=== PATIENT | female | born 2000 | race Caucasian/White ===

== ENCOUNTER → 2024-07-05 | Outpatient (CLI) | payer SELFPAY ==
[2024-07-05 16:15] LABS: Absolute Lymphocyte Count 2.68 X10^3/uL (0.83-4.51); Absolute Neutrophil Count 10.9 X10^3/uL (2.0-7.7); Basophil# 0.04 X10^3/uL; Basophil% 0.3 % (0-1); Eosinophil# 0.27 X10^3/uL; Eosinophils% 1.8 % (0-5); Hematocrit 37.4 % (37-47); Hemoglobin 12.2 g/dL (12.0-15.0); Lymphocyte # 2.68 X10^3/ul (0.83-4.51); Lymphocyte % 17.9 % (19-41); Mean Corp Hgb Conc 32.6 g/dL (32-36); Mean Corpuscular Volume 82.7 fL (81-99); Mean Platelet Vol. 9.5 fl (6.2-12.0); Monocyte# 0.77 X10^3/uL; Monocyte% 5.1 % (0-10); NRBC Flagged by Analyzer 0 % (0-5); Neutrophil # 10.92 X10^3/uL (2.7-7.7); Neutrophil % 72.7 % (47-70); Platelet Count 337 K/mm3 (150-450); RBC Distribution Width CV 12.7 % (11.6-14.6); RBC Distribution Width SD 37.9 fl (35.1-43.9); Red Blood Count 4.52 M/mm3 (4.2-5.4)
[2024-07-05 16:29] LABS: Protein:Creat Ratio 81 mg/g CRE (0-200)
[2024-07-05 16:50] LABS: Hemoglobin A1c 6.2 % (<=5.6)
[2024-07-05 17:14] LABS: ALB/GLOB Ratio 1.3 RATIO (0.9-2.4); AST(SGOT) 15 U/L (<=31); Alanine Aminotransfer ALT/SGPT 11 U/L (<=34); Albumin, Serum 4.1 g/dL (3.5-5.0); Alkaline Phosphatase 73 U/L (35-104); Anion Gap 12 (5-15); BUN 11 mg/dL (4-19); Calcium,Total 9.3 mg/dL (7.6-11.0); Carbon Dioxide 21.4 mmol/L (21.0-32.0); Chloride 102 mmol/L (98-108); Creatinine, Serum 0.76 mg/dL (0.70-1.20); EST Glomerular Filtration Rate 113 (>60); Globulin 3.1 g/dL (2.2-4.2); Glucose 77 mg/dL (70-99); HIV Nonreactive (Nonreactive); Hepatitis B Surface Antigen Nonreactive (Nonreactive); Hepatitis C Antibody Nonreactive (Nonreactive); Potassium 3.7 mmol/L (3.3-5.1); Protein, Total 7.2 g/dL (5.9-8.4); Rubella IgG REAC (Nonreactive); Sodium Level 135 mmol/L (133-145); Syphilis Antibodies Nonreactive (Nonreactive); Thyroid Stim Hormone (TSH) 0.652 uIU/mL (0.300-4.200); Total Bilirubin 0.17 mg/dL (0.00-1.30)
[2024-07-08 06:08] LABS: Chlamydia By Nucleic Acid AMP Negative (Negative); Gonococcus By Nucleic Acid AMP Negative (Negative)
[2024-07-11 09:54] LABS: HPV Reflexed? NOT INDICATED
== END | disposition home or self-care (01) ==
PROVIDERS: PCP Physician Assistant; Referring Provider Obstetrics & Gynecology; Visit Provider Obstetrics & Gynecology
DX: O24.319 Unspecified pre-existing diabetes mellitus in pregnancy, unspecified trimester (principal); O09.90 Supervision of high risk pregnancy, unspecified, unspecified trimester; Z3A.00 Weeks of gestation of pregnancy not specified; Z12.4 Encounter for screening for malignant neoplasm of cervix
CPT/HCPCS: 36415; 80053; 82570; 83036; 84156; 84443; 85025; 86703; 86762; 86780; 86803; 86850; 86900; 86901; 87086; 87088; 87340; 87491; 87591; 88175; G0145

== ENCOUNTER → 2024-08-02 | Outpatient (CLI) | payer SELFPAY ==
--- NOTE | 2024-08-02 13:04 | EKG12_ITS ---
Test Reason : HIGH RISK PREG Blood Pressure : */* mmHG Vent. Rate : 72 BPM Atrial Rate : 72 BPM P-R Int : 126 ms QRS Dur : 72 ms QT Int : 376 ms P-R-T Axes : 67 93 47 degrees QTcB Int : 411 ms Normal sinus rhythm with sinus arrhythmia Rightward axis Borderline ECG Confirmed by JUANY ROOT, RAF ([id number]), publication editor VELVET GANDHI ([id number]) on 08/03/2024 11:01:50 AM Referred By: Anitra Anthony Confirmed By: [facility] HARRINGTON MD
== END | disposition home or self-care (01) ==
LOC: PSN 13:03
PROVIDERS: PCP Physician Assistant; Referring Provider Obstetrics & Gynecology; Visit Provider Obstetrics & Gynecology
DX: O24.319 Unspecified pre-existing diabetes mellitus in pregnancy, unspecified trimester (principal); Z3A.00 Weeks of gestation of pregnancy not specified
CPT/HCPCS: 93005

== ENCOUNTER → 2024-11-21 | Outpatient (CLI) | payer SELFPAY ==
[2024-11-21 12:24] LABS: Hematocrit 38.0 % (37-47); Hemoglobin 12.7 g/dL (12.0-15.0); Immature Granulocytes Count 0.100 X10^3/uL (0.0-0.0); Mean Corp Hgb Conc 33.4 g/dL (32-36); Mean Corpuscular Volume 83.5 fL (81-99); Mean Platelet Vol. 9.5 fl (6.2-12.0); NRBC Flagged by Analyzer 0 % (0-5); Platelet Count 220 K/mm3 (150-450); RBC Distribution Width CV 13.1 % (11.6-14.6); RBC Distribution Width SD 39.7 fl (35.1-43.9); Red Blood Count 4.55 M/mm3 (4.2-5.4); White Blood Count 11.9 K/mm3 (4.4-11.0)
[2024-11-21 13:16] LABS: HIV Nonreactive (Nonreactive); Syphilis Antibodies Nonreactive (Nonreactive)
== END | disposition home or self-care (01) ==
PROVIDERS: Obstetrics & Gynecology; PCP Physician Assistant; Visit Provider Advanced Practice Midwife
DX: O09.91 Supervision of high risk pregnancy, unspecified, first trimester (principal); Z3A.00 Weeks of gestation of pregnancy not specified
CPT/HCPCS: 36415; 85025; 86703; 86780

== ENCOUNTER → 2025-01-19 | Outpatient (CLI) | payer SELFPAY | END | disposition home or self-care (01) | LOC: LABSPEC 13:16 | PROVIDERS: PCP Physician Assistant; Referring Provider Nurse Practitioner Women's Health; Visit Provider Nurse Practitioner Women's Health | DX: O09.93 Supervision of high risk pregnancy, unspecified, third trimester (principal) | CPT/HCPCS: 87077; 87081; 87186 ==

== ENCOUNTER 2025-02-05 09:53 | Inpatient (IN) | payer SELFPAY ==
[2025-02-05] VITALS (88 sets, daily range): BP systolic 120–194; BP diastolic 61–101; PULSE 70–121; RESP 15–17; TEMP 36.1–37.1; O2SAT 84–100; BMI 30.1
--- OUTSIDE RECORDS SUMMARY | 2025-02-05 09:50 | XMS RPT_ITS | CCD ---
Author Organization [facility] Care Team Providers Care Mechanic Insulator Name Role Phone Wilbert Martinez Unavailable Kita Carter Admitting Unavailable Kita Carter Attending Unavailable Olivia Pruett Primary Care Provider 1( [phone] Olivia Pruett Primary Care Provider [phone] Olivia Pruett PA-C Primary Care Provid er Olivia Pruett PA-C Primary Care Provid er Olivia Pruett PA-C Primary Care Provid er Olivia Pruett PA-C Primary Care Provid er Miya MINA, Olivia White Primary Care Provid er MIKE ALLRED Attending Unavailable OLIVIA PRUETT Primary Care Unavaila ble ISABEL GARCIA Referring Unavailable IASBEL GARCIA Admitting Unavailable Dr. Olivia Pruett PA-C Primary Care Provider Dr. Olivia Pruett PA-C Referring Provider Dr. Jenny Guerrier DO Attending Provider Lizz ROOT, Dr. Ayoub Attending Provider Dr. Anitra Zamudio MD Referring Provider 1( [phone] Vernon HUNTER-Leigh Gonsales Attending Provider CHAPARRO, ODALIS Referring Unavailable CHAPARRO, ODALIS Attending Unavailable Radha Juarez CNM Attending Provider [phone] OLIVIA PRUETT Primary Care Unavaila ble DEMETRIUS RAMIREZ Attending Unavailab OLIVIA Alan ASHLI Primary Care Unavaila ble ISABEL GARCIA Attending Unavailable OSCAR OLIVARES Attending Unavailable OLIVIA PRUETT ASHLI Primary Care Unavaila ble OSCAR OLIVARES Attending Unavailable OLIVIA PRUETT ASHLI Primary Care Unavaila ble OLIVIA PRUETT ASHLI Primary Care Unavaila ble DEMETRIUS RAMIREZ Attending Unavailab OLIVIA Alan ASHLI Primary Care Unavaila ble ISABEL GARCIA Attending Unavailable OSCAR OLIVARES Attending Unavailable OLIVIA PRUETT Primary Care Unavaila mike Mcclain MD, [facility] Primary Care Provider Unavaildaniella Pruett PA-C, Dr. Samuels Primary Care Provider Miya MINA, Dr. Samuels Referring Provider Dr. Jenny Guerrier DO Attending Provider Miya MINA, Dr. Samuels Primary Care Physician Miya MINA, Dr. Samuels Referring Provider Radha Juarez CNM Attending Physician Dr. Jenny Guerrier DO Attending Physician Lizz ROOT, Dr. Ayoub Attending Physician Miya, Olivia Primary Care Unavailable Anitra Zamudio Attending Unavailable Anitra Zamudio Referring Unavailable Jenny Guerrier Admitting Unavailabl Jenny Shen Attending Unavailabl e Miya, Olivia Primary Care Unavailable Anitra Zamudio Attending Unavailable Pruett, Olivia Referring Unavailable Pruett, Olivia Primary Care Unavailable Radha Juarez Attending Unavailable Pruett, Olivia Referring Unavailable Pruett, Olivia Primary Care Unavailable Anitra Zamudio Referring Unavailable Pruett, Olivia Primary Care Unavailable Anitra Zamudio Attending Unavailable Pruett, Olivia Primary Care Unavailable Jenny Guerrier Attending Unavailabl e Pruett, Olivia Referring Unavailable Pruett, Olivia Primary Care Unavailable Anitra Zamudio Attending Unavailable Pruett, Olivia Referring Unavailable Radha Juarez Attending Unavailable Pruett, Olivia Referring Unavailable Pruett, Olivia Primary Care Unavailable Pruett, Olivia Primary Care Unavailable Leigh Junior NP Attending Unavailable Pruett, Olivia Referring Unavailable Pruett, Olivia Primary Care Unavailable Radha Juarez Attending Unavailable Pruett, Olivia Referring Unavailable Jenny Guerrier Attending Unavailabl e Pruett, Olivia Referring Unavailable Pruett, Olivia Primary Care Unavailable Radha Juarez Attending Unavailable Pruett, Olivia Primary Care Unavailable JENNY TATE Attending Unavailable ANITRA ZAMUDIO Referring Unavailabl e DOC, MISC Primary Care Unavailable CHANI MCKINNEY Attending Unavailable ABHISHEKANTHONYANITRA Referring Unavailabl e DOC, MISC Primary Care Unavailable MARCANITRA ISABEL E Referring Unavailabl e DOC, MISC Primary Care Unavailable LAITH WILHELM Attending Unavailable DOC, MISC Primary Care Unavailable JENNY TATE Attending Unavailable JENNY TATE Referring Unavailable CHANI MCKINNEY Attending Unavailable CHANI MCKINNEY Referring Unavailable DOC, MISC Primary Care Unavailable LIZZ ANITRA E Referring Unavailabl e ALDAIR HUTCHISON Attending Unavailable JENNY TATE Attending Unavailable LIZZ ANITRA E Referring Unavailabl e DOC, MISC Primary Care Unavailable CHANI MCKINNEY Attending Unavailable DOC, MISC Primary Care Unavailable MARCCHALO ANITRA E Referring Unavailabl e DOC, MISC Primary Care Unavailable ANITRA ZAMUDIO E Referring Unavailabl e MARIA E CHANG Attending Unavailable DOC, MISC Primary Care Unavailable ABHISHEKANTHONY ANITRA E Referring Unavailabl e JENNY TATE Attending Unavailable CHANI MCKINNEY Attending Unavailable DOC, MISC Primary Care Unavailable ANITRA ZAMUDIO E Referring Unavailabl e CHANI MCKINNEY Attending Unavailable DOC, MISC Primary Care Unavailable MARCANTHONY, ANITRA E Referring Unavailabl e DOC, MISC Primary Care Unavailable SAPNA ANN Attending Unavailable JENNY TATE Referring Unavailable MARCANTHONY, ANITRA E Referring Unavailabl e DOC, MISC Primary Care Unavailable LAITH WILHELM Attending Unavailable CHANI MCKINNEY Attending Unavailable DOC, MISC Primary Care Unavailable MARCANTHONY, ANITRA E Referring Unavailabl e DOC, [facility] Primary Care Unavailable ANITRA ZAMUDIO Referring Unavailabl e ELSINOAHAcostaJONATHAN Attending Unavailable JENNY TATE Attending Unavailable DOC, [facility] Primary Care Unavailable ANITRA ZAMUDIO Referring Unavailabl e DOC, [facility] Primary Care Unavailable JENNY TATE Attending Unavailable ANITRA ZAMUDIO Referring Unavailabl e DOC, [facility] Primary Care Unavailable JENNY TATE Attending Unavailable ANITRA ZAMUDIO Referring Unavailabl e Allergies Allergy Classification Reported Allergen(s) Allergy Type Date of Onset Reaction(s) Facility Acetaminophen (1 source) Acetaminophen Drug Allergy 12-11-2014 [facility] (20 sources) acetaminophen; Translations: [ACETAMINOPHEN] Drug Allergy 12-11-2014 [facility] (1 source) Acetaminophen Drug Allergy 12-08-2024 [facility] Repository Medications Current Medications Medication Drug Class(es) Dates Sig (Normalized) Sig (Original) blood-glucose meter kit (7 sources) Start: 01-28-2022 End: 01-27-2023 blood-glucose meter kit Use to check BG 8 x daily. DX code E10.9 . 1 kit 0 01/28/2022 01/27/2023 Active blood-glucose sensor (Dexcom G7 Sensor) Ashley (9 sources) Start: 03-10-2024 blood-glucose sensor (Dexcom G7 Sensor) Ashley 1 Device by Miscellaneous route every 10 (ten) days . 9 each 3 03/10/2024 Active Continuous Glucose Sensor (DEXCOM G7 SENSOR) MISC (2 sources) Start: 06-24-2024 Continuous Glucose Sensor (DEXCOM G7 SENSOR) MISC 06/24/2024 Active Contour Next One Meter Misc (12 sources) Start: 04-24-2023 Contour Next One Meter Misc by Miscellaneous route Monitor blood sugar up to 6 times daily. Connect to omnipod Dash insulin pump. E10.9. . 1 each 04/24/2023 Active Start: 04-24-2023 Contour Next O ne Meter Misc by Miscellaneous route Monitor blood sugar up to 6 times daily. Connect to omnipod Dash insulin pump. E10.9. . 1 each 0 04/24/2023 Active cranberry preparation 125 mg oral tablet (2 sources) Non-Standardized Food Allergenic Extract, Non-Standardized Plant Allergenic Extract Cranberry 125 MG TABS Take by mouth Active glucagon (rdna) 1 mg injection (20 sources) Start: inject 1 mL by subcutaneous injection once as needed glucagon 1 mg SolR injection Indications: Type 1 diabetes mellitus without complication (HCC) Inject 1 mL (1 mg total) under the skin once as needed . 1 each 3 03/01/2024 Active Start: 12-03-2022 glucagon (Baqs imi) 3 mg/actuation [place] Administer 1 (one) spray into one nostril as needed . 1 each 3 12/03/2022 Active End: 03-01-2024 glucagon 1 mg Kit Indication s: Type 1 diabetes mellitus without complication (HCC) 1 mg 03/01/2024 Discontinued (Reorder (Suppress CancelRx Message to Pharmacy)) Insulin Disposable Pump (OMNIPOD 5 [id number] PODS GEN 5) MISC (2 sources) Start: 06-15-2024 Insulin Dispos able Pump (OMNIPOD 5 [id number] PODS GEN 5) MISC INJECT 1 DEVICE UNDER THE SKIN EVERY 72 HOURS 06/15/2024 Active insulin lispro 100 unt/ml injectable solution (20 sources) Insulin Analogue Start: 11-01-2024 HumaLOG U-100 Insulin 100 unit/mL injection Indications: Type 1 diabetes mellitus during in first trimester Use with insulin pump, up to 130u per day . 40 mL 11 11/01/2024 Active Start: 06-15-2024 End: 11-01-2024 HumaLOG U-100 Insulin 100 un it/mL injection Indications: Type 1 diabetes mellitus during in first trimester Use with insulin pump, up to 100u per day . 30 mL 2 06/15/2024 11/01/2024 Discontinued (Reorder (Suppress CancelRx Message to Pharmacy)) Start: 06-14-2024 Start: 04-24-2023 End: 06-15-2024 inject 100 [IU] by subcutaneous injection once daily HumaLOG U-100 Insulin 100 unit/mL injection Inject 100 (one hundred) Units under the skin daily Via insulin pump. . 30 mL 11 04/24/2023 06/15/2024 Discontinued Start: 01-13-2023 End: 04-24-2023 insulin lispro (AdmeLOG,Yg LOG) 100 unit/mL injection Indications: Type 1 diabetes mellitus without complication (HCC) USE DIRECTED VIA INSULIN PUMP APPROX 100 UNITS PER DAY . 30 mL 12 03/13/2023 04/24/2023 Discontinued Start: 03-13-2022 End: 01-12-2023 insulin lispro (AdmeLOG,Yg LOG) 100 unit/mL injection USE DIRECTED VIA INSULIN PUMP APPROX 100 UNITS PER DAY . 30 mL 12 12/03/2022 01/12/2023 Discontinued (Reorder (Suppress CancelRx Message to Pharmacy)) Start: 07-03-2021 End: 03-13-2022 insulin lispro (AdmeLOG,Yg LOG) 100 unit/mL injection USE DIRECTED VIA INSULIN PUMP APPROX 100 UNITS PER DAY . 10 mL 12 07/03/2021 03/13/2022 Discontinued (Reorder (Suppress CancelRx Message to Pharmacy)) Start: 03-22-2019 End: 07-03-2021 insulin lispro (HumaLOG) 100 unit/mL injection Use as directed via insulin pump, approx 100 units per day. 30 mL 12 04/16/2020 07/03/2021 Discontinued (Reorder) Start: 04-18-2016 insulin lispro (HumaLOG KwikPen) 100 unit/mL InPn Use as directed approx 50 units/day. 10 pen 4 04/18/2016 Active insulin story teller cart,aut,G6/7,cn tr (Omnipod 5 G6-G7 Intro Kt,Gen5,) Crtg (9 sources) Start: 03-10-2024 insulin story teller ca rt,aut,G6/7,cntr (Omnipod 5 G6-G7 Intro Kt,Gen5,) Crtg Inject 1 Device under the skin daily . 1 each 03/10/2024 Active insulin pump cart,auto,BT,G6 /7 (Omnipod 5 G6-G7 Pods, Gen 5,) Crtg (10 sources) Start: 10-07-2024 insulin pump c art,auto,BT,G6/7 (Omnipod 5 G6-G7 Pods, Gen 5,) Crtg Inject 1 Device under the skin every other day . 45 each 3 10/07/2024 Active Start: 03-10-2024 End: 10-07-2024 insulin pump cart,auto,BT,G6 /7 (Omnipod 5 G6-G7 Pods, Gen 5,) Crtg Inject 1 Device under the skin every 72 hours . 30 each 3 03/10/2024 10/07/2024 Discontinued (Reorder (Suppress CancelRx Message to Pharmacy)) Start: 03-10-2024 insulin pump c art,auto,BT,G6/7 (Omnipod 5 G6-G7 Pods, Gen 5,) Crtg Inject 1 Device under the skin every 72 hours . 30 each 3 03/10/2024 Active Vit-Fe Fumarate-FA ( PO) (2 sources) Vit-Fe Fumarate-FA ( PO) Take by mouth Active Completed/Discontinued Medications Medication Drug Class(es) Dates Sig (Normalized) Sig (Original) BLOOD-GLUCOSE METER MISC (1 source) End: 01-27-2022 BLOOD-GLUCOSE METER MISC by Miscellaneous route Use to check BG 8 x daily. DX code E10.9 . 0 01/27/2022 Discontinued (Reorder (Suppress CancelRx Message to Pharmacy)) flash glucose scanning reader (FreeStyle Sharon 2 [place]) Misc (5 sources) Start: 03-06-2021 End: 07-16-2022 flash glucose scanning reader (FreeStyle Sharon 2 [place]) Misc Use as directed for glucose monitoring . 1 each 0 03/06/2021 07/16/2022 Discontinued Start: 03-06-2021 flash glucose scanning reader (FreeStyle Sharon 2 [place]) Misc Use as directed for glucose monitoring . 1 each 0 03/06/2021 Active flash glucose sensor (FREEST YLE SHARON 10 DAY SENSOR) Kit (8 sources) Start: 06-25-2018 End: 02-29-2020 flash glucose sensor (FREEST YLE SHARON 10 DAY SENSOR) Kit Use as directed, just needs sensor. . 3 kit 5 06/25/2018 02/29/2020 Discontinued Start: 06-25-2018 flash glucose sensor (FREESTYLE SHARON 10 DAY SENSOR) Kit Use as directed, just needs sensor. . 3 kit 5 06/25/2018 Active flash glucose sensor (FreeStyle Sharon 2 Sensor) Kit (7 sources) Start: 07-16-2022 End: 12-03-2022 flash glucose sensor (FreeSt yle Sharon 2 Sensor) Kit 1 kit by Miscellaneous route every 14 (fourteen) days Use as directed to apply new sensor . 2 kit 11 07/16/2022 12/03/2022 Discontinued Start: 07-16-2022 flash glucose sensor (FreeStyle Sharon 2 Sensor) Kit 1 kit by Miscellaneous route every 14 (fourteen) days Use as directed to apply new sensor . 2 kit 11 07/16/2022 Active Start: 03-06-2021 End: 07-16-2022 flash glucose sensor (FreeSt yle Sharon 2 Sensor) Kit 1 kit by Miscellaneous route every 14 (fourteen) days Use as directed to apply new sensor . 2 kit 11 03/06/2021 07/16/2022 Discontinued (Reorder (Suppress CancelRx Message to Pharmacy)) Start: 03-06-2021 flash glucose sensor (FreeStyle Sharon 2 Sensor) Kit 1 kit by Miscellaneous route every 14 (fourteen) days Use as directed to apply new sensor . 2 kit 11 03/06/2021 Active insulin aspart, human 100 unt/ml injectable solution (8 sources) Insulin Analog Start: 03-13-2022 End: 04-24-2023 inject 100 [IU] by subcutaneous injection once daily insulin aspart, niacinamide, (Fiasp U-100 Insulin) 100 unit/mL Soln Inject 100 (one hundred) Units under the skin daily . 30 mL 0 03/13/2022 04/24/2023 Discontinued 3 ml insulin glargine 100 unt/ml pen injector (16 sources) Insulin Analogue Start: 08-26-2016 End: 04-19-2019 inject 32 [IU] by subcutaneous injection once daily, then inject 100 [IU] by subcutaneous injection BASAGLAR KWIKPEN 100 unit/mL (3 mL) InPn Inject 32 (thirty two) Units under the skin nightly. 30 mL 08/26/2016 04/19/2019 Discontinued Start: 08-26-2016 BASAGLAR KWIKP EN 100 unit/mL (3 mL) InPn Inject 32 (thirty two) Units under the skin nightly. 30 mL 08/26/2016 Active Start: 04-18-2016 End: 04-19-2019 insulin glargine (LANTUS JOANN OSTAR) 100 unit/mL (3 mL) InPn Use as directed approx 34 units/day. 30 mL 4 04/18/2016 04/19/2019 Discontinued insulin pump cart,cont inf,B T (Omnipod Dash Pods, Gen 4,) Crtg (12 sources) Start: 03-01-2024 End: 08-30-2024 insulin pump cart,cont inf,B T (Omnipod Dash Pods, Gen 4,) Crtg Use as directed every 3 days . 30 each 03/01/2024 08/30/2024 Discontinued (Alternate therapy) Start: 03-01-2024 insulin pump c art,cont inf,BT (Omnipod Dash Pods, Gen 4,) Crtg Use as directed every 3 days . 30 each 3 03/01/2024 Active Start: 2023 End: 03-01-2024 insulin pump cart,cont inf,B T (Omnipod Dash Pods, Gen 4,) Crtg Use as directed every 3 days . 30 each 2023 03/01/2024 Discontinued (Reorder (Suppress CancelRx Message to Pharmacy)) Start: 2023 insulin pump c art,cont inf,BT (Omnipod Dash Pods, Gen 4,) Crtg Use as directed every 3 days . 30 each 2023 Active Start: 03-20-2023 End: 2023 insulin pump cart,cont inf,B T (Omnipod Dash Pods, Gen 4,) Crtg Use as directed every 3 days . 10 each 03/20/2023 2023 Discontinued (Reorder (Suppress CancelRx Message to Pharmacy)) Start: 03-20-2023 insulin pump c art,cont inf,BT (Omnipod Dash Pods, Gen 4,) Crtg Use as directed every 3 days . 10 each 03/20/2023 Active ondansetron 4 mg disintegrating oral tablet (17 sources) Serotonin-3 Receptor Antagonist Start: 06-17-2024 End: 08-29-2024 take 1 tablet by mouth every six hours as needed for nausea and vomiting Ondansetron 4 mg tablet,disintegrating Discontinued 4 mg PO EVERY 6 HOURS as needed for nausea and vomiting 20 0 June 17, 2024 12:00am August 29, 2024 1:15pm Start: 06-27-2020 End: 12-25-2022 take 1 tablet by mouth every eight hours as needed for nausea ondansetron (ZOFRAN-ODT) 4 MG disintegrating tablet Dissolve 1 (one) tablet (4 mg total) on top of tongue every 8 (eight) hours as needed for nausea . 20 tablet 0 06/27/2020 12/25/2022 Discontinued (Therapy completed) prochlorperazine 25 mg rectal suppository (8 sources) Phenothiazine Start: 06-18-2024 End: 08-29-2024 Prochlorperazine (Compazine) 25 mg suppository Discontinued 25 mg RC TWICE A DAY 12 June 18, 2024 12:00am August 29, 2024 1:15pm Problems Active Problems Problem Classification Problem Date Documented Da te Episodic/Chronic Cardiac dysrhythmias (3 sources) Tachycardia; Translations: [Tachycardia, unspecified] 12-03-2022 Episodic Diabetes mellitus without complication (20 sources) Type 1 diabetes mellitus without complication; Translations: [Type 1 diabetes mellitus without complications] Onset: 03-15-2015 03-15-2015 Chronic Comment on above: x12 years Diabetes mellitus without complication (2 sources) Insulin pump present; Translations: [Presence of insulin pump (external) (internal)] Onset: 08-17-2024 08-17-2024 Episodic Diabetes or abnormal glucose tolerance complicating ; childbirth; or the puerperium (20 sources) and type 1 diabetes mellitus; Translations: [Pre-existing type 1 diabetes mellitus, in , first trimester] Onset: 06-22-2024 06-13-2024 Chronic Comment on above: [id number]; on Humalog ; HgBA1C ordered w/NOB insulin pump on yg log, saw [facility], [facility] consult NILSON. baseline labs and ekg ordered. insulin pump on yg log, saw [facility] endocr[facility], m managing. baseline labs and ekg pending. Nl CMP. HgbA1c 6.1. insulin pump on yg log, saw [facility] end[facility], m managing. baseline labs and ekg pending. Nl CMP. HgbA1c 6.1. echo at 22-24wkMFM BPP wkly and BWC NST wkly start at 28 wkGrowth US Q4wk at 28 wkDel at 39 wk insulin pump on yg log, saw [facility] endocr[facility], [facility] managing. baseline labs and ekg pending. Nl CMP. HgbA1c 6.1. echo at 22-24wkMFM BPP wkly and BWC NST wkly start at 28 wkGrowth US Q4wk at 28 wkDel at 37-39 wk insulin pump on yg log, saw [facility] end[facility], [facility] managing. baseline labs and ekg pending. Nl CMP. HgbA1c 6.1. echo at 22-24wk- normal MFM BPP wkly and BWC NST wkly start at 28 wkGrowth US Q4wk at 28 wkDel at 37-39 wk Hemorrhage during ; abruptio placenta; placenta previa (10 sources) Placenta previa partialis; Translations: [Partial placenta previa NOS or without hemorrhage, unspecified trimester] Onset: 12-08-2024 09-14-2024 Episodic Comment on above: repeat US at 28 week s, pelvic rest resolved Menstrual disorders (1 source) Amenorrhea, unspecified; Translations: [Amenorrhea, unspecified] Onset: 06-14-2024 Chronic Nonspecific chest pain (1 source) Chest pain; Translations: [Chest pain, unspecified] 12-25-2022 Episodic Other complications of (20 sources) High risk ; Translations: [Supervision of high risk , unspecified, unspecified trimester] 07-05-2024 Episodic Comment on above: MCKENNA 02/13/25, H usband: Seven [id number] MCKENNA 02/13/25 , : Seven Other complications of (1 source) Supervision of high risk , unspecified, first trimester; Translations: [Supervision of high risk , unspecified, first trimester] Onset: 12-08-2024 Episodic Other and delivery including normal (20 sources) ; Translations: [Encounter for supervision of normal , unspecified, unspecified trimester] 07-05-2024 Episodic Comment on above: Discussed genetic/ca rrier testing - declined. Discussed genetic/ca rrier testing - declined., nl anatomy Residual codes; unclassified (1 source) 30 weeks gestation of ; Translations: [30 weeks gestation of ] Onset: 12-08-2024 Episodic Residual codes; unclassified (1 source) 28 weeks gestation of ; Translations: [28 weeks gestation of ] Onset: 11-21-2024 Episodic Residual codes; unclassified (1 source) 24 weeks gestation of ; Translations: [24 weeks gestation of ] Onset: 10-24-2024 Episodic Residual codes; unclassified (1 source) 20 weeks gestation of ; Translations: [20 weeks gestation of ] Onset: 09-30-2024 Episodic Unclassified (10 sources) Patient encounter status; Translations: [Insulin pump titration] Onset: 04-04-2019 04-04-2019 Past or Other Problems Problem Classification Problem Date Documented Da te Episodic/Chronic Genitourinary symptoms and ill-defined conditions (1 source) Frequency of micturition; Translations: [Frequency of micturition] Onset: 08-29-2024 Episodic Other complications of (1 source) Supervision of high risk , unspecified, unspecified trimester; Translations: [Supervision of high risk , unspecified, unspecified trimester] Onset: 07-05-2024 Episodic Results Test Name Value Interpretation Reference Range Facility Progress Noteon 12-19-2024 Casting Carrier Authentication Interface Message Text Comanage Pregestational T1 Diabetes Mellitus Allison Nguyen is seen at 32w0d for comanagement of Pregestational Diabetes Mellitus. She denies any complaints today. Her blood glucose record was reviewed, see below for further detail and current settings. No changes to settings today, instructed pt to enter accurate carb counts for best insulin coverage. History of Presenting Problem: She is unaccompanied. Allison denies any cramping, contractions, vaginal bleeding, unusual or increase in vaginal discharge, signs and symptoms of pre-eclampsia, or leaking of any fluid. Patient with positive movement. Past Medical History: Past Medical History: Diagnosis Date Diabetes mellitus type 1 diagnosed at age 12 y.o. History reviewed. No pertinent surgical history. Medications: Encounter Medications[1] Allergies: Allergies[2] Family Medical History: Family History Problem Relation Age of Onset Colon Cancer Mother Social History: Social History Socioeconomic History Marital status: Spouse name: None Number of children: None Years of education: None Highest education level: None Tobacco Use Smoking status: Never Smokeless tobacco: Never Substance and Sexual Activity Alcohol use: Not Currently Drug use: Never Physical Exam: Vitals Extended BP: 117/76 Weight - Scale: 74.1 kg (163 lb 6.4 oz) Heart Rate: Positive Number of Fetuses: 1 Heart Rate: 141 per US Movement: Present Vaginal Bleeding: Absent Cramps / Contractions: Absent Mucous Discharge: Absent Assessment/Plan: Allison Nguyen is a 24 y.o. at 32w0d with: Active Non-Hospital Problems Diagnosis Date Noted Type 1 diabetes mellitus 08/17/[address] 08/17/2024 Pre-existing type 1 diabetes mellitus, in , third trimester 08/04/2024 Patient does not utilize phone technology nor other computers. Difficulty obtaining data - data shared as of 08/17 (Omnipod/Dexcom) S/p MFM consult 07/20 Pregestational Diabetes - Maternal Evaluation 1st trimester 2nd trimester 3rd trimester HA1c 6.2 5.7 10/12 EKG Needs SR 11/09 Echo (age > 35, DM >10 yrs) UPC 0.08 TSH Needs 1.130 10/12 Free T4 Dental Exam Recommend Opthalmology Exam Recommend Nutrition 06/22 outside institution ASA start at 12 weeks Will start 162mg daily taking Anatomy US 18-20 weeks echo 22-24 weeks Growth Q4 weeks Twice weekly ANT starting at 32 weeks Delivery 37-39 weeks or sooner as indicated 12/19: Pump download reviewed 12/06 - 12/19. TIR 81% (70-180), average glucose 140. Hyperglycemia noted with morning meal on Thursday and Thursday- pt admits most likely ate more carbs then entered. Pt states afraid to enter more carbs than she is allowed. Discussed the importance of entering actual carbs for appropriate coverage. Pt verbalizes understanding. Pt to continue in auto mode. See settings below: OmniPod Sensitivity: 12 AM 24 4 AM 24 Target: 110 Basal: 0000 0.95 0500 1 1700 1 IC ratio: 12 AM 6 3 AM 8 6 AM 2.5 9 AM 6.5 11 AM 3 4 PM 3 7 PM 3.5 10 PM 6 Kick counts reviewed and encouraged Precautions reviewed Follow up Comanage visit weekly testing twice weekly at 32 weeks- Mon scheduled with MFM Growth scan every 4 weeks. The total time spent on patient care today 12/19/2024 was 30 minutes. -15 minutes direct patient care -15 minutes chart review and documentation [1] Outpatient Encounter Medications as of 12/19/2024 Medication Sig Dispense Refill Calcium Carbonate (CALCIUM 500 PO) Take by mouth Magnesium 250 MG CAPS Take by mouth Continuous Glucose Sensor (DEXCOM G7 SENSOR) MISC Glucagon, rDNA, (GLUCAGON EMERGENCY) 1 MG KIT Inject 1 mL (1 mg) into the skin once as needed Insulin Disposable Pump (OMNIPOD 5 [id number] PODS GEN 5) MISC INJECT 1 DEVICE UNDER THE SKIN EVERY 72 HOURS HUMALOG 100 UNIT/ML SOLN Use with insulin pump, up to 100u per day . Cranberry 125 MG TABS Take by mouth (Patient not taking: Reported on 11/23/2024) Vit-Fe Fumarate-FA ( PO) Take by mouth (Patient not taking: Reported on 12/19/2024) No facility-administer ed encounter medications on file as of 12/19/2024. [2] Allergies Allergen Reactions Acetaminophen Rash Normal [facility] Asphalt Smoother Office Visit Reporton 12-08-2024 Asphalt Smoother Office Visit Report [facility] [address], [address] [place] [address] OFFICE VISIT Date of Service: 12/08/24 MR#: [id number] Acct: [id number] Name: ALLISON NGUYEN Rep #: [id number] : 2000 Provider: ABHAY [place] ams Age/Sex: 24/F Location: [facility] [place] Status: Signed Intake Vital Signs 10/24/24 14:24 11/21/24 11:37 12/08/24 14:48 12/08/24 14:48 Height 5 ft 3 in 5 ft 3 in 5 ft 3 in 5 ft 3 in Weight: 152 lb 6 oz 159 lb 5 oz 162 lb 3 oz BMI 26.9 28.2 28.7 BP 97/64 116/73 109/73 Intake Visit Reasons: 30wk ob Warehouse Helper Required: No Is patient in pain?: No Allergies acetaminophen (From Tylenol) Allergy (Mild, Verified 12/08/24 14:48) Rash Medications ???Medication ???Instructions ???Recorded ???Confirmed ???Type insulin lispro 100 unit/mL 1 sliding scale dose subcut 12/08/24 History subcutaneous pen (Humalog KwikPen USEASDIRECTD (U-100) Insulin) Last Menstrual Period: 05/09/24 Zika: Zika virus screening: Negative : No PFSH PFSH Medical History Diabetes type 1 Family History Mother Colon cancer Grandfather Colon cancer Grandfather Prostate cancer Social History adopted: No household members: spouse housing: house 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 pets and animals: Yes pets and animals: farm animals history of recent travel: [place] ([place]) out of state: Yes out of country: No sexually active: Yes Smoking Status: Never smoker alcohol intake: never substance use type: does not use well-balanced diet: daily or most days caffeine: Yes Type: coffee eating out: rarely or never during the past year weight has: remained stable what type of physical activity do you participate in: walking frequency: 1-2 times per week duration: 15-30 minutes/day ness/yarsani: Mennonite seatbelt use: always do you feel safe at home: Yes additional social history: : Seven - Lau/Katie History 1 Elective abortions Hx Para 0 Spontaneous abortions 0 Hx # Term Pregnancies Ectopic pregnancies Hx # Pregnancies Multiple births # of living children HPI 30wk ob Details: ALLISON NGUYEN is a 24 year old who presents for routine OB visit. OB Visit MCKENNA Calculator Estimated Delivery Date Method Current WG Current Estimate 02/13/25 LMP (Certain) 30w 3d Other Estimates 02/17/25 Ultrasound #1 29w 6d Expected Delivery Route/Plan needs fu placental location US Labor Preferences- CB/BF classes: [] labor support person: [] labor intervention preferences: [] pain management options preferred: [] cut cord/dad catch: [] : [] PP control planned: [] discussed possible routes of delivery and associated risks: [] special requests: [] Specific Issue/Plans Covid status: [] Flu vaccine: [] Tdap vaccine: [] Rhogam: [] LARC form signed: [] Problem list reviewed and updated with the most current plan of care details and appropriate orders placed. Relevant counseling for the gestational age provided. Continue routine care and follow up unless otherwise noted in visit notes/problem list details Initial Weight: Not Recorded Date -???-???-???-???-?? ?-???-???-???-???-? ??-???-???- EGA Weight BP Urine Prot -???-???-???-???-?? ?-???-???-???-???-? ??-???-???- Glucose FHR FuHt Pres Dilation -???-???-???-???-?? ?-???-???-???-???-? ??-???-???- Effaced St Visit Note 07/05/24 -???-???-???-???-?? ?-???-???-???-???-? ??-???-???- 8w 1d 131 lb 4 oz 111/62 -???-???-???-???-?? ?-???-???-???-???-? ??-???-???- 140 -???-???-???-???-?? ?-???-???-???-???-? ??-???-???- SM- no vb cr amping co nausea nd constipation, labile blood sugars. 08/02/24 -???-???-???-???-?? ?-???-???-???-???-? ??-???-???- 12w 1d 134 lb 3 oz 105/68 Negative -???-???-???-???-?? ?-???-???-???-???-? ??-???-???- Negative 160 -???-???-???-???-?? ?-???-???-???-???-? ??-???-???- MH-no VB. Na usea improving. Saw MFM and managing glucose, improved. Br US confirm FHT 08/29/24 -???-???-???-???-?? ?-???-???-???-???-? ??-???-???- 16w 0d 140 lb 8 oz 108/71 Negative -???-???-???-???-?? ?-???-???-???-???-? ??-???-???- 250 g/dL 165 -???-???-???-???-?? ?-???-???-???-???-? ??-???-???- KW- no vb/cr amping. Appt with MFM on thurs for insulin adjustment. Blood sugars are up and down Has MFM US scheduled. 09/28/24 -???-???-???-???-?? ?-???-???-???-???-? ??-???-???- 20w 2d 147 lb 3 oz 109/70 Negative -???-???-???-???-?? ?-???-???-???-???-? ??-???-???- Negative 139 -???-???-???-???-?? ?-???-???-???-???-? ??-???-???- JV- pt has a previa of the tail end of the place (more content not included)... Normal [facility] Progress Noteon 12-06-2024 [employer] Authentication Interface Message Text Comanage Pregestational T1 Diabetes Mellitus Allison Nguyen is seen at 30w1d for comanagement of Pregestational Diabetes Mellitus. She denies any complaints today. Her blood glucose record was reviewed. Her insulin carb ratios changed due to morning/mid-day meal hyperglycemia, and ISF also changed with TTD close to 80u/day. See pump details/discussion below. History of Presenting Problem: She is accompanied by her significant other. Allison denies any cramping, contractions, vaginal bleeding, unusual or increase in vaginal discharge, signs and symptoms of pre-eclampsia, or leaking of any fluid. Patient with positive movement. Past Medical History: Past Medical History: Diagnosis Date Diabetes mellitus type 1 diagnosed at age 12 y.o. History reviewed. No pertinent surgical history. Medications: Encounter Medications[1] Allergies: Allergies[2] Family Medical History: Family History Problem Relation Age of Onset Colon Cancer Mother Social History: Social History Socioeconomic History Marital status: Spouse name: None Number of children: None Years of education: None Highest education level: None Tobacco Use Smoking status: Never Smokeless tobacco: Never Substance and Sexual Activity Alcohol use: Not Currently Drug use: Never Physical Exam: Vitals Extended BP: 110/62 Weight - Scale: 73 kg (160 lb 14.4 oz) Heart Rate: 140 via doppler See growth US from 11/21/24 Assessment/Plan: Allison Nguyen is a 24 y.o. at 30w1d with: Active Non-Hospital Problems Diagnosis Date Noted Type 1 diabetes mellitus 08/17/[address] 08/17/2024 Pre-existing type 1 diabetes mellitus, in , third trimester 08/04/2024 Patient does not utilize phone technology nor other computers. Difficulty obtaining data - data shared as of 08/17 (Omnipod/Dexcom) S/p MFM consult 07/20 Pregestational Diabetes - Maternal Evaluation 1st trimester 2nd trimester 3rd trimester HA1c 6.2 5.7 10/12 EKG Needs SR 11/09 Echo (age > 35, DM >10 yrs) UPC 0.08 TSH Needs 1.130 10/12 Free T4 Dental Exam Recommend Opthalmology Exam Recommend Nutrition 06/22 outside institution ASA start at 12 weeks Will start 162mg daily taking Anatomy US 18-20 weeks echo 22-24 weeks Growth Q4 weeks Twice weekly ANT starting at 32 weeks Delivery 37-39 weeks or sooner as indicated 12/06: Pump download reviewed 11/22 - 12/06. TIR 783% (70-180), average glucose 138. Hyperglycemia noted with morning and mid-day meals - ICR strengthened at those times. ISF decreased to 24. Otherwise, watch weekend carb counts, incorporate exercise/walking. Pt to continue in auto mode. See settings below: OmniPod Sensitivity: 12 AM 24 4 AM 24 Target: 110 Basal: 0000 0.95 0500 1 1700 1 IC ratio: 12 AM 6 3 AM 8 6 AM 2.5 9 AM 6.5 11 AM 3.0 4 PM 3 7 PM 3.5 10 PM 6 Follow up in two weeks to start weekly co-manage with ANT; second day of ANT with primary OB. Growth Q4 weeks with MFM. The total time spent on patient care today 12/06/2024 was 30 minutes. -15 minutes direct patient care -15 minutes chart review and documentation [1] Outpatient Encounter Medications as of 12/06/2024 Medication Sig Dispense Refill Calcium Carbonate (CALCIUM 500 PO) Take by mouth Magnesium 250 MG CAPS Take by mouth Continuous Glucose Sensor (DEXCOM G7 SENSOR) MISC Glucagon, rDNA, (GLUCAGON EMERGENCY) 1 MG KIT Inject 1 mL (1 mg) into the skin once as needed Insulin Disposable Pump (OMNIPOD 5 [id number] PODS GEN 5) MISC INJECT 1 DEVICE UNDER THE SKIN EVERY 72 HOURS HUMALOG 100 UNIT/ML SOLN Use with insulin pump, up to 100u per day . Vit-Fe Fumarate-FA ( PO) Take by mouth Cranberry 125 MG TABS Take by mouth (Patient not taking: Reported on 12/06/2024) No facility-administer ed encounter medications on file as of 12/06/2024. [2] Allergies Allergen Reactions Acetaminophen Rash Normal [facility] Progress Noteon 11-23-2024 [employer] Authentication Interface Message Text Comanage Pregestational T1 Diabetes Mellitus Allison Nguyen is seen at 28w2d for comanagement of Pregestational Diabetes Mellitus. She denies any complaints today. Her blood glucose record was reviewed, overall well controlled. Struggling on Thursday afternoons due to diet and decreased activity. Encouraged pt to watch CHO counts and try walking to help. Her insulin pump settings did not change today, pt to remain in automode. See below for further detail and current settings. History of Presenting Problem: She is accompanied by her . Allison denies any cramping, contractions, vaginal bleeding, unusual or increase in vaginal discharge, signs and symptoms of pre-eclampsia, or leaking of any fluid. Patient with positive movement. Past Medical History: Past Medical History: Diagnosis Date Diabetes mellitus type 1 diagnosed at age 12 y.o. History reviewed. No pertinent surgical history. Medications: Encounter Medications[1] Allergies: Allergies[2] Family Medical History: Family History Problem Relation Age of Onset Colon Cancer Mother Social History: Social History Socioeconomic History Marital status: Spouse name: None Number of children: None Years of education: None Highest education level: None Tobacco Use Smoking status: Never Smokeless tobacco: Never Substance and Sexual Activity Alcohol use: Not Currently Drug use: Never Physical Exam: Vitals Extended BP: 106/67 Weight - Scale: 71.7 kg (158 lb 1.6 oz) Heart Rate: Positive Number of Fetuses: 1 Heart Rate: 143 per doppler Movement: Present Vaginal Bleeding: Absent Cramps / Contractions: Absent Mucous Discharge: Absent Assessment/Plan: Allison Nguyen is a 24 y.o. at 28w2d with: Active Non-Hospital Problems Diagnosis Date Noted Type 1 diabetes mellitus 08/17/[address] 08/17/2024 Pre-existing type 1 diabetes mellitus, in , second trimester 08/04/2024 Patient does not utilize phone technology nor other computers. Difficulty obtaining data - data shared as of 08/17 (Omnipod/Dexcom) S/p MFM consult 07/20 Pregestational Diabetes - Maternal Evaluation 1st trimester 2nd trimester 3rd trimester HA1c 6.2 5.7 10/12 EKG Needs SR 11/09 Echo (age > 35, DM >10 yrs) UPC 0.08 TSH Needs 1.130 10/12 Free T4 Dental Exam Recommend Opthalmology Exam Recommend Nutrition 06/22 outside institution ASA start at 12 weeks Will start 162mg daily taking Anatomy US 18-20 weeks echo 22-24 weeks Growth Q4 weeks Twice weekly ANT starting at 32 weeks Delivery 37-39 weeks or sooner as indicated 11/23: Pump download reviewed 11/10 - 11/23. TIR 78% (70-180), average glucose 145. Overall well controlled. Pt is having all afternoon hyperglycemia on Sundays- meal after religious and notes decreased activity. Encouraged pt to go for walk on Thursday afternoons and focus on CHO counts. Otherwise not changes at this time. Pt to continue in auto mode. See settings below: OmniPod Sensitivity: 12 AM 30 4 AM 30 Target: 110 Basal: 0000 0.95 0500 1 1700 1 IC ratio: 12 AM 6 3 AM 8 6 AM 3.5 9 AM 6.5 11 AM 3.5 4 PM 3 7 PM 3.5 10 PM 6 Kick counts reviewed and encouraged Precautions reviewed Follow up Comanage visit 2 weeks testing twice weekly at 32 weeks- Mon scheduled with MFM, needs Thurs scheduled with OB Growth scan every 4 weeks The total time spent on patient care today 11/23/2024 was 30 minutes. -15 minutes direct patient care -15 minutes chart review and documentation [1] Outpatient Encounter Medications as of 11/23/2024 Medication Sig Dispense Refill Calcium Carbonate (CALCIUM 500 PO) Take by mouth Magnesium 250 MG CAPS Take by mouth HUMALOG 100 UNIT/ML SOLN Use with insulin pump, up to 100u per day . Cranberry 125 MG TABS Take by mouth (Patient not taking: Reported on 11/23/2024) Continuous Glucose Sensor (DEXCOM G7 SENSOR) MISC Glucagon, rDNA, (GLUCAGON EMERGENCY) 1 MG KIT Inject 1 mL (1 mg) into the skin once as needed (Patient not taking: Reported on 11/09/2024) Insulin Disposable Pump (OMNIPOD 5 [id number] PODS GEN 5) MISC INJECT 1 DEVICE UNDER THE SKIN EVERY 72 HOURS Vit-Fe Fumarate-FA ( PO) Take by mouth (Patient not taking: Reported on 11/23/2024) No facility-administer ed encounter medications on file as of 11/23/2024. [2] Allergies Allergen Reactions Acetaminophen Rash Normal [facility] Absolute lymphocyte countOrd ered By: Anitra Zamudio on 11-21-2024 Lymphocytes Auto (Unsp spec) [#/Vol] 2.10 10*3/uL 0.83-4.51 [facility] Absolute neutrophil countOrd ered By: Anitra Zamudio on 11-21-2024 Neutrophils (Bld) [#/Vol] 9.0 10*3/uL High 2.0-7.7 [facility] Automated lymphocyte count a s percentage of total leukocytesOrdered By: Anitra Zamudio on 11-21-2024 Lymphocytes/100 WBC Auto (Unsp spec) 17.6 % Low 19-41 [facility] Basophil percentageOrdered B y: Anitra Zamudio on 11-21-2024 Basophils/100 WBC (Bld) 0.3 % 0-1 [facility] CBC W/Diff, Automatedon 11-09-2024 Absolute Lymph 2.10 X10 3/uL Normal 0.83-4.51 [facility] Comment on above: Performed By: #### L 100.0100, L3890.6006, L509.8002 ####[facility] [address] [place], [address] Absolute Neut 9.0 X10 3/uL High 2.0-7.7 [facility] Comment on above: Performed By: #### L 100.0100, L3890.6006, L509.8002 ####[facility] [address] [place], [address] Basophils/100 WBC (Bld) 0.3 % Normal 0-1 [facility] Comment on above: Performed By: #### L 100.0100, L3890.6006, L509.8002 ####[facility] [address] [place], [address] Eosinophils/100 WBC (Bld) 1.5 % Normal 0-5 [facility] Comment on above: Performed By: #### L 100.0100, L3890.6006, L509.8002 ####[facility] [address] [place], [address] Erythrocyte distribution width (RBC) [Ratio] 13.1 % Normal 11.6-14.6 [facility] Comment on above: Performed By: #### L 100.0100, L3890.6006, L509.8002 ####[facility] [address] [place], [address] Hematocrit (Bld) [Volume fraction] 38.0 % Normal 37-47 [facility] Comment on above: Performed By: #### L 100.0100, L3890.6006, L509.8002 ####[facility] [address] [place], [address] Hemoglobin (Bld) [Mass/Vol] 12.7 g/dL Normal 12.0-15.0 [facility] Comment on above: Performed By: #### L 100.0100, L3890.6006, L509.8002 ####[facility] [address] [place], [address] IG% 0.800 Normal 0.0-0.9 [facility] Comment on above: Result Comment: IG% - Immature Granulocytes (promyelocytes, myelocytes and metamyelocytes) > 1% indicates that a LEFT SHIFT is Present. Performed By: #### L 100.0100, L3890.6006, L509.8002 ####[facility] [address] [place], [address] Lymphocytes/100 WBC (Bld) 17.6 % Low 19-41 [facility] Comment on above: Performed By: #### L 100.0100, L3890.6006, L509.8002 ####[facility] [address] [place], [address] MCH (RBC) [Entitic mass] 27.9 pg Normal 27.0-32.0 [facility] Comment on above: Performed By: #### L 100.0100, L3890.6006, L509.8002 ####[facility] [address] [place], [address] MCHC (RBC) [Mass/Vol] 33.4 g/dL Normal 32-36 [facility] Comment on above: Performed By: #### L 100.0100, L3890.6006, L509.8002 ####[facility] [address] [place], [address] MCV (RBC) [Entitic vol] 83.5 fL Normal 81-99 [facility] Comment on above: Performed By: #### L 100.0100, L3890.6006, L509.8002 ####[facility] [address] [place], [address] Monocytes/100 WBC (Bld) 4.4 % Normal 0-10 [facility] Comment on above: Performed By: #### L 100.0100, L3890.6006, L509.8002 ####[facility] [address] [place], [address] Neutrophils/100 WBC (Bld) 75.4 % High 47-70 [facility] Comment on above: Performed By: #### L 100.0100, L3890.6006, L509.8002 ####[facility] [address] [place], [address] Nucleated RBC (Bld) [#/Vol] 0 10*3/uL Normal 0-5 [facility] Comment on above: Performed By: #### L 100.0100, L3890.6006, L509.8002 ####[facility] [address] [place], [address] Platelet mean volume (Bld) [Entitic vol] 9.5 fL Normal 6.2-12.0 [facility] Comment on above: Performed By: #### L 100.0100, L3890.6006, L509.8002 ####[facility] [address] [place], [address] Platelets (Bld) [#/Vol] 220 10*3/uL Normal 150-450 [facility] Comment on above: Performed By: #### L 100.0100, L3890.6006, L509.8002 ####[facility] [address] [place], [address] RBC (Bld) [#/Vol] 4.55 10*6/uL Normal 4.2-5.4 [facility] Comment on above: Performed By: #### L 100.0100, L3890.6006, L509.8002 ####[facility] [address] [place], [address] RDW SD 39.7 fl Normal 35.1-43.9 [facility] Comment on above: Performed By: #### L 100.0100, L3890.6006, L509.8002 ####[facility] [address] [place], [address] WBC (Bld) [#/Vol] 11.9 10*3/uL High 4.4-11.0 [facility] Comment on above: Performed By: #### L 100.0100, L3890.6006, L509.8002 ####[facility] [address] [place], [address] Eosinophil percentageOrdered By: Anitra Zamudio on 11-21-2024 Eosinophils/100 WBC (Bld) 1.5 % 0-5 [facility] Erythrocyte distribution wid th ratioOrdered By: Anitra Zamudio on 11-21-2024 Erythrocyte distribution width (RBC) [Ratio] 13.1 % 11.6-14.6 [facility] Erythrocyte distribution wid th standard deviationOrdered By: Anitra Zamudio on 11-21-2024 Erythrocyte distribution width (RBC) [Ratio] 39.7 fl 35.1-43.9 [facility] HIVon 11-21-2024 HIV Non-Reactive Normal Nonreactive [facility] Comment on above: Result Comment: Non- Reactive Reactive Repeatedly reactive samples must be confirmed according to CDC recommended confirmatory algorithms. The subresults for either HIVAG or AHIV can be used as an aid in the selection of the confirmation algorithm for reactive samples. Send out specimens with Reactive results to [facility] for confirmation. Order the HIV antibody detection and differentiation: lc#[id number] Performed By: #### L 100.0100, L3890.6006, L509.8002 ####[facility] [address] [place], [address] Hematocrit Auto (Bld) [Volum e fraction]Ordered By: Anitra Zamudio on 11-21-2024 Hematocrit (Bld) [Volume fraction] 38.0 % 37-47 [facility] Hemoglobin measurementOrdere d By: Anitra Zamudio on 11-21-2024 Hemoglobin (Bld) [Mass/Vol] 12.7 g/dL 12.0-15.0 [facility] Immature granulocytes/100 WB C Auto (Bld)Ordered By: Anitra Zamudio on 11-21-2024 Immature granulocytes/100 WBC (Bld) 0.800 % 0.0-0.9 [facility] Comment on above: IG% - Immature Granu locytes (promyelocytes, myelocytes and metamyelocytes) > 1% indicates that a LEFT SHIFT is Present. Laboratory - Chemistry and C hemistry - challengeOrdered By: Radha Juarez on 11-21-2024 Glucose Ql (U) Negative [facility] Laboratory - UrinalysisOrder ed By: Radha Juarez on 11-21-2024 Protein Ql (U) Negative [facility] MCV (mean corpuscular volume ) determinationOrdered By: Anitra Zamudio on 11-21-2024 MCV (RBC) [Entitic vol] 83.5 fL 81-99 [facility] Mean corpuscular hemoglobin (MCH) determinationOrdered By: Anitra Zamudio on 11-21-2024 MCH (RBC) [Entitic mass] 27.9 pg 27.0-32.0 [facility] Mean corpuscular hemoglobin concentration (MCHC) determinationOrdered By: Anitra Zamudio on 11-21-2024 MCHC (RBC) [Mass/Vol] 33.4 g/dL 32-36 [facility] Mean platelet volume determi nationOrdered By: Anitra Zamudio on 11-21-2024 Platelet mean volume (Bld) [Entitic vol] 9.5 fL 6.2-12.0 [facility] Monocyte percentageOrdered B y: Anitra Zamudio on 11-21-2024 Monocytes/100 WBC (Bld) 4.4 % 0-10 [facility] Neutrophil percentageOrdered By: Anitra Zamudio on 11-21-2024 Neutrophils/100 WBC (Bld) 75.4 % High 47-70 [facility] No Panel InformationOrdered By: Anitra Zamudio on 11-21-2024 HIV (1&2) Antibody Non-Reactive Nonreactive [facility] Comment on above: Non-ReactiveReactive Repeatedly reactive samples must be confirmed according to CDC recommended confirmatory algorithms. The subresults for either HIVAG or AHIV can be used as an aid in the selection of the confirmation algorithm for reactive samples.Send out specimens with Reactive results to [facility] for confirmation.Order the HIV antibody detection and differentiation: #[id number] Nucleated red blood cell per centageOrdered By: Anitra Zamudio on 11-21-2024 Nucleated RBC/100 WBC (Bld) [Ratio] 0 % 0-5 [facility] Asphalt Smoother Office Visit Reporton 11-21-2024 Asphalt Smoother Office Visit Report [facility] [address], [address] [place] [address] OFFICE VISIT Date of Service: 11/21/24 MR#: [id number] Acct: [id number] Name: ALLISON NGUYEN Rep #: [id number] : 2000 Provider: ABHAY [place] ams Age/Sex: 24/F Location: 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 Is patient in pain?: No Allergies acetaminophen (From Tylenol) Allergy (Mild, Verified 11/21/24 11:37) Rash Medications ???Medication ???Instructions ???Recorded ???Confirmed ???Type insulin lispro 100 unit/mL 1 sliding scale dose subcut 05/06/ 25 10/13/25 History subcutaneous pen (Humalog KwikPen USEASDIRECTD (U-100) Insulin) Last Menstrual Period: 05/09/24 : No Have you fallen in the past year?: No PFSH PFSH Medical History Diabetes type 1 Family History Mother Colon cancer Grandfather Colon cancer Grandfather Prostate cancer Social History adopted: No household members: spouse housing: house 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 pets and animals: Yes pets and animals: farm animals history of recent travel: Yes ([place]) out of state: Yes out of country: No sexually active: Yes Smoking Status: Never smoker alcohol intake: never substance use type: does not use well-balanced diet: daily or most days caffeine: Yes Type: coffee eating out: rarely or never during the past year weight has: remained stable what type of physical activity do you participate in: walking frequency: 1-2 times per week duration: 15-30 minutes/day ness/yarsani: Mennonite seatbelt use: always do you feel safe at home: Yes additional social history: : Seven - Lau/Katie History 1 Elective abortions Hx Para 0 Spontaneous abortions 0 Hx # Term Pregnancies Ectopic pregnancies Hx # Pregnancies Multiple births # of living children HPI 28wk ob/glucose Details: ALLISON NGUYEN is a 24 year old who presents for routine OB visit. OB Visit MCKENNA Calculator Estimated Delivery Date Method Current WG Current Estimate 02/13/25 LMP (Certain) 28w 0d Other Estimates 02/17/25 Ultrasound #1 27w 3d Expected Delivery Route/Plan needs fu placental location US Labor Preferences- CB/BF classes: [] labor support person: [] labor intervention preferences: [] pain management options preferred: [] cut cord/dad catch: [] : [] PP control planned: [] discussed possible routes of delivery and associated risks: [] special requests: [] Specific Issue/Plans Covid status: [] Flu vaccine: [] Tdap vaccine: [] Rhogam: [] LARC form signed: [] Problem list reviewed and updated with the most current plan of care details and appropriate orders placed. Relevant counseling for the gestational age provided. Continue routine care and follow up unless otherwise noted in visit notes/problem list details Initial Weight: Not Recorded Date -???-???-???-???-?? ?-???-???-???-???-? ??-???-???- EGA Weight BP Urine Prot -???-???-???-???-?? ?-???-???-???-???-? ??-???-???- Glucose FHR FuHt Pres Dilation -???-???-???-???-?? ?-???-???-???-???-? ??-???-???- Effaced St Visit Note 07/05/24 -???-???-???-???-?? ?-???-???-???-???-? ??-???-???- 8w 1d 131 lb 4 oz 111/62 -???-???-???-???-?? ?-???-???-???-???-? ??-???-???- 140 -???-???-???-???-?? ?-???-???-???-???-? ??-???-???- SM- no vb cr amping co nausea nd constipation, labile blood sugars. 08/02/24 -???-???-???-???-?? ?-???-???-???-???-? ??-???-???- 12w 1d 134 lb 3 oz 105/68 Negative -???-???-???-???-?? ?-???-???-???-???-? ??-???-???- Negative 160 -???-???-???-???-?? ?-???-???-???-???-? ??-???-???- MH-no VB. Na usea improving. Saw MFM and managing glucose, improved. Br US confirm FHT 08/29/24 -???-???-???-???-?? ?-???-???-???-???-? ??-???-???- 16w 0d 140 lb 8 oz 108/71 Negative -???-???-???-???-?? ?-???-???-???-???-? ??-???-???- 250 g/dL 165 -???-???-???-???-?? ?-???-???-???-???-? ??-???-???- KW- no vb/cr amping[facility]. Blood sugars are up and down Has MFM US scheduled. 09/28/24 -???-???-???-???-?? ?-???-???-???-???-? ??-???-???- 20w 2d 147 lb 3 oz 109/70 Negative -???-???-???-???-?? ?-???-???-???-???-? ??-???-???- Negative 139 -???-???-???-???-?? ?-???-???-???-???-? ??-???-???- JV- pt has a previa of the tail end of the placenta over the cervix. w (more content not included)... Normal [facility] Platelet countOrdered By: Pollo Zamudio on 11-21-2024 Platelets (Bld) [#/Vol] 220 10*3/uL 150-450 [facility] RBC Auto (Bld) [#/Vol]Ordere d By: Anitra Martinezcallie on 11-21-2024 RBC (Bld) [#/Vol] 4.55 10*6/uL 4.2-5.4 [facility] Syphilis Antibodieson 2024 Syphilis Abs Non-Reactive Normal Nonreactive [facility] Comment on above: Performed By: #### L 100.0100, L3890.6006, L509.8002 ####[facility] [id number] [place], [place], [id number] White blood cell (WBC) count Ordered By: Anitra Zamudio on 11-21-2024 WBC (Bld) [#/Vol] 11.9 10*3/uL High 4.4-11.0 [facility] Progress Noteon 11-09-2024 [employer] Authentication Interface Message Text Comanage Pregestational T1 Diabetes Mellitus Allison Nguyen is seen at 26w2d for comanagement of Pregestational Diabetes Mellitus. She denies any complaints today. Her blood glucose record was reviewed, hyperglycemia with afternoon and evening meals. Her ICR is adjusted today, pt is to remain in automode. See below for further detail and current pump settings. History of Presenting Problem: She is accompanied by her . Allison denies any cramping, contractions, vaginal bleeding, unusual or increase in vaginal discharge, signs and symptoms of pre-eclampsia, or leaking of any fluid. Patient with positive movement. Past Medical History: Past Medical History: Diagnosis Date Diabetes mellitus type 1 diagnosed at age 12 y.o. History reviewed. No pertinent surgical history. Medications: Encounter Medications[1] Allergies: Allergies[2] Family Medical History: Family History Problem Relation Age of Onset Colon Cancer Mother Social History: Social History Socioeconomic History Marital status: Spouse name: None Number of children: None Years of education: None Highest education level: None Tobacco Use Smoking status: Never Smokeless tobacco: Never Substance and Sexual Activity Alcohol use: Not Currently Drug use: Never Physical Exam: Vitals Extended BP: 107/68 Weight - Scale: 70.3 kg (154 lb 14.4 oz) Heart Rate: Positive Number of Fetuses: 1 Heart Rate: 152 Movement: Present Vaginal Bleeding: Absent Cramps / Contractions: Absent Mucous Discharge: Absent Assessment/Plan: Allison Nguyen is a 24 y.o. at 26w2d with: Active Non-Hospital Problems Diagnosis Date Noted Type 1 diabetes mellitus 08/17/[address] 08/17/2024 Pre-existing type 1 diabetes mellitus, in , second trimester 08/04/2024 Patient does not utilize phone technology nor other computers. Difficulty obtaining data - data shared as of 08/17 (Omnipod/Dexcom) S/p MFM consult 07/20 Pregestational Diabetes - Maternal Evaluation 1st trimester 2nd trimester 3rd trimester HA1c 6.2 5.7 10/12 EKG Needs Scheduled 11/09 Echo (age > 35, DM >10 yrs) UPC 0.08 TSH Needs 1.130 10/12 Free T4 Dental Exam Recommend Opthalmology Exam Recommend Nutrition 06/22 outside institution ASA start at 12 weeks Will start 162mg daily taking Anatomy US 18-20 weeks echo 22-24 weeks Growth Q4 weeks Twice weekly ANT starting at 32 weeks Delivery 37-39 weeks or sooner as indicated 11/09: Pump download reviewed 10/27 - 11/09. TIR 75% (70-180), average glucose 129. Overall well controlled. Pt is having mid-day and evening hyperglycemia with meals, will adjust ICR in afternoon and evening. Pt to continue in auto mode. See settings below: OmniPod Sensitivity: 12 AM 30 4 AM 30 Target: 110 Basal: 0000 0.95 0500 1 1700 1 IC ratio: 12 AM 6 3 AM 8 6 AM 3.5 9 AM 6.5 11 AM 3.5 4 PM 3 7 PM 3.5 10 PM 6 Precautions reviewed Follow up Comanage visit 2 weeks testing twice weekly at 32 weeks- Mon scheduled with MFM Growth scan every 4 weeks at 28 weeks- scheduled 11/21 with MFM. The total time spent on patient care today 11/09/2024 was 30 minutes. -15 minutes direct patient care -15 minutes chart review and documentation [1] Outpatient Encounter Medications as of 11/09/2024 Medication Sig Dispense Refill Cranberry 125 MG TABS Take by mouth Continuous Glucose Sensor (DEXCOM G7 SENSOR) MISC Insulin Disposable Pump (OMNIPOD 5 [id number] PODS GEN 5) MISC INJECT 1 DEVICE UNDER THE SKIN EVERY 72 HOURS HUMALOG 100 UNIT/ML SOLN Use with insulin pump, up to 100u per day . Vit-Fe Fumarate-FA ( PO) Take by mouth Glucagon, rDNA, (GLUCAGON EMERGENCY) 1 MG KIT Inject 1 mL (1 mg) into the skin once as needed (Patient not taking: Reported on 11/09/2024) No facility-administer ed encounter medications on file as of 11/09/2024. [2] Allergies Allergen Reactions Acetaminophen Rash Normal [facility] Progress Noteon 10-26-2024 [employer] Authentication Interface Message Text Comanage Pregestational T1 Diabetes Mellitus Allison Nguyen is seen at 24w2d for comanagement of Pregestational Diabetes Mellitus. She denies any complaints today. Her blood glucose record was reviewed, overall well controlled. She is currently in automode on her insulin pump, no changes today. See below for detail and current pump settings. Reminded pt importance of prebolus and accurate carb counts today. History of Presenting Problem: She is accompanied by her . Allison denies any cramping, contractions, vaginal bleeding, unusual or increase in vaginal discharge, signs and symptoms of pre-eclampsia, or leaking of any fluid. Patient with positive movement. Past Medical History: Past Medical History: Diagnosis Date Diabetes mellitus type 1 diagnosed at age 12 y.o. History reviewed. No pertinent surgical history. Medications: Encounter Medications[1] Allergies: Allergies[2] Family Medical History: Family History Problem Relation Age of Onset Colon Cancer Mother Social History: Social History Socioeconomic History Marital status: Spouse name: None Number of children: None Years of education: None Highest education level: None Tobacco Use Smoking status: Never Smokeless tobacco: Never Substance and Sexual Activity Alcohol use: Not Currently Drug use: Never Physical Exam: Vitals Extended BP: 115/63 Weight - Scale: 69.1 kg (152 lb 4.8 oz) Heart Rate: Positive Number of Fetuses: 1 Movement: Present Vaginal Bleeding: Absent Cramps / Contractions: Absent Mucous Discharge: Absent Assessment/Plan: Allison Nguyen is a 24 y.o. at 24w2d with: Active Non-Hospital Problems Diagnosis Date Noted Type 1 diabetes mellitus 08/17/[address] 08/17/2024 Pre-existing type 1 diabetes mellitus, in , second trimester 08/04/2024 Patient does not utilize phone technology nor other computers. Difficulty obtaining data - data shared as of 08/17 (Omnipod/Dexcom) S/p MFM consult 07/20 Pregestational Diabetes - Maternal Evaluation 1st trimester 2nd trimester 3rd trimester HA1c 6.2 5.7 10/12 EKG Needs ordered Echo (age > 35, DM >10 yrs) UPC 0.08 TSH Needs 1.130 10/12 Free T4 Dental Exam Recommend Opthalmology Exam Recommend Nutrition 06/22 outside institution ASA start at 12 weeks Will start 162mg daily taking Anatomy US 18-20 weeks echo 22-24 weeks Growth Q4 weeks Twice weekly ANT starting at 32 weeks Delivery 37-39 weeks or sooner as indicated 10/26: Pump download reviewed 10/13 - 10/26. TIR 76% (70-180), average glucose 134. Overall well controlled. Pt is having mid-day and evening hyperglycemia with meals, appears to forget to pre-bolus, inaccurate carb counts. Reminded pt of importance of prebolus and carb counts. No changes today, pt to continue in auto mode. See settings below: OmniPod Sensitivity: 12 AM 30 4 AM 30 Target: 110 Basal: 0000 0.95 0500 1 1700 1 IC ratio: 12 AM 6 3 AM 8 6 AM 3.5 9 AM 6.5 11 AM 4 4 PM 3.5 7 PM 4 10 PM 6 Precautions reviewed Follow up comanage visit 2 weeks Growth scan at 28 weeks. The total time spent on patient care today 10/26/2024 was 30 minutes. -15 minutes direct patient care -15 minutes chart review and documentation [1] Outpatient Encounter Medications as of 10/26/2024 Medication Sig Dispense Refill Cranberry 125 MG TABS Take by mouth Continuous Glucose Sensor (DEXCOM G7 SENSOR) MISC Insulin Disposable Pump (OMNIPOD 5 [id number] PODS GEN 5) MISC INJECT 1 DEVICE UNDER THE SKIN EVERY 72 HOURS HUMALOG 100 UNIT/ML SOLN Use with insulin pump, up to 100u per day . Vit-Fe Fumarate-FA ( PO) Take by mouth Glucagon, rDNA, (GLUCAGON EMERGENCY) 1 MG KIT Inject 1 mL (1 mg) into the skin once as needed (Patient not taking: Reported on 10/26/2024) No facility-administer ed encounter medications on file as of 10/26/2024. [2] Allergies Allergen Reactions Acetaminophen Rash Normal [facility] Laboratory - Chemistry and C hemistry - challengeOrdered By: Anitra Zamudio on 10-24-2024 Glucose Ql (U) Negative [facility] Laboratory - UrinalysisOrder ed By: Anitra Zamudio on 10-24-2024 Protein Ql (U) Negative [facility] Asphalt Smoother Office Visit Reporton 10-24-2024 Asphalt Smoother Office Visit Report [facility]'s [address], [address] [place] [address] OFFICE VISIT Date of Service: 10/24/24 MR#: [id number] Acct: [id number] Name: ALLISON NGUYEN Rep #: [id number] 06 : 2000 Provider: Dr. Anitra monreal MD Age/Sex: 24/F Location: 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 [employer] Required: No Is patient in pain?: No Allergies acetaminophen (From Tylenol) Allergy (Mild, Verified 10/24/24 14:24) Rash Medications ???Medication ???Instructions ???Recorded ???Confirmed ???Type insulin lispro 100 unit/mL 1 sliding scale dose subcut 10/24/24 History subcutaneous pen (Humalog KwikPen USEASDIRECTD (U-100) Insulin) Last Menstrual Period: 05/09/24 Zika: Zika virus screening: Negative : No PFSH PFSH Medical History Diabetes type 1 Family History Mother Colon cancer Grandfather Colon cancer Grandfather Prostate cancer Social History adopted: No household members: spouse housing: house 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 pets and animals: Yes pets and animals: farm animals history of recent travel: Yes ([place]) out of state: Yes out of country: No sexually active: Yes Smoking Status: Never smoker alcohol intake: never substance use type: does not use well-balanced diet: daily or most days caffeine: Yes Type: coffee eating out: rarely or never during the past year weight has: remained stable what type of physical activity do you participate in: walking frequency: 1-2 times per week duration: 15-30 minutes/day ness/yarsani: [employer] seatbelt use: always do you feel safe at home: Yes additional social history: : Seven - Lau/Katie History 1 Elective abortions Hx Para 0 Spontaneous abortions 0 Hx # Term Pregnancies Ectopic pregnancies Hx # Pregnancies Multiple births # of living children HPI 24 WK OB Details: ALLISON NGUYEN is a 24 year old who presents for routine OB visit. OB Visit [facility]CKENNA Calculator Estimated Delivery Date Method Current WG Current Estimate 02/13/25 LMP (Certain) 24w 0d Other Estimates 02/17/25 Ultrasound #1 23w 3d Expected Delivery Route/Plan needs fu placental location US Labor Preferences- CB/BF classes: [] labor support person: [] labor intervention preferences: [] pain management options preferred: [] cut cord/dad catch: [] : [] PP control planned: [] discussed possible routes of delivery and associated risks: [] special requests: [] Specific Issue/Plans Covid status: [] Flu vaccine: [] Tdap vaccine: [] Rhogam: [] LARC form signed: [] Problem list reviewed and updated with the most current plan of care details and appropriate orders placed. Relevant counseling for the gestational age provided. Continue routine care and follow up unless otherwise noted in visit notes/problem list details Initial Weight: Not Recorded Date -???-???-???-???-?? ?-???-???-???-???-? ??-???-???- EGA Weight BP Urine Prot -???-???-???-???-?? ?-???-???-???-???-? ??-???-???- Glucose FHR FuHt Pres Dilation -???-???-???-???-?? ?-???-???-???-???-? ??-???-???- Effaced St Visit Note 07/05/24 -???-???-???-???-?? ?-???-???-???-???-? ??-???-???- 8w 1d 131 lb 4 oz 111/62 -???-???-???-???-?? ?-???-???-???-???-? ??-???-???- 140 -???-???-???-???-?? ?-???-???-???-???-? ??-???-???- SM- no vb cr amping co nausea nd constipation, labile blood sugars. 08/02/24 -???-???-???-???-?? ?-???-???-???-???-? ??-???-???- 12w 1d 134 lb 3 oz 105/68 Negative -???-???-???-???-?? ?-???-???-???-???-? ??-???-???- Negative 160 -???-???-???-???-?? ?-???-???-???-???-? ??-???-???- MH-no VB. Na usea improving. Saw MFM and managing glucose, improved. Br US confirm FHT 08/29/24 -???-???-???-???-?? ?-???-???-???-???-? ??-???-???- 16w 0d 140 lb 8 oz 108/71 Negative -???-???-???-???-?? ?-???-???-???-???-? ??-???-???- 250 g/dL 165 -???-???-???-???-?? ?-???-???-???-???-? ??-???-???- KW- no vb/cr amping. Appt with MFM on thurs for insulin adjustment. Blood sugars are up and down Has MFM US scheduled. 09/28/24 -???-???-???-???-?? ?-???-???-???-???-? ??-???-???- 20w 2d 147 lb 3 oz 109/70 Negative -???-???-???-???-?? ?-???-???-???-???-? ??-???-???- Negative 139 -???-???-???-???-?? ?-???-???-???-???-? ??-???-???- JV- pt has a previa of the tail end of the placenta over the cervix. we discussed pelvic rest. (more content not included)... Normal [facility] HEMOGLOBIN A1Con 10-12-2024 HbA1c (Bld) [Mass fraction] 5.7 % High <=5.6 [facility] Comment on above: Reference Interval: <5.7% 5.7-6.4% Prediabetes > or = 6.5% Diabetes Targets for diabetes management: Type I <7.5% Type II <7.0% Order Comment: Relea se to patient->Automatic Result Comment: Refe rence Interval: <5.7% 5.7-6.4% Prediabetes > or = 6.5% Diabetes Targets for diabetes management: Type I <7.5% Type II <7.0% No Panel Informationon 10-12 Interpretation and review of laboratory results Abnormal [facility] Progress Noteon 10-12-2024 [employer] Authentication Interface Message Text Comanage Pregestational T1 Diabetes Mellitus Allison Nguyen is seen at 22w2d for comanagement of Pregestational Diabetes Mellitus. She denies any complaints today. Her blood glucose record was reviewed, overall well controlled, see notes. Her insulin pump settings did not change today, pt remains in automode. History of Presenting Problem: She is accompanied by her . Allison denies any cramping, contractions, vaginal bleeding, unusual or increase in vaginal discharge, signs and symptoms of pre-eclampsia, or leaking of any fluid. Patient with positive movement. Past Medical History: Past Medical History: Diagnosis Date Diabetes mellitus type 1 diagnosed at age 12 y.o. History reviewed. No pertinent surgical history. Medications: Encounter Medications[1] Allergies: Allergies[2] Family Medical History: Family History Problem Relation Age of Onset Colon Cancer Mother Social History: Social History Socioeconomic History Marital status: Spouse name: None Number of children: None Years of education: None Highest education level: None Tobacco Use Smoking status: Never Smokeless tobacco: Never Substance and Sexual Activity Alcohol use: Not Currently Drug use: Never Physical Exam: Vitals Extended BP: 106/59 Weight - Scale: 68.7 kg (151 lb 6.4 oz) Heart Rate: Positive Number of Fetuses: 1 Movement: Present Vaginal Bleeding: Absent Cramps / Contractions: Absent Mucous Discharge: Absent Assessment/Plan: Allison Nguyen is a 24 y.o. at 22w2d with: Active Non-Hospital Problems Diagnosis Date Noted Type 1 diabetes mellitus 08/17/[address] 08/17/2024 Pre-existing type 1 diabetes mellitus, in , second trimester 08/04/2024 Patient does not utilize phone technology nor other computers. Difficulty obtaining data - data shared as of 08/17 (Omnipod/Dexcom) S/p MFM consult 07/20 Pregestational Diabetes - Maternal Evaluation 1st trimester 2nd trimester 3rd trimester HA1c 6.2 Ordered 09/14 EKG Needs Echo (age > 35, DM >10 yrs) UPC 0.08 TSH Needs Free T4 Dental Exam Recommend Opthalmology Exam Recommend Nutrition 06/22 outside institution ASA start at 12 weeks Will start 162mg daily Anatomy US 18-20 weeks echo 22-24 weeks Growth Q4 weeks Twice weekly ANT starting at 32 weeks Delivery 37-39 weeks or sooner as indicated 10/12: Pump download reviewed 10/06 - 10/12. TIR 84% (70-180), average glucose 122. Overall well controlled. Pt is having mid-day hyperglycemia. Discussed in more detail, pt is having hypoglycemia at am snack time and seems to be over-treating which spills into lunch as well. Discussed making sure to eat am snack and proper treatment of hypoglycemia if needed. Pt verbalizes understanding. No changes today, pt to continue in auto mode. See settings below: OmniPod Sensitivity: 12 AM 30 4 AM 30 Target: 110 Basal: 0000 0.95 0500 1 1700 1 IC ratio: 12 AM 6 3 AM 8 6 AM 3.5 9 AM 6.5 11 AM 4 4 PM 3.5 7 PM 4 10 PM 6 Precautions reviewed Follow up comanage visit in 2 weeks Growth scan at 28 weeks. The total time spent on patient care today 10/12/2024 was 30 minutes. -15 minutes direct patient care -15 minutes chart review and documentation [1] Outpatient Encounter Medications as of 10/12/2024 Medication Sig Dispense Refill Cranberry 125 MG TABS Take by mouth [DISCONTINUED] pyridoxine (B-6) 25 MG tablet Take by mouth daily Continuous Glucose Sensor (DEXCOM G7 SENSOR) MISC Glucagon, rDNA, (GLUCAGON EMERGENCY) 1 MG KIT Inject 1 mL (1 mg) into the skin once as needed Insulin Disposable Pump (OMNIPOD 5 [id number] PODS GEN 5) MISC INJECT 1 DEVICE UNDER THE SKIN EVERY 72 HOURS HUMALOG 100 UNIT/ML SOLN Use with insulin pump, up to 100u per day . Vit-Fe Fumarate-FA ( PO) Take by mouth No facility-administer ed encounter medications on file as of 10/12/2024. [2] Allergies Allergen Reactions Acetaminophen Rash Normal [facility] TSH WITH REFLEX TO T4Luanne 10-12-2024 TSH 1.130 ???IU/mL Normal 0.300-4.200 [facility] Comment on above: Order Comment: Relea se to patient->Automatic TSH with Reflex to T4Luanne 10-12-2024 Interpretation and review of laboratory results Normal [facility] TSH Qn 1.130 m[IU]/L [facility] Progress Noteon 09-29-2024 [employer] Authentication Interface Message Text Comanage Pregestational T1 Diabetes Mellitus Allison Nguyen is seen at 20w3d for comanagement of Pregestational Diabetes Mellitus. She denies any complaints today. Her blood glucose record was reviewed. Her insulin changed due to elevations with breakfast and dinner. See pump details/discussion below. History of Presenting Problem: She is accompanied by her significant other. Denies cramping/contractio ns, denies VB/LOF. Not yet appreciating FM. Past Medical History: Past Medical History: Diagnosis Date Diabetes mellitus type 1 diagnosed at age 12 y.o. History reviewed. No pertinent surgical history. Medications: Encounter Medications[1] Allergies: Allergies[2] Family Medical History: Family History Problem Relation Age of Onset Colon Cancer Mother Social History: Social History Socioeconomic History Marital status: Spouse name: None Number of children: None Years of education: None Highest education level: None Tobacco Use Smoking status: Never Smokeless tobacco: Never Substance and Sexual Activity Alcohol use: Not Currently Drug use: Never Physical Exam: Vitals Extended BP: 103/67 Weight - Scale: 66.2 kg (145 lb 14.4 oz) Heart Rate: 155 (per doppler) See anatomy US from 09/14 - placenta previa vs low lying placenta, re-evaluate at 28 weeks echo scheduled 10/12 Assessment/Plan: Allison Ngyuen is a 24 y.o. at 20w3d with: Active Non-Hospital Problems Diagnosis Date Noted Type 1 diabetes mellitus 08/17/[address] 08/17/2024 Pre-existing type 1 diabetes mellitus, in , second trimester 08/04/2024 Patient does not utilize phone technology nor other computers. Difficulty obtaining data - data shared as of 08/17 (Omnipod/Dexcom) S/p MFM consult 07/20 Pregestational Diabetes - Maternal Evaluation 1st trimester 2nd trimester 3rd trimester HA1c 6.2 Ordered 09/14 EKG Needs Echo (age > 35, DM >10 yrs) UPC 0.08 TSH Needs Free T4 Dental Exam Recommend Opthalmology Exam Recommend Nutrition 06/22 outside institution ASA start at 12 weeks Will start 162mg daily Anatomy US 18-20 weeks echo 22-24 weeks Growth Q4 weeks Twice weekly ANT starting at 32 weeks Delivery 37-39 weeks or sooner as indicated 09/29: Pump download reviewed 09/22 - 09/29. TIR 79% (70-180), average glucose 135. Patient with hyperglycemic episodes mostly with breakfast and dinner. Working on correct carb count and prebolus, as well as bolusing full amount. Encouraged prebolus 10-15 mins prior to meal, give full bolus as suggested by pump, and try to carb count as best as possible with guide. Changes today made to ICR and active insulin time (changed to 2.5). See settings below: OmniPod Sensitivity: 12 AM 30 4 AM 30 Target: 110 Basal: 0000 0.95 0500 1 1700 1 IC ratio: 12 AM 6 3 AM 8 6 AM 3.5 9 AM 6.5 11 AM 4 4 PM 3.5 7 PM 4 10 PM 6 Follow up 2 weeks for co-manage and echo as scheduled. The total time spent on patient care today 09/29/2024 was 30 minutes. -15 minutes direct patient care -15 minutes chart review and documentation [1] Outpatient Encounter Medications as of 09/29/2024 Medication Sig Dispense Refill HUMALOG 100 UNIT/ML SOLN Use with insulin pump, up to 100u per day . Vit-Fe Fumarate-FA ( PO) Take by mouth Cranberry 125 MG TABS Take by mouth pyridoxine (B-6) 25 MG tablet Take by mouth daily (Patient not taking: Reported on 09/29/2024) Continuous Glucose Sensor (DEXCOM G7 SENSOR) MISC Glucagon, rDNA, (GLUCAGON EMERGENCY) 1 MG KIT Inject 1 mL (1 mg) into the skin once as needed Insulin Disposable Pump (OMNIPOD 5 [id number] PODS GEN 5) MISC INJECT 1 DEVICE UNDER THE SKIN EVERY 72 HOURS No facility-administer ed encounter medications on file as of 09/29/2024. [2] Allergies Allergen Reactions Acetaminophen Rash Normal [facility] - Chemistry and C hemistry - challengeOrdered By: Jenny Ervin on 09-28-2024 Glucose Ql (U) Negative [facility] - UrinalysisOrder ed By: Jenny Ervin on 09-28-2024 Protein Ql (U) Negative [facility] Asphalt Smoother Office Visit Reporton 09-28-2024 Asphalt Smoother Office Visit Report [facility] [address], [address] [place] [address] OFFICE VISIT Date of Service: 09/28/24 MR#: [id number] Acct: [id number] Name: ALLISON NGUYEN Rep #: [id number] 71 : 2000 Provider: Dr. Jenny Ayers DO Age/Sex: 24/F Location: 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 Is patient in pain?: No Allergies acetaminophen (From Tylenol) Allergy (Mild, Verified 09/28/24 13:42) Rash Medications ???Medication ???Instructions ???Recorded ???Confirmed ???Type insulin lispro 100 unit/mL 1 sliding scale dose subcut 09/28/24 History subcutaneous pen (Humalog KwikPen USEASDIRECTD (U-100) Insulin) Last Menstrual Period: 05/09/24 Zika: Zika virus screening: Negative : No PFSH PFSH Medical History Diabetes type 1 Family History Mother Colon cancer Grandfather Colon cancer Grandfather Prostate cancer Social History adopted: No household members: spouse housing: house 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 pets and animals: Yes pets and animals: farm animals history of recent travel: Yes ([place]) out of state: Yes out of country: No sexually active: Yes Smoking Status: Never smoker alcohol intake: never substance use type: does not use well-balanced diet: daily or most days caffeine: Yes Type: coffee eating out: rarely or never during the past year weight has: remained stable what type of physical activity do you participate in: walking frequency: 1-2 times per week duration: 15-30 minutes/day ness/yarsani: Mennonite seatbelt use: always do you feel safe at home: Yes additional social history: : Seven - Lau/Katie History 1 Elective abortions Hx Para 0 Spontaneous abortions 0 Hx # Term Pregnancies Ectopic pregnancies Hx # Pregnancies Multiple births # of living children HPI 20 wk ob Details: ALLISON NGUYEN is a 24 year old who presents for routine OB visit. OB Visit MCKENNA Calculator Estimated Delivery Date Method Current WG Current Estimate 02/13/25 LMP (Certain) 20w 2d Other Estimates 02/17/25 Ultrasound #1 19w 5d Initial Weight: Not Recorded Date -???-???-???-???-?? ?-???-???-???-???-? ??-???-???- EGA Weight BP Urine Prot -???-???-???-???-?? ?-???-???-???-???-? ??-???-???- Glucose FHR FuHt Pres Dilation -???-???-???-???-?? ?-???-???-???-???-? ??-???-???- Effaced St Visit Note 07/05/24 -???-???-???-???-?? ?-???-???-???-???-? ??-???-???- 8w 1d 131 lb 4 oz 111/62 -???-???-???-???-?? ?-???-???-???-???-? ??-???-???- 140 -???-???-???-???-?? ?-???-???-???-???-? ??-???-???- SM- no vb cr amping co nausea nd constipation, labile blood sugars. 08/02/24 -???-???-???-???-?? ?-???-???-???-???-? ??-???-???- 12w 1d 134 lb 3 oz 105/68 Negative -???-???-???-???-?? ?-???-???-???-???-? ??-???-???- Negative 160 -???-???-???-???-?? ?-???-???-???-???-? ??-???-???- MH-no VB. Na usea improving. Saw MFM and managing glucose, improved. Br US confirm FHT 08/29/24 -???-???-???-???-?? ?-???-???-???-???-? ??-???-???- 16w 0d 140 lb 8 oz 108/71 Negative -???-???-???-???-?? ?-???-???-???-???-? ??-???-???- 250 g/dL 165 -???-???-???-???-?? ?-???-???-???-???-? ??-???-???- KW- no vb/cr amping. Appt with MFM on thurs for insulin adjustment. Blood sugars are up and down Has MFM US scheduled. 09/28/24 -???-???-???-???-?? ?-???-???-???-???-? ??-???-???- 20w 2d 147 lb 3 oz 109/70 Negative -???-???-???-???-?? ?-???-???-???-???-? ??-???-???- Negative 139 -???-???-???-???-?? ?-???-???-???-???-? ??-???-???- JV- pt has a previa of the tail end of the placenta over the cervix. we discussed pelvic rest. Patient was running every day and mowing the lawn, etc. We discussed that we can not do these things. Fasting glucose levels are 90's-110 and she states that her 2 hr pp are not what she wants them to be. SHe has [facility] appt tomorrow to discuss insulin pump. Continue monthly growth scans. will eventually need twice weekly testing starting 28 weeks. ACOG First Trimester First Trimester: Desire for , Alcohol, Tobacco Cessation, Illicit/Recreationa l Drug/Substance Use, Intimate Partner Violence, Barriers to care, Unstable Housing, Communication Barriers, Environmental/Work Hazards, Anticipated Course of Care, Toxoplasmosis Precations, Use of Any medications, Sexual activity, Exercise, Dental Care, Sauna/Hot tub use, Sea (more content not included)... Normal [facility] Progress Noteon 09-14-2024 Casting [employer]rier Authentication Interface Message Text Comanage Pregestational T1 Diabetes Mellitus Allison Nguyen is seen at 18w2d for comanagement of Pregestational Diabetes Mellitus. She denies any complaints today. Her blood glucose record was reviewed. Her insulin changed due to meal time hyperglycemia. See pump setting and recommendation below. History of Presenting Problem: She is accompanied by her significant other. Denies regular cramping or bettina, denies LOF/VB. FM n/a. Past Medical History: Past Medical History: Diagnosis Date Diabetes mellitus type 1 diagnosed at age 12 y.o. History reviewed. No pertinent surgical history. Medications: Encounter Medications[1] Allergies: Allergies[2] Family Medical History: Family History Problem Relation Age of Onset Colon Cancer Mother Social History: Social History Socioeconomic History Marital status: Spouse name: None Number of children: None Years of education: None Highest education level: None Tobacco Use Smoking status: Never Smokeless tobacco: Never Substance and Sexual Activity Alcohol use: Not Currently Drug use: Never Physical Exam: Vitals Extended BP: 107/58 Weight - Scale: 64.5 kg (142 lb 3.2 oz) Heart Rate: Positive Heart Rate: via us See anatomy US from today Assessment/Plan: Allison Nguyen is a 24 y.o. at 18w2d with: Active Non-Hospital Problems Diagnosis Date Noted Type 1 diabetes mellitus 08/17/[address] 08/17/2024 Pre-existing type 1 diabetes mellitus, in , second trimester 08/04/2024 Patient does not utilize phone technology nor other computers. Difficulty obtaining data - data shared as of 08/17 (Omnipod/Dexcom) S/p MFM consult 07/20 Pregestational Diabetes - Maternal Evaluation 1st trimester 2nd trimester 3rd trimester HA1c 6.2 Ordered 09/14 EKG Needs Echo (age > 35, DM >10 yrs) UPC 0.08 TSH Needs Free T4 Dental Exam Recommend Opthalmology Exam Recommend Nutrition 06/22 outside institution ASA start at 12 weeks Will start 162mg daily Anatomy US 18-20 weeks echo 22-24 weeks Growth Q4 weeks Twice weekly ANT starting at 32 weeks Delivery 37-39 weeks or sooner as indicated 09/14: Pump download reviewed 09/01 - 09/14. TIR 72% (70-180), average glucose 140. Patient with hyperglycemic episodes throughout the day, with meals. Still working on prebolus - about 5 minutes prior to meal. Asked pt about correct carb counting - admits is trying but eats a lot of fresh food and homemade food for which she guesses grams of carbs. Provided with nutrition pamphlet reviewing carbs for common fresh foods. Also admits is not bolusing entire amount if pump suggest an amount over 10 units as this makes her nervous. Going hypoglycemic when misses a snack or doesn't prebolus appropriately. Encouraged prebolus 10-15 mins prior to meal, give full bolus as suggested by pump, and try to carb count as best as possible with guide. Changes today made to ICR. See settings below: OmniPod Sensitivity: 12 AM 30 4 AM 30 Target: 110 Basal: 0000 0.95 0500 1 1700 1 IC ratio: 12 AM 6 3 AM 8 6 AM 4 9 AM 6.5 11 AM 4 4 PM 4 7 PM 4 10 PM 6 Follow up one week for co-manage. A1C ordered for upcoming appt. The total time spent on patient care today 09/14/2024 was 30 minutes. -15 minutes direct patient care -15 minutes chart review and documentation [1] Outpatient Encounter Medications as of 09/14/2024 Medication Sig Dispense Refill Cranberry 125 MG TABS Take by mouth pyridoxine (B-6) 25 MG tablet Take by mouth daily Continuous Glucose Sensor (DEXCOM G7 SENSOR) MISC Glucagon, rDNA, (GLUCAGON EMERGENCY) 1 MG KIT Inject 1 mL (1 mg) into the skin once as needed Insulin Disposable Pump (OMNIPOD 5 [id number] PODS GEN 5) MISC INJECT 1 DEVICE UNDER THE SKIN EVERY 72 HOURS HUMALOG 100 UNIT/ML SOLN Use with insulin pump, up to 100u per day . Vit-Fe Fumarate-FA ( PO) Take by mouth No facility-administer ed encounter medications on file as of 09/14/2024. [2] Allergies Allergen Reactions Acetaminophen Rash Normal [facility] Progress Noteon 09-01-2024 Casting Carrier Authentication Interface Message Text Comanage Pregestational T1 Diabetes Mellitus Allison Nguyen is seen at 16w3d for comanagement of Pregestational Diabetes Mellitus. She denies any complaints today. Her blood glucose record was reviewed. Her insulin changed due to hyperglycemic excursions with meals. See insulin pump details/adjustments below. History of Presenting Problem: She is accompanied by her significant other. Denies cramping/VB. FM n/a. Past Medical History: Past Medical History: Diagnosis Date Diabetes mellitus type 1 diagnosed at age 12 y.o. History reviewed. No pertinent surgical history. Medications: Encounter Medications[1] Allergies: Allergies[2] Family Medical History: Family History Problem Relation Age of Onset Colon Cancer Mother Social History: Social History Socioeconomic History Marital status: Spouse name: None Number of children: None Years of education: None Highest education level: None Tobacco Use Smoking status: Never Smokeless tobacco: Never Substance and Sexual Activity Alcohol use: Not Currently Drug use: Never Physical Exam: Vitals Extended BP: 106/59 Weight - Scale: 64.1 kg (141 lb 6.4 oz) Heart Rate: 145 by doppler Assessment/Plan: Allison Nguyen is a 24 y.o. at 16w3d with: Active Non-Hospital Problems Diagnosis Date Noted Type 1 diabetes mellitus 08/17/[address] 08/17/2024 Pre-existing type 1 diabetes mellitus in in first trimester 08/04/2024 Patient does not utilize phone technology nor other computers. Difficulty obtaining data - data shared as of 08/17 (Omnipod/Dexcom) S/p MFM consult 07/20 Pregestational Diabetes - Maternal Evaluation 1st trimester 2nd trimester 3rd trimester HA1c 6.2 EKG Needs Echo (age > 35, DM >10 yrs) UPC 0.08 TSH Needs Free T4 Dental Exam Recommend Opthalmology Exam Recommend Nutrition 06/22 outside institution ASA start at 12 weeks Will start 162mg daily Anatomy US 18-20 weeks echo 22-24 weeks Growth Q4 weeks Twice weekly ANT starting at 32 weeks Delivery 37-39 weeks or sooner as indicated 09/01: Pump download reviewed 08/19 - 09/01. TIR 78% (70-180), average glucose 142. Patient with hyperglycemic episodes throughout the day, less hypoglycemia now that she is prebolusing. Changes today made to ICR and ISF. See settings below: OmniPod Sensitivity: 12 AM 30 4 AM 30 Target: 110 Basal: 0000 0.95 0500 1 1700 1 IC ratio: 12 AM 6 3 AM 8 6 AM 5 9 AM 6.5 11 AM 5 4 PM 5 7 PM 5 10 PM 6 Follow up two weeks for co-manage and anatomy US. The total time spent on patient care today 09/01/2024 was 30 minutes. -15 minutes direct patient care -15 minutes chart review and documentation [1] Outpatient Encounter Medications as of 09/01/2024 Medication Sig Dispense Refill Cranberry 125 MG TABS Take by mouth pyridoxine (B-6) 25 MG tablet Take by mouth daily Insulin Disposable Pump (OMNIPOD 5 [id number] PODS GEN 5) MISC INJECT 1 DEVICE UNDER THE SKIN EVERY 72 HOURS HUMALOG 100 UNIT/ML SOLN Use with insulin pump, up to 100u per day . Vit-Fe Fumarate-FA ( PO) Take by mouth Continuous Glucose Sensor (DEXCOM G7 SENSOR) MISC USE 1 DEVICE EVERY 10 DAYS (Patient not taking: Reported on 09/01/2024) Glucagon, rDNA, (GLUCAGON EMERGENCY) 1 MG KIT Inject 1 mL (1 mg) into the skin once as needed (Patient not taking: Reported on 09/01/2024) No facility-administer ed encounter medications on file as of 09/01/2024. [2] Allergies Allergen Reactions Acetaminophen Rash Normal [facility] HbA1c (Bld) [Mass fraction]O rdered By: Blake Rai on 08-30-2024 Interpretation and review of laboratory results Normal [facility] POC Hemoglobin [id number] By : Blake Rai on 08-30-2024 HbA1c (Bld) [Mass fraction] 5.5 % - 5.6 % [facility] - Chemistry and C hemistry - challengeOrdered By: Radha Juarez on 08-29-2024 Bilirubin Ql (U) Negative [facility] Glucose Ql (U) 250 g/dL [facility] Ketones Ql (U) Negative [facility] pH (U) 6 [pH] [facility] Urobilinogen (U) [Mass/Vol] Negative [facility] - Hematology and Cell countsOrdered By: Radha Juarez on 08-29-2024 Hemoglobin Ql (U) Negative [facility] - Specimen inform ationOrdered By: Radha Juarez on 08-29-2024 Clarity (U) Clear [facility] Color (U) YELLOW [facility] - UrinalysisOrder ed By: Radha Juarez on 08-29-2024 Nitrite Ql (U) Negative [facility] Protein Ql (U) Negative [facility] No Panel InformationOrdered By: Radha Juarez on 08-29-2024 Urine Leukocytes Negatve [facility] Urine Non-Hemolyzed Blood [facility] Asphalt Smoother Office Visit Reporton 08-29-2024 Asphalt Smoother Office Visit Report [facility] [address], [address] [place] [address] OFFICE VISIT Date of Service: 08/29/24 MR#: [id number] Acct: [id number] Name: ALLISON NGUYEN Rep #: [id number] : 2000 Provider: ABHAY [place] ams Age/Sex: 23/F Location: 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 baseline labs and ekg pending. Nl CMP. HgbA1c 6.1. echo at 22-24wk MFM BPP wkly and BWC NST wkly start at 28 wk Growth US Q4wk at 28 wk Del at 39 wk (2) Supervision of high-risk : Status: Acute Qualifiers: Trimester: first trimester Qualified Code(s): O09.91 - Supervision of high risk , unspecified, first trimester Comment: [id number] MCKENNA 02/13/25, : Seven (3) : Status: Acute Qualifiers: Weeks of gestation: 16 weeks Qualified Code(s): Z3A.16 - 16 weeks gestation of Comment: Discussed genetic/carrier testing - declined. (4) Diabetes in : Status: Acute Qualifiers: Diabetes in type: pre-existing, type 1 Trimester: second trimester Qualified Code(s): O24.012 - Pre-existing type 1 diabetes mellitus, in , second trimester Comment: [id number]; on Humalog; HgBA1C ordered w/NOB Orders: Orders POC Urinalysis 2 Dip (Clinic) Today POC Urinalysis Dip (Clinic) Today R35.0 - Frequency of micturition 08/29/24 1402 Date Radha Juarez CNM cc: * Signed Intake Vital Signs 07/05/24 13:07 08/02/24 13:27 08/29/24 13:12 Height 5 ft 3 in 5 ft 3 in 5 ft 3 in Weight: 134 lb 3 oz 140 lb 8 oz BMI 23.8 24.8 BP 105/68 108/71 Intake Visit Reasons: 16 wk ob Chief Complaint: 16wk OB Warehouse Helper Required: No Is patient in pain?: No Allergies acetaminophen (From Tylenol) Allergy (Mild, Verified 08/29/24 13:10) Rash Medications ???Medication ???Instructions ???Recorded ???Confirmed ???Type insulin lispro 100 unit/mL 1 sliding scale dose subcut 08/02/24 History subcutaneous pen (Humalog KwikPen USEASDIRECTD (U-100) Insulin) Last Menstrual Period: 05/09/24 : No PFSH PFSH Medical History Diabetes type 1 Family History Mother Colon cancer Grandfather Colon cancer Grandfather Prostate cancer Social History adopted: No household members: spouse housing: house 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 pets and animals: Yes pets and animals: farm animals history of recent travel: Yes ([place]) out of state: Yes out of country: No sexually active: Yes Smoking Status: Never smoker alcohol intake: never substance use type: does not use well-balanced diet: daily or most days caffeine: Yes Type: coffee eating out: rarely or never during the past year weight has: remained stable what type of physical activity do you participate in: walking frequency: 1-2 times per week duration: 15-30 minutes/day ness/yarsani: Mennonite seatbelt use: always do you feel safe at home: Yes additional social history: : Seven - Lau/Katie History 1 Elective abortions Hx Para 0 Spontaneous abortions 0 Hx # Term Pregnancies Ectopic pregnancies Hx # Pregnancies Multiple births # of living children HPI 16 wk ob Details: ALLISON NGUYEN is a 23 year old who presents for routine OB visit. OB Visit MCKENNA Calculator Estimated Delivery Date Method Current WG Current Estimate 02/13/25 LMP (Certain) 16w 0d Other Estimates 02/17/25 Ultrasound #1 15w 3d Initial Weight: Not Recorded Date -???-???-???-???-?? ?-???-???-???-???-? ??-???-???- EGA Weight BP Urine Prot -???-???-???-???-?? ?-???-???-???-???-? ??-???-???- Glucose FHR FuHt Pres Dilation -???-???-???-???-?? ?-???-???-???-???-? ??-???-???- Effaced St Visit Note 07/05/24 -???-???-???-???-?? ?-???-???-???-???-? ??-???-???- 8w 1d 131 lb 4 oz 111/62 -???-???-???-???-?? ?-???-???-???-???-? ??-???-???- 140 -???-???-???-???-?? ?-???-???-???-???-? ??-???-???- SM- no vb cr amping co nausea nd constipation, labile blood sugars. 08/02/24 -???-???-???-???-?? ?-???-???-???-???-? ??-???-???- 12w 1d 134 lb 3 oz 105/68 Negative -???-???-???-???-?? ?-???-???-???-???-? ??-???-???- Negative 160 -???-???-???-???-?? ?-???-???-???-???-? ??-???-???- MH-no VB. Na usea improving. Saw MFM and managing glucose, improved. Br US confirm FHT 08/29/24 -???-???-???-???-?? ?-???-???-?? (more content not included)... Normal [facility] ABO/RH(D)on 08-24-2024 ABO/RH(D) ABO/RH(D) O POSITIVE Testing performed at [facility], [place], [place] [address] Normal [facility] Comment on above: Performed By: #### A BRH #### [place] [address] ANTIBODY SCREENon 08-24-2024 Antibody screen ANTIBODY SCREEN NEGATIVE WORKUP EXPIRES 08/26/2024,2359 Testing performed at [address] Comment on above: Performed By: #### R ESCRN #### [place] [address] FAX REQUESTon 08-23-2024 FAX TO [facility] Comment on above: Result Comment: Test ing performed at [place] [address] Performed By: #### F X #### [place] [address] Progress Noteon 08-17-2024 Casting [employer] Authentication Interface Message Text Comanage Pregestational T1 Diabetes Mellitus Allison Nguyen is seen at 14w2d for comanagement of Pregestational Diabetes Mellitus. She denies any complaints today. Her blood glucose record was reviewed. Her insulin did not change. See pump settings and DM details below. Patient will change her practice to prebolusing, instead of bolusing after her meals. History of Presenting Problem: She is accompanied by her significant other. Denies cramping/VB. FM n/a. Past Medical History: Past Medical History: Diagnosis Date Diabetes mellitus type 1 diagnosed at age 12 y.o. History reviewed. No pertinent surgical history. Medications: Encounter Medications[1] Allergies: Allergies[2] Family Medical History: Family History Problem Relation Age of Onset Colon Cancer Mother Social History: Social History Socioeconomic History Marital status: Spouse name: None Number of children: None Years of education: None Highest education level: None Tobacco Use Smoking status: Never Smokeless tobacco: Never Substance and Sexual Activity Alcohol use: Not Currently Drug use: Never Physical Exam: Vitals Extended BP: 114/62 Weight - Scale: 62.5 kg (137 lb 12.8 oz) Heart Rate: 152 by doppler Assessment/Plan: Allison Nguyen is a 23 y.o. at 14w2d with: Active Non-Hospital Problems Diagnosis Date Noted Type 1 diabetes mellitus 08/17/[address] 08/17/2024 Pre-existing type 1 diabetes mellitus in in first trimester 08/04/2024 Patient does not utilize phone technology nor other computers. Difficulty obtaining data - data shared as of 08/17 (Omnipod/Dexcom) S/p MFM consult 07/20 Pregestational Diabetes - Maternal Evaluation 1st trimester 2nd trimester 3rd trimester HA1c 6.2 EKG Needs Echo (age > 35, DM >10 yrs) UPC 0.08 TSH Needs Free T4 Dental Exam Recommend Opthalmology Exam Recommend Nutrition 06/22 outside institution ASA start at 12 weeks Will start 162mg daily Anatomy US 18-20 weeks echo 22-24 weeks Growth Q4 weeks Twice weekly ANT starting at 32 weeks Delivery 37-39 weeks or sooner as indicated 08/17: Pump download reviewed 08/04 - 08/17. TIR 78% (70-180), average glucose 134. Patient with hyper/hypoglycemic episodes throughout the day. Enquired about prebolus. Patient states that she boluses for food after her meal. Discussed and explained importance of prebolusing. Patient will start this practice. No change today otherwise. See settings below: OmniPod Sensitivity: 12 AM 40 4 AM 35 Target: 110 Basal: 0000 0.95 0500 1 1700 1 IC ratio: 12 AM 6 3 AM 8 6 AM 6 9 AM 6.5 11 AM 6 4 PM 5.5 7 PM 5 10 PM 6 Follow up one week for co-manage. The total time spent on patient care today 08/17/2024 was 30 minutes. -15 minutes direct patient care -15 minutes chart review and documentation [1] Outpatient Encounter Medications as of 08/17/2024 Medication Sig Dispense Refill pyridoxine (B-6) 25 MG tablet Take by mouth daily Continuous Glucose Sensor (DEXCOM G7 SENSOR) MISC USE 1 DEVICE EVERY 10 DAYS Glucagon, rDNA, (GLUCAGON EMERGENCY) 1 MG KIT Inject 1 mL (1 mg) into the skin once as needed Insulin Disposable Pump (OMNIPOD 5 [id number] PODS GEN 5) MISC INJECT 1 DEVICE UNDER THE SKIN EVERY 72 HOURS HUMALOG 100 UNIT/ML SOLN Use with insulin pump, up to 100u per day . Vit-Fe Fumarate-FA ( PO) Take by mouth No facility-administer ed encounter medications on file as of 08/17/2024. [2] Allergies Allergen Reactions Acetaminophen Rash Normal [facility] Progress Noteon 08-04-2024 Casting Carrier Authentication Interface Message Text [facility] DM Co-Management Visit Allison Nguyen is being seen today for an obstetrical visit. She is at 12w3d gestation. Her obstetrical history is significant for Type 1 diabetes. HPI Patient doing well today. Review of systems: negative besides above BP 108/60 Pulse 78 Resp 18 Wt 61.1 kg (134 lb 11.2 oz) LMP 05/09/2024 SpO2 100% BMI 23.86 kg/m Exam: Deferred Ultrasound today: 1. Chaidez intrauterine with cardiac activity present at 12w 3d with an MCKENNA of 02/13/2025. 2. [place] rump length measurement is consistent with established gestational age. 3. First trimester nuchal translucency appeared normal for this gestational age, 1.13 mm. Assessment/Plan: Allison Nguyen is a 23 y.o. at 12w3d with: 1. Pre-existing type 1 diabetes mellitus in in first trimester (Primary) Overview: Patient does not utilize phone technology nor other computers. Difficulty obtaining Dexcom was not able to get CGM data. However review of sensor data from her pump. This was obtained through her glycerin supervisor for the past 14 days July 22 through the . Value ranges Target range is 70-1 80 due to not being able to change this with current settings. 78% target range, 14% high, 3% very high, 4% low, 1% very low. Average 135. OmniPod Sensitivity: 12 AM 40, 4 AM 40-changed to 35. Target 110 IC ratio 12 AM 6 3 AM 8 6 AM 7 > 6 9 AM 7 > 6.5 11 AM 7 > 6 4 PM 5 >5.5 7 PM 5 10 PM 6 Aldair Hutchison MD Normal [facility] Electrocardiogram reportOrde red By: Ajit Tompkins on 08-03-2024 EKG study [facility] [address] [place] [address] 12 Lead EKG 08/02/24 1309 MR#: [id number] Acct: [id number] Name: ALLISON NGUYEN Rep #:[id number] : 2000 23 From: Ajit Tompkins MD Attending Dr: Dr. Anitra Zamudio MD Status: REG CLI Ordering Dr: Anitra Zamudio MD Luis Antonio e: 08/02/24 Location: PSN Sex: F C Admitted: Test Reason : HIGH RISK PREG Blood Pressure : */* mmHG Vent. Rate : 72 BPM Atrial Rate : 72 BPM P-R Int : 126 ms QRS Dur : 72 ms QT Int : 376 ms P-R-T Axes : 67 93 47 degrees QTcB Int : 411 ms Normal sinus rhythm with sinus arrhythmia Rightward axis Borderline ECG Confirmed by AJIT TOMPKINS MD ([id number]), commissioning editor VELVET GANDHI ([id number]) on 511:01:50 AM Referred By: Anitra Zamudio Confirmed By: AJIT TOMPKINS MD 08/03/24 1101 Date _ Ajit Tompkins MD CC: LEOPOLDO Pruett; Dr. Anitra Zamudio MD ~ Signed [facility] Other 12 Lead EKGon 08-02-2024 12 Lead EKG [facility] [address] [place] [place] [id number] 12 Lead EKG 08/02/24 1309 MR#: [id number] Acct: [id number] Name: ALLISON NGUYEN Rep #: [id number] : 2000 23 From: Ajit Tompkins MD Attending Dr: Dr. Anitra Zamudio MD Status: REG CLI Ordering Dr: Anitra Zamudio MD Date: 08/02/24 Location: PSN Sex: F C Admitted: Test Reason : HIGH RISK PREG Blood Pressure : */* mmHG Vent. Rate : 72 BPM Atrial Rate : 72 BPM P-R Int : 126 ms QRS Dur : 72 ms QT Int : 376 ms P-R-T Axes : 67 93 47 degrees QTcB Int : 411 ms Normal sinus rhythm with sinus arrhythmia Rightward axis Borderline ECG Confirmed by AJIT TOMPKINS MD ([id number]), commissioning editor VELVET GANDHI ([id number]) on 08/03/2024 11:01:50 AM Referred By: Anitra Zamudio Confirmed By: AJIT TOMPKINS MD 08/03/24 1101 Date Ajit Tompkins MD CC: LEOPOLDO Pruett; Dr. Anitra Zamudio MD Signed Normal [facility] - Chemistry and C hemistry - challengeOrdered By: Leigh Junior on 08-02-2024 Glucose Ql (U) Negative [facility] - UrinalysisOrder ed By: Leigh Junior on 08-02-2024 Protein Ql (U) Negative [facility] Asphalt Smoother Office Visit Reporton 08-02-2024 Asphalt Smoother Office Visit Report [facility] [address], [address] [place] [address] OFFICE VISIT Date of Service: 08/02/24 MR#: [id number] Acct: [id number] Name: ALLISON NGUYEN Rep #: [id number] : 2000 Provider: MAMI gould Age/Sex: 23/F Location: [facility] Status: Signed Intake Vital Signs 07/05/24 13:07 08/02/24 13:27 Height 5 ft 3 in 5 ft 3 in Weight: 134 lb 3 oz BMI 23.8 BP 105/68 Intake Visit Reasons: 12wk OB Chief Complaint: 12 Week OB Warehouse Helper Required: No Is patient in pain?: No Allergies acetaminophen (From Tylenol) Allergy (Mild, Verified 08/02/24 13:29) Rash Medications ???Medication ???Instructions ???Recorded ???Confirmed ???Type insulin lispro 100 unit/mL 1 sliding scale dose subcut 08/02/24 History subcutaneous pen (Humalog KwikPen USEASDIRECTD (U-100) Insulin) ondansetron 4 mg disintegrating 4 mg PO Q6H PRN nausea and 5 08/02/24 Rx tablet vomiting #20 tabs prochlorperazine 25 mg rectal 25 mg NM BID #12 ea 06/18/2408/02 Rx suppository (Compazine) Last Menstrual Period: 05/09/24 Zika: Zika virus screening: Negative : No PFSH PFSH Medical History Diabetes type 1 Family History Mother Colon cancer Grandfather Colon cancer Grandfather Prostate cancer Social History adopted: No household members: spouse housing: house 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 pets and animals: Yes pets and animals: farm animals history of recent travel: Yes ([place]) out of state: Yes out of country: No sexually active: Yes Smoking Status: Never smoker alcohol intake: never substance use type: does not use well-balanced diet: daily or most days caffeine: Yes Type: coffee eating out: rarely or never during the past year weight has: remained stable what type of physical activity do you participate in: walking frequency: 1-2 times per week duration: 15-30 minutes/day ness/yarsani: Mennonite seatbelt use: always do you feel safe at home: Yes additional social history: : Seven - Lau/Katie History 1 Elective abortions Hx Para 0 Spontaneous abortions 0 Hx # Term Pregnancies Ectopic pregnancies Hx # Pregnancies Multiple births # of living children HPI 12wk OB Details: ALLISON NGUYEN is a 23 year old who presents for routine OB visit. OB Visit MCKENNA Calculator Estimated Delivery Date Method Current WG Current Estimate 02/13/25 LMP (Certain) 12w 1d Other Estimates 02/17/25 Ultrasound #1 11w 4d Initial Weight: Not Recorded Date -???-???-???-???-?? ?-???-???-???-???-? ??-???-???- EGA Weight BP Urine Prot -???-???-???-???-?? ?-???-???-???-???-? ??-???-???- Glucose FHR FuHt Pres Dilation -???-???-???-???-?? ?-???-???-???-???-? ??-???-???- Effaced St Visit Note 07/05/24 -???-???-???-???-?? ?-???-???-???-???-? ??-???-???- 8w 1d 131 lb 4 oz 111/62 -???-???-???-???-?? ?-???-???-???-???-? ??-???-???- 140 -???-???-???-???-?? ?-???-???-???-???-? ??-???-???- SM- no vb cr amping co nausea nd constipation, labile blood sugars. 08/02/24 -???-???-???-???-?? ?-???-???-???-???-? ??-???-???- 12w 1d 134 lb 3 oz 105/68 Negative -???-???-???-???-?? ?-???-???-???-???-? ??-???-???- Negative 160 -???-???-???-???-?? ?-???-???-???-???-? ??-???-???- MH-no VB. Na usea improving. Saw MFM and managing glucose, improved. Br US confirm FHT ACOG First Trimester First Trimester: Desire for , Alcohol, Tobacco Cessation, Illicit/Recreationa l Drug/Substance Use, Intimate Partner Violence, Barriers to care, Unstable Housing, Communication Barriers, Environmental/Work Hazards, Anticipated Course of Care, Toxoplasmosis Precations, Use of Any medications, Sexual activity, Exercise, Dental Care, Sauna/Hot tub use, Seat Belt use, Childbirth classes/Hospital facilities, Travel, Indications for Ultrasound and Screening for Aneuploidy; Discussed ROS Const Reports system reviewed and no additional complaints, except as documented GI Denies abdominal pain, Denies nausea and Denies vomiting Exam Const General: cooperative Nutritional Appearance: well nourished GI Palpation: soft, nontender and other (gravid) Results POC Urinalysis 2 Dip (Clinic) Office Urine Glucose Negative Last Edit by Anali Rosa on 08/02/24 13:35 Office Urine Protein Negative Last Edit by Anali Rosa on 08/02/24 13:35 Coding Level of Care Code OB Routine Diagnoses 12 weeks gestation of Z3A.12 Weeks of gestation: 12 weeks Supervision of high risk in first trimester (more content not included)... Normal [facility] PAP I-G w/rfx hrHPV-Aptimaon 07-11-2024 ADEQ Comment Normal . [facility] Comment on above: Order Comment: Dalton cool Comment: [id number] Comment: No. of containers..01 ThinPrep Vial Result Comment: Sati sfactory for evaluation. Endocervical and/or squamous metaplastic cells (endocervical component) are present. Performed By: #### L 501.0900, M100.2200, L7000.1800, L7400.0353 ####[facility] [address] [place], [address] COMM . Normal . [facility] Comment on above: Order Comment: Dalton cool Comment: [id number] Comment: No. of containers..01 ThinPrep Vial Performed By: #### L 501.0900, M100.2200, L7000.1800, L7400.0353 ####[facility] [address] [place], [place], [id number] COMMENT Comment Normal . [facility] Comment on above: Order Comment: Dalton cool Comment: [id number] Comment: No. of containers..01 ThinPrep Vial Result Comment: This liquid based ThinPrep(R) pap test was screened with the use of an image guided system. Performed By: #### L 501.0900, M100.2200, L7000.1800, L7400.0353 ####[facility] [address] [place], [place], [id number] DIAG Comment Normal . [facility] Comment on above: Order Comment: Speci men Comment: [id number] Comment: No. of containers..01 ThinPrep Vial Result Comment: NEGA TIVE FOR INTRAEPITHELIAL LESION OR MALIGNANCY. THIS SPECIMEN WAS RESCREENED PART OF OUR SPLITTER HAND PROGRAM. Performed By: #### L 501.0900, M100.2200, L7000.1800, L7400.0353 ####[facility] [address] [place], [address] HPV RFLX Comment Normal . [facility] Comment on above: Order Comment: Speci men Comment: [id number] Comment: No. of containers..01 ThinPrep Vial Result Comment: The HPV DNA reflex criteria were not met with this specimen result therefore, no HPV testing was performed. Performed at: [address] [id number] Cod Clerk: Indiana Magaña MD, Phone: [phone] Performed By: #### L 501.0900, M100.2200, L7000.1800, L7400.0353 ####[facility] [address] [place], [place], [id number] PAPSMR Comment Normal . [facility] Comment on above: Order Comment: Speci men Comment: [id number] Comment: No. of containers..01 ThinPrep Vial Result Comment: The Pap smear is a screening test designed to aid in the detection of premalignant and malignant conditions of the uterine cervix. It is not a diagnostic procedure and should not be used as the sole means of detecting cervical cancer. Both false-positive and false-negative reports do occur. Performed By: #### L 501.0900, M100.2200, L7000.1800, L7400.0353 ####[facility] [address] [place], [address] PERFORM Comment Normal . [facility] Comment on above: Order Comment: Speci men Comment: [id number] Comment: No. of containers..01 ThinPrep Vial Result Comment: Caitie Swenson, Machine Operator Packaging (ASCP) Performed By: #### L 501.0900, M100.2200, L7000.1800, L7400.0353 ####[facility] [address] [place], [address] QC REV Comment Normal . [facility] Comment on above: Order Comment: Specshandra cool Comment: [id number] Comment: No. of containers..01 ThinPrep Vial Result Comment: Muna Rowe, Machine Operator Packaging (ASCP) Performed By: #### L 501.0900, M100.2200, L7000.1800, L7400.0353 ####[facility] [address] [place], [address] Chlamydia/GC KATE aptimaon CHLAMY,NUC ACID Negative Normal Negative [facility] Comment on above: Performed By: #### L 501.0900, M100.2200, L7000.1800, L7400.0353 ####[facility] [address] [place], [address] GC BY NUC ACID Negative Normal Negative [facility] Comment on above: Result Comment: Perf ormed at: =G - [facility] [address] [place] [id number] Cod Clerk: Indiana Magaña MD, Phone: [phone] Performed By: #### L 501.0900, M100.2200, L7000.1800, L7400.0353 ####[facility] [address] [place], [place], [id number] Urine Cultureon 07-08-2024 URC Below infection level. Mixed Gram Positive Organisms Gunter Count 1000-10,000 MIXC Mixed contaminants. Submit a new specimen if indicated. Normal [facility] Comment on above: Performed By: #### L 501.0900, M100.2200, L7000.1800, L7400.0353 ####[facility] [address] [place], [address] Absolute lymphocyte countOrd ered By: Anitra Zamudio on 07-05-2024 Lymphocytes Auto (Unsp spec) [#/Vol] 2.68 10*3/uL 0.83-4.51 [facility] Absolute neutrophil countOrd ered By: Anitra Zamudio on 07-05-2024 Neutrophils (Bld) [#/Vol] 10.9 10*3/uL High 2.0-7.7 [facility] Anion gap in Serum or Plasma Ordered By: Anitra Zamudio on 07-05-2024 Anion gap [Moles/Vol] 12 mmol/L 5-15 [facility] Automated lymphocyte count a s percentage of total leukocytesOrdered By: Anitra Zamudio on 07-05-2024 Lymphocytes/100 WBC Auto (Unsp spec) 17.9 % Low 19-41 [facility] BUN/creatinine ratioOrdered By: Anitra Zamudio on 07-05-2024 Urea nitrogen/Creatinine [Mass ratio] 15.0 mg/mg 10-20 [facility] Basophil percentageOrdered B y: Anitra Zamudio on 07-05-2024 Basophils/100 WBC (Bld) 0.3 % 0-1 [facility] Bilirubin, totalOrdered By: Anitra Zamudio on 07-05-2024 Bilirubin [Mass/Vol] 0.17 mg/dL 0.00-1.30 [facility] CBC W/Diff, Automatedon 06-10 Absolute Lymph 2.68 X10 3/uL Normal 0.83-4.51 [facility] Comment on above: Performed By: #### B TS, L3890.6301, L501.9985, L100.0100, L500.4050, L3890.6006, L509.8002, L509.4006, L501.9520, L3890.6102 #### [facility] [address] [place], [address] Absolute Neut 10.9 X10 3/uL High 2.0-7.7 [facility] Comment on above: Performed By: #### B TS, L3890.6301, L501.9985, L100.0100, L500.4050, L3890.6006, L509.8002, L509.4006, L501.9520, L3890.6102 #### [facility] [address] [facility] [place], [address] Basophils/100 WBC (Bld) 0.3 % Normal 0-1 [facility] Comment on above: Performed By: #### B TS, L3890.6301, L501.9985, L100.0100, L500.4050, L3890.6006, L509.8002, L509.4006, L501.9520, L3890.6102 #### [facility] [address] [facility] [place], [address] Eosinophils/100 WBC (Bld) 1.8 % Normal 0-5 [facility] Comment on above: Performed By: #### B TS, L3890.6301, L501.9985, L100.0100, L500.4050, L3890.6006, L509.8002, L509.4006, L501.9520, L3890.6102 #### [facility] [address] [facility] [address] [address] [place], [address] Erythrocyte distribution width (RBC) [Ratio] 12.7 % Normal 11.6-14.6 [facility] Comment on above: Performed By: #### B TS, L3890.6301, L501.9985, L100.0100, L500.4050, L3890.6006, L509.8002, L509.4006, L501.9520, L3890.6102 #### [facility] [address] [place], [address] Hematocrit (Bld) [Volume fraction] 37.4 % Normal 37-47 [facility] Comment on above: Performed By: #### B TS, L3890.6301, L501.9985, L100.0100, L500.4050, L3890.6006, L509.8002, L509.4006, L501.9520, L3890.6102 #### [facility] [address] [facility] [place], [address] Hemoglobin (Bld) [Mass/Vol] 12.2 g/dL Normal 12.0-15.0 [facility] Comment on above: Performed By: #### B TS, L3890.6301, L501.9985, L100.0100, L500.4050, L3890.6006, L509.8002, L509.4006, L501.9520, L3890.6102 #### [facility] [address] [facility] [place], [address] IG% 2.200 High 0.0-0.9 [facility] Comment on above: Result Comment: IG% - Immature Granulocytes (promyelocytes, myelocytes and metamyelocytes) > 1% indicates that a LEFT SHIFT is Present. Performed By: #### B TS, L3890.6301, L501.9985, L100.0100, L500.4050, L3890.6006, L509.8002, L509.4006, L501.9520, L3890.6102 #### [facility] [address] [place], [address] Lymphocytes/100 WBC (Bld) 17.9 % Low 19-41 [facility] Comment on above: Performed By: #### B TS, L3890.6301, L501.9985, L100.0100, L500.4050, L3890.6006, L509.8002, L509.4006, L501.9520, L3890.6102 #### [facility] [address] [place], [address] MCH (RBC) [Entitic mass] 27.0 pg Normal 27.0-32.0 [facility] Comment on above: Performed By: #### B TS, L3890.6301, L501.9985, L100.0100, L500.4050, L3890.6006, L509.8002, L509.4006, L501.9520, L3890.6102 #### [facility] [address] [facility] [place], [address] MCHC (RBC) [Mass/Vol] 32.6 g/dL Normal 32-36 [facility] Comment on above: Performed By: #### B TS, L3890.6301, L501.9985, L100.0100, L500.4050, L3890.6006, L509.8002, L509.4006, L501.9520, L3890.6102 #### [facility] [address] [facility] [place], [address] MCV (RBC) [Entitic vol] 82.7 fL Normal 81-99 [facility] Comment on above: Performed By: #### B TS, L3890.6301, L501.9985, L100.0100, L500.4050, L3890.6006, L509.8002, L509.4006, L501.9520, L3890.6102 #### [facility] [address] [facility] [place], [address] Monocytes/100 WBC (Bld) 5.1 % Normal 0-10 [facility] Comment on above: Performed By: #### B TS, L3890.6301, L501.9985, L100.0100, L500.4050, L3890.6006, L509.8002, L509.4006, L501.9520, L3890.6102 #### [facility] [address] [place], [address] Neutrophils/100 WBC (Bld) 72.7 % High 47-70 [facility] Comment on above: Performed By: #### B TS, L3890.6301, L501.9985, L100.0100, L500.4050, L3890.6006, L509.8002, L509.4006, L501.9520, L3890.6102 #### [facility] [address] [place], [address] Nucleated RBC (Bld) [#/Vol] 0 10*3/uL Normal 0-5 [facility] Comment on above: Performed By: #### B TS, L3890.6301, L501.9985, L100.0100, L500.4050, L3890.6006, L509.8002, L509.4006, L501.9520, L3890.6102 #### [facility] [address] [facility] [place], [address] Platelet mean volume (Bld) [Entitic vol] 9.5 fL Normal 6.2-12.0 [facility] Comment on above: Performed By: #### B TS, L3890.6301, L501.9985, L100.0100, L500.4050, L3890.6006, L509.8002, L509.4006, L501.9520, L3890.6102 #### [facility] [address] [place], [address] Platelets (Bld) [#/Vol] 337 10*3/uL Normal 150-450 [facility] Comment on above: Performed By: #### B TS, L3890.6301, L501.9985, L100.0100, L500.4050, L3890.6006, L509.8002, L509.4006, L501.9520, L3890.6102 #### [facility] [address] [place], [address] RBC (Bld) [#/Vol] 4.52 10*6/uL Normal 4.2-5.4 [facility] Comment on above: Performed By: #### B TS, L3890.6301, L501.9985, L100.0100, L500.4050, L3890.6006, L509.8002, L509.4006, L501.9520, L3890.6102 #### [facility] [address] [place], [place], [id number] (962) RDW SD 37.9 fl Normal 35.1-43.9 [facility] Comment on above: Performed By: #### B TS, L3890.6301, L501.9985, L100.0100, L500.4050, L3890.6006, L509.8002, L509.4006, L501.9520, L3890.6102 #### [facility] [address] [place], [address] WBC (Bld) [#/Vol] 15.0 10*3/uL High 4.4-11.0 [facility] Comment on above: Performed By: #### B TS, L3890.6301, L501.9985, L100.0100, L500.4050, L3890.6006, L509.8002, L509.4006, L501.9520, L3890.6102 #### [facility] [address] [place], [address] Carbon dioxide, total [Moles /volume] in Central venous bloodOrdered By: Anitra Zamudio on 07-05-2024 CO2 [Moles/Vol] 21.4 mmol/L 21.0-32.0 [facility] Cervical or vagninal specime n microscopic examination by cytology stain (reported asOrdered By: Anitra Zamudio on 07-05-2024 Cytology report Cyto stain Doc (Cvx/Vag) Comment . [facility] Comment on above: The Pap smear is a s creening test designed to aid in thedetection of premalignant and malignant conditions of theuterine cervix. It is not a diagnostic procedure andshould not be used as the sole means of detecting cervicalcancer. Both false-positive and false-negative reports dooccur. Chlamydia trachomatis rRNA d etection by probe and target amplification methodOrdered By: Anitra Zamudio on 07-05-2024 C. trachomatis rRNA KATE+probe Ql (Unsp spec) Negative Negative [facility] Chloride assayOrdered By: Pollo Zamudio on 07-05-2024 Chloride [Moles/Vol] 102 mmol/L 98-108 [facility] Comprehensive Metabolic Prof ilon 07-05-2024 Albumin [Mass/Vol] 4.1 g/dL Normal 3.5-5.0 [facility] Comment on above: Performed By: #### B TS, L3890.6301, L501.9985, L100.0100, L500.4050, L3890.6006, L509.8002, L509.4006, L501.9520, L3890.6102 #### [facility] [address] [place], [place], [address] Albumin/Globulin [Mass ratio] 1.3 {ratio} Normal 0.9-2.4 [facility] Comment on above: Performed By: #### B TS, L3890.6301, L501.9985, L100.0100, L500.4050, L3890.6006, L509.8002, L509.4006, L501.9520, L3890.6102 #### [facility] [address] [place], [address] ALK PHOS 73 U/L Normal 35-104 [facility] Comment on above: Performed By: #### B TS, L3890.6301, L501.9985, L100.0100, L500.4050, L3890.6006, L509.8002, L509.4006, L501.9520, L3890.6102 #### [facility] [address] [place], [place], [id number] ALT [Catalytic activity/Vol] 11 U/L Normal <=34 [facility] Comment on above: Performed By: #### B TS, L3890.6301, L501.9985, L100.0100, L500.4050, L3890.6006, L509.8002, L509.4006, L501.9520, L3890.6102 #### [facility] [address] [place], [address] AST [Catalytic activity/Vol] 15 U/L Normal <=31 [facility] Comment on above: Performed By: #### B TS, L3890.6301, L501.9985, L100.0100, L500.4050, L3890.6006, L509.8002, L509.4006, L501.9520, L3890.6102 #### [facility] [address] [place], [place], [id number] Bilirubin [Mass/Vol] 0.17 mg/dL Normal 0.00-1.30 [facility] Comment on above: Performed By: #### B TS, L3890.6301, L501.9985, L100.0100, L500.4050, L3890.6006, L509.8002, L509.4006, L501.9520, L3890.6102 #### [facility] [address] [place], [place], [id number] BUN/CRE 15.0 RATIO Normal 10-20 [facility] Comment on above: Performed By: #### B TS, L3890.6301, L501.9985, L100.0100, L500.4050, L3890.6006, L509.8002, L509.4006, L501.9520, L3890.6102 #### [facility] [address] [place], [address] Calcium [Mass/Vol] 9.3 mg/dL Normal 7.6-11.0 [facility] Comment on above: Performed By: #### B TS, L3890.6301, L501.9985, L100.0100, L500.4050, L3890.6006, L509.8002, L509.4006, L501.9520, L3890.6102 #### [facility] [address] [place], [address] Chloride [Moles/Vol] 102 mmol/L Normal 98-108 [facility] Comment on above: Performed By: #### B TS, L3890.6301, L501.9985, L100.0100, L500.4050, L3890.6006, L509.8002, L509.4006, L501.9520, L3890.6102 #### [facility] [address] [place], [address] CO2 [Moles/Vol] 21.4 mmol/L Normal 21.0-32.0 [facility] Comment on above: Performed By: #### B TS, L3890.6301, L501.9985, L100.0100, L500.4050, L3890.6006, L509.8002, L509.4006, L501.9520, L3890.6102 #### [facility] [address] [place], [address] Creatinine [Mass/Vol] 0.76 mg/dL Normal 0.70-1.20 [facility] Comment on above: Performed By: #### B TS, L3890.6301, L501.9985, L100.0100, L500.4050, L3890.6006, L509.8002, L509.4006, L501.9520, L3890.6102 #### [facility] [address] [place], [address] GAP 12 Normal 5-15 [facility] Comment on above: Performed By: #### B TS, L3890.6301, L501.9985, L100.0100, L500.4050, L3890.6006, L509.8002, L509.4006, L501.9520, L3890.6102 #### [facility] [address] [place], [address] GFR/1.73 sq M.predicted among non-blacks MDRD (S/P/Bld) [Vol rate/Area] 113 mL/min/{1.73_m2} Normal >60 [facility] Comment on above: Result Comment: mL/m in/1.73m2 CKD-EPI Creatinine Equation (2020) Performed By: #### B TS, L3890.6301, L501.9985, L100.0100, L500.4050, L3890.6006, L509.8002, L509.4006, L501.9520, L3890.6102 #### [facility] [address] [place], [address] Globulin (S) [Mass/Vol] 3.1 g/dL Normal 2.2-4.2 [facility] Comment on above: Performed By: #### B TS, L3890.6301, L501.9985, L100.0100, L500.4050, L3890.6006, L509.8002, L509.4006, L501.9520, L3890.6102 #### [facility] [address] [place], [address] Glucose [Mass/Vol] 77 mg/dL Normal 70-99 [facility] Comment on above: Performed By: #### B TS, L3890.6301, L501.9985, L100.0100, L500.4050, L3890.6006, L509.8002, L509.4006, L501.9520, L3890.6102 #### [facility] [address] [place], [address] Potassium [Moles/Vol] 3.7 mmol/L Normal 3.3-5.1 [facility] Comment on above: Performed By: #### B TS, L3890.6301, L501.9985, L100.0100, L500.4050, L3890.6006, L509.8002, L509.4006, L501.9520, L3890.6102 #### [facility] [address] [place], [address] Sodium [Moles/Vol] 135 mmol/L Normal 133-145 [facility] Comment on above: Performed By: #### B TS, L3890.6301, L501.9985, L100.0100, L500.4050, L3890.6006, L509.8002, L509.4006, L501.9520, L3890.6102 #### [facility] [address] [place], [address] T PROT 7.2 g/dL Normal 5.9-8.4 [facility] Comment on above: Performed By: #### B TS, L3890.6301, L501.9985, L100.0100, L500.4050, L3890.6006, L509.8002, L509.4006, L501.9520, L3890.6102 #### [facility] [address] [place], [address] Urea nitrogen [Mass/Vol] 11 mg/dL Normal 4-19 [facility] Comment on above: Performed By: #### B TS, L3890.6301, L501.9985, L100.0100, L500.4050, L3890.6006, L509.8002, L509.4006, L501.9520, L3890.6102 #### [facility] [place], [address] Eosinophil percentageOrdered By: Anitra Zamudio on 07-05-2024 Eosinophils/100 WBC (Bld) 1.8 % 0-5 [facility] Erythrocyte distribution wid th ratioOrdered By: Anitra Zamudio on 07-05-2024 Erythrocyte distribution width (RBC) [Ratio] 12.7 % 11.6-14.6 [facility] Erythrocyte distribution wid th standard deviationOrdered By: Anitra Zamudio on 07-05-2024 Erythrocyte distribution width (RBC) [Ratio] 37.9 fl 35.1-43.9 [facility] Glomerular filtration rate ( GFR) estimation/1.73 sq m using serum, plasma, or whole bOrdered By: Anitra Zamudio on 07-05-2024 GFR/1.73 sq M.predicted among non-blacks MDRD (S/P/Bld) [Vol rate/Area] 113 mL/min/{1.73_m2} >60 [facility] Comment on above: mL/min/1.73m2 CKD-EP I Creatinine Equation (2020) HIVon 07-05-2024 HIV Non-Reactive Normal Nonreactive [facility] Comment on above: Result Comment: Non- Reactive Reactive Repeatedly reactive samples must be confirmed according to CDC recommended confirmatory algorithms. The subresults for either HIVAG or AHIV can be used as an aid in the selection of the confirmation algorithm for reactive samples. Send out specimens with Reactive results to [facility] for confirmation. Order the HIV antibody detection and differentiation: lc#[id number] Performed By: #### B TS, L3890.6301, L501.9985, L100.0100, L500.4050, L3890.6006, L509.8002, L509.4006, L501.9520, L3890.6102 #### [facility] [address] [place], [address] Hematocrit Auto (Bld) [Volum e fraction]Ordered By: Anitra Lizz on 07-05-2024 Hematocrit (Bld) [Volume fraction] 37.4 % 37-47 [facility] Hemoglobin A1con 07-05-2024 HbA1c (Bld) [Mass fraction] 6.2 % High <=5.6 [facility] Comment on above: Result Comment: Norm al < 5.7 % Prediabetic 5.7 - 6.4 % Diabetic >or= 6.5 % Please note range changes. Performed By: #### B TS, L3890.6301, L501.9985, L100.0100, L500.4050, L3890.6006, L509.8002, L509.4006, L501.9520, L3890.6102 #### [facility] [address] [place], [place], [id number] Hemoglobin A1c percentageOrd ered By: Anitra Zamudio on 07-05-2024 HbA1c (Bld) [Mass fraction] 6.2 % High <5.7 [facility] Comment on above: Normal < 5.7 % Predi abetic 5.7 - 6.4 % Diabetic >or= 6.5 % Please note range changes. Hemoglobin measurementOrdere d By: Anitra Zamudio on 07-05-2024 Hemoglobin (Bld) [Mass/Vol] 12.2 g/dL 12.0-15.0 [facility] Hepatitis C Antibodyon 07-05 Hepatitis C Ab Non-Reactive Normal Nonreactive [facility] Comment on above: Result Comment: Reac tive: Presumptive evidence of antibodies to HCV. Follow CDC recommendations for supplemental testing. Non-Reactive: Antibodies to HCV were not detected; does not exclude the possibility of exposure to HCV Reactive Results are presumptive evidence of antibodies to HCV. Follow CDC recommendations for supplemental testing. Order confirmation testing: HCV Quant by PCR testing - HCVPCR #[id number] Non Reactive: < 0.8 Equivocal: >/= 0.8 to < 1.0 Reactive: >/= 1.0 The CDC requires that a reactive/equivocal HCV antibody result be sent out for confirmation. HCV Quant by PCR testing. Performed By: #### B TS, L3890.6301, L501.9985, L100.0100, L500.4050, L3890.6006, L509.8002, L509.4006, L501.9520, L3890.6102 ####[facility] [address] [facility]. [place], [place], [id number] Immature granulocytes/100 WB C Auto (Bld)Ordered By: Anitra Zamudio on 07-05-2024 Immature granulocytes/100 WBC (Bld) 2.200 % High 0.0-0.9 [facility] Comment on above: IG% - Immature Granu locytes (promyelocytes, myelocytes and metamyelocytes) > 1% indicates that a LEFT SHIFT is Present. L3890.6102on 07-05-2024 HEP B Surf Ag Non-Reactive Normal Nonreactive [facility] Comment on above: Result Comment: Reac tive: Presumptive evidence of HBV. Repeatedly reactive samples must be confirmed using a neutralization test ([employer] HBsAg Confirmatory Test) Non-Reactive: HBsAg not detected; does not exclude the possibility of exposure to HBV Performed By: #### B TS, L3890.6301, L501.9985, L100.0100, L500.4050, L3890.6006, L509.8002, L509.4006, L501.9520, L3890.6102 ####[facility] [address] [facility]. [place], [place], [id number] L509.4006on 07-05-2024 Rubella IgG REAC Normal Nonreactive [facility] Comment on above: Result Comment: Anti body Result: Interpretation Non-Reactive: Non-Immune Reactive: Immune The following results were obtained with the [employer] Rubella IgG assay. Results from assays of other manufacturers cannot be used interchangeably. Performed By: #### B TS, L3890.6301, L501.9985, L100.0100, L500.4050, L3890.6006, L509.8002, L509.4006, L501.9520, L3890.6102 #### [facility] [place], [address] Laboratory - Chemistry and C hemistry - challengeOrdered By: Anitra Zamudio on 07-05-2024 AST [Catalytic activity/Vol] 15 U/L <32 [facility] - CytologyOrdered By: Anitra Zamudio on 07-05-2024 [employer] Cyto stain Nom (Cvx/Vag) [ID] Comment . [facility] Comment on above: Ruthie Swenson, [employer] (ASC) Laboratory - Microbiology an d Antimicrobial susceptibilityOrdered By: Anitra Zamudio on 07-05-2024 HBV surface Ag Ql (S) Non-Reactive Nonreactive [facility] Comment on above: Reactive: Presumptiv e evidence of HBV. Repeatedly reactive samples must be confirmed using a neutralization test ([employer] HBsAg Confirmatory Test)Non-Reactive: HBsAg not detected; does not exclude the possibility of exposure to HBV Laboratory - Miscellaneous t estsOrdered By: Anitra Zamudio on 07-05-2024 Service comment (Unsp spec) [Interp] . . [facility] MCV (mean corpuscular volume ) determinationOrdered By: Anitra Zamudio on 07-05-2024 MCV (RBC) [Entitic vol] 82.7 fL 81-99 [facility] Mean corpuscular hemoglobin (MCH) determinationOrdered By: Anitra Zamudio on 07-05-2024 MCH (RBC) [Entitic mass] 27.0 pg 27.0-32.0 [facility] Mean corpuscular hemoglobin concentration (MCHC) determinationOrdered By: Anitra Zamudio on 07-05-2024 MCHC (RBC) [Mass/Vol] 32.6 g/dL 32-36 [facility] Mean platelet volume determi nationOrdered By: Anitra Zamudio on 07-05-2024 Platelet mean volume (Bld) [Entitic vol] 9.5 fL 6.2-12.0 [facility] Monocyte percentageOrdered B y: Anitra Zamudio on 07-05-2024 Monocytes/100 WBC (Bld) 5.1 % 0-10 [facility] Neisseria gonorrhoeae nuclei c acid detection by amplified probe techniqueOrdered By: Anitra Zamudio on 07-05-2024 N. gonorrhoeae DNA KATE+probe Ql (Unsp spec) Negative Negative [facility] Comment on above: Performed at: =[address] [id number] Director: Indiana Magaña MD, Phone: [phone] Neutrophil percentageOrdered By: Anitra Zamudio on 07-05-2024 Neutrophils/100 WBC (Bld) 72.7 % High 47-70 [facility] No Panel InformationOrdered By: Anitra Zamudio on 07-05-2024 Pap Smear QC Review Comment . [facility] Comment on above: Mariel Valera (ASCP) Pap Smear Specimen Adequacy Comment . [facility] Comment on above: Satisfactory for zaina luation. Endocervical and/or squamous metaplasticcells (endocervical component) are present. HIV (1&2) Antibody Non-Reactive Nonreactive [facility] Comment on above: Non-ReactiveReactive Repeatedly reactive samples must be confirmed according to CDC recommended confirmatory algorithms. The subresults for either HIVAG or AHIV can be used as an aid in the selection of the confirmation algorithm for reactive samples.Send out specimens with Reactive results to [facility] for confirmation.Order the HIV antibody detection and differentiation: #[id number] Nucleated red blood cell per centageOrdered By: Anitra Zamudio on 07-05-2024 Nucleated RBC/100 WBC (Bld) [Ratio] 0 % 0-5 [facility] Asphalt Smoother Office Visit Reporton 07-05-2024 Asphalt Smoother Office Visit Report [facility] [address], [address] [place] [address] OFFICE VISIT Date of Service: 07/05/24 MR#: [id number] Acct: [id number] Name: ALLISON NGUYEN Rep #: [id number] : 2000 Provider: Dr. Anitra monreal MD Age/Sex: 23/F Location: 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 Is patient in pain?: No Feel stressed/tense/nerv ous/anxious/difficu lty sleeping: not at all Allergies acetaminophen (From Tylenol) Allergy (Mild, Verified 07/05/24 13:08) Rash Medications ???Medication ???Instructions ???Recorded ???Confirmed ???Type insulin lispro 100 unit/mL 1 sliding scale dose subcut 07/05/24 History subcutaneous pen (Humalog KwikPen USEASDIRECTD (U-100) Insulin) ondansetron 4 mg disintegrating 4 mg PO Q6H PRN nausea and 5 07/05/24 Rx tablet vomiting #20 tabs prochlorperazine 25 mg rectal 25 mg NM BID #12 ea 06/18/2407/05 Rx suppository (Compazine) Last Menstrual Period: 05/09/24 Zika: Zika virus screening: Negative : No PFSH PFSH Medical History Diabetes type 1 Family History Mother Colon cancer Grandfather Colon cancer Grandfather Prostate cancer Social History adopted: No household members: spouse housing: house 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 pets and animals: Yes pets and animals: farm animals history of recent travel: Yes ([place]) out of state: Yes out of country: No sexually active: Yes Smoking Status: Never smoker alcohol intake: never substance use type: does not use well-balanced diet: daily or most days caffeine: Yes Type: coffee eating out: rarely or never during the past year weight has: remained stable what type of physical activity do you participate in: walking frequency: 1-2 times per week duration: 15-30 minutes/day ness/yarsani: Mennonite seatbelt use: always do you feel safe at home: Yes additional social history: : Seven - Lau/Katie History 1 Elective abortions Hx Para 0 Spontaneous abortions 0 Hx # Term Pregnancies Ectopic pregnancies Hx # Pregnancies Multiple births # of living children HPI New OB, LMP 05/09, Type 1 DM, first baby Details: ALLISON NGUYEN is a 23 year old who presents for New OB visit. OB Visit [facility] Calculator Estimated Delivery Date Method Current WG Current Estimate 02/13/25 LMP (Certain) 8w 5d Other Estimates 02/17/25 Ultrasound #1 8w 1d Estimated Due Date: 02/13/25 Initial Weight: Not Recorded Date -???-???-???-???-?? ?-???-???-???-???-? ??-???-???- EGA Weight BP Urine Prot -???-???-???-???-?? ?-???-???-???-???-? ??-???-???- Glucose FHR FuHt Pres Dilation -???-???-???-???-?? ?-???-???-???-???-? ??-???-???- Effaced St Visit Note 07/05/24 -???-???-???-???-?? ?-???-???-???-???-? ??-???-???- 8w 1d 131 lb 4 oz 111/62 -???-???-???-???-?? ?-???-???-???-???-? ??-???-???- 140 -???-???-???-???-?? ?-???-???-???-???-? ??-???-???- SM- no vb cr amping co nausea nd constipation, labile blood sugars. Menstrual History Last Menstrual Period: 05/09/24 Reported LMP: definite Normal amount/duration: Yes Frequency in days: 28 On hormonal BC at conception: No hCG+: 06/07/24 Antepartum Record Genetic Screening: Congenital Heart Defect: Other, Neural Tube Defect: Other, Hemoglobinopathy Or Carrier: Other, Cystic Fibrosis: Other, Chromosome Abnormality: Other, Darwin-Sachs: Other, Hemophilia: Other, Intellectual Disability/Autism: Other, Recurrent Loss/Stillbirth: Other, Other Structural Defect: Other, Other Genetic Disease: Other and Maternal Metabolic Disorder: Other Infection History: Live with someone with TB or Exposed to TB: No, Patient or Partner has history of Genital Herpes: No, Rash or Viral illness since last mentrual period: No, Prior GBS-Infected child: No, History of STD: No, HIV Infection: No, History of Hepatitis: No, Recent travel outside of [place]: No, Concern for hepatitis exposure: No, Varicella immune: Yes (Unsure - thinks had vaccine) and Covid Vaccinated: No Medical History Medical History: Positive: Diabetes (Type 1 - Humalog, dx x 12years) and Drug/latex allergies/reactions (Tylenol - willing to try as it has been 12 years) and Negative: Hypertension, Heart disease, Auto-immune disorder, Kidney disease/UTI, Neurologic/epilepsy , Psychiatric, Depression/postpart um depression, Hepatitis/liver disease, Varicosities/phlebi tis, Thyroid dysfu (more content not included)... Normal [facility] Platelet countOrdered By: Pollo Zamudio on 07-05-2024 Platelets (Bld) [#/Vol] 337 10*3/uL 150-450 [facility] Potassium measurement (mass/ volume)Ordered By: Anitra Zamudio on 07-05-2024 Potassium (Unsp spec) [Mass/Vol] 3.7 mmol/L 3.3-5.1 [facility] Protein+Creatinine Ratio,Uri neon 07-05-2024 PROT:CRE RATIO 81 mg/g CRE Normal 0-200 [facility] Comment on above: Performed By: #### L 501.0900, M100.2200, L7000.1800, L7400.0353 ####[facility] [address] [place], [address] Protein (U) [Mass/Vol] 7.0 mg/dL Normal 0.0-12.0 [facility] Comment on above: Performed By: #### L 501.0900, M100.2200, L7000.1800, L7400.0353 ####[facility] [address] [place], [address] UR CREAT 86.50 mg/dL Normal 28.00-217.00 [facility] Comment on above: Performed By: #### L 501.0900, M100.2200, L7000.1800, L7400.0353 ####[facility] [address] [place], [address] RBC Auto (Bld) [#/Vol]Ordere d By: Anitra Zamudio on 07-05-2024 RBC (Bld) [#/Vol] 4.52 10*6/uL 4.2-5.4 [facility] Random urine creatinine junior urement (mass/volume)Ordered By: Anitra Zamudio on 07-05-2024 Creatinine Unsp time (U) [Mass/Vol] 86.50 mg/dL 28.00-217.00 [facility] Serum creatinine measurement (mass/volume)Ordered By: Anitra Zamudio on 07-05-2024 Creatinine [Mass/Vol] 0.76 mg/dL 0.70-1.20 [facility] Serum globulin measurementOr dered By: Anitra Zamudio on 07-05-2024 Globulin (S) [Mass/Vol] 3.1 g/dL 2.2-4.2 [facility] Serum glucose measurement (m ass/volume)Ordered By: Anitra Zamudio on 07-05-2024 Glucose [Mass/Vol] 77 mg/dL 70-99 [facility] Serum or plasma alanine kern otransferase (ALT) measurementOrdered By: Anitra Zamudio on 07-05-2024 ALT [Catalytic activity/Vol] 11 U/L <35 [facility] Serum or plasma albumin junior urement (mass/volume)Ordered By: Anitra Zamudio on 07-05-2024 Albumin [Mass/Vol] 4.1 g/dL 3.5-5.0 [facility] Serum or plasma albumin/glob ulin mass ratioOrdered By: Anitra Zamudio on 07-05-2024 Albumin/Globulin [Mass ratio] 1.3 {ratio} 0.9-2.4 [facility] Serum or plasma alkaline hansa sphatase measurementOrdered By: Anitra Zamudio on 07-05-2024 ALP [Catalytic activity/Vol] 73 U/L 35-104 [facility] Serum or plasma calcium junior urement (mass/volume)Ordered By: Anitra Zamudio on 07-05-2024 Calcium [Mass/Vol] 9.3 mg/dL 7.6-11.0 [facility] Serum or plasma urea nitroge n measurement (mass/volume)Ordered By: Anitra Zamudio on 07-05-2024 Urea nitrogen [Mass/Vol] 11 mg/dL 4-19 [facility] Sodium levelOrdered By: Antwon Zamudio on 07-05-2024 Sodium [Moles/Vol] 135 mmol/L 133-145 [facility] Syphilis Antibodieson 2024 Syphilis Abs Non-Reactive Normal Nonreactive [facility] Comment on above: Performed By: #### B TS, L3890.6301, L501.9985, L100.0100, L500.4050, L3890.6006, L509.8002, L509.4006, L501.9520, L3890.6102 #### [facility] [address] [place] [address], [id number] TSH DL <= 0.005 mIU/L QnOrde red By: Anitra Zamudio on 07-05-2024 TSH Qn 0.652 uIU/mL 0.300-4.200 [facility] Thyroid Stim Hormone (TSH)on 07-05-2024 TSH 0.652 uIU/mL Normal 0.300-4.200 [facility] Comment on above: Performed By: #### B TS, L3890.6301, L501.9985, L100.0100, L500.4050, L3890.6006, L509.8002, L509.4006, L501.9520, L3890.6102 #### [facility] [address] [place], [address] Total proteinOrdered By: Eagle Zamudio on 07-05-2024 Protein [Mass/Vol] 7.2 g/dL 5.9-8.4 [facility] Type AND Screenon 07-05-2024 Ab SCREEN GEL Negative Normal [facility] Comment on above: Order Comment: PN Performed By: #### B TS, L3890.6301, L501.9985, L100.0100, L500.4050, L3890.6006, L509.8002, L509.4006, L501.9520, L3890.6102 #### [facility] [address] [place], [address] Urine cultureOrdered By: Eagle Zamudio on 07-05-2024 Bacteria identified Cx Nom (U) Positive Abnormal [facility] Urine protein measurement (m ass/volume)Ordered By: Anitra Zamudio on 07-05-2024 Protein (U) [Mass/Vol] 7.0 mg/dL 0.0-12.0 [facility] Urine protein/creatinine mas s ratioOrdered By: Anitra Zamudio on 07-05-2024 Protein/Creatinine (U) [Mass ratio] 81 mg/g CRE 0-200 [facility] White blood cell (WBC) count Ordered By: Anitra Zamudio on 07-05-2024 WBC (Bld) [#/Vol] 15.0 10*3/uL High 4.4-11.0 [facility] - Chemistry and C hemistry - challengeOrdered By: Anitra Zamudio on 06-14-2024 HCG ( test) Ql (U) Positive [facility] Office Visit Reporton 2024 Office Visit Report [facility] [address] [place] [address] OFFICE VISIT Date of Service: 06/14/24 MR#: [id number] Acct: [id number] Patient: ALLISON NGUYEN Rep #: [id number] : 2000 Provider: Dr. Jenny Ayers DO Age/Sex: 23/F Location: [facility] Status: Signed Intake Vital Signs 06/14/24 11:50 Height 5 ft 3 in Weight: 133 lb BMI 23.6 BP 112/68 Intake Visit Reasons: Pre new ob, est/ vitals Chief Complaint: In person PNOB Accompanied by: Allergies acetaminophen (From Tylenol) Allergy (Mild, Verified 06/14/24 11:13) Rash Medications ???Medication ???Instructions ???Recorded ???Confirmed ???Type insulin lispro 100 unit/mL 1 sliding scale dose subcut 06/14/24 History subcutaneous pen (Humalog KwikPen USEASDIRECTD (U-100) Insulin) Is last menstrual period known: Yes Post menopausal: No Patient : Yes Have you fallen in the past year?: No Nurse's Note: Pt here for PNOB. Office UPT: positive. Vitals WNL. PNOB questions completed. Problem list, allergies, and medications updated. Results POC Urine Office , Urine Positive Last Edit by Katy Dillon RN on 06/14/24 11:51 Assessment and Plan Assessment and Plan (1) Supervision of high-risk : Status: Acute Comment: G1, [facility] 02/13/25, : Seven (2) : Status: Acute Comment: Discussed genetic/carrier testing - undecided (3) Diabetes in : Status: Acute Comment: [id number]; on Humalog; HgBA1C ordered w/NOB Orders: Orders POC Urine 06/14/24 N91.2 - Amenorrhea, unspecified CBC W/Diff, Automated 06/14/24 O09.90 - Supervision of high risk , unspecified, unspecified trimester Type Screen 06/14/24 O09.90 - Supervision of high risk , unspecified, unspecified trimester Rubella IgG 06/14/24 O09.90 - Supervision of high risk , unspecified, unspecified trimester Hepatitis C Antibody 06/14/24 O09.90 - Supervision of high risk , unspecified, unspecified trimester Hepatitis B Surface Antigen 06/14/24 O09.90 - Supervision of high risk , unspecified, unspecified trimester Culture, Urine 06/14/24 O09.90 - Supervision of high risk , unspecified, unspecified trimester Syphilis Antibodies 06/14/24 O09.90 - Supervision of high risk , unspecified, unspecified trimester Chlamydia/GC KATE aptima 06/14/24 O09.90 - Supervision of high risk , unspecified, unspecified trimester HIV 06/14/24 O09.90 - Supervision of high risk , unspecified, unspecified trimester Hemoglobin A1c 06/14/24 O09.90 - Supervision of high risk , unspecified, unspecified trimester, O24.919 - Unspecified diabetes mellitus in , unspecified trimester PAP I-G w/rfx hrHPV-Aptima 06/14/24 Z12.4 - Encounter for screening for malignant neoplasm of cervix Plan here for nurse visit only. rto for new ob exam Clinical Quality Measures Falls Risk Screening/Assistive Devices Have you fallen in the past year?: No 06/16/24 1417 Date Jenny Mendez Signature: Date (if applicable) CC: Normal [facility] HbA1c (Bld) [Mass fraction]O rdered By: Helena Henley on 06-13-2024 Interpretation and review of laboratory results Normal [facility] POC Hemoglobin [id number] By : Helena Henley on 06-13-2024 HbA1c (Bld) [Mass fraction] 5.8 % 4.0 - 6.0 % [facility] HbA1c (Bld) [Mass fraction]o n 04-24-2023 Interpretation and review of laboratory results Abnormal [facility] POC Hemoglobin A1Con 024 HbA1c (Bld) [Mass fraction] 6.1 % Abnormal 4.0 - 6.0 % [facility] ECG 12 Leadon 12-25-2022 Atrial Rate [facility] P [place] [facility] P-R Interval [facility] Q-T Interval [facility] Q-T Interval (corrected) [facility] QRS Duration [facility] QTC Calculation (Bezet) [facility] R [place] [facility] T [place] [facility] Ventricular Rate [facility] HbA1c (Bld) [Mass fraction]O rdered By: Inez Salas on 07-16-2022 Interpretation and review of laboratory results Abnormal [facility] POC Hemoglobin [id number] By : Inez Salas on 07-16-2022 HbA1c (Bld) [Mass fraction] 6.3 % Abnormal 4.0 - 6.0 % [facility] HbA1c (Bld) [Mass fraction]O rdered By: Camilla Lee on 03-13-2022 Interpretation and review of laboratory results Abnormal [facility] POC Hemoglobin [id number] By : Camilla Lee on 03-13-2022 HbA1c (Bld) [Mass fraction] 6.5 % Abnormal 4.0 - 6.0 % [facility] POC Hemoglobin A1Con HbA1c (Bld) [Mass fraction] 7.1 % Abnormal 4.0 - 6.0 % [facility] Interpretation and review of laboratory results Abnormal [facility] Vital Signs Date Time Vital Sign Value Performing Clinician Juan kothari 11-21-2024 11:37-0400 Body height 160.[address] Olivia Pruett PA-C Work Phone: [facility] 11-21-2024 11:37-0400 Body mass index (BMI) [Ratio] 28.2 kg/m2 Dr. Olivia Pruett PA-C Work Phone: [facility] 11-21-2024 11:37-0400 Body weight 72.[address] Olivia Pruett PA-C Work Phone: [facility] 11-21-2024 11:37-0400 Diastolic blood pressure 73 mm[Hg] Dr. Olivia Pruett PA-C Work Phone: [facility] 11-21-2024 11:37-0400 Systolic blood pressure 116 mm[Hg] Dr. Olivia Pruett PA-C Work Phone: [facility] 10-24-2024 14:24-0400 Body height 160.[address] Olivia Pruett PA-C Work Phone: [facility] 10-24-2024 14:24-0400 Body mass index (BMI) [Ratio] 26.9 kg/m2 Dr. Olivia Pruett PA-C Work Phone: [facility] 10-24-2024 14:24-0400 Body weight 69.[address] Olivia Pruett PA-C Work Phone: [facility] 10-24-2024 14:24-0400 Diastolic blood pressure 64 mm[Hg] Dr. Olivia Pruett PA-C Work Phone: [facility] 10-24-2024 14:24-0400 Systolic blood pressure 97 mm[Hg] Dr. Olivia Pruett PA-C Work Phone: [facility] 09-28-2024 13:43-0400 Body height 160.[address] Olivia Pruett PA-C Work Phone: [facility] 09-28-2024 13:42-0400 Body mass index (BMI) [Ratio] 26 kg/m2 Dr. Olivia Pruett PA-C Work Phone: [facility] 09-28-2024 13:42-0400 Body weight 66.[address] Olivia Pruett PA-C Work Phone: [facility] 09-28-2024 13:42-0400 Diastolic blood pressure 70 mm[Hg] Dr. Olivia Pruett PA-C Work Phone: [facility] 09-28-2024 13:42-0400 Systolic blood pressure 109 mm[Hg] Dr. Olivia Pruett PA-C Work Phone: [facility] 08-30-2024 09:36-0400 Body mass index (BMI) [Ratio] 24.8 kg/m2 Oscar Lowe [employer] Work Phone: [facility] 08-30-2024 09:36-0400 Body weight 63.5 kg Oscar Olivares [employer] Work Phone: [facility] 08-30-2024 09:36-0400 Diastolic blood pressure 63 mm[Hg] Oscar Olivares [employer] Work Phone: [facility] 08-30-2024 09:36-0400 Heart rate 73 /min Oscar Olivares [employer] Work Phone: [facility] 08-30-2024 09:36-0400 Systolic blood pressure 98 mm[Hg] Oscar Olivares [employer] Work Phone: [facility] 08-29-2024 13:12-0400 Body height 160.[address] Olivia Pruett PA-C Work Phone: [facility] 08-29-2024 13:12-0400 Body mass index (BMI) [Ratio] 24.8 kg/m2 Dr. Olivia Pruett PA-C Work Phone: [facility] 08-29-2024 13:12-0400 Body weight 63.[address] Olivia Pruett PA-C Work Phone: [facility] 08-29-2024 13:12-0400 Diastolic blood pressure 71 mm[Hg] Dr. Olivia Pruett PA-C Work Phone: [facility] 08-29-2024 13:12-0400 Systolic blood pressure 108 mm[Hg] Dr. Olivia Pruett PA-C Work Phone: [facility] 08-02-2024 13:27-0400 Body height 160.[address] Olivia Pruett PA-C Work Phone: [facility] 08-02-2024 13:27-0400 Body mass index (BMI) [Ratio] 23.8 kg/m2 Dr. Olivia Pruett PA-C Work Phone: [facility] 08-02-2024 13:27-0400 Body weight 60.[address] Olivia Pruett PA-C Work Phone: [facility] 08-02-2024 13:27-0400 Diastolic blood pressure 68 mm[Hg] Dr. Olivia Pruett PA-C Work Phone: [facility] 08-02-2024 13:27-0400 Systolic blood pressure 105 mm[Hg] Dr. Olivia Pruett PA-C Work Phone: [facility] 07-05-2024 13:07-0400 Body height 160.[address] Olivia Pruett PA-C Work Phone: [facility] 07-05-2024 13:07-0400 Body mass index (BMI) [Ratio] 23.2 kg/m2 Dr. Olivia Pruett PA-C Work Phone: [facility] 07-05-2024 13:07-0400 Body weight 59.[address] Olivia Pruett PA-C Work Phone: [facility] 07-05-2024 13:07-0400 Diastolic blood pressure 62 mm[Hg] Dr. Olivia Pruett PA-C Work Phone: [facility] 07-05-2024 13:07-0400 Systolic blood pressure 111 mm[Hg] Dr. Olivia Pruett PA-C Work Phone: [facility] 06-22-2024 13:41-0400 Body height [address] [facility] 06-22-2024 13:41-0400 Body mass index (BMI) [Ratio] 23.56 kg/m2 Mike Allred RD [facility] 06-22-2024 13:41-0400 Body weight 60.[address] [facility] 06-14-2024 11:50-0400 Body mass index (BMI) [Ratio] 23.6 kg/m2 Dr. Olivia Pruett PA-C Work Phone: [facility] 06-14-2024 11:50-0400 Body weight 60.[address] Olivia Pruett PA-C Work Phone: [facility] 06-14-2024 11:50-0400 Diastolic blood pressure 68 mm[Hg] Dr. Olivia Pruett PA-C Work Phone: [facility] 06-14-2024 11:50-0400 Systolic blood pressure 112 mm[Hg] Dr. Olivia Pruett PA-C Work Phone: [facility] 06-13-2024 10:09-0400 Body mass index (BMI) [Ratio] 24.14 kg/m2 Isabel Garcia CNP Work Phone: [facility] 06-13-2024 10:09-0400 Body weight 59.88 kg Isabel GarciaUriel MORGAN Work Phone: [facility] 06-13-2024 10:09-0400 Diastolic blood pressure 73 mm[Hg] Isabel KirbyKee [facility] Work Phone: [facility] 06-13-2024 10:09-0400 Heart rate 92 /min Isabel Garcia [facility] [facility] Work Phone: [facility] 06-13-2024 10:09-0400 Systolic blood pressure 111 mm[Hg] Isabel Garcia [facility] [facility] Work Phone: [facility] 03-01-2024 09:06-0500 Body mass index (BMI) [Ratio] 25.15 kg/m2 Demetrius Ramirez [facility] [facility] Work Phone: [facility] 03-01-2024 09:06-0500 Body weight 62.37 kg Demetrius Ramirez [facility] [facility] Work Phone: [facility] 03-01-2024 09:06-0500 Diastolic blood pressure 68 mm[Hg] Demetrius Ramirez [facility] Work Phone: [facility] 03-01-2024 09:06-0500 Heart rate 87 /min Demetrius Ramirez [facility] Work Phone: [facility] 03-01-2024 09:06-0500 Systolic blood pressure 106 mm[Hg] Demetrius Ramirez [facility] [facility] Work Phone: [facility] 2023 11:07-0400 Body mass index (BMI) [Ratio] 25.46 kg/m2 Demetrius Ramirez [facility] Work Phone: [facility] 2023 11:07-0400 Body weight 63.14 kg Demetrius Ramirez [facility] [facility] Work Phone: [facility] 04-24-2023 14:11-0400 Body mass index (BMI) [Ratio] 26.16 kg/m2 Demetrius Ramirez [facility] [facility] Work Phone: [facility] 04-24-2023 14:11-0400 Body weight 64.86 kg Demetrius Ramirez [facility] [facility] Work Phone: [facility] 04-24-2023 14:11-0400 Diastolic blood pressure 81 mm[Hg] Demetrius Ramirez [facility] [facility] Work Phone: [facility] 04-24-2023 14:11-0400 Heart rate 87 /min Demetrius Ramirez [facility] [facility] Work Phone: [facility] 04-24-2023 14:11-0400 Systolic blood pressure 130 mm[Hg] Demetrius Ramirez [facility] Work Phone: [facility] 12-25-2022 10:36-0500 Body height 157.5 cm Rico Steel MD Work Phone: [facility] 12-25-2022 10:36-0500 Body mass index (BMI) [Ratio] 25.06 kg/m2 Rico Steel MD Work Phone: [facility] 12-25-2022 10:36-0500 Body weight 62.14 kg Rico Steel MD Work Phone: [facility] 12-25-2022 10:36-0500 Diastolic blood pressure 84 mm[Hg] Rico Steel MD Work Phone: [facility] 12-25-2022 10:36-0500 Heart rate 88 /min Rico Steel MD Work Phone: [facility] 12-25-2022 10:36-0500 SaO2% (BldA) [Mass fraction] 99 % Rico Steel MD Work Phone: [facility] 12-25-2022 10:36-0500 Systolic blood pressure 127 mm[Hg] Rico Steel MD Work Phone: [facility] 12-03-2022 10:57-0400 Body mass index (BMI) [Ratio] 24.6 kg/m2 Isabel Garcia CNP Work Phone: [facility] 12-03-2022 10:57-0400 Body weight 61 kg Isabel Garcia CNP Work Phone: [facility] 12-03-2022 10:57-0400 Diastolic blood pressure 71 mm[Hg] Isabel Garcia CNP Work Phone: [facility] 12-03-2022 10:57-0400 Heart rate 81 /min Isabel Garcia CNP Work Phone: [facility] 12-03-2022 10:57-0400 Systolic blood pressure 111 mm[Hg] Isabel Garcia CNP Work Phone: [facility] 07-16-2022 10:03-0400 Body height 157.5 cm Isabel Garcia CNP Work Phone: [facility] 07-16-2022 10:03-0400 Body mass index (BMI) [Ratio] 25.04 kg/m2 Isabel Garcia CNP Work Phone: [facility] 07-16-2022 10:03-0400 Body weight 62.1 kg Isabel Garcia CNP Work Phone: [facility] 07-16-2022 10:03-0400 Diastolic blood pressure 73 mm[Hg] Isabel Garcia [facility] [facility] Work Phone: [facility] 07-16-2022 10:03-0400 Heart rate 71 /min Isabel Garcia CNP Work Phone: [facility] 07-16-2022 10:03-0400 Systolic blood pressure 112 mm[Hg] Isabel Garcia [facility] Work Phone: [facility] 03-13-2022 13:15-0500 Body height 157.5 cm Demetrius Ramirez [employer] Work Phone: [facility] 03-13-2022 13:15-0500 Body mass index (BMI) [Ratio] 25.97 kg/m2 Demetrius Ramirez [employer] Work Phone: [facility] 03-13-2022 13:15-0500 Body weight 64.41 kg Demetrius Ramirez [employer] Work Phone: [facility] 03-13-2022 13:15-0500 Diastolic blood pressure 72 mm[Hg] Demetrius Ramirez [employer] Work Phone: [facility] 03-13-2022 13:15-0500 Heart rate 80 /min Demetrius Ramirez [facility] Work Phone: [facility] 03-13-2022 13:15-0500 Systolic blood pressure 114 mm[Hg] Demetrius Ramirez [facility] [facility] Work Phone: [facility] 11-15-2021 11:06-0400 Body height 157.5 cm Triston Paynemann PA-C Work Phone: [facility] 11-15-2021 11:06-0400 Body mass index (BMI) [Ratio] 25.42 kg/m2 Triston Kleinmann PA-C Work Phone: [facility] 11-15-2021 11:06-0400 Body weight 63.05 kg Triston Kerrymann PA-C Work Phone: [facility] 11-15-2021 11:06-0400 Diastolic blood pressure 73 mm[Hg] Triston Kleinmann PA-C Work Phone: [facility] 11-15-2021 11:06-0400 Heart rate 86 /min Triston Kleinmann PA-C Work Phone: [facility] 11-15-2021 11:06-0400 Systolic blood pressure 102 mm[Hg] Triston Kleinmann PA-C Work Phone: [facility] 07-03-2021 09:52-0400 Body height 157.5 cm Triston Kleinmann PA-C Work Phone: [facility] 07-03-2021 09:52-0400 Body mass index (BMI) [Ratio] 25.28 kg/m2 Triston Kleinmann PA-C Work Phone: [facility] 07-03-2021 09:52-0400 Body weight 62.69 kg Triston Kleinmann PA-C Work Phone: [facility] 07-03-2021 09:52-0400 Diastolic blood pressure 71 mm[Hg] Triston Kleinmann PA-C Work Phone: [facility] 07-03-2021 09:52-0400 Heart rate 76 /min Triston Kleinmann PA-C Work Phone: [facility] 07-03-2021 09:52-0400 Systolic blood pressure 104 mm[Hg] Triston Kleinmann PA-C Work Phone: [facility] 10-31-2020 09:55-0400 Body height 157.5 cm Triston Kleinmann PA-C Work Phone: [facility] 10-31-2020 09:55-0400 Body mass index (BMI) [Percentile] Per age and sex 81.9 % Triston Kleinmann PA-C Work Phone: [facility] 10-31-2020 09:55-0400 Body mass index (BMI) [Ratio] 25.42 kg/m2 Triston Kleinmann PA-C Work Phone: [facility] 10-31-2020 09:55-0400 Body weight 63.05 kg Triston Kleinmann PA-C Work Phone: [facility] 10-31-2020 09:55-0400 Diastolic blood pressure 69 mm[Hg] Triston Kleinmann PA-C Work Phone: [facility] 10-31-2020 09:55-0400 Heart rate 68 /min Triston Kleinmann PA-C Work Phone: [facility] 10-31-2020 09:55-0400 Systolic blood pressure 107 mm[Hg] Triston Kleinmann PA-C Work Phone: [facility] 06-27-2020 10:12-0400 Body height 157.5 cm Isabel Garcia CNP Work Phone: [facility] 06-27-2020 10:12-0400 Body mass index (BMI) [Ratio] 25.42 kg/m2 Isabel Garcia CNP Work Phone: [facility] 06-27-2020 10:12-0400 Body weight 63.05 kg Isabel Garcia CNP Work Phone: [facility] 06-27-2020 10:12-0400 Diastolic blood pressure 71 mm[Hg] Isabel Garcia CNP Work Phone: [facility] 06-27-2020 10:12-0400 Heart rate 72 /min Isabel Garcia CNP Work Phone: [facility] 06-27-2020 10:12-0400 Systolic blood pressure 115 mm[Hg] Isabel Garcia CNP Work Phone: [facility] 02-29-2020 10:18-0500 BMI (Body Mass Index) 25.97 kg/m2 Isabel Garcia [facility] 02-29-2020 10:18-0500 Body weight 64.41 kg Isabel Garcia [facility] 02-29-2020 10:18-0500 BP Diastolic 76 mm[Hg] Isabel Garcia [facility] 02-29-2020 10:18-0500 BP Systolic 120 mm[Hg] Isabel Garcia [facility] 02-29-2020 10:18-0500 Height 157.5 cm Isabel Garcia [facility] 02-29-2020 10:18-0500 Pulse (Heart Rate) 73 /min Isabel Garcia [facility] 10-27-2019 10:07-0400 BMI (Body Mass Index) 25.66 kg/m2 Jasmin Henriquez [facility] 10-27-2019 10:07-0400 Body weight 63.64 kg Jasmin Henriquez [facility] 10-27-2019 10:07-0400 BP Diastolic 73 mm[Hg] Jasmin Henriquez [facility] 10-27-2019 10:07-0400 BP Systolic 112 mm[Hg] Jasmin Henriquez [facility] 10-27-2019 10:07-0400 Height 157.5 cm Jasmin Henriquez [facility] 10-27-2019 10:07-0400 Pulse (Heart Rate) 72 /min Jasmin Henriquez [facility] 06-23-2019 10:14-0400 BMI (Body Mass Index) 25.79 kg/m2 Jasmin Henriquez [facility] 06-23-2019 10:14-0400 Body weight 63.96 kg Jasmin Henriquez [facility] 06-23-2019 10:14-0400 BP Diastolic 75 mm[Hg] Jasmin Henriquez [facility] 06-23-2019 10:14-0400 BP Systolic 120 mm[Hg] Jasmin Henriquez [facility] 06-23-2019 10:14-0400 Height 157.5 cm Jasmin Henriquez [facility] 06-23-2019 10:14-0400 Pulse (Heart Rate) 81 /min Jasmin Henriquez [facility] 04-19-2019 11:06-0400 BMI (Body Mass Index) 25.61 kg/m2 Demetrius Ramirez [facility] 04-19-2019 11:06-0400 Body weight 63.5 kg Demetrius Ramirez [facility] 04-19-2019 11:06-0400 BP Diastolic 72 mm[Hg] Demetrius Ramirez [facility] 04-19-2019 11:06-0400 BP Systolic 113 mm[Hg] Demetrius Rmairez [facility] 04-19-2019 11:06-0400 Height 157.5 cm Demetrius Ramirez [facility] 04-19-2019 11:06-0400 Pulse (Heart Rate) 80 /min Demetrius Ramirez [facility] 04-04-2019 13:55-0500 BMI (Body Mass Index) 25.42 kg/m2 Kita Carter [facility] 04-04-2019 13:55-0500 Body weight 63.05 kg Kita Carter [facility] 04-04-2019 13:55-0500 BP Diastolic 71 mm[Hg] Kita Carter [facility] 04-04-2019 13:55-0500 BP Systolic 118 mm[Hg] Kita Carter [facility] 04-04-2019 13:55-0500 Height 157.5 cm Kita Carter [facility] 04-04-2019 13:55-0500 Pulse (Heart Rate) 81 /min Kita Carter [facility] 02-15-2019 09:43-0500 BMI (Body Mass Index) 25.06 kg/m2 Demetrius Ramirez [facility] 02-15-2019 09:43-0500 Body weight 62.14 kg Demetrius Ramirez [facility] 02-15-2019 09:43-0500 BP Diastolic 70 mm[Hg] Demetrius [facility] 02-15-2019 09:43-0500 BP Systolic 116 mm[Hg] Demetrius [facility] 02-15-2019 09:43-0500 Height 157.5 cm Demetrius [facility] 02-15-2019 09:43-0500 Pulse (Heart Rate) 73 /min Demetrius [facility] 11-03-2018 14:40-0400 BMI (Body Mass Index) 24.69 kg/m2 [facility] 11-03-2018 14:40-0400 Body weight 61.24 kg [facility] 11-03-2018 14:40-0400 BP Diastolic 74 mm[Hg] [facility] 11-03-2018 14:40-0400 BP Systolic 117 mm[Hg] [facility] 11-03-2018 14:40-0400 Height 157.5 cm [facility] 11-03-2018 14:40-0400 Pulse (Heart Rate) 64 /min [facility] 06-25-2018 10:10-0400 BMI (Body Mass Index) 24.87 kg/m2 Isabel Garcia [facility] 06-25-2018 10:10-0400 BP Diastolic 71 mm[Hg] Isabelwanda Garcia [facility] 06-25-2018 10:10-0400 BP Systolic 112 mm[Hg] Isabel Garcia [facility] 06-25-2018 10:10-0400 Height 157.5 cm Isabel Radha [facility] 06-25-2018 10:10-0400 Pulse (Heart Rate) 75 /min Isabel Garcia [facility] 06-25-2018 10:10-0400 Weight 61.69 kg Isabelwanda Garcia [facility] 02-18-2018 14:55-0500 BMI (Body Mass Index) 25.02 kg/m2 Ruthie Abad [facility] 02-18-2018 14:55-0500 BP Diastolic 71 mm[Hg] Ruthie Abad [facility] 02-18-2018 14:55-0500 BP Systolic 110 mm[Hg] Ruthie Abad [facility] 02-18-2018 14:55-0500 Height 157.5 cm Ruthie Abad [facility] 02-18-2018 14:55-0500 Pulse (Heart Rate) 73 /min Ruthie Abad [facility] 02-18-2018 14:55-0500 Weight 62.05 kg Ruthie Abad [facility] 09-09-2017 09:58-0400 BMI (Body Mass Index) 23.41 kg/m2 Kita Carter [facility] 09-09-2017 09:58-0400 BP Diastolic 78 mm[Hg] Kita Carter [facility] 09-09-2017 09:58-0400 BP Systolic 120 mm[Hg] Kita Carter [facility] 09-09-2017 09:58-0400 Height 157.5 cm Kita Carter [facility] 09-09-2017 09:58-0400 Pulse (Heart Rate) 76 /min Kita Carter [facility] 09-09-2017 09:58-0400 Weight 58.06 kg Kita Carter [facility] Encounters Encounter Date Encounter Type Care Provider Facility Start: 12-19-2024 End: 12-19-2024 ambulatory [facility] Start: 12-08-2024 End: 12-08-2024 ambulatory Radha Juarez Facility:[facility] Start: 12-06-2024 End: 12-06-2024 ambulatory [facility] Start: 11-23-2024 End: 11-23-2024 ambulatory [facility] Start: 11-21-2024 End: 11-21-2024 Patient encounter procedure Radha Juarez [facility] Work Phone: Start: 11-21-2024 End: 11-21-[address] Olivia DUARTEC Work Phone: -[facility] Start: 11-21-2024 End: 11-21-2024 ambulatory [facility] Start: 11-21-2024 End: 11-21-2024 ambulatory Radha Juarez Facility:[facility] Start: 11-09-2024 End: 11-09-2024 ambulatory [facility] Start: 11-01-2024 End: 11-01-2024 Refill Oscar Olivares [facility] Work Phone: [facility] Comment on above: Type 1 diabetes rosa itus during in first trimester Start: 10-26-2024 End: 10-26-2024 ambulatory [facility] Start: 10-24-2024 End: 10-24-[address] Anitra Zamudio MD -[facility] Work Phone: Start: 10-24-2024 End: 10-24-[address] Olivia Pruett PA-C Work Phone: -[facility] Start: 10-12-2024 End: 10-12-2024 Subsequent hospital visit by physician Jenny MANLEY[facility] Work Phone: [facility] Comment on above: Pre-existing type 1 diabetes mellitus, in , second trimester Arrived Start: 10-12-2024 End: 10-12-2024 ambulatory [facility] Start: 10-12-2024 End: 10-12-2024 [facility] Start: 10-07-2024 End: 10-07-2024 Refill Demetrius Ramirez [facility] Work Phone: [facility] Start: 09-29-2024 End: 09-29-2024 ambulatory CHANI Moreno [facility] Start: 09-28-2024 End: 09-28-[address] Jenny Guerrier DO -[facility] Work Phone: Start: 09-28-2024 End: 09-28-[address] Olivia Pruett PA-C Work Phone: -[facility] Start: 09-14-2024 End: 09-14-2024 ambulatory [facility] Start: 09-01-2024 End: 09-01-2024 ambulatory [facility] Start: 08-30-2024 End: 08-30-2024 ambulatory OSCAR OLIVARES [facility] Start: 08-30-2024 End: 08-30-2024 Office outpatient visit 25 minutes Oscar Olivares [employer] [facility] Work Phone: [facility] Comment on above: Type 1 diabetes rosa itus during in second trimester (Primary Dx); Type 1 diabetes mellitus without complication (HCC); Insulin pump titration Start: 08-29-2024 End: 08-29-2024 Patient encounter procedure Radha Juarez CNM -[facility] Work Phone: Start: 08-29-2024 End: 08-29-[address] Olivia Pruett PA-C Work Phone: -[facility] Start: 08-23-2024 ambulatory [facility] Start: 08-17-2024 End: 08-17-2024 ambulatory [facility] Start: 08-05-2024 End: 08-05-2024 Documentation procedure Oscar Olivares [employer] [facility] Work Phone: [facility] Start: 08-04-2024 End: 08-04-2024 ambulatory OSCAR OLIVARES [facility] Start: 08-04-2024 ambulatory OSCAR OLIVARES [facility] Start: 08-02-2024 End: 08-02-[address] Olivia Pruett PA-C Work Phone: [facility] Work Phone: Start: 08-02-2024 End: 08-02-2024 Patient encounter procedure Leigh BOLAÑOS -[facility] Work Phone: Start: 08-02-2024 End: 08-02-2024 ambulatory Olivia Pruett Facility:[facility] Start: 07-20-2024 End: 08-05-2024 Documentation procedure Isabel Garcia CNP Work Phone: [facility] Start: 07-20-2024 End: 07-20-2024 ambulatory ANITRA ZAMUDIO [facility] Start: 07-05-2024 End: 07-05-[address] Olivia Pruett PA-C Work Phone: [facility] Work Phone: Start: 07-05-2024 End: 07-05-[address] Anitra Zamudio MD -[facility] Start: 07-05-2024 End: 07-05-[address] Anitra Zamudio MD -[facility] Work Phone: Start: 07-05-2024 End: 07-05-[address] Olivia Pruett PA-C Work Phone: [facility] Work Phone: Start: 07-05-2024 End: 07-05-2024 ambulatory Anitra Zamudio Facility:[facility] Start: 06-22-2024 End: 06-22-2024 Nutrition therapy Isabel Gwendolyn Garcia [employer] Work Phone: [facility] Comment on above: Type 1 diabetes rosa itus during in first trimester Start: 06-22-2024 End: 06-26-2024 ambulatory [facility] Start: 06-15-2024 End: 06-15-2024 Refill Demetrius Ramirez [employer] Work Phone: [facility] [place] Comment on above: Type 1 diabetes rosa itus during in first trimester (Primary Dx) Start: 06-14-2024 End: 06-14-[address] Jenny Guerrier DO -[facility] Work Phone: Start: 06-14-2024 End: 06-14-2024 ambulatory Olivia Purett Facility:[facility] Start: 06-13-2024 End: 08-13-2024 Follow-up encounter Isabel Garcia CNP Work Phone: [facility] Comment on above: [place] SENIOR JAVA DEVELOPER (MONITOR ); EXTERNAL, FOR USE WITH NONDURABLE MEDICAL EQUIPMENT INTERSTITIAL CONTINUOUS GLUCOSE MONITORING SYSTEM (CGM) Start: 06-13-2024 End: 06-13-2024 Office outpatient visit 25 minutes Isabel Garcia CNP Work Phone: [facility] Comment on above: Type 1 diabetes rosa itus during in first trimester (Primary Dx); Type 1 diabetes mellitus without complication (HCC) Start: 06-13-2024 End: 06-13-2024 ambulatory [facility] Start: 04-07-2024 ambulatory [facility] Start: 03-01-2024 End: 03-01-2024 Office outpatient visit 25 minutes Demetrius Ramirez CNP Work Phone: [facility] Comment on above: Type 1 diabetes rosa itus without complication (HCC) Start: 03-01-2024 End: 03-01-2024 ambulatory [facility] Start: 01-27-2024 ambulatory [facility] Start: 2023 End: 2023 Office outpatient visit 15 minutes Demetrius Ramirez CNP Work Phone: [facility] [place] Comment on above: Type 1 diabetes rosa itus without complication (HCC) (Primary Dx); Insulin pump titration Start: 04-24-2023 End: 04-24-2023 Office outpatient visit 25 minutes Demetrius Ramirez CNP Work Phone: [facility] [place] Comment on above: Type 1 diabetes rosa itus without complication (HCC) (Primary Dx); Insulin pump titration Start: 03-12-2023 Refill Isabel toribio [facility] Work Phone: [facility] Comment on above: Type 1 diabetes rosa itus without complication (HCC) Start: 01-20-2023 Refill Isabel toribio [facility] [facility] Work Phone: [facility] Comment on above: Type 1 diabetes rosa itus without complication (HCC) Start: 01-12-2023 Refill Isabel toribio [employer] [facility] Work Phone: [facility] Comment on above: Type 1 diabetes rosa itus without complication (HCC) (Primary Dx) Start: 12-25-2022 End: 12-25-2022 Office outpatient new 30 minutes Isabel Garcia CNP Work Phone: [facility] Comment on above: Palpitations (Primar y Dx); Type 1 diabetes mellitus without complication (HCC); Racing heart beat; Chest pain, unspecified type Start: 12-03-2022 End: 12-03-2022 Office outpatient visit 25 minutes Isabel Garcia CNP Work Phone: [facility] Comment on above: Type 1 diabetes rosa itus without complication (HCC) (Primary Dx); Insulin pump titration; Racing heart beat Start: 07-16-2022 End: 07-16-2022 Office outpatient visit 25 minutes Isabel Garcia CNP Work Phone: [facility] Comment on above: Type 1 diabetes rosa itus without complication (HCC) (Primary Dx); Insulin pump titration Start: 03-13-2022 End: 03-13-2022 Office outpatient visit 15 minutes Demetrius Ramirez [employer] Work Phone: [facility] Comment on above: Type 1 diabetes rosa itus without complication (HCC) (Primary Dx) Start: 01-27-2022 Refill Isabel toribio [employer] Work Phone: [facility] Start: 11-15-2021 End: 11-15-2021 Office outpatient visit 25 minutes Triston Chacon PA-C Work Phone: [facility] Comment on above: Type 1 diabetes rosa itus without complication (HCC) (Primary Dx) Start: 07-03-2021 End: 07-03-2021 Office outpatient visit 25 minutes Triston Chacon PA-C Work Phone: [facility] Comment on above: Type 1 diabetes rosa itus without complication (HCC) (Primary Dx) Start: 10-31-2020 End: 10-31-2020 Office outpatient visit 25 minutes Triston Chacon PA-C Work Phone: [facility] Comment on above: Type 1 diabetes rosa itus without complication (HCC) (Primary Dx) Start: 06-27-2020 End: 06-27-2020 Office outpatient visit 25 minutes Isabel Garcia CNP Work Phone: [facility] Comment on above: Type 1 diabetes rosa itus without complication (HCC) (Primary Dx); Insulin pump titration Start: 04-16-2020 End: 04-16-2020 Refill Kita Carter Work Phone: [facility] Start: 04-13-2020 End: 04-13-2020 Orders Only Aziza Tobias Work Phone: [facility] Start: 03-29-2020 End: 03-29-2020 Refill Kita Carter Work Phone: [facility] Start: 02-29-2020 End: 02-29-2020 Office outpatient visit 25 minutes Isabel Garcia Work Phone: [facility] Comment on above: Type 1 diabetes rosa itus without complication (HCC) (Primary Dx); Insulin pump titration Start: 10-27-2019 End: 10-27-2019 Office outpatient visit 25 minutes Jasmin Henriquez Work Phone: [facility] Comment on above: Type 1 diabetes rosa itus without complication (HCC) (Primary Dx) Start: 06-23-2019 End: 06-23-2019 Office outpatient visit 15 minutes Jasmin Henriquez Work Phone: [facility] [facility] Comment on above: Type 1 diabetes rosa itus without complication (HCC) (Primary Dx) Start: 04-19-2019 End: 04-19-2019 Office outpatient visit 15 minutes Demetrius Ramirez Work Phone: [facility] Comment on above: Type 1 diabetes rosa itus without complication (HCC) (Primary Dx) Start: 04-04-2019 End: 04-04-2019 Office outpatient visit 15 minutes Kita Carter Work Phone: [facility] Comment on above: Type 1 diabetes rosa itus without complication (HCC) (Primary Dx); Insulin pump titration Start: 02-15-2019 End: 02-15-2019 Office outpatient visit 15 minutes Demetrius Ramirez Work Phone: [facility] Comment on above: Type 1 diabetes rosa itus without complication (HCC) (Primary Dx) Start: 11-03-2018 End: 11-03-2018 Office outpatient visit 25 minutes Triston Chacon Work Phone: [facility] Comment on above: Type 1 diabetes rosa itus without complication (HCC) (Primary Dx) Start: 06-25-2018 End: 06-25-2018 Office outpatient visit 15 minutes Isabel Garcia Work Phone: [facility] Comment on above: Type 1 diabetes rosa itus without complication (HCC) (Primary Dx) Start: 03-08-2018 Patient encounter procedure Kita Carter Facility:[facility] [facility] Start: 03-08-2018 End: 03-08-2018 Patient encounter procedure Kita Carter Work Phone: [facility] Start: 02-18-2018 End: 02-18-2018 Office outpatient visit 15 minutes Ruthie Abad Work Phone: [facility] Comment on above: Type 1 diabetes rosa itus without complication (HCC) (Primary Dx) Start: 09-09-2017 End: 09-09-2017 Office outpatient visit 15 minutes Kita Carter Work Phone: [facility] Procedures Date Procedure Procedure Detail Performing Clinician Start: 11-21-2024 Serologic test for syphilis Dr. Olivia Pruett PA-C Work Phone: Start: 10-12-2024 Hemoglobin glycosylated a1c Chani Mckinney PA-C Work Phone: Start: 08-30-2024 Hemoglobin glycosylated a1c Oscar Olivares [facility] Work Phone: Start: 08-30-2024 External gin inspector, CGM sys Oscar Olivares [facility] Work Phone: Start: 07-20-2024 External gin inspector, CG sys Demetrius Wilfredtom Ramirez [facility] Work Phone: Start: 07-05-2024 Liquid based cervica l cytology screening Dr. Olivia Pruett PA-C Work Phone: Comment on above: NEGATIVE FOR INTRAEP ITHELIAL LESION OR MALIGNANCY.THIS SPECIMEN WAS RESCREENED PART OF OUR SPLITTER HAND PROGRAM. This liquid based Th inPrep(R) pap test was screened withthe use of an image guided system. The HPV DNA reflex c riteria were not met with this specimenresult therefore, no HPV testing was performed.Performed at: [address] [id number] Director: Indiana Magaña MD, Phone: [phone] Start: 07-05-2024 Hepatitis C antibody measurement Dr. Olivia Pruett PA-C Work Phone: Comment on above: Reactive: Presumptiv e evidence of antibodies to HCV. Follow CDC recommendations for supplemental testing.Non-Reactive: Antibodies to HCV were not detected; does not exclude the possibility of exposure to HCVReactive Results are presumptive evidence of antibodies to HCV. Follow CDC recommendations for supplemental testing.Order confirmation testing: HCV Quant by PCR testing - HCVPCR #[id number] Non Reactive: < 0.8 Equivocal: >/= 0.8 to < 1.0 Reactive: >/= 1.0The CDC requires that a reactive/equivocal HCV antibody result be sent out for confirmation. HCV Quant by PCR testing. Start: 07-05-[address] Olivia Pruett PA-C Work Phone: Comment on above: Antibody Result: Int erpretationNon-Reactive: Non- ImmuneReactive: ImmuneThe following results were obtained with the [employer] Rubella IgG assay. Results from assays of other manufacturers cannot be used interchangeably. Start: 07-05-2024 Serologic test for syphilis Dr. Olivia Pruett PA-C Work Phone: Start: 07-05-[address] Olivia Pruett PA-C Work Phone: Start: 06-13-2024 External gin inspector, CGM sys Isabel Snow Radha MORGAN Work Phone: Start: 06-13-2024 Hemoglobin glycosylated a1c Isabel Snow McUriel MORGAN Work Phone: Start: 04-24-2023 Hemoglobin glycosylated a1c Demetrius Ramirez [facility] Work Phone: Start: 12-25-2022 Ecg routine ecg w/le ast 12 lds w/i&r Rico Steel MD Work Phone: Start: 12-03-2022 3 comp foot exam completed Isabel KirbyUriel MORGAN Work Phone: Start: 10-20-2022 Microalbumin [Mass/v olume] in Urine by Test strip Isabel KirbyUriel MORGAN Work Phone: Start: 07-16-2022 Hemoglobin glycosylated a1c Isabel Garcia [facility] Work Phone: Start: 07-16-2022 3 comp foot exam completed Isabel GarciaUriel MORGAN Work Phone: Start: 03-13-2022 Hemoglobin glycosylated a1c Demetrius Ramirez [facility] Work Phone: Start: 03-13-2022 3 comp foot exam completed Demetrius Ramirez CNP Work Phone: Start: 11-15-2021 3 comp foot exam completed Triston Chacon PA-C Work Phone: Start: 07-03-2021 3 comp foot exam completed Triston Chacon PA-C Work Phone: Start: 06-14-2021 Microalbumin [Mass/v olume] in Urine by Test strip Triston Chacon PA-C Work Phone: Start: 10-31-2020 3 comp foot exam completed Triston Chacon PA-C Work Phone: Start: 06-27-2020 3 comp foot exam completed Isabel Radha MORGAN Work Phone: Start: 05-30-2020 Microalbumin [Mass/v olume] in Urine by Test strip Isabel KirbyUriel MORGAN Work Phone: Start: 02-29-2020 Hemoglobin A1c/Hemoglobin.total in Blood Isabel Gwendolyn Garcia Work Phone: Start: 02-29-2020 3 comp foot exam completed Isabel Garcia Start: 06-23-2019 3 comp foot exam completed Jasmin eHnriquez Start: 04-19-2019 3 comp foot exam completed Jasmin Florence Start: 02-15-2019 3 comp foot exam completed Kita Carter Start: 11-03-2018 3 comp foot exam completed Triston Chacon Start: 09-09-2017 3 comp foot exam completed Ruthie Pollo Start: 10-28-2012 Microalbumin [Mass/v olume] in Urine by Test strip Demetrius Ramirez Plan of Treatment Date Care Activity Detail Author Start: 2076 Respiratory Syncytial Virus Immunization: Risk, 60-74 Risk, or 75+ (1 - 1-dose 75+ series) Respiratory Syncytial Virus Immunization: Risk, 60-74 Risk, or 75+ (1 - 1-dose 75+ series) [facility] Start: 03-08-2025 End: 08-30-2025 Comprehensive metabolic 2000 panel - Serum or Plasma Comprehensive Metabolic Panel Lab Routine Type 1 diabetes mellitus during in second trimester Expected: 03/08/2025 (Approximate), Expires: 08/30/2025 [facility] Comment on above: Expected: 03/08/2025 (Approximate), Expi res: 08/30/2025 Start: 03-08-2025 End: 08-30-2025 Hemoglobin A1c/Hemoglobin.total in Blood Hemoglobin A1c Lab Routine Type 1 diabetes mellitus during in second trimester Expected: 03/08/2025 (Approximate), Expires: 08/30/2025 [facility] Work Phone: Comment on above: Expected: 03/08/2025 (Approximate), Expi res: 08/30/2025 Start: 03-08-2025 End: 08-30-2025 Lipid 1996 panel - Serum or Plasma Lipid Panel Lab Routine Type 1 diabetes mellitus during in second trimester Expected: 03/08/2025 (Approximate), Expires: 08/30/2025 [facility] Comment on above: Expected: 03/08/2025 (Approximate), Expi res: 08/30/2025 Start: 03-08-2025 End: 08-30-2025 Microalbumin measurement, urine, quantitative Microalbumin/Creatini ne Ratio, UR Random Lab Routine Type 1 diabetes mellitus during in second trimester Expected: 03/08/2025 (Approximate), Expires: 08/30/2025 [facility] Comment on above: Expected: 03/08/2025 (Approximate), Expi res: 08/30/2025 Start: 03-08-2025 End: 08-30-2025 Thyrotropin [Units/volume] in Serum or Plasma TSH Lab Routine Type 1 diabetes mellitus during in second trimester Expected: 03/08/2025 (Approximate), Expires: 08/30/2025 [facility] Comment on above: Expected: 03/08/2025 (Approximate), Expi res: 08/30/2025 Start: 03-08-2025 End: 08-30-2025 Thyroxine (T4) free [Mass/volume] in Serum or Plasma T4, Free Lab Routine Type 1 diabetes mellitus during in second trimester Expected: 03/08/2025 (Approximate), Expires: 08/30/2025 [facility] Comment on above: Expected: 03/08/2025 (Approximate), Expi res: 08/30/2025 Start: 03-02-2025 Hemoglobin A1c measurement A1C [facility] Start: 03-01-2025 Diabetic foot examination Diabetic Foot Exam [facility] Start: 03-01-2025 End: 03-01-2025 Patient encounter procedure 03/01/2025 9:00 AM EST Office Visit [facility] [address] [place] [address] Oscar Olivares, [facility] [address] [place] [address] [facility] Start: 02-13-2025 ambulatory Ambulatory Facility:[facility] Start: 01-31-2025 End: 01-31-2025 Patient encounter procedure 01/31/2025 2:00 PM EST Office Visit Maternal Medicine [address] [place] [address] Jenny Tate CHEMISTRY PROFESSOR[place] [address] Return in about 2 weeks (around 08/18/2024) for Comanage every 2 weeks, Comanage can see BRETT.- Per patient preference for dates/times [facility] Comment on above: Return in about 2 weeks (around ) for Comanage every 2 weeks, Comanage can see BRETT.- Per patient preference for dates/times Start: 01-25-2025 eGFR Diabetes eGFR Diabetes [facility] Start: 01-25-2025 Urine screening for protein eGFR Diabetes [facility] Start: 01-18-2025 End: 01-18-2025 Patient encounter procedure 01/18/2025 1:30 PM EST Office Visit Maternal Medicine [address] [place] [address] Jenny Tate CHEMISTRY PROFESSOR-[employer] [place], [place] [id number] Return in about 2 weeks (around 08/18/2024) for Comanage every 2 weeks, Comanage can see BRETT.- Per patient preference for dates/times [facility] Comment on above: Return in about 2 weeks (around ) for Comanage every 2 weeks, Comanage can see BRETT.- Per patient preference for dates/times Start: 01-11-2025 Hemoglobin A1c/Hemoglobin.total in Blood HbA1c [facility] Start: 01-04-2025 End: 01-04-2025 Patient encounter procedure 01/04/2025 1:30 PM EST Office Visit [facility]aternal Medicine [address], [place] [id number] Jenny Tate, CHEMISTRY PROFESS[place] [address] Return in about 2 weeks (around 08/18/2024) for Comanage every 2 weeks, Comanage can see BRETT.- Per patient preference for dates/times [facility] Comment on above: Return in about 2 weeks (around ) for Comanage every 2 weeks, Comanage can see BRETT.- Per patient preference for dates/times Start: 12-21-2024 End: 12-21-2024 Patient encounter procedure 12/21/2024 1:00 PM EST Office Visit Maternal Medicine [address] [place], [place] [phone] Jenny Tate APRN-CNP [place], [place] [phone] Return in about 2 weeks (around 08/18/2024) for Comanage every 2 weeks, Comanage can see BRETT.- Per patient preference for dates/times [facility] Comment on above: Return in about 2 weeks (around ) for Comanage every 2 weeks, Comanage can see BRETT.- Per patient preference for dates/times Start: 12-19-2024 Respiratory Syncytial Virus Immunization: Risk, 60-74 Risk, or 75+ (1 - Risk 1-dose series) Respiratory Syncytial Virus Immunization: Risk, 60-74 Risk, or 75+ (1 - Risk 1-dose series) [facility] Start: 12-14-2024 Hemoglobin A1c measurement A1C [facility] Start: 11-23-2024 End: 11-23-2024 Patient encounter procedure 11/23/2024 1:00 PM EDT Office Visit Maternal Medicine [address] [place], [place] [phone] Jenny Tate APRN-CNP [place], [place] [id number] Return in about 2 weeks (around 08/18/2024) for Comanage every 2 weeks, Comanage can see BRETT.- Per patient preference for dates/times [facility] Comment on above: Return in about 2 weeks (around ) for Comanage every 2 weeks, Comanage can see BRETT.- Per patient preference for dates/times Start: 11-21-2024 End: 11-21-2024 Professional / ancillary services management 11/21/2024 10:00 AM EDT Ancillary Procedure Visit Maternal Medicine [place] [address] [place] [address] Return for EDC 02/13/2025 US60 at 28 weeks. [facility] [place] Comment on above: Return for EDC 02/13/2025 US60 at 28 weeks . Start: 11-09-2024 End: 11-09-2024 Patient encounter procedure 11/09/2024 1:00 PM EDT Office Visit [facility]aternal Medicine [address] [id number] Jenny Taet, CHEMISTRY PROFESSOR[employer] [place], [place] [phone] Return in about 2 weeks (around 08/18/2024) for Comanage every 2 weeks, Comanage can see BRETT.- Per patient preference for dates/times [facility] Comment on above: Return in about 2 weeks (around ) for Comanage every 2 weeks, Comanage can see BRETT.- Per patient preference for dates/times Start: 10-26-2024 End: 10-26-2024 Patient encounter procedure 10/26/2024 1:30 PM EDT Office Visit Maternal Medicine [address] [place] [address] Jenny Tate, CHEMISTRY PROF[place] [address] Return in about 2 weeks (around 08/18/2024) for Comanage every 2 weeks, Comanage can see BRETT.- Per patient preference for dates/times [facility] Comment on above: Return in about 2 weeks (around ) for Comanage every 2 weeks, Comanage can see BRETT.- Per patient preference for dates/times Start: 10-10-2024 COVID-19 ( season) COVID-19 ( season) [facility] Start: 10-10-2024 COVID-19 Vaccine ( season) COVID-19 Vaccine ( season) [facility] Start: 10-10-2024 FLU (#1) FLU (#1) [facility] Start: 10-10-2024 Influenza vaccination [facility] Start: 08-30-2024 Diabetic foot examination Diabetic Foot Exam [facility] Start: 08-30-2024 End: 08-30-2024 Patient encounter procedure 08/30/2024 9:30 AM EDT Office Visit [facility] [address] [place] [address] Oscar Olivares CNP [address] [place] [address] [facility] Start: 07-26-2024 Hemoglobin A1c measurement A1C [facility] Start: 07-05-2024 CBC W Auto Differential panel - Blood [facility] Start: 07-05-2024 Comprehensive metabolic 2000 panel - Serum or Plasma [facility] Start: 07-05-2024 Hemoglobin A1c/Hemoglobin.total in Blood [facility] Start: 07-05-2024 Hepatitis C antibody measurement [facility] Start: 07-05-2024 Rubella IgG measurement [facility] Start: 07-05-2024 Serologic test for syphilis [facility] Start: 07-05-2024 Thyroid stimulating hormone measurement [facility] Start: 07-05-2024 [facility] Start: 04-23-2024 Diabetic foot examination Diabetic Foot Exam [facility] Start: 03-01-2024 End: 03-01-2024 Patient encounter procedure 03/01/2024 9:15 AM EST Office Visit [facility] [address] [place] [address] Demetrius Ramirez, [employer] [address] [place] [address] [facility] Start: 12-04-2023 Diabetic foot examination [facility] Start: 10-25-2023 Hemoglobin A1c measurement A1C [facility] Start: 10-21-2023 Urine screening for protein [facility] Start: 10-11-2023 COVID-19 Vaccine ( season) COVID-19 Vaccine ( season) [facility] Start: 10-11-2023 Influenza vaccination Influenza Vaccine (#1) [facility] Start: 2023 End: 2023 Patient encounter procedure 2023 11:15 AM EDT Office Visit [facility] [place] [address] [place] [address] Demetrius Ramirez CNP [address] [place] [address] [facility] [place] Start: 07-17-2023 Diabetic foot examination Foot Exam [facility] Start: 04-20-2023 Hemoglobin A1c measurement A1C [facility] Start: 04-16-2023 End: 04-16-2023 Patient encounter procedure 04/16/2023 11:00 AM EST Office Visit [facility] [address] [place] [address] Demetrius Ramirez CNP [address] [place] [address] [facility] Start: 03-13-2023 Diabetic foot examination Foot Exam [facility] Start: 01-15-2023 Hemoglobin A1c measurement A1C [facility] Start: 12-25-2022 End: 02-25-2024 Extended Holter Monitor (3-7 days) Extended Holter Monitor (3-7 days) Cardiac Services Routine Palpitations Chest pain, unspecified type Expected: 12/25/2022, Expires: 02/25/2024 [facility] Comment on above: Expected: 12/25/2022, Expires: Start: 12-18-2022 End: 12-18-2022 Patient encounter procedure 12/18/2022 11:00 AM EST Office Visit [facility] [address] [place] [phone] Isabel Garcia CNP [address] [place] [address] Rico Steel MD [address] [place] [address] [facility] Start: 12-03-2022 End: 12-03-2022 Patient encounter procedure 12/03/2022 9:45 AM EDT Office Visit [facility] [address] [place] [phone] Triston Chacon PA-C [address] [place] [phone] [facility] Start: 11-15-2022 End: 07-17-2023 Comprehensive metabolic 2000 panel - Serum or Plasma Comprehensive Metabolic Panel Lab Routine Type 1 diabetes mellitus without complication (HCC) Expected: 11/15/2022, Expires: 07/17/2023 [facility] Work Phone: Comment on above: Expected: 11/15/2022, Expires: 4 Start: 11-15-2022 Diabetic foot examination Foot Exam [facility] Start: 11-15-2022 End: 07-17-2023 Hemoglobin A1c/Hemoglobin.total in Blood Hemoglobin A1c Lab Routine Type 1 diabetes mellitus without complication (HCC) Expected: 11/15/2022, Expires: 07/17/2023 [facility] Comment on above: Expected: 11/15/2022, Expires: 4 Start: 11-15-2022 End: 07-17-2023 Microalbumin measurement, urine, quantitative Microalbumin/Creatini ne Ratio, UR Random Lab Routine Type 1 diabetes mellitus without complication (HCC) Expected: 11/15/2022, Expires: 07/17/2023 [facility] Comment on above: Expected: 11/15/2022, Expires: 4 Start: 11-15-2022 End: 07-17-2023 Thyrotropin [Units/volume] in Serum or Plasma TSH Lab Routine Type 1 diabetes mellitus without complication (HCC) Expected: 11/15/2022, Expires: 07/17/2023 [facility] Comment on above: Expected: 11/15/2022, Expires: Start: 11-15-2022 End: 07-17-2023 Thyroxine (T4) free [Mass/volume] in Serum or Plasma T4, Free Lab Routine Type 1 diabetes mellitus without complication (HCC) Expected: 11/15/2022, Expires: 07/17/2023 [facility] Comment on above: Expected: 11/15/2022, Expires: Start: 10-10-2022 COVID-19 Vaccine () COVID-19 Vaccine () [facility] Start: 10-10-2022 Influenza vaccination [facility] Start: 09-10-2022 Hemoglobin A1c measurement A1C [facility] Start: 2022 Microscopic observation [Identifier] in Cervix by Cyto stain Pap Smear [facility] Start: 2022 Screening for malignant neoplasm of cervix Pap Smear [facility] Start: 07-16-2022 End: 07-16-2022 Patient encounter procedure 07/16/2022 Office Visit Endocrinology Isabel Garcia, [employer] [address] [place] [address] [facility] Start: 07-03-2022 Diabetic foot examination Foot Exam [facility] Start: 06-14-2022 Microalbumin measurement, urine, quantitative Urine Microalbumin [facility] Start: 06-14-2022 Urine screening for protein Urine Microalbumin [facility] Start: 04-22-2022 Hemoglobin A1c measurement A1C [facility] Start: 03-19-2022 End: 03-19-2022 Patient encounter procedure 03/19/2022 Office Visit Endocrinology Isabel Garcia, [employer] [address] [place] [address] [facility] Start: 12-15-2021 Hemoglobin A1c measurement A1C [facility] Start: 11-08-2021 End: 11-08-2021 Patient encounter procedure 11/08/2021 Office Visit Endocrinology Triston Chacon PA-C [address] [place] [address] [facility] Start: 10-10-2021 Influenza vaccination [facility] Start: 06-27-2021 Diabetic foot examination Foot Exam [facility] Start: 05-30-2021 Microalbumin measurement, urine, quantitative Urine Microalbumin [facility] Start: 03-06-2021 End: 03-06-2021 Patient encounter procedure 03/06/2021 Office Visit Endocrinology Isabel Garcia, [employer] [address] [place] [address] [facility] Start: 02-28-2021 Diabetic foot examination Foot Exam [facility] Start: 11-29-2020 Hemoglobin A1c measurement A1C [facility] Start: 10-31-2020 End: 10-31-2020 Patient encounter procedure 10/31/2020 Office Visit Endocrinology Triston Chacon PA-C [address] [place] [address] [phone] [facility] Start: 10-10-2020 Influenza vaccination [facility] Start: 2020 Hepatitis A (1 of 2 - Risk 2-dose series) Hepatitis A (1 of 2 - Risk 2-dose series) [facility] Start: 2020 Hepatitis B (1 of 3 - 19+ 3-dose series) Hepatitis B (1 of 3 - 19+ 3-dose series) [facility] Start: 2020 Pneumococcal Vaccine: Ped or At-Risk (1 of 2 - PCV) Pneumococcal Vaccine: Ped or At-Risk (1 of 2 - PCV) [facility] Start: 08-28-2020 HbA1c (Bld) [Mass fraction] A1C [facility] Start: 06-27-2020 End: 06-27-2020 Office Visit 06/27/2020 Office Visit Endocrinology Isabel Garcia, [employer] [address] [place] [address] [phone] [facility] Start: 06-22-2020 Diabetic foot examination Foot Exam [facility] Start: 04-18-2020 Diabetic foot examination Foot Exam [facility] Start: 02-29-2020 End: 02-29-2020 Office Visit 02/29/2020 Office Visit Endocrinology Isabel Garcia, [employer] [address] [place] [address] [phone] [facility] Start: 02-16-2020 Diabetic foot examination Foot Exam [facility] Start: 11-04-2019 Diabetic foot examination FOOT EXAM [facility] Start: 10-27-2019 End: 10-27-2019 Office Visit 10/27/2019 Office Visit Endocrinology Jasmin Henriquez PA-C [address] [place] [address] [phone] [facility] Start: 10-24-2019 End: 06-22-2020 Free T4 [Mass/Vol] T4, Free Lab Routine Type 1 diabetes mellitus without complication (HCC) Expected: 10/24/2019 (Approximate), Expires: 06/22/2020 [facility] Comment on above: Expected: 10/24/2019 (Approximate), Expi res: 06/22/2020 Start: 10-24-2019 End: 06-22-2020 Lipid 1996 panel Lipid Panel Lab Routine Type 1 diabetes mellitus without complication (HCC) Expected: 10/24/2019 (Approximate), Expires: 06/22/2020 [facility] Comment on above: Expected: 10/24/2019 (Approximate), Expi res: 06/22/2020 Start: 10-24-2019 End: 06-22-2020 TSH Qn TSH Lab Routine Type 1 diabetes mellitus without complication (HCC) Expected: 10/24/2019 (Approximate), Expires: 06/22/2020 [facility] Comment on above: Expected: 10/24/2019 (Approximate), Expi res: 06/22/2020 Start: 10-11-2019 Influenza vaccination given [facility] Start: 09-01-2019 Hepatitis C antibody, confirmatory test Hepatitis C Screening [facility] Start: 09-01-2019 Hepatitis C screening Hepatitis C Screening [facility] Start: 08-11-2019 HbA1c (Bld) [Mass fraction] A1C [facility] Start: 06-23-2019 End: 06-23-2019 Office Visit 06/23/2019 Office Visit Endocrinology Jasmin Henriquez PA-C [address] [place] [address] [phone] [facility] Start: 05-17-2019 End: 05-17-2019 Office Visit 05/17/2019 Office Visit Endocrinology Jasmin Henriquez PA-C [address] [place] [address] [phone] [facility] Start: 04-19-2019 End: 04-19-2019 Office Visit 04/19/2019 Office Visit Endocrinology Demetrius Ramirez CNP [address] [place] [address] [phone] [facility] Start: 02-15-2019 End: 02-15-2019 Office Visit 02/15/2019 Office Visit Endocrinology Demetrius Ramirez CNP [address] [place] [address] [phone] [facility] Start: 10-29-2018 End: 10-29-2018 Office Visit 10/29/2018 Office Visit Endocrinology Kita Carter MD [address] [place] [address] [phone] [facility] Start: 10-10-2018 Influenza vaccination given [facility] Start: 09-09-2018 Diabetic foot examination FOOT EXAM [facility] Start: 06-25-2018 End: 06-25-2018 Office Visit 06/25/2018 Office Visit Endocrinology Isabel Garcia CNP [address] [place] [address] [phone] [facility] Start: 05-06-2018 Diabetic foot examination (regime/therapy) FOOT EXAM [facility] Start: 02-05-2018 End: 02-05-2018 Ambulatory 02/05/2018 Office Visit Endocrinology [place], Shalini Cross, [facility] [address] [place] [id number] [phone] [facility] Start: 11-06-2017 Hemoglobin A1c/Hemoglobin.total mass fraction (Bld) [facility] Start: 10-10-2017 Influenza vaccination SEQUENTIAL INFLUENZA VACCINE (#1) [facility] Start: 10-10-2017 Influenza vaccination given SEQUENTIAL INFLUENZA VACCINE (#1) [facility] Start: 2017 COVID-19 Vaccine (1 of 2) COVID-19 Vaccine (1 of 2) [facility] Start: 2017 MenB (1 of 2 - MenB 2-Dose Series Bexsero) MenB (1 of 2 - MenB 2-Dose Series Bexsero) [facility] Start: 2017 Meningococcal conjugate vaccination [facility] Start: 2017 Meningococcus vaccination MENINGOCOCCAL VACCINE (1 of 1) [facility] Start: 2016 HIV screening HIV Screening [facility] Start: 2016 HPV (1 - 3-dose series) HPV (1 - 3-dose series) [facility] Start: 2016 Vaccination for human papillomavirus [facility] Start: 2014 Varicella (1 of 2 - 13+ 2-dose series) Varicella (1 of 2 - 13+ 2-dose series) [facility] Start: 2014 Varicella vaccination [facility] Start: 10-28-2013 Albumin DL <= 20 mg/L (U) [Mass/Vol] Urine Microalbumin [facility] Start: 2013 Adolescent depression screening assessment Depression Screening (PHQ9) [facility] Start: 2013 COVID-19 Vaccine (1) COVID-19 Vaccine (1) [facility] Start: 2013 Depression screening using PHQ-9 (Patient Health Questionnaire 9) score [facility] Start: 2012 Vaccination for human papillomavirus [facility] Start: 09-01-2011 Albumin DL <= 20 mg/L mass conc (U) URINE MICROALBUMIN [facility] Start: 09-01-2011 Glaucoma screening [facility] Start: 09-01-2011 Ophthalmic examination and evaluation OPHTHALMOLOGY EXAM [facility] Start: 2008 Tetanus Diphtheria and Pertussis Vaccines (4 - Tdap) Tetanus Diphtheria and Pertussis Vaccines (4 - Tdap) [facility] Start: 2008 Tetanus, diphtheria and acellular pertussis vaccination [facility] Start: 2008 Vaccination for diphtheria, pertussis, and tetanus DTAP VACCINES (1 - Tdap) [facility] Start: 09-01-2007 Pneumococcal Vaccine: Ped or At-Risk (1 - PCV) Pneumococcal Vaccine: Ped or At-Risk (1 - PCV) [facility] Start: 09-01-2007 Pneumococcal Vaccine: Ped or At-Risk (1 of 2 - PCV) Pneumococcal Vaccine: Ped or At-Risk (1 of 2 - PCV) [facility] Start: 09-01-2007 Pneumococcal Vaccine: Ped or At-Risk (1 of 2 - PPSV23) Pneumococcal Vaccine: Ped or At-Risk (1 of 2 - PPSV23) [facility] Start: 2006 COVID-19 Vaccine (#1) COVID-19 Vaccine (#1) [facility] Start: 2005 Inactivated poliovirus vaccine (product) IPV VACCINES (4 of 4 - 4-dose series) [facility] Start: 2005 Polio (4 of 4 - 4-dose series) Polio (4 of 4 - 4-dose series) [facility] Start: 2004 History and physical examination, annual for health maintenance Wellness Visit [facility] Start: 2002 Hepatitis A immunization [facility] Start: 2002 Znfljvr-[id number] vaccination [facility] Start: 2002 MMR (1 of 1 - Standard series) MMR (1 of 1 - Standard series) [facility] Start: 2002 Varicella vaccination VARICELLA VACCINES (1 of 2 - 2-dose childhood series) [facility] Start: 03-03-2002 COVID-19 Vaccine (#1) COVID-19 Vaccine (#1) [facility] Start: 2001 Inactivated poliovirus vaccine (product) [facility] Start: 2001 Hepatitis B vaccination [facility] Start: 2001 Screening for Chlamydia trachomatis Chlamydia Screening [facility] Start: 2001 Tetanus vaccination [facility] Alanine aminotransfe rase [Enzymatic activity/volume] in Serum or Plasma [facility] Albumin [Mass/volume ] in Serum or Plasma [facility] Alkaline phosphatase [Enzymatic activity/volume] in Serum or Plasma [facility] Anion gap in Serum or Plasma [facility] Bilirubin, total measurement [facility] BUN/Creatinine ratio [facility] Calcium [Mass/volume ] in Serum or Plasma [facility] Carbon dioxide, tota l [Moles/volume] in Central venous blood [facility] CBC W Auto Different ial panel - Blood [facility] Chlamydia deoxyribon ucleic acid detection [facility] End: 2024 Complete blood count with white cell differential, manual CBC and Differential Lab Routine Type 1 diabetes mellitus without complication (HCC) 1 Occurrences starting 2023 until 2024 [facility] Comment on above: 1 Occurrences starting 2023 until 2024 End: 02-28-2021 Comprehensive metabolic 2000 panel Comprehensive Metabolic Panel Lab Routine Type 1 diabetes mellitus without complication (HCC) 1 Occurrences starting 02/29/2020 until 02/28/2021 [facility] Comment on above: 1 Occurrences starting 02/29/2020 until 02/28/2021 End: 11-04-2019 Comprehensive metabolic 2000 panel Comprehensive Metabolic Panel Lab Routine Type 1 diabetes mellitus without complication (HCC) 1 Occurrences starting 11/03/2018 until 11/04/2019 [facility] Comment on above: 1 Occurrences starting 11/03/2018 until 11/04/2019 End: 07-03-2022 Comprehensive metabolic 2000 panel - Serum or Plasma Comprehensive Metabolic Panel Lab Routine Type 1 diabetes mellitus without complication (HCC) 1 Occurrences starting 07/03/2021 until 07/03/2022 [facility] Work Phone: Comment on above: 1 Occurrences starting 07/03/2021 until 07/03/2022 End: 2024 Comprehensive metabolic 2000 panel - Serum or Plasma Comprehensive Metabolic Panel Lab Routine Type 1 diabetes mellitus without complication (HCC) 1 Occurrences starting 2023 until 2024 [facility] Work Phone: Comment on above: 1 Occurrences starting 2023 until 2024 Creatinine [Mass/vol ume] in Serum or Plasma [facility] Electrocardiographic procedure [facility] Erythrocyte mean cor puscular volume determination [facility] End: 02-28-2021 Free T4 [Mass/Vol] T4, Free Lab Routine Type 1 diabetes mellitus without complication (HCC) 1 Occurrences starting 02/29/2020 until 02/28/2021 [facility] Comment on above: 1 Occurrences starting 02/29/2020 until 02/28/2021 Glucose [Mass/volume ] in Serum or Plasma [facility] End: 02-28-2021 HbA1c (Bld) [Mass fraction] Hemoglobin A1c Lab Routine Type 1 diabetes mellitus without complication (HCC) 1 Occurrences starting 02/29/2020 until 02/28/2021 [facility] Comment on above: 1 Occurrences starting 02/29/2020 until 02/28/2021 End: 11-04-2019 HbA1c (Bld) [Mass fraction] Hemoglobin A1c Lab Routine Type 1 diabetes mellitus without complication (HCC) 1 Occurrences starting 11/03/2018 until 11/04/2019 [facility] Comment on above: 1 Occurrences starting 11/03/2018 until 11/04/2019 Hematocrit [Volume F raction] of Blood [facility] Hemoglobin [Mass/vol ume] in Blood [facility] End: 07-03-2022 Hemoglobin A1c/Hemoglobin.total in Blood Hemoglobin A1c Lab Routine Type 1 diabetes mellitus without complication (HCC) 1 Occurrences starting 07/03/2021 until 07/03/2022 [facility] Comment on above: 1 Occurrences starting 07/03/2021 until 07/03/2022 End: 2024 Hemoglobin A1c/Hemoglobin.total in Blood Hemoglobin A1c Lab Routine Type 1 diabetes mellitus without complication (HCC) 1 Occurrences starting 2023 until 2024 [facility] Comment on above: 1 Occurrences starting 2023 until 2024 Hepatitis B virus velasco rface Ag [Presence] in Serum [facility] Leukocytes [#/volume ] in Blood [facility] End: 2024 Lipid 1996 panel - Serum or Plasma Lipid Panel Lab Routine Type 1 diabetes mellitus without complication (HCC) 1 Occurrences starting 2023 until 2024 [facility] Comment on above: 1 Occurrences starting 2023 until 2024 Liquid based cervica l cytology screening [facility] Mean corpuscular hem oglobin concentration determination [facility] Mean corpuscular hem oglobin determination [facility] Measurement of renal function [facility] Microalbumin measure ment, urine, quantitative Microalbumin/Creatini ne Ratio, UR Random Lab Routine Type 1 diabetes mellitus without complication (HCC) Ordered: 02/29/2020 [facility] Comment on above: Ordered: 02/29/2020 Microalbumin measure ment, urine, quantitative Microalbumin/Creatini ne Ratio, UR Random Lab Routine Type 1 diabetes mellitus without complication (HCC) Ordered: 2023 [facility] Comment on above: Ordered: 2023 Neutrophil count [facility] Neutrophil percent differential count [facility] Platelets [#/volume] in Blood [facility] Potassium measurement [facility] Protein/Creatinine [ Ratio] in Urine [facility] Red blood cell count [facility] Red cell distributio n width determination [facility] Serologic test for syphilis [facility] Serum chloride measurement [facility] Sodium measurement [facility] End: 02-25-2024 Stress test only, exercise Stress test only, exercise [facility] Routine Palpitations Chest pain, unspecified type 1 Occurrences starting 12/25/2022 until 02/25/2024 [facility] Work Phone: Comment on above: 1 Occurrences starting 12/25/2022 until 02/25/2024 End: 2024 Thyrotropin [Units/volume] in Serum or Plasma TSH Lab Routine Type 1 diabetes mellitus without complication (HCC) 1 Occurrences starting 2023 until 2024 [facility] Comment on above: 1 Occurrences starting 2023 until 2024 End: 2024 Thyroxine (T4) free [Mass/volume] in Serum or Plasma T4, Free Lab Routine Type 1 diabetes mellitus without complication (HCC) 1 Occurrences starting 2023 until 2024 [facility] Comment on above: 1 Occurrences starting 2023 until 2024 Total protein measurement [facility] End: 02-28-2021 TSH Qn TSH Lab Routine Type 1 diabetes mellitus without complication (HCC) 1 Occurrences starting 02/29/2020 until 02/28/2021 [facility] Comment on above: 1 Occurrences starting 02/29/2020 until 02/28/2021 Urea nitrogen [Mass/ volume] in Serum or Plasma [facility] Immunizations Immunization Date Immunization Notes Care Provider Toyin perea 05-06-2017 HEMOGLOBIN A1C Ruthie Abad [facility] 04-27-2002 poliovirus vaccine, unspecified formulation Triston Chacon [facility] Payers Date Payer Category Payer Self-pay [id number] 2024 Self-pay 2024 Unknown [id number] Unknown [id number] 2.16.8 [id number] Unknown [id number] 2.16.8 [id number] Unknown [id number] 2.16.8 [id number] Unknown [id number] 2.16.8 [id number] Unknown [id number] 2.16.8 [id number] Unknown [id number] 2.16.8 [id number] Unknown [id number] 2.16.8 [id number] Unknown [id number] 2.16.8 [id number] Unknown [id number] 2.16.8 [id number] Unknown [id number] 2.16.8 [id number] Unknown [id number] 2.16.8 [id number] Unknown [id number] 2.16.8 [id number] Social History Date Type Detail Facility Start: 09-09-2017 End: 06-14-2024 Tobacco smoking status PRIS Never smoker [facility] Start: 2000 Sex Assigned At Not on file [facility] Start: 02-15-2019 End: 08-30-2024 Alcohol intake Current non-drinker of alcohol (finding) [facility] Start: 06-23-2021 End: 03-13-2022 Exposure to SARS-CoV-2 (event) Not sure [facility] Start: 10-27-2019 End: 12-03-2022 Tobacco use and exposure Never used [facility] Start: 06-27-2020 End: 08-30-2024 Alcohol intake [facility] Start: 07-16-2022 End: 08-30-2024 Tobacco use panel [facility] Start: 10-31-2020 Gender identity Identifies as female gender (finding) [facility] Start: 10-31-2020 Sexual orientation Heterosexual (finding) [facility] Start: 05-23-2024 [facility] Start: 2000 Sex Assigned At Female [facility] Start: 10-12-2024 Alcoholic beverage intake Ex-drinker (finding) [facility] Start: 07-07-2024 Sex Female (finding) [facility] Medical Equipment Procedure Code Equipment Code Equipment Origin al Text Equipment Identifier Dates Use as directed 8 times per day . [id number] Start: 03-22-2019 End: 01-27-2022 Use as directed 8 times per day . [id number] Start: 03-28-2019 End: 03-29-2020 Use as directed 8 times per day. . [id number] Start: 03-30-2020 test up to EIGHT times DAILY DIRECTED . [id number] Start: 04-09-2021 End: 01-27-2022 Use to check BG 8 x daily. DX code E10.9 . [id number] Start: 01-28-2022 End: 12-03-2022 by Miscellaneous route Use to check BG 8 x daily. DX code E10.9 . [id number] End: 01-27-2022 Use to check BG 8 x daily. DX code E10.9 . [id number] Start: 12-03-2022 by Miscellaneous route 4 (four) times a day . [id number] Start: 04-24-2023 Clinical Notes 06-27-2020 to 11-21-2024 Note Date & Type Note Facility 11-21-2024 Progress note [facility] 10-24-2024 Progress note [facility] 10-24-2024 Progress note Note Date/Time October 24, 2024 3:00pm [facility] [address], [address] [place] [address] OFFICE VISIT Date of Service: 10/24/24 MR#: [id number] Acct: [id number] Name: ALLISON NGUYEN Rep #: [id number] : 2000 Provider: Dr. Antwon Zamudio MD Age/Sex: 24/F Location: 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 Helper Required: No Is patient in pain?: No Allergies acetaminophen (From Tylenol) Allergy (Mild, Verified 10/24/24 14:24) Rash Medications ?Medication ?Instructions ?Recorded ?Confirmed ?Type insulin lispro 100 unit/mL 1 sliding scale dose subcut 06/14/24 10/24/24 History subcutaneous pen (Humalog KwikPen USEASDIRECTD (U-100) Insulin) Last Menstrual Period: 05/09/24 Zika: Zika virus screening: Negative : No PFSH PFSH Medical History Diabetes type 1 Family History Mother Colon cancer Grandfather Colon cancer Grandfather Prostate cancer Social History adopted: No household members: spouse housing: house 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 pets and animals: Yes pets and animals: farm animals history of recent travel: Yes ([place]) out of state: Yes out of country: No sexually active: Yes Smoking Status: Never smoker alcohol intake: never substance use type: does not use well-balanced diet: daily or most days caffeine: Yes Type: coffee eating out: rarely or never during the past year weight has: remained stable what type of physical activity do you participate in: walking frequency: 1-2 times per week duration: 15-30 minutes/day ness/yarsani: Mennonite seatbelt use: always do you feel safe at home: Yes additional social history: : Seven - Lau/Katie History 1 Elective abortions Hx Para 0 Spontaneous abortions 0 Hx # Term Pregnancies Ectopic pregnancies Hx # Pregnancies Multiple births # of living children HPI 24 WK OB Details: ALLISON NGUYEN is a 24 year old who presents for routine OB visit. OB Visit [facility] Calculator Estimated Delivery Date Method Current WG Current Estimate 02/13/25 LMP (Certain) 24w 0d Other Estimates 02/17/25 Ultrasound #1 23w 3d Expected Delivery Route/Plan needs fu placental location US Labor Preferences- CB/BF classes: [] labor support person: [] labor intervention preferences: [] pain management options preferred: [] cut cord/dad catch: [] : [] PP control planned: [] discussed possible routes of delivery and associated risks: [] special requests: [] Specific Issue/Plans Covid status: [] Flu vaccine: [] Tdap vaccine: [] Rhogam: [] LARC form signed: [] Problem list reviewed and updated with the most current plan of care details and appropriate orders placed. Relevant counseling for the gestational age provided. Continue routine care and follow up unless otherwise noted in visit notes/problem list details Initial Weight: Not Recorded Date -?-?-?-?-?-?-?-?-?-?-?-?- EGA Weight BP Urine Prot -?-?-?-?-?-?-?-?-?-?-?-?- Glucose FHR FuHt Pres Dilation -?-?-?-?-?-?-?-?-?-?-?-?- Effaced St Visit Note 07/05/24 -?-?-?-?-?-?-?-?-?-?-?-?- 8w 1d 131 lb 4 oz 111/62 -?-?-?-?-?-?-?-?-?-?-?-?- 140 -?-?-?-?-?-?-?-?-?-?-?-?- SM- no vb crampi ng co nausea nd constipation, labile blood sugars. 08/02/24 -?-?-?-?-?-?-?-?-?-?-?-?- 12w 1d 134 lb 3 oz 105/68 Nega tive -?-?-?-?-?-?-?-?-?-?-?-?- Negative 160 -?-?-?-?-?-?-?-?-?-?-?-?- MH-no VB. Nausea improving. Saw MFM and managing glucose, improved. Br US confirm FHT 08/29/24 -?-?-?--?-?-?-?-?-?-?-?-?- 16w 0d 140 lb 8 oz 108/71 Nega tive -?-?-?-?-?-?-?-?-?-?-?-?- 250 g/dL 165 -?-?-?-?-?-?-?-?-?-?-?-?- KW- no vb/crampi ng. Appt with MFM on for insulin adjustment. Blood sugars are up and down Has MFM US scheduled. 09/28/24 -?-?-?-?-?-?-?-?-?-?-?-?- 20w 2d 147 lb 3 oz 109/70 Nega tive -?-?-?-?-?-?-?-?-?-?-?-?- Negative 139 -?-?-?-?-?-?-?-?-?-?-?-?- JV- pt has a pre via of the tail end of the placenta over the cervix. we discussed pelvic rest. Patient was running every day and mowing the lawn, etc. We discussed that we can not do these things. Fasting glucose levels are 90's-110 and she states that her 2 hr pp are not what she wants them to be. SHe has mfm appt tomorrow to discuss insulin pump. Continue monthly growth scans. will eventually need twice weekly testing starting 28 weeks. 10/24/24 -?-?-?-?-?-?-?-?-?-?-?-?- 24w 0d 152 lb 6 oz 97/64 Nega tive -?-?-?-?-?-?-?-?-?-?-?-?- Negative 140 24 -?-?-?-?-?-?-?-?-?-?-?-?- SM- following wi th mfm for bs control, us follow up. no vb cramping ACOG First Trimester First Trimester: Desire for , Alcohol, Tobacco Cessation, Illicit/Recreational Drug/Substance Use, Intimate Partner Violence, Barriers to care, Unstable Housing, Communication Barriers, Environmental/Work Hazards, Anticipated Course of Care, Toxoplasmosis Precations, Use of Any medications, Sexual activity, Exercise, Dental Care, Sauna/Hot tub use, Seat Belt use, Childbirth classes/Hospital facilities, Travel, Indications for Ultrasound and Screening for Aneuploidy; Discussed Second Trimester Second Trimester: Signs and Symptoms of Labor, Selecting a care provider, Reproductive Life Planning & Contreception, Care Planning, Depression/Anxiety and Intimate Partner Violence; Discussed Tobacco Cessation Third Trimester Third Trimester: Pain Management Plans, Labor support person(s), Immediate Larc, Movement Monitoring, Signs and Symptoms of Preeclampsia and [place] Education ROS Const Denies fever(s) GI Reports as per HPI and Denies abdominal pain Reports as per HPI, Denies abnormal vaginal bleeding, Denies dysuria and Denies vaginal discharge Exam Const General: healthy appearing, comfortable and no acute distress GI Inspection: normal to inspection Palpation: soft and nontender Results POC Urinalysis 2 Dip (Clinic) Office Urine Glucose Negative Last Edit by Leigh Brush on 10/24/24 14:31 Office Urine Protein Negative Last Edit by Leigh Brush on 10/24/24 14:31 Coding Level of Care Code OB Routine Diagnoses Partial previa O44.20 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 baseline labs and ekg pending. Nl CMP. HgbA1c 6.1. echo at 22-24wk MFM BPP wkly and BWC NST wkly start at 28 wk Growth US Q4wk at 28 wk Del at 37-39 wk (3) Supervision of high-risk : Status: Acute Qualifiers: Trimester: first trimester Qualified Code(s): O09.91 - Supervision of high risk , unspecified, first trimester Comment: [id number] [facility] 02/13/25, : Seven (4) : Status: Acute Qualifiers: Weeks of gestation: 24 weeks Qualified Code(s): Z3A.24 - 24 weeks gestation of Comment: Discussed genetic/carrier testing - declined., nl anatomy (5) Diabetes in : Status: Acute Qualifiers: Diabetes in type: pre-existing, type 1 Trimester: second trimester Qualified Code(s): O24.012 - Pre-existing type 1 diabetes mellitus, in , second trimester Comment: [id number]; on Humalog; HgBA1C ordered w/NOB Orders: Orders CBC W/Diff, Automated Today O09.91 - Supervision of high risk , unspecified, first trimester HIV Today O09.91 - Supervision of high risk , unspecified, first trimester Syphilis Antibodies Today O09.91 - Supervision of high risk , unspecified, first trimester POC Urinalysis 2 Dip (Clinic) Today 10/24/24 1500 <Electronically signed by Anitra mix MD> Date _ Anitra Zamudio MD Cosigner Signature: Date (if applicable) CC: ~ [facility] [employer] Work Phone: 1(667) 549-803108-20-2025 Progress [facility] [address] [place] [address] [address] [place] [id number] OFFICE VISIT Date of Service: 09/28/24 MR#: [id number] Acct: [id number] Name: ALLISON NGUYEN Rep #: [id number] : 2000 Provider: Dr. Natalie Guerrier DO Age/Sex: 24/F Location: 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 Is patient in pain?: No Allergies acetaminophen (From Tylenol) Allergy (Mild, Verified 09/28/24 13:42) Rash Medications ?Medication ?Instructions ?Recorded ?Confirmed ?Type insulin lispro 100 unit/mL 1 sliding scale dose subcut 06/14/24 09/28/24 History subcutaneous pen (Humalog KwikPen USEASDIRECTD (U-100) Insulin) Last Menstrual Period: 05/09/24 Zika: Zika virus screening: Negative : No PFSH PFSH Medical History Diabetes type 1 Family History Mother Colon cancer Grandfather Colon cancer Grandfather Prostate cancer Social History adopted: No household members: spouse housing: house 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 pets and animals: Yes pets and animals: farm animals history of recent travel: [place] ([place]) out of state: Yes out of country: No sexually active: Yes Smoking Status: Never smoker alcohol intake: never substance use type: does not use well-balanced diet: daily or most days caffeine: Yes Type: coffee eating out: rarely or never during the past year weight has: remained stable what type of physical activity do you participate in: walking frequency: 1-2 times per week duration: 15-30 minutes/day ness/yarsani: Mennonite seatbelt use: always do you feel safe at home: Yes additional social history: : Seven - Lau/Katie History 1 Elective abortions Hx Para 0 Spontaneous abortions 0 Hx # Term Pregnancies Ectopic pregnancies Hx # Pregnancies Multiple births # of living children HPI 20 wk ob Details: ALLISON NGUYEN is a 24 year old who presents for routine OB visit. OB Visit [facility] Calculator Estimated Delivery Date Method Current WG Current Estimate 02/13/25 LMP (Certain) 20w 2d Other Estimates 02/17/25 Ultrasound #1 19w 5d Initial Weight: Not Recorded Date -?-?-?-?-?-?-?-?-?-?-?-?- EGA Weight BP Urine Prot -?-?-?-?-?-?-?-?-?-?-?-?- Glucose FHR FuHt Pres Dilation -?-?-?-?-?-?-?-?-?-?-?-?- Effaced St Visit Note 07/05/24 -?-?-?-?-?-?-?-?-?-?-?-?- 8w 1d 131 lb 4 oz 111/62 -?-?-?-?-?-?-?-?-?-?-?-?- 140 -?-?-?-?-?-?-?-?-?-?-?-?- SM- no vb crampi ng co nausea nd constipation, labile blood sugars. 08/02/24 -?-?-?-?-?-?-?-?-?-?-?-?- 12w 1d 134 lb 3 oz 105/68 Nega tive -?-?-?-?-?-?-?-?-?-?-?-?- Negative 160 -?-?-?-?-?-?-?-?-?-?-?-?- MH-no VB. Nausea improving. Saw MFM and managing glucose, improved. Br US confirm FHT 08/29/24 -?-?-?-?-?-?--?-?-?-?-?-?- 16w 0d 140 lb 8 oz 108/71 Nega tive -?-?-?-?-?-?-?-?-?-?-?-?- 250 g/dL 165 -?-?-?-?-?-?-?-?-?-?-?-?- KW- no vb/crampi ng. Appt with MFM on for insulin adjustment. Blood sugars are up and down Has MFM US scheduled. 09/28/24 -?-?-?-?-?-?-?-?-?-?-?-?- 20w 2d 147 lb 3 oz 109/70 Nega tive -?-?-?-?-?-?-?-?-?-?-?-?- Negative 139 -?-?-?-?-?-?-?-?-?-?-?-?- JV- pt has a pre via of the tail end of the placenta over the cervix. we discussed pelvic rest. Patient was running every day and mowing the lawn, etc. We discussed that wecan not do these things. Fasting glucose levels are 90's-110 and she states that her 2 hr pp are not what she wants them to be. SHe has mfm appt tomorrow to discuss insulin pump. Continue monthly growth scans. will eventually need twice weekly testing starting 28 weeks. ACOG First Trimester First Trimester: Desire for , Alcohol, Tobacco Cessation, Illicit/Recreational Drug/Substance Use, Intimate Partner Violence, Barriers to care, Unstable Housing, Communication Barriers, Environmental/Work Hazards, Anticipated Course of Care, Toxoplasmosis Precations, Use of Any med ications, Sexual activity, Exercise, Dental Care, Sauna/Hot tub use, Seat Belt use, Childbirth classes/Hospital facilities, Travel, Indications for Ultrasound and Screening for Aneuploidy; Discussed Second Trimester Second Trimester: Signs and Symptoms of Labor, Selecting a care provider, Reproductive Life Planning & Contreception, Care Planning, Depression/Anxiety and Intimate Partner Violence; Discussed Tobacco Cessation Third Trimester Third Trimester: Pain Management Plans, Labor support person(s), Immediate Larc, Movement Monitoring, Signs and Symptoms of Preeclampsia and Education ROS Const Denies fever(s) GI Reports as per HPI and Denies abdominal pain Reports as per HPI, Denies abnormal vaginal bleeding, Denies dysuria and Denies vaginal discharge Exam Const General: healthy appearing, comfortable and no acute distress GI Inspection: normal to inspection Palpation: soft and nontender Results POC Urinalysis 2 Dip (Clinic) Office Urine Glucose Negative Last Edit by Rani Lockhart on 09/28/24 13: 51 Office Urine Protein Negative Last Edit by Rani Lockhart on 09/28/24 13: 51 Coding Level of Care Code OB Routine Diagnoses Partial previa O44.20 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 baseline labs and ekg pending.Nl CMP. HgbA1c 6.1. echo at 22-24wk [facility] BPP wkly and BWC NST wkly start at 28 wk Growth US Q4wk at 28 wk Del at 37-39 wk (3) Supervision of high-risk : Status: Acute Qualifiers: Trimester: first trimester Qualified Code(s): O09.91 - Supervision of high risk , unspecified, first trimester Comment: [id number] MCKENNA 02/13/25, : Seven (4) : Status: Acute Qualifiers: Weeks of gestation: 20 weeks Qualified Code(s): Z3A.20 - 20 weeks gestation of Comment: Discussed genetic/carrier testing - declined., nl anatomy (5) Diabetes in : Status: Acute Qualifiers: Diabetes in type: pre-existing, type 1 Trimester: second trimester Qualified Code(s): O24.012 - Pre-existing type 1 diabetes mellitus, in , second trimester Comment: [id number]; on Humalog; HgBA1C ordered w/NOB Orders: Orders POC Urinalysis 2 Dip (Clinic) Today 09/28/24 1408 e Velde DO> Date _ Jenny Guerrier DO Cosigner Signature: Date (if applicable) CC: ~ [facility] [id number] Progress note Author Jenny Ervin [facility] Note Date/Time September 28, 2024 2: 08pm [facility] [address] [place] [address], [address] [place] [address] OFFICE VISIT Date of Service: 09/28/24 MR#: [id number] Acct: [id number] Name: ALLISON NGUYEN Rep #: [id number] : 2000 Provider: Dr. Natalie Guerrier DO Age/Sex: 24/F Location: 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 Is patient in pain?: No Allergies acetaminophen (From Tylenol) Allergy (Mild, Verified 09/28/24 13:42) Rash Medications ?Medication ?Instructions ?Recorded ?Confirmed ?Type insulin lispro 100 unit/mL 1 sliding scale dose subcut 06/14/24 09/28/24 History subcutaneous pen (Humalog KwikPen USEASDIRECTD (U-100) Insulin) Last Menstrual Period: 05/09/24 Zika: Zika virus screening: Negative : No PFSH PFSH Medical History Diabetes type 1 Family History Mother Colon cancer Grandfather Colon cancer Grandfather Prostate cancer Social History adopted: No household members: spouse housing: house 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 pets and animals: Yes pets and animals: farm animals history of recent travel: [place] ([place]) out of state: Yes out of country: No sexually active: Yes Smoking Status: Never smoker alcohol intake: never substance use type: does not use well-balanced diet: daily or most days caffeine: Yes Type: coffee eating out: rarely or never during the past year weight has: remained stable what type of physical activity do you participate in: walking frequency: 1-2 times per week duration: 15-30 minutes/day ness/yarsani: M[employer]onite seatbelt use: always do you feel safe at home: Yes additional social history: : Seven - Lau/Katie History 1 Elective abortions Hx Para 0 Spontaneous abortions 0 Hx # Term Pregnancies Ectopic pregnancies Hx # Pregnancies Multiple births # of living children HPI 20 wk ob Details: ALLISON NGUYEN is a 24 year old who presents for routine OB visit. OB Visit MCKENNA Calculator Estimated Delivery Date Method Current WG Current Estimate 02/13/25 LMP (Certain) 20w 2d Other Estimates 02/17/25 Ultrasound #1 19w 5d Initial Weight: Not Recorded Date -?-?-?-?-?-?-?-?-?-?-?-?- EGA Weight BP Urine Prot -?-?-?-?-?-?-?-?-?-?-?-?- Glucose FHR FuHt Pres Dilation -?-?-?-?-?-?-?-?-?-?-?-?- Effaced St Visit Note 07/05/24 -?-?-?-?-?-?-?-?-?-?-?-?- 8w 1d 131 lb 4 oz 111/62 -?-?-?-?-?-?-?-?-?-?-?-?- 140 -?-?-?-?-?-?-?-?-?-?-?-?- SM- no vb crampi ng co nausea nd constipation, labile blood sugars. 08/02/24 -?-?-?-?-?-?-?-?-?-?-?-?- 12w 1d 134 lb 3 oz 105/68 Nega tive -?-?-?-?-?-?-?-?-?-?-?-?- Negative 160 -?-?-?-?-?-?-?-?-?-?-?-?- MH-no VB. Nausea improving. Saw MFM and managing glucose, improved. Br US confirm FHT 08/29/24 -?-?-?-?-?-?--?-?-?-?-?-?- 16w 0d 140 lb 8 oz 108/71 Nega tive -?-?-?-?-?-?-?-?-?-?-?-?- 250 g/dL 165 -?-?-?-?-?-?-?-?-?-?-?-?- KW- no vb/crampi ng. Appt with MFM on for insulin adjustment. Blood sugars are up and down Has MFM US scheduled. 09/28/24 -?-?-?-?-?-?-?-?-?-?-?-?- 20w 2d 147 lb 3 oz 109/70 Nega tive -?-?-?-?-?-?-?-?-?-?-?-?- Negative 139 -?-?-?-?-?-?-?-?-?-?-?-?- JV- pt has a pre via of the tail end of the placenta over the cervix. we discussed pelvic rest. Patient was running every day and mowing the lawn, etc. We discussed that we can not do these things. Fasting glucose levels are 90's-110 and she states that her 2 hr pp are not what she wants them to be. SHe has mfm appt tomorrow to discuss insulin pump. Continue monthly growth scans. will eventually need twice weekly testing starting 28 weeks. ACOG First Trimester First Trimester: Desire for , Alcohol, Tobacco Cessation, Illicit/Recreational Drug/Substance Use, Intimate Partner Violence, Barriers to care, Unstable Housing, Communication Barriers, Environmental/Work Hazards, Anticipated Course of Care, Toxoplasmosis Precations, Use of Any medications, Sexual activity, Exercise, Dental Care, Sauna/Hot tub use, Seat Belt use, Childbirth classes/Hospital facilities, Travel, Indications for Ultrasound and Screening for Aneuploidy; Discussed Second Trimester Second Trimester: Signs and Symptoms of Labor, Selecting a care provider, Reproductive Life Planning & Contreception, Care Planning, Depression/Anxiety and Intimate Partner Violence; Discussed Tobacco Cessation Third Trimester Third Trimester: Pain Management Plans, Labor support person(s), Immediate Larc, Movement Monitoring, Signs and Symptoms of Preeclampsia and Education ROS Const Denies fever(s) GI Reports as per HPI and Denies abdominal pain Reports as per HPI, Denies abnormal vaginal bleeding, Denies dysuria and Denies vaginal discharge Exam Const General: healthy appearing, comfortable and no acute distress GI Inspection: normal to inspection Palpation: soft and nontender Results POC Urinalysis 2 Dip (Clinic) Office Urine Glucose Negative Last Edit by Rani Lockhart on 09/28/24 13: 51 Office Urine Protein Negative Last Edit by Rani Lockhart on 09/28/24 13: 51 Coding Level of Care Code OB Routine Diagnoses Partial previa O44.20 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 baseline labs and ekg pending. Nl CMP. HgbA1c 6.1. echo at 22-24wk [facility] BPP wkly and C NST wkly start at 28 wk Growth US Q4wk at 28 wk Del at 37-39 wk (3) Supervision of high-risk : Status: Acute Qualifiers: Trimester: first trimester Qualified Code(s): O09.91 - Supervision of high risk , unspecified, first trimester Comment: [id number] MCKENNA 02/13/25, : Seven (4) : Status: Acute Qualifiers: Weeks of gestation: 20 weeks Qualified Code(s): Z3A.20 - 20 weeks gestation of Comment: Discussed genetic/carrier testing - declined., nl anatomy (5) Diabetes in : Status: Acute Qualifiers: Diabetes in type: pre-existing, type 1 Trimester: second trimester Qualified Code(s): O24.012 - Pre-existing type 1 diabetes mellitus, in , second trimester Comment: [id number]; on Humalog; HgBA1C ordered w/NOB Orders: Orders POC Urinalysis 2 Dip (Clinic) Today 09/28/24 1408 <Electronically signed by Jenny Doran DO> Date _ Jenny Guerrier DO Cosigner Signature: Date (if applicable) CC: ~ [facility] Work Phone: [phone]) 508-807707-22-2025 Instructions* Patient Instructions* Oscar Olivares, [facility] - 08/30/2024 9:59 AM EDT EDUCATION: Goals of diabetes management discussed with patient. FBG goal <95 and one-hour post prandial goal <130. The goal of diabetes control during is to control the weight and metabolism of the infant. Greater than 50% of this follow-up visit was spent in general counseling regarding diet, importance of adherence to medication regimen, recognition and treatment of hypo and hyperglycemia, glucose logging, proper diabetes management, diabetic complications with poor management and the importance of glycemic control in order to avoid the complications of diabetes. Risks and potential complications of diabetes were reviewed with the patient. 1. Adjust medications as instructed above . 2. Hgb A1c once monthly 3. Patient instructed to call PRN with BG outside of goal range > 90 pre-meal and >140 1 hourpost prandial. 4. Referral placed to dietitian to learn more about following a diabetic diet closely during . 5. She was instructed to start taking aspirin 81 mg daily at the start of second trimester 6. Check blood sugar 6 times daily. documented in this [id number] History of Present illness Narrative* Oscar Olivares CNP - 08/30/2024 9:30 AM EDT Images from the original note were not included. Subjective: Allison Nguyen 23 y.o. female being seen today for follow up of Type 1 diabetes with . Sheis at 16w1d. She presents to office today for follow-up of her type 1 diabetes. She does follow with maternal- medicine every 2 weeks for management of her diabetes during gestation. She is currently managedwith OmniPod insulin pump and Dexcom CGM. She denies any complaints today. Unfortunately we were unable to download the sensor data with pump data at her appointment today. I was able to review sensor data on her PDM. Current insulin pump settings: Insulin pump settings: Basal: 0000 0.90 units per hour 0500 0.90 units per hour 1600 0.90 units per hour Insulin: Carb ratio: 0000 6 0300 8 0600 6 0900 6.5 1100 6 1600 5.5 1900 5 2200 6 Insulin sensitivity 0000 40 0400 35 BG correction threshold: 110 Target B Current Medications[1] Menstrual History: OB History 1 Para 0 Term 0 0 AB 0 Living 0 SAB 0 IAB 0 Ectopic 0 Multiple 0 Live Births 0 The following portions of the patient's history were reviewed and updated as appropriate: allergies, current medications, past family history, past medical history, past social history, past surgicalhistory and problem list. Review of Systems Review of Systems Constitutional: Negative for activity change, appetite change, fatigue and unexpected weight change. HENT: Negative. Negative for sore throat and trouble swallowing. Eyes: Negative. Respiratory: Negative for cough, chest tightness and shortness of breath. Cardiovascular: Negative for chest pain, palpitations and leg swelling. Gastrointestinal: Negative for abdominal pain, constipation, diarrhea, nausea and vomiting. Endocrine: Negative for cold intolerance, heat intolerance, polydipsia, polyphagia and polyuria. Genitourinary: Negative for dysuria and frequency. Musculoskeletal: Negative. Skin: Negative for rash and wound. Allergic/Immunologic: Negative. Neurological: Negative for numbness. Hematological: Negative. Psychiatric/Behavioral: Negative. Objective: LMP 05/09/2024 (Approximate) Physical Exam Constitutional: Appearance: Normal appearance. HENT: Head: Normocephalic. Mouth/Throat: Mouth: Mucous membranes are moist. Eyes: Pupils: Pupils are equal, round, and reactive to light. Cardiovascular: Rate and Rhythm: Normal rate. Pulmonary: Effort: Pulmonary effort is normal. Breath sounds: Normal breath sounds. Abdominal: General: Abdomen is flat. Musculoskeletal: General: Normal range of motion. Cervical back: Normal range of motion and neck supple. Skin: General: Skin is warm and dry. Neurological: Mental Status: She is alert and oriented to person, place, and time. Imaging No ultrasound imaging done as of yet *Per Patient report Lab Review Lab Results Component Value Date HGBA1C 5.8 06/13/2024 Assessment: Allison Nguyen 23 y.o. female presnts for follow up of Type 1 diabetes with . Patient has been routinely with OBGYN every 3-4 weeks, at [facility]. Patient reports no issues at present. Hemoglobin A1c today in office 5.5% Currently taking: Omnipod insulin pump with Dexcom CGM 1. Intrauterine of 16w1d gestation, with normal growth--per patient report. 2. Diabetes Mellitus with good sugar control. Plan: Adjust insulin pump settings as below in bold Insulin pump settings: Basal: 0000 0.90 units per hour 0500 0.90 units per hour 1600 0.90 units per hour Insulin: Carb ratio: 0000 6 0300 8 0600 6-->5.5 0900 6.5 1100 6-->5.5 1600 5.5 1900 5 2200 6 Insulin sensitivity 0000 40 0400 35-->30 BG correction threshold: 110 Target B The above adjustments in bold were made to her insulin pump settings today. She is advised to continue to follow-up with maternal- medicine for management of her diabetes every 2 weeks during gestation. She has started taking 81 mg aspirin daily. She is advised to contact our office should sheexperience multiple episodes of hypo-/hyperglycemia with any questions/concerns prior to follow-up. I am managing Allison Nguyen for complex chronic condition(s) serving as the focal point for the patient's care for consistency and continuity over time. EDUCATION: Goals of diabetes management discussed with patient. FBG goal <95 and one-hour post prandial goal <130. The goal of diabetes control during is to control the weight and metabolism of the infant. Greater than 50% of this follow-up visit was spent in general counseling regarding diet, importance of adherence to medication regimen, recognition and treatment of hypo and hyperglycemia, glucose logging, proper diabetes management, diabetic complications with poor management and the importance of glycemic control in order to avoid the complications of diabetes. Risks and potential complications of diabetes were reviewed with the patient. 1. Adjust medications as instructed above . 2. Hgb A1c once monthly 3. Patient instructed to call PRN with BG outside of goal range > 90 pre-meal and >140 1 hourpost prandial. 4. She was instructed to continue taking aspirin 81 mg daily. 5. Check blood sugar 6 times daily. Electronically signed by CHERYL Luna 08/30/2024 [1] Current Outpatient Medications Medication Sig Dispense Refill blood sugar diagnostic (glucose blood) strips Use to check BG 8 x daily. DX code E10.9 . 200 strip 11 blood-glucose sensor (Dexcom G7 Sensor) Ashley 1 Device by Miscellaneous route every 10 (ten) days . 9 each 3 Contour Next One Meter Misc by Miscellaneous route Monitor blood sugar up to 6 times daily. Connectto omnipod Dash insulin pump. E10.9. . 1 each 0 Contour Next Test Strips strips by Miscellaneous route 4 (four) times a day . 400 strip 3 glucagon (Baqsimi) 3 mg/actuation Langley Administer 1 (one) spray into one nostril as needed . (Patient not taking: Reported on 06/13/2024 .) 1 each 3 glucagon 1 mg SolR injection Inject 1 mL (1 mg total) under the skin once as needed . 1 each 3 HumaLOG U-100 Insulin 100 unit/mL injection Use with insulin pump, up to 100u per day . 30 mL 2 insulin story teller cart,aut,G6/7,cntr (Omnipod 5 G6-G7 Intro Kt,Gen5,) Crtg Inject 1 Device under the skindaily . 1 each 0 insulin pump cart,auto,BT,G6/7 (Omnipod 5 G6-G7 Pods, Gen 5,) Crtg Inject 1 Device under the skin every 72 hours . 30 each 3 insulin pump cart,cont inf,BT (Omnipod Dash Pods, Gen 4,) Crtg Use as directed every 3 days . (Patient not taking: Reported on 06/13/2024 .) 30 each 3 No current facility-administered medications for this visit. documented in this [id number] NoteSubjective: Allison Nguyen 23 y.o. female being seen today for follow up of Type 1 diabetes with . She is at 16w1d. She presents to office today for follow-up of her type 1 diabetes. She does follow with maternal- medicine every 2 weeks for management of her diabetes during gestation. She is currently managed with OmniPod insulin pump and Dexcom CGM. She denies any complaints today. Unfortunately we were unable to download the sensor data with pump data at her appointment today. I was able to review sensor data on her PDM. Current insulin pump settings: Insulin pump settings: Basal: 0000 0.90 units per hour 0500 0.90 units per hour 1600 0.90 units per hour Insulin: Carb ratio: 0000 6 0300 8 0600 6 0900 6.5 1100 6 1600 5.5 1900 5 2200 6 Insulin sensitivity 0000 40 0400 35 BG correction threshold: 110 Target B Current Medications[1] Menstrual History: OB History 1 Para 0 Term 0 0 AB 0 Living 0 SAB 0 IAB 0 Ectopic 0 Multiple 0 Live Births 0 The following portions of the patient's history were reviewed and updated as appropriate: allergies, current medications, past family history, past medical history, past social history, past surgical history and problem list. Review of Systems Review of Systems Constitutional: Negative for activity change, appetite change, fatigue and unexpected weight change. HENT: Negative. Negative for sore throat and trouble swallowing. Eyes: Negative. Respiratory: Negative for cough, chest tightness and shortness of breath. Cardiovascular: Negative for chest pain, palpitations and leg swelling. Gastrointestinal: Negative for abdominal pain, constipation, diarrhea, nausea and vomiting. Endocrine: Negative for cold intolerance, heat intolerance, polydipsia, polyphagia and polyuria. Genitourinary: Negative for dysuria and frequency. Musculoskeletal: Negative. Skin: Negative for rash and wound. Allergic/Immunologic: Negative. Neurological: Negative for numbness. Hematological: Negative. Psychiatric/Behavioral: Negative. Objective: LMP 05/09/2024 (Approximate) Physical Exam Constitutional: Appearance: Normal appearance. HENT: Head: Normocephalic. Mouth/Throat: Mouth: Mucous membranes are moist. Eyes: Pupils: Pupils are equal, round, and reactive to light. Cardiovascular: Rate and Rhythm: Normal rate. Pulmonary: Effort: Pulmonary effort is normal. Breath sounds: Normal breath sounds. Abdominal: General: Abdomen is flat. Musculoskeletal: General: Normal range of motion. Cervical back: Normal range of motion and neck supple. Skin: General: Skin is warm and dry. Neurological: Mental Status: She is alert and oriented to person, place, and time. Imaging No ultrasound imaging done as of yet *Per Patient report Lab Review Lab Results Component Value Date HGBA1C 5.8 06/13/2024 Assessment: Allison Nguyen 23 y.o. female presnts for follow up of Type 1 diabetes with . Patient has been routinely with OBGYN every 3-4 weeks, at [facility]. Patient reports no issues at present. Hemoglobin A1c today in office 5.5% Currently taking: Omnipod insulin pump with Dexcom CGM 1. Intrauterine of 16w1d gestation, with normal growth--per patient report. 2. Diabetes Mellitus with good sugar control. Plan: Adjust insulin pump settings as below in bold Insulin pump settings: Basal: 0000 0.90 units per hour 0500 0.90 units per hour 1600 0.90 units per hour Insulin: Carb ratio: 0000 6 0300 8 0600 6-->5.5 0900 6.5 1100 6-->5.5 1600 5.5 1900 5 2200 6 Insulin sensitivity 0000 40 0400 35-->30 BG correction threshold: 110 Target B The above adjustments in bold were made to her insulin pump settings today. She is advised to continue to follow-up with maternal- medicine for management of her diabetes every 2 weeks during gestation. She has started taking 81 mg aspirin daily. She is advised to contact our office should she experience multiple episodes of hypo-/hyperglycemia with any questions/concerns prior to follow-up. I am managing Allison Nguyen for complex chronic condition(s) serving as the focal point for the patient's care for consistency and continuity over time. EDUCATION: Goals of diabetes management discussed with patient. FBG goal <95 and one-hour post prandial goal <130. The goal of diabetes control during is to control the weight and metabolism of the infant. Greater than 50% of this follow-up visit was spent in general counseling regarding diet, importance of adherence to medication regimen, recognition and treatment of hypo and hyperglycemia, glucose logging, proper diabetes management, diabetic complications with poor management and the importance of glycemic control in order to avoid the complications (more content not included)...[facility]07-21-2025 Evaluation note* Diagnosis Onset Date Resolution Status Admit Date Diabetes in acute Aug 1:07pm Modified White class C pregestational diabetes mellitus acute August 29, 2024 1:07pm acute August 29 1:07pm Supervision of high-risk acute August 29, 2024 1:07pm Diabetes in acute Sep 1:40pm Modified White class C pregestational diabetes mellitus acute September 28 1:40pm Partial previa acute September 1:40pm acute September 28, 2 025 1:40pm Supervision of high-risk acute September 28 1:40pm Diabetes in acute Oct 2:19pm Modified White class C pregestational diabetes mellitus acute October 24, 2024 2:19pm Partial previa acute October 24, 2024 2:19pm acute October 2:19pm Supervision of high-risk acute October 24, 2024 2:19pm Diabetes in acute Nov 11:36am Modified White class C pregestational diabetes mellitus acute November 21 11:36am Partial previa acute November 212024 11:36am acute November 21, 2024 11:36am Supervision of high-risk acute November 21 11:36am [facility] Work Phone: [phone] 160-437506-27-2025 History of Present illness Narrative* Shyanne Reynolds RN - 08/05/2024 12:58 PM EDT . documented in this [id number] NoteErroneous AUTHENTICATED BY OSCAR OLIVARES, ON 08/05/2024 10:40:02[facility] 08-05-2024 History of Present illness Narrative* Oscar Olivares CNP - 08/05/2024 10:39 AM EDT Erroneous documented in this [id number] [facility] Referring Provider Anitra Zamudio MD [address] [place] [id number] ASSESSMENT AND RECOMMENDATIONS The patient comes today for discussion of diabetes and . She is known to be a type 1 diabetic, currently maintained on an Omnipod insulin pump with dexcom G7. This has been managed by [facility] endocrinology outside of . She had been recently seen and was noted to have a Hgb A1c of 5.8%, which is within goal for . She was recently switched from automated delivery to manual mode by her glycerin supervisor. We discussed options, and it seems it would be best to be in AID mode given she has lows overnight and little access to technology for management for social/yazdanism reasons ([employer], self-pay). I explained to the patient that there are both maternal and concerns for patients with diabetes who are . Our goal HbA1C is less than 6, and she is at goal. We also discussed the potential for growth disorders - either growth restriction or macrosomia. We also discussed the potential for polyhydramnios, premature delivery, preeclampsia, stillbirth, diabetic ketoacidosis, operative delivery, injury, delayed lung maturity leading to respiratory distress syndrome and complications including but not limited to: jaundice, hypoglycemia, hypocalcemia and polycythemia. I explained that diabetics with long standing poor control are at risk for maternal cardiac, renal, vascular damage that increases her risk for decompensation during . I recommended a baseline assessment of urine protein, which is normal and maternal ECG for baseline function. I recommended she also get an eye exam as an outpatient to rule out diabetes related retinopathy. Today, I provided her with diet and exercise information, and recommended that she start a 2100 kcal diet with carbohydrate counting. Briefly, I have recommended that she have 30 grams of carbohydrates with breakfast, and 45-60 grams with lunch and dinner. In addition, she should have three snacks in between meals with 15 grams of carbohydrates, and at bedtime with 30 grams of carbohydrates. We discussed some dietary changes -- less cereal and switching from rolled to foster cut oats. We also discussed adding protein to her diet as she is able. The importance of diet and schedule was emphasized. We also discussed that she consider possible barriers to her schedule, eating choices and how we can help with achieving this goal for the prevention of a poor outcome. We have made changes to her insulin pump today to better improved her blodo glucose values. Mainly, I have increased her to 8 time periods from the previous 3, and better matched them to her periods of eating and activity. These settings were directly entered into her insulin pump today. She was switched to AID mode today, as I think this will better manage her blood sugar in low technology situation. I have also given her a Dexcom reader today so that we can better review her blood sugars when she is seen. I have recommended aspirin for pre-eclampsia prevention. Overall Recommendations -- Insulin pump changes as completed in office today; switched to automated delivery. -- Maternal ECG -- UPC or 24 hour urine collection -- Baseline CMP, CBC -- completed -- Baseline TSH/T4 -- completed -- Aneuploidy screening: per primary OB -- NT screening with next office visit -- Detailed anatomy ultrasound at 18-20 weeks gestation -- echocardiogram at 22-24 weeks gestation -- Serial growth, every 4 weeks, starting at 28 weeks -- Twice weekly ANFS, alternating BPP and NST at 32 weeks gestation -- Delivery at 39 weeks, unless earlier indication G. Jose Angel REHMANA FACOG Maternal- Medicine SUBJECTIVE Allison Nguyen is a 23 y.o. who presents at 10w2d for discussion of gestational diabetes in . She presents without other complaints. We performed a detailed ROS including screening for general, gastrointestinal, respiratory, cardiac, renal, urological symptoms and the patient has no pertinent positives on screen. OB History Para Term AB Living 1 SAB IAB Ectopic Multiple Live Births # Outcome Date GA Lbr Lj/2nd Weight Sex Type Anes PTL Lv 1 Current Problem List[1] Past Medical History: Diagnosis Date Diabetes mellitus type 1 diagnosed at age 12 y.o. History reviewed. No pertinent surgical history. Current Medications[2] Allergies[3] Social History Socioeconomic History Marital status: Spouse name: Not on file Number of children: Not on file Years of education: Not on file Highest education level: Not on file Occupational History Not on file Tobacco Use Smoking status: Never Smokeless tobacco: Never Substance and Sexual Activity Alcohol use: Not Currently Drug (more content not included)...[facility] [id number] Evaluation note* Diagnosis Onset Date Resolution Status Admit Date Diabetes in acute July 05, 2024 1:03pm Modified White class C pregestational diabetes mellitus acute July 05, 2024 1 :03pm acute July 05, 2024 1:03pm Supervision of high-risk acute July 05, 2024 1 :03pm Diabetes in acute Jul 1:16pm Modified White class C pregestational diabetes mellitus acute August 02, 2024 1:16pm acute August 02 1:16pm Supervision of high-risk acute August 02, 2024 1:16pm Diabetes in acute Aug 1:07pm Modified White class C pregestational diabetes mellitus acute August 29, 2024 1:07pm acute August 29 1:07pm Supervision of high-risk acute August 29, 2024 1:07pm Diabetes in acute Sep 1:40pm Modified White class C pregestational diabetes mellitus acute September 28 1:40pm Partial previa acute September 1:40pm acute September 28, 2 025 1:40pm Supervision of high-risk acute September 28 1:40pm Diabetes in acute Oct 2:19pm Modified White class C pregestational diabetes mellitus acute October 24, 2024 2:19pm Partial previa acute October 24, 2024 2:19pm acute October 2:19pm Supervision of high-risk acute October 24, 2024 2:19pm [facility] Work Phone: [phone]) 699-836005-14-2025 History of Present illness Narrative* Mike Allred, RD - 06/22/2024 12:55 PM EDT Medical Nutrition Therapy Initial Visit Patient Name: Allison Nguyen Patient : 2000 Primary Care Provider: Olivia Pruett PA-C Referred By: Isabel Garcia CNP Referral Diagnosis: T1DM in Start Time: 12:55 PM End Time: 1:38 PM Assessment: Pt present for management of pre-existing T1DM in . Pt is approximately 6 weeks , with an MCKENNA of 02/13/25 (based LMP of 05/09/24). Pt has had OB nurse visit and has initial visit on 07/05/24 in [place]. This is her 1st . Reported symptoms of nausea and fatigue so far in . She was diagnosed with T1DM in 2009. A1c is currently 5.8%, but fasting and pre/post meal BGM results are often above target levels of <95 before meals and <140 1 hour after meals.Pt had been using a CGM, but reported issues with pharmacy supply. She has been testing BG at least6-8x/day currently until she is able to get more CGM sensors. Diet recall indicated that pt is consuming 3 meals/day with 2-3 snacks/day. Pt recently decreased carb amounts at meals to around 40 grams of carb/meal, but reported she had been consuming an average of 100 grams of carb/meal prior to . Primary support - Cultural or yazdanism dietary needs - none Diet Recall/Food Records: Food Prep/Grocery Shopping - self Breakfast - Bengali yogurt, granola, scrambled eggs; egg scramble, dimas; usually has grape juice with breakfast Lunch - sandwich on white bread; taco dip, chips, potatoes, green beans Dinner - lasagna, salad, peas Snacks - 2-3x/day- crackers; pretzels; jerky; grapes; cheese Beverages - grape juice with breakfast; water; water with electrolytes; milk (occasionally) Meals Away From Home - none currently Height: 5' 3 (1.6 m) Current Weight: 60.3 kg (133 lb) Pre- Weight: 130# BMI: 23 kg/m2 [based on PPW] BMI Classification: Normal (18.5-24.9) Recommended Total Weight Gain during : 25-35# [based on PPW] Weight History: Wt Readings from Last 5 Encounters: 06/22/24 60.3 kg (133 lb) 06/13/24 59.9 kg (132 lb) 03/01/24 62.4 kg (137 lb 8 oz) 08/31/23 63.1 kg (139 lb 3.2 oz) 04/24/23 64.9 kg (143 lb) Past Medical History: Past Medical History: Diagnosis Date Diabetes mellitus type 1 (HCC) 12/2011 History From: History obtained from patient and chart review. Current/Pertinent Medications & Supplements: Current Medications and Prescriptions Ordered in Epic[1] Pertinent Food/Drug Interactions - none Pertinent Labs: BGM Results: checking 6-8 times/day (currently with finger sticks, but typically uses CGM) Fasting- 101-213 1 hour after breakfast- 70-224 Before lunch- 92-182 1 hour after lunch- 92-256 Before dinner- 98-200 1 hour after dinner- 84-214 Lab Results Component Value Date HGBA1C 5.8 06/13/2024 HGBA1C 6.2 (H) 01/26/2024 HGBA1C 6.1 (A) 04/24/2023 HGBA1C 6.3 10/20/2022 Nutrition Focused Physical Findings: Dentition: no problems noted Food Intolerances: none Food Allergies: none Current Activity Level: Lightly Active- with ADL's Food Insecurity Screening: Within the past 12 months, we worried whether our food would run out before we got money to buy more: Never True [0.00] Within the past 12 months, the food we bought just didn't last and we didn't have the money to get more: Never true [0.00] Estimated Nutritional Needs: Calorie Target: 1800 kcals/day [30 kcal/kg] [based on PPW] Carb Target: 180 g/day (40% of total kcals) Protein Target: 113 g/day (25% of total kcals) Nutrition Diagnosis: Altered nutrition related lab values related to endocrine dysfunction as evidenced by A1c and BGM results Intervention: Discussed nutrition and lifestyle tips for a healthy . Reviewed the plate method to promote a balance of food groups at meals and snacks throughout the day. Reviewed sources of carbs, proteins, and fats and how they affect blood glucose. Provided sample meal plan with 30 grams of carbohydrate at breakfast, 45 grams of carbohydrate at lunch and dinner, and 15-30 grams of carbohydrate at snacks. Reviewed proper meal timings throughout the day and encouraged pt to eat every 4-6 hours and to include snacks if meals are longer than 4-6 hours apart. Encouraged pt to call with questions or if follow up visit is needed. Pt reported she plans to follow with MFM in [place] for management of T1DM during . Patient/Family Education: Learner: patient and Readiness: action - ready to set action plan and implement goals Barriers to Learning: none Method: explanation and handout Response: verbalizes understanding Expected Adherence: good Education Materials Provided: Building a Healthy Eating Routine When You're or (DGA), Healthy Meal Planning handout ([facility]), Sample Meal Plan for GDM, Goal Sheet, Pair Up Snack List, Easy Meal Ideas Nutrition Goals: 1). I will consume 45 grams of carb at meals and 15 grams of carb at snacks Monitoring & Evaluation: BGM results, labs, weight, food recall, meal planning, goal achievement, physical activity, medication management. Follow Up: Contact information provided for additional questions This documentation has been sent to the referring healthcare provider. MADAY Biswas, RDN, LD Direct Patient Education Office [1] Current Outpatient Medications Ordered in [facility] Medication Sig Dispense Refill blood sugar diagnostic (glucose blood) strips Use to check BG 8 x daily. DX code E10.9 . 200 strip 11 blood-glucose sensor (Dexcom G7 Sensor) Ashley 1 Device by Miscellaneous route every 10 (ten) days . 9 each 3 Contour Next One Meter Misc by Miscellaneous route Monitor blood sugar up to 6 times daily. Connectto omnipod Dash insulin pump. E10.9. . 1 each 0 Contour Next Test Strips strips by Miscellaneous route 4 (four) times a day . 400 strip 3 glucagon (Baqsimi) 3 mg/actuation Langley Administer 1 (one) spray into one nostril as needed . (Patient not taking: Reported on 06/13/2024 .) 1 each 3 glucagon 1 mg SolR injection Inject 1 mL (1 mg total) under the skin once as needed . 1 each 3 HumaLOG U-100 Insulin 100 unit/mL injection Use with insulin pump, up to 100u per day . 30 mL 2 insulin story teller cart,aut,G6/7,cntr (Omnipod 5 G6-G7 Intro Kt,Gen5,) Crtg Inject 1 Device under the skindaily . 1 each 0 insulin pump cart,auto,BT,G6/7 (Omnipod 5 G6-G7 Pods, Gen 5,) Crtg Inject 1 Device under the skin every 72 hours . 30 each 3 insulin pump cart,cont inf,BT (Omnipod Dash Pods, Gen 4,) Crtg Use as directed every 3 days . (Patient not taking: Reported on 06/13/2024 .) 30 each 3 No current [facility]-ordered facility-administered medications on file. documented in this [id number] Evaluation note* Diagnosis Onset Date Resolution Status Admit Date Diabetes in acute June 14, 2024 10:51am acute June 14, 2024 10:51am Supervision of high-risk a cute June 14, 2024 10:51am Diabetes in acute July 05, 2024 1:03pm Modified White class C pregestational diabetes mellitus acute July 05, 2024 1:03pm acute July 05, 2024 1:03pm Supervision of high-risk a cute July 05, 2024 1:03pm [facility] Work Phone: 1([phone]) 962-620805-06-2025 Evaluation note* Diagnosis Onset Date Resolution Status Admit Date Diabetes in acute June 14, 2024 10:51am acute June 14, 2024 10:51am Supervision of high-risk acute June 14, 2024 10 :51am Diabetes in acute July 05, 2024 1:03pm Modified White class C pregestational diabetes mellitus acute July 05, 2024 1:03pm acute July 05, 2024 1:03pm Supervision of high-risk acute July 05, 2024 1 :03pm Diabetes in acute Jul 1:16pm Modified White class C pregestational diabetes mellitus acute August 02, 2024 1:16pm acute August 02 1:16pm Supervision of high-risk acute August 02, 2024 1:16pm [facility] Work Phone: [phone] Evaluation note* Diagnosis Onset Date Resolution Status Admit Date Diabetes in acute June 14, 2024 10:51am acute June 14, 2024 10:51am Supervision of high-risk acute June 14, 2024 10 :51am Diabetes in acute July 05, 2024 1:03pm Modified White class C pregestational diabetes mellitus acute July 05, 2024 1:03pm acute July 05, 2024 1:03pm Supervision of high-risk acute July 05, 2024 1 :03pm Diabetes in acute Jul 1:16pm Modified White class C pregestational diabetes mellitus acute August 02, 2024 1:16pm acute August 02 1:16pm Supervision of high-risk acute August 02, 2024 1:16pm Diabetes in acute Aug 1:07pm Modified White class C pregestational diabetes mellitus acute August 29, 2024 1:07pm acute August 29 1:07pm Supervision of high-risk acute August 29, 2024 1:07pm [facility] Work Phone: 1([phone]) 137-951705-06-2025 Evaluation note* Diagnosis Onset Date Resolution Status Admit Date Diabetes in acute June 14, 2024 10:51am acute June 14, 2024 10:51am Supervision of high-risk acute June 14, 2024 10 :51am Diabetes in acute July 05, 2024 1:03pm Modified White class C pregestational diabetes mellitus acute July 05, 2024 1:03pm acute July 05, 2024 1:03pm Supervision of high-risk acute July 05, 2024 1 :03pm Diabetes in acute Jul 1:16pm Modified White class C pregestational diabetes mellitus acute August 02, 2024 1:16pm acute August 02 1:16pm Supervision of high-risk acute August 02, 2024 1:16pm Diabetes in acute Aug 1:07pm Modified White class C pregestational diabetes mellitus acute August 29, 2024 1:07pm acute August 29 1:07pm Supervision of high-risk acute August 29, 2024 1:07pm Diabetes in acute Sep 1:40pm Modified White class C pregestational diabetes mellitus acute September 28, 2024 1:40pm Partial previa acute September 1:40pm acute September 28, 025 1:40pm Supervision of high-risk acute September 28 1:40pm [facility] Work Phone: [phone]) [phone] Instructions* Patient Instructions* Isabel Garcia CNP - 06/13/2024 10:58 AM EDT Start taking Aspirin 81mg at the start of the second trimester Patient instructed to call PRN with BG outside of goal range <95 pre-meal and <140 1 hour post prandial. documented in this [id number] NoteSubjective: Allison Nguyen 23 y.o. female being seen today for follow up of Type 1 diabetes with . She is at Unknown Patient presents to our office today to report she had a positive test. She reports that she is about 3/4 weeks . We did an A1c in our office today which was 5.8%. She has an appointment tomorrow at [facility]. She has been feeling well and denies any complaints currently. She has been checking her blood sugar fasting and 1 hour postprandial for the past couple of days and those records were downloaded/reviewed. She is not meeting her premeal goals/fasting goal, but she is occasionally having hyperglycemia 1 hour post meals. She is on an Omnipod insulin pump and automated mode with Dexcom CGM. CGM interpretation Dates reviewed 06/01/2024 - 06/14/2024 2% very high 13% high 80% Target range low/very low 5% GMI N/AA Average glucose 135 Time CGM active 80.7% total daily insulin 39.1 units, 18.7 basal/20.4 bolus Automated mode . 92% auto limited/activity 3% in manual mode 8% Patient's blood sugar is well-controlled overnight, although not at goal for , her blood sugar is within the typical goals of diabetes management. She is having significant postprandial hyperglycemia sometimes going in upwards of 250 after meals. She reports more recently adjusting the carb amount that she is eating at meals which does seem to have improved her hyperglycemia some. She would previously eat an upwards of 100 carbs per meal. She has yet to meet with a dietitian. Current Medications[1] Menstrual History: OB History 1 Para Term AB Living SAB IAB Ectopic Multiple Live Births The following portions of the patient's history were reviewed and updated as appropriate: allergies, current medications, past family history, past medical history, past social history, past surgical history and problem list. Review of Systems Review of Systems Constitutional: Negative for activity change, appetite change, fatigue and unexpected weight change. HENT: Negative. Negative for sore throat and trouble swallowing. Eyes: Negative. Respiratory: Negative for cough, chest tightness and shortness of breath. Cardiovascular: Negative for chest pain, palpitations and leg swelling. Gastrointestinal: Negative for abdominal pain, constipation, diarrhea, nausea and vomiting. Endocrine: Negative for cold intolerance, heat intolerance, polydipsia, polyphagia and polyuria. Genitourinary: Negative for dysuria and frequency. Musculoskeletal: Negative. Skin: Negative for rash and wound. Allergic/Immunologic: Negative. Neurological: Negative for numbness. Hematological: Negative. Psychiatric/Behavioral: Negative. Objective: BP 111/73 (Patient Position: Sitting) Pulse 92 Wt 59.9 kg (132 lb) LMP 05/09/2024 (Approximate) BMI 24.14 kg/m Physical Exam Constitutional: Appearance: Normal appearance. HENT: Head: Normocephalic. Mouth/Throat: Mouth: Mucous membranes are moist. Eyes: Pupils: Pupils are equal, round, and reactive to light. Cardiovascular: Rate and Rhythm: Normal rate. Pulmonary: Effort: Pulmonary effort is normal. Breath sounds: Normal breath sounds. Abdominal: General: Abdomen is flat. Musculoskeletal: General: Normal range of motion. Cervical back: Normal range of motion and neck supple. Skin: General: Skin is warm and dry. Neurological: Mental Status: She is alert and oriented to person, place, and time. Imaging No ultrasound imaging done as of yet *Per Patient report Lab Review Lab Results Component Value Date HGBA1C 5.8 06/13/2024 Assessment: Allison Nguyen 23 y.o. female presnts for follow up of Type 1 diabetes with . Patient will been following routinely with OBGYN every 3-4 weeks, once she is established tomorrow 06/14/2024 at [facility]. Patient reports no issues at present. She is hoping that they may manage her diabetes during , but will be asking them tomorrow. Hemoglobin A1c today in office 5.8% Currently taking: Omnipod insulin pump with Dexcom CGM 1. Intrauterine of Unknown gestation, with unknown growth. 2. Diabetes Mellitus with good sugar control. Plan: Insulin pump settings: Reduced Basal insulin (from previous manual settings) Midnight 0.90 units per hour 0500 0.90 units per hour 1600 0.90 units per hour Increased insulin --> Carb ratio: Midnight: 1: 7 1100: 1: 8 1600 1: 7 Insulin sensitivity adjusted 1: 40 Adjusted BG correction threshold 110 Target B The above adjustments were made to the patient's current insulin pump settings. Typically we do not keep patients in automated mode overnight while as the pump is unable to control the patient's blood sugar/keep it within goal range which is around 95 fasting in the morning. (more content not included)... [facility]05-05-2025 History of Present illness Narrative* Isabel Garcia CNP - 06/13/2024 10:55 AM EDT Images from the original note were not included. Subjective: Allison Nguyen 23 y.o. female being seen today for follow up of Type 1 diabetes with . Sheis at Unknown Patient presents to our office today to report she had a positive test. She reports that she is about 3/4 weeks . We did an A1c in our office today which was 5.8%. She has an appointment tomorrow at [facility] with [facility]. She has been feeling well and denies any complaints currently. She has been checking her blood sugar fasting and 1 hour postprandial for the past couple of days and those records were downloaded/reviewed. She is not meeting her premeal goals/fasting goal, but she is occasionally having hyperglycemia 1 hour post meals. She is on an Omnipod insulin pump and automated mode with Dexcom CGM. CGM interpretation Dates reviewed 06/01/2024 - 06/14/2024 2% very high 13% high 80% Target range low/very low 5% GMI N/AA Average glucose 135 Time CGM active 80.7% total daily insulin 39.1 units, 18.7 basal/20.4 bolus Automated mode . 92% auto limited/activity 3% in manual mode 8% Patient's blood sugar is well-controlled overnight, although not at goal for , her blood sugar is within the typical goals of diabetes management. She is having significant postprandial hyperglycemia sometimes going in upwards of 250 after meals. She reports more recently adjusting the carb amount that she is eating at meals which does seem to have improved her hyperglycemia some. She would previously eat an upwards of 100 carbs per meal. She has yet to meet with a dietitian. Current Medications[1] Menstrual History: OB History 1 Para Term AB Living SAB IAB Ectopic Multiple Live Births The following portions of the patient's history were reviewed and updated as appropriate: allergies, current medications, past family history, past medical history, past social history, past surgicalhistory and problem list. Review of Systems Review of Systems Constitutional: Negative for activity change, appetite change, fatigue and unexpected weight change. HENT: Negative. Negative for sore throat and trouble swallowing. Eyes: Negative. Respiratory: Negative for cough, chest tightness and shortness of breath. Cardiovascular: Negative for chest pain, palpitations and leg swelling. Gastrointestinal: Negative for abdominal pain, constipation, diarrhea, nausea and vomiting. Endocrine: Negative for cold intolerance, heat intolerance, polydipsia, polyphagia and polyuria. Genitourinary: Negative for dysuria and frequency. Musculoskeletal: Negative. Skin: Negative for rash and wound. Allergic/Immunologic: Negative. Neurological: Negative for numbness. Hematological: Negative. Psychiatric/Behavioral: Negative. Objective: BP 111/73 (Patient Position: Sitting) Pulse 92 Wt 59.9 kg (132 lb) LMP 05/09/2024 (Approximate) BMI 24.14 kg/m Physical Exam Constitutional: Appearance: Normal appearance. HENT: Head: Normocephalic. Mouth/Throat: Mouth: Mucous membranes are moist. Eyes: Pupils: Pupils are equal, round, and reactive to light. Cardiovascular: Rate and Rhythm: Normal rate. Pulmonary: Effort: Pulmonary effort is normal. Breath sounds: Normal breath sounds. Abdominal: General: Abdomen is flat. Musculoskeletal: General: Normal range of motion. Cervical back: Normal range of motion and neck supple. Skin: General: Skin is warm and dry. Neurological: Mental Status: She is alert and oriented to person, place, and time. Imaging No ultrasound imaging done as of yet *Per Patient report Lab Review Lab Results Component Value Date HGBA1C 5.8 06/13/2024 Assessment: Allison Nguyen 23 y.o. female presnts for follow up of Type 1 diabetes with . Patient willbeen following routinely with OBGYN every 3-4 weeks, once she is established tomorrow 06/14/2024 at [facility]. Patient reports no issues at present. She is hoping that they may manage her diabetes during , but will be asking them tomorrow. Hemoglobin A1c today in office 5.8% Currently taking: Omnipod insulin pump with Dexcom CGM 1. Intrauterine of Unknown gestation, with unknown growth. 2. Diabetes Mellitus with good sugar control. Plan: Insulin pump settings: Reduced Basal insulin (from previous manual settings) Midnight 0.90 units per hour 0500 0.90 units per hour 1600 0.90 units per hour Increased insulin --> Carb ratio: Midnight: 1: 7 1100: 1: 8 1600 1: 7 Insulin sensitivity adjusted 1: 40 Adjusted BG correction threshold 110 Target B The above adjustments were made to the patient's current insulin pump settings. Typically we do notkeep patients in automated mode overnight while as the pump is unable to control the patient's blood sugar/keep it within goal range which is around 95 fasting in the morning. Her pump is giving her about 19 units of basal insulin when in automated mode, however her manual settings are setat 24. I did reduce her basal rate insulin to prevent episodes of hypoglycemia when not in automated mode. Review of the patient's pump download, there was an evening/mixer operator vacuum pan salt that the patient was not in automated mode and her blood sugar did get close to 70 the basal rate of 0.95u/hour. I have also adjusted her carb ratio as I think she is needing more insulin at mealtime. I placed a referral to the dietitian to help with understanding more about diet while and in regards to helping to control her blood sugar. EDUCATION: Goals of diabetes management discussed with patient. FBG goal <95 and one-hour post prandial goal <130. The goal of diabetes control during is to control the weight and metabolism of the . Greater than 50% of this follow-up visit was spent in general counseling regarding diet, importance of adherence to medication regimen, recognition and treatment of hypo and hyperglycemia, glucose logging, proper diabetes management, diabetic complications with poor management and the importance of glycemic control in order to avoid the complications of diabetes. Risks and potential complications of diabetes were reviewed with the patient. 1. Adjust medications as instructed above . 2. Hgb A1c once monthly 3. Patient instructed to call PRN with BG outside of goal range > 90 pre-meal and >140 1 hourpost prandial. 4. Referral placed to dietitian to learn more about following a diabetic diet closely during . 5. She was instructed to start taking aspirin 81 mg daily at the start of second trimester 6. Check blood sugar 6 times daily. Electronically signed by Isabel LUNA 06/13/2509:58 AM [1] Current Outpatient Medications Medication Sig Dispense Refill blood sugar diagnostic (glucose blood) strips Use to check BG 8 x daily. DX code E10.9 . 200 strip 11 blood-glucose sensor (Dexcom G7 Sensor) Ashley 1 Device by Miscellaneous route every 10 (ten) days . 9 each 3 Contour Next One Meter Misc by Miscellaneous route Monitor blood sugar up to 6 times daily. Connectto omnipod Dash insulin pump. E10.9. . 1 each 0 Contour Next Test Strips strips by Miscellaneous route 4 (four) times a day . 400 strip 3 glucagon 1 mg SolR injection Inject 1 mL (1 mg total) under the skin once as needed . 1 each 3 HumaLOG U-100 Insulin 100 unit/mL injection Inject 100 (one hundred) Units under the skin daily Viainsulin pump. . 30 mL 11 insulin story teller cart,aut,G6/7,cntr (Omnipod 5 G6-G7 Intro Kt,Gen5,) Crtg Inject 1 Device under the skindaily . 1 each 0 insulin pump cart,auto,BT,G6/7 (Omnipod 5 G6-G7 Pods, Gen 5,) Crtg Inject 1 Device under the skin every 72 hours . 30 each 3 glucagon (Baqsimi) 3 mg/actuation Langley Administer 1 (one) spray into one nostril as needed . (Patient not taking: Reported on 06/13/2024 .) 1 each 3 insulin pump cart,cont inf,BT (Omnipod Dash Pods, Gen 4,) Crtg Use as directed every 3 days . (Patient not taking: Reported on 06/13/2024 .) 30 each 3 No current facility-administered medications for this visit. documented in this [id number] NotePatient ID: Allison Nguyen is a 23 y.o. female 2000 Subjective: Allison Nguyen presents for follow-up of Type 1 diabetes Patient has had diabetes for 15 years. Diagnosed in 2009 Allison Nguyen is a 23 y.o. female patient follows in our practice for the management of her type 1 diabetes. Her most recent hemoglobin A1c is 6.2%. Her insulin pump was downloaded and reviewed. No consistent trends of hyper or hypoglycemia appreciated. She does not enter all blood sugars into her pump, only readings that are on the low or high side of normal. Currently taking: Humalog via OmniPod insulin pump. Allergies Allergen Reactions Acetaminophen Rash Current Outpatient Medications Medication Sig Dispense Refill blood sugar diagnostic (glucose blood) strips Use to check BG 8 x daily. DX code E10.9 . 200 strip 11 Contour Next One Meter Misc by Miscellaneous route Monitor blood sugar up to 6 times daily. Connect to omnipod Dash insulin pump. E10.9. . 1 each 0 Contour Next Test Strips strips by Miscellaneous route 4 (four) times a day . 400 strip 3 glucagon (Baqsimi) 3 mg/actuation Langley Administer 1 (one) spray into one nostril as needed . 1 each 3 glucagon 1 mg Kit 1 mg HumaLOG U-100 Insulin 100 unit/mL injection Inject 100 (one hundred) Units under the skin daily Via insulin pump. . 30 mL 11 insulin pump cart,cont inf,BT (Omnipod Dash Pods, Gen 4,) Crtg Use as directed every 3 days . 30 each 3 No current facility-administered medications for this visit. Review of Systems: Review of Systems Constitutional: Negative for appetite change, fatigue and unexpected weight change. HENT: Negative for trouble swallowing and voice change. Eyes: Negative for visual disturbance. Respiratory: Negative for cough, chest tightness, shortness of breath and wheezing. Cardiovascular: Negative for chest pain, palpitations and leg swelling. Gastrointestinal: Negative for abdominal pain, constipation, diarrhea, nausea and vomiting. Endocrine: Negative for heat intolerance, polydipsia, polyphagia and polyuria. Genitourinary: Negative for dysuria and frequency. Musculoskeletal: Negative for arthralgias, gait problem and myalgias. Neurological: Negative for tremors, weakness, numbness and headaches. Objective: BP 106/68 Pulse 87 Wt 62.4 kg (137 lb 8 oz) BMI 25.15 kg/m Wt Readings from Last 3 Encounters: 03/01/24 62.4 kg (137 lb 8 oz) 08/31/23 63.1 kg (139 lb 3.2 oz) 04/24/23 64.9 kg (143 lb) Physical Exam: General: alert, appears stated age and cooperative Eyes: conjunctivae/corneas clear. PERRL, EOM's intact. Neck: no adenopathy, supple, symmetrical, trachea midline. Thyroid: No thyromegaly appreciated Lung: clear to auscultation bilaterally Heart: regular rate and rhythm, S1, S2 normal, no murmur, click, rub or gallop Extremities: extremities normal, atraumatic, no cyanosis or edema Feet: Dry skin, Bilateral Feet: warm, good capillary refill and normal DP. Monofilament exam Normal , bilateral lower extremities. Neuro: normal without focal findings, mental status, speech normal, alert and oriented x3 and VIVIEN Lab Review 01/26/24 *labs reviewed 03/01/24 Hgb A1c: 6.2% Creat: 0.74; eGFR: 117 AST: 14; ALT: 11 K: 4.3 CBC: WBC:6.80; Hgb: 13.6; Hct: 42.3; Plt: 321 Tchol: 144; Tri ; HDL: 62 ; LDL: 70 TSH: 0.941 ; FreeT4: 1.23 Microalbumin/creatinine Ratio: below assay. 04/24/23: Hgb A1c: 6.1% 10/20/2022 Hemoglobin A1c 6.3% Creatinine 0.80 GFR 107 AST 15 ALT 12 TSH 0.886, free T41.1 Microalbumin creatinine ratio 3 07/16/2022 Hemoglobin A1C 6.3% 03/13/22 Hgb A1c: 6.5% 10/23/2021 Hemoglobin A1c 7.0% Creatinine 0.82, estimated GFR 105, K4.8 AST 30, ALT 19 06/14/2021 Hemoglobin A1c 7.3% Creatinine 0.78, estimated GFR 112, K4.7 AST 16, ALT 12 T cholesterol 143, TG 45, HDL 67, LDL 66 TSH 0.862, free T4: 0.93 Microalbumin/creatinine ratio: 2 03/06/2021 Hemoglobin A1C in office 7.7% 10/31/2020 Hemoglobin A1c 6.8% 05/30/2020 Hemoglobin A1C 7.9% Creatinine 0.99 GFR 83 AST 15 ALT 12 TSH 0.836 FT4 1.10 Microalbumin creatinine ratio 42 02/29/2020 Hemoglobin A1c 7.1% 10/27/2019 Hemoglobin A1c: 7.4% in the office 06/23/2019 Hemoglobin A1c: 6.6% in the office 02/10/19 Hgb A1c: 7.7% Creat: 0.76; eGFR: >60 AST: 19; ALT: 21 K: 3.9 11/03/18 HgbA1C 7.5% in office 06/25/18 Hgb A1c: 8.2% in office 02/18/18 HgbA1C 7.7% 08/28/17 Hemoglobin A1c 7.4% Creatinine 0.85, sodium 139, potassium 4.7 AST 19, ALT 10 Total cholesterol 140, triglycerides 74, HDL 61, LDL 64 TSH 0.864, FT4--1.14 WBC 6.6, hemoglobin 12.4, hematocrit 38.5, platelet count 262,000, MCV 77 microAlbumin/creatinine ratio 17.0 05/06/17 (in the office POC) Hgb A1C 7.5% Assessment/Plan: Dx: 1. Type 1 diabetes mellitus without complication (HCC) glucagon 1 mg SolR injection (This order has not been finalized) Type 1 diabetes, under good control Patient is c (more content not included)...[facility]01-21-2025 History of Present illness Narrative* Demetrius Ramirez, EDDIE - 03/01/2024 9:11 AM EST Images from the original note were not included. Patient ID: Allison Nguyen is a 23 y.o. female 2000 Subjective: Allison Nguyen presents for follow-up of Type 1 diabetes Patient has had diabetes for 15 years. Diagnosed in 2009 Allison Nguyen is a 23 y.o. female patient follows in our practice for the management of her type 1diabetes. Her most recent hemoglobin A1c is 6.2%. Her insulin pump was downloaded and reviewed. No consistent trends of hyper or hypoglycemia appreciated. She does not enter all blood sugars into herpump, only readings that are on the low or high side of normal. Currently taking: Humalog via OmniPod insulin pump. Allergies Allergen Reactions Acetaminophen Rash Current Outpatient Medications Medication Sig Dispense Refill blood sugar diagnostic (glucose blood) strips Use to check BG 8 x daily. DX code E10.9 . 200 strip 11 Contour Next One Meter Misc by Miscellaneous route Monitor blood sugar up to 6 times daily. Connectto omnipod Dash insulin pump. E10.9. . 1 each 0 Contour Next Test Strips strips by Miscellaneous route 4 (four) times a day . 400 strip 3 glucagon (Baqsimi) 3 mg/actuation Langley Administer 1 (one) spray into one nostril as needed . 1 each3 glucagon 1 mg Kit 1 mg HumaLOG U-100 Insulin 100 unit/mL injection Inject 100 (one hundred) Units under the skin daily Viainsulin pump. . 30 mL 11 insulin pump cart,cont inf,BT (Omnipod Dash Pods, Gen 4,) Crtg Use as directed every 3 days . 30 each 3 No current facility-administered medications for this visit. Review of Systems: Review of Systems Constitutional: Negative for appetite change, fatigue and unexpected weight change. HENT: Negative for trouble swallowing and voice change. Eyes: Negative for visual disturbance. Respiratory: Negative for cough, chest tightness, shortness of breath and wheezing. Cardiovascular: Negative for chest pain, palpitations and leg swelling. Gastrointestinal: Negative for abdominal pain, constipation, diarrhea, nausea and vomiting. Endocrine: Negative for heat intolerance, polydipsia, polyphagia and polyuria. Genitourinary: Negative for dysuria and frequency. Musculoskeletal: Negative for arthralgias, gait problem and myalgias. Neurological: Negative for tremors, weakness, numbness and headaches. Objective: BP 106/68 Pulse 87 Wt 62.4 kg (137 lb 8 oz) BMI 25.15 kg/m Wt Readings from Last 3 Encounters: 03/01/24 62.4 kg (137 lb 8 oz) 08/31/23 63.1 kg (139 lb 3.2 oz) 04/24/23 64.9 kg (143 lb) Physical Exam: General: alert, appears stated age and cooperative Eyes: conjunctivae/corneas clear. PERRL, EOM's intact. Neck: no adenopathy, supple, symmetrical, trachea midline. Thyroid: No thyromegaly appreciated Lung: clear to auscultation bilaterally Heart: regular rate and rhythm, S1, S2 normal, no murmur, click, rub or gallop Extremities: extremities normal, atraumatic, no cyanosis or edema Feet: Dry skin, Bilateral Feet: warm, good capillary refill and normal DP. Monofilament exam Normal, bilateral lower extremities. Neuro: normal without focal findings, mental status, speech normal, alert and oriented x3 and VIVIEN Lab Review 01/26/24 *labs reviewed 03/01/24 Hgb A1c: 6.2% Creat: 0.74; eGFR: 117 AST: 14; ALT: 11 K: 4.3 CBC: WBC:6.80; Hgb: 13.6; Hct: 42.3; Plt: 321 Tchol: 144; Tri ; HDL: 62 ; LDL: 70 TSH: 0.941 ; FreeT4: 1.23 Microalbumin/creatinine Ratio: below assay. 04/24/23: Hgb A1c: 6.1% 10/20/2022 Hemoglobin A1c 6.3% Creatinine 0.80 GFR 107 AST 15 ALT 12 TSH 0.886, free T41.1 Microalbumin creatinine ratio 3 07/16/2022 Hemoglobin A1C 6.3% 03/13/22 Hgb A1c: 6.5% 10/23/2021 Hemoglobin A1c 7.0% Creatinine 0.82, estimated GFR 105, K4.8 AST 30, ALT 19 06/14/2021 Hemoglobin A1c 7.3% Creatinine 0.78, estimated GFR 112, K4.7 AST 16, ALT 12 T cholesterol 143, TG 45, HDL 67, LDL 66 TSH 0.862, free T4: 0.93 Microalbumin/creatinine ratio: 2 03/06/2021 Hemoglobin A1C in office 7.7% 10/31/2020 Hemoglobin A1c 6.8% 05/30/2020 Hemoglobin A1C 7.9% Creatinine 0.99 GFR 83 AST 15 ALT 12 TSH 0.836 FT4 1.10 Microalbumin creatinine ratio 42 02/29/2020 Hemoglobin A1c 7.1% 10/27/2019 Hemoglobin A1c: 7.4% in the office 06/23/2019 Hemoglobin A1c: 6.6% in the office 02/10/19 Hgb A1c: 7.7% Creat: 0.76; eGFR: >60 AST: 19; ALT: 21 K: 3.9 11/03/18 HgbA1C 7.5% in office 06/25/18 Hgb A1c: 8.2% in office 02/18/18 HgbA1C 7.7% 08/28/17 Hemoglobin A1c 7.4% Creatinine 0.85, sodium 139, potassium 4.7 AST 19, ALT 10 Total cholesterol 140, triglycerides 74, HDL 61, LDL 64 TSH 0.864, FT4--1.14 WBC 6.6, hemoglobin 12.4, hematocrit 38.5, platelet count 262,000, MCV 77 microAlbumin/creatinine ratio 17.0 05/06/17 (in the office POC) Hgb A1C 7.5% Assessment/Plan: Dx: 1. Type 1 diabetes mellitus without complication (HCC) glucagon 1 mg SolR injection (This order hasnot been finalized) Type 1 diabetes, under good control Patient is currently managed with: Insulin pump downloaded/reviewed. Current Hemoglobin A1C= 6.2% 02/01 Lab Results Component Value Date HGBA1C 6.2 (H) 01/26/2024 HGBA1C 6.1 (A) 04/24/2023 HGBA1C 6.3 10/20/2022 Weight trend: is stable Current diet: carbohydrate counting Current exercise: none Current monitoring regimen: home blood tests - 4 times daily Any episodes of hypoglycemia? Occasionally if more active in the afternoon. 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 Other Ophthalmologic Conditions: None known Nephropathy: Negative Creatinine 0.80 GFR 107 10/20/2022 Lab Results Component Value Date CREATININE 0.74 01/26/2024 EXTEGFR 117 01/26/2024 EXTEGFRAFAME 96 05/30/2020 Microalbumin/creatinine ratio: 3 Is patient on SURYA inhibitor or angiotensin II receptor polly? no Peripheral Neuropathy: Negative Denies symptoms associated with neuropathy (numbness and/or tingling) Autonomic Neuropathy: Positive Hypoglycemia unawareness. Senses low BG at 45-60 mg/dl. Can fluctuate, states most times can tell if BG <60. Other: Hyperlipidemia: Negative Currently taking: No lipid lowering agents. LFT's WNL Hypertension: Negative . 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 Rx changes: none BASAL RATES: Time U/Hr. 0000 1.20 0500 1.10 1600 0.95 Insulin to Carb Ratio: 0000 1:8 1100 1:9 1600 1:8 Sensitivity: 0000 1:50 0400 1:45 Slight changes are made to the patient's current diabetic regimen as above to decrease hypoglycemiain the evening. Patient reports it frequently drops low after work. I did discuss that it would be helpful if she would enter in all blood sugars to her insulin pump, that would help us be able to make additional changes if needed in the future based on blood sugar trends. Discussed family planning/ management briefly with patient and her . 2. Education: Reviewed ABCs of diabetes management (respective goals in parentheses): A1C (7.0-8.0), blood pressure (<130/80), and cholesterol (LDL <100). 3. Compliance at present is estimated to be good. Efforts to improve compliance (if necessary) willbe directed at dietary modifications: avoid concentrated sweets and sugars and regular blood sugar monitorin times daily. 4. Follow up: 6 months 5. Record blood sugar readings as instructed. Call if BG consistently <70 or >250. [phone] 6. Bring blood sugar meter to follow up appointment. No orders of the defined types were placed in this encounter. Electronically Signed by: Demetrius Ramirez CNP 03/01/24 2:28 PM documented in this [id number] History of Present illness Narrative* Demetrius Ramirez CNP - 2023 11:10 AM EDT Images from the original note were not included. Patient ID: Allison Nguyen is a 22 y.o. female 2000 Subjective: Allison Nguyen presents for follow-up of Type 1 diabetes Patient has had diabetes for 14 years. Diagnosed in 2009 Allison Nguyen is a 22-year-old female patient follows in our practice for the management of her type 1 diabetes. Her most recent hemoglobin A1c is 6.1%. Her insulin pump was downloaded and reviewed.No consistent trends of hyper or hypoglycemia appreciated. She does not enter all blood sugars intoher pump, only readings that are on the low or high side of normal. Currently taking: Humalog via OmniPod insulin pump. Allergies Allergen Reactions Acetaminophen Rash Current Outpatient Medications Medication Sig Dispense Refill blood sugar diagnostic (glucose blood) strips Use to check BG 8 x daily. DX code E10.9 . 200 strip 11 Contour Next One Meter Misc by Miscellaneous route Monitor blood sugar up to 6 times daily. Connectto omnipod Dash insulin pump. E10.9. . 1 each 0 Contour Next Test Strips strips by Miscellaneous route 4 (four) times a day . 400 strip 3 glucagon (Baqsimi) 3 mg/actuation Langley Administer 1 (one) spray into one nostril as needed . 1 each3 glucagon 1 mg Kit 1 mg HumaLOG U-100 Insulin 100 unit/mL injection Inject 100 (one hundred) Units under the skin daily Viainsulin pump. . 30 mL 11 insulin pump cart,cont inf,BT (Omnipod Dash Pods, Gen 4,) Crtg Use as directed every 3 days . 10 each 11 No current facility-administered medications for this visit. Review of Systems: Review of Systems Constitutional: Negative for appetite change, fatigue and unexpected weight change. HENT: Negative for trouble swallowing and voice change. Eyes: Negative for visual disturbance. Respiratory: Negative for cough, chest tightness, shortness of breath and wheezing. Cardiovascular: Negative for chest pain, palpitations and leg swelling. Gastrointestinal: Negative for abdominal pain, constipation, diarrhea, nausea and vomiting. Endocrine: Negative for heat intolerance, polydipsia, polyphagia and polyuria. Genitourinary: Negative for dysuria and frequency. Musculoskeletal: Negative for arthralgias, gait problem and myalgias. Neurological: Negative for tremors, weakness, numbness and headaches. Objective: Wt 63.1 kg (139 lb 3.2 oz) BMI 25.46 kg/m Wt Readings from Last 3 Encounters: 08/31/23 63.1 kg (139 lb 3.2 oz) 04/24/23 64.9 kg (143 lb) 12/25/22 62.1 kg (137 lb) Physical Exam: General: alert, appears stated age and cooperative Eyes: conjunctivae/corneas clear. PERRL, EOM's intact. Neck: no adenopathy, supple, symmetrical, trachea midline. Thyroid: No thyromegaly appreciated Lung: clear to auscultation bilaterally Heart: regular rate and rhythm, S1, S2 normal, no murmur, click, rub or gallop Extremities: extremities normal, atraumatic, no cyanosis or edema Feet: Dry skin, Bilateral Feet: warm, good capillary refill and normal DP. Monofilament exam Normal, bilateral lower extremities. Neuro: normal without focal findings, mental status, speech normal, alert and oriented x3 and VIVIEN Lab Review 04/24/23: Hgb A1c: 6.1% 10/20/2022 Hemoglobin A1c 6.3% Creatinine 0.80 GFR 107 AST 15 ALT 12 TSH 0.886, free T41.1 Microalbumin creatinine ratio 3 07/16/2022 Hemoglobin A1C 6.3% 03/13/22 Hgb A1c: 6.5% 10/23/2021 Hemoglobin A1c 7.0% Creatinine 0.82, estimated GFR 105, K4.8 AST 30, ALT 19 06/14/2021 Hemoglobin A1c 7.3% Creatinine 0.78, estimated GFR 112, K4.7 AST 16, ALT 12 T cholesterol 143, TG 45, HDL 67, LDL 66 TSH 0.862, free T4: 0.93 Microalbumin/creatinine ratio: 2 03/06/2021 Hemoglobin A1C in office 7.7% 10/31/2020 Hemoglobin A1c 6.8% 05/30/2020 Hemoglobin A1C 7.9% Creatinine 0.99 GFR 83 AST 15 ALT 12 TSH 0.836 FT4 1.10 Microalbumin creatinine ratio 42 02/29/2020 Hemoglobin A1c 7.1% 10/27/2019 Hemoglobin A1c: 7.4% in the office 06/23/2019 Hemoglobin A1c: 6.6% in the office 02/10/19 Hgb A1c: 7.7% Creat: 0.76; eGFR: >60 AST: 19; ALT: 21 K: 3.9 11/03/18 HgbA1C 7.5% in office 06/25/18 Hgb A1c: 8.2% in office 02/18/18 HgbA1C 7.7% 08/28/17 Hemoglobin A1c 7.4% Creatinine 0.85, sodium 139, potassium 4.7 AST 19, ALT 10 Total cholesterol 140, triglycerides 74, HDL 61, LDL 64 TSH 0.864, FT4--1.14 WBC 6.6, hemoglobin 12.4, hematocrit 38.5, platelet count 262,000, MCV 77 microAlbumin/creatinine ratio 17.0 05/06/17 (in the office POC) Hgb A1C 7.5% Assessment/Plan: Dx: 1. Type 1 diabetes mellitus without complication (HCC) Comprehensive Metabolic Panel CBC and Differential Hemoglobin A1c Lipid Panel TSH T4, Free Microalbumin/Creatinine Ratio, UR Random Type 1 diabetes, under good control Patient is currently managed with: Insulin pump downloaded/reviewed. Current Hemoglobin A1C= 6.1% 04/24/23 Lab Results Component Value Date HGBA1C 6.1 (A) 04/24/2023 HGBA1C 6.3 10/20/2022 HGBA1C 6.3 (A) 07/16/2022 Weight trend: is stable Current diet: carbohydrate counting Current exercise: none Current monitoring regimen: home blood tests - 4 times daily Any episodes of hypoglycemia? Occasionally if more active in the afternoon. 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 Other Ophthalmologic Conditions: None known Nephropathy: Negative Creatinine 0.80 GFR 107 10/20/2022 Lab Results Component Value Date CREATININE 0.80 10/20/2022 EXTEGFR 107 10/20/2022 EXTEGFRAFAME 96 05/30/2020 Microalbumin/creatinine ratio: 3 Is patient on SURYA inhibitor or angiotensin II receptor polly? no Peripheral Neuropathy: Negative Denies symptoms associated with neuropathy (numbness and/or tingling) Autonomic Neuropathy: Positive Hypoglycemia unawareness. Senses low BG at 45-60 mg/dl. Can fluctuate, states most times can tell if BG <60. Other: Hyperlipidemia: Negative Currently taking: No lipid lowering agents. LFT's WNL Hypertension: Negative . 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 Rx changes: none BASAL RATES: Time U/Hr. 0000 1.20 0500 1.05 1600 1.20--->1.0 Insulin to Carb Ratio: 0000 1:9 1100 1:8--->10 1600 1:7--->9 Sensitivity: 0000 1:50 0400 1:45 Slight changes are made to the patient's current diabetic regimen as above to decrease hypoglycemiain the evening. Patient reports it frequently drops low after work. I did discuss that it would be helpful if she would enter in all blood sugars to her insulin pump, that would help us be able to make additional changes if needed in the future based on blood sugar trends. 2. Education: Reviewed ABCs of diabetes management (respective goals in parentheses): A1C (7.0-8.0), blood pressure (<130/80), and cholesterol (LDL <100). 3. Compliance at present is estimated to be good. Efforts to improve compliance (if necessary) willbe directed at dietary modifications: avoid concentrated sweets and sugars and regular blood sugar monitorin times daily. 4. Follow up: 6 months 5. Record blood sugar readings as instructed. Call if BG consistently <70 or >250. [phone] 6. Bring blood sugar meter to follow up appointment. Orders Placed This Encounter Procedures Comprehensive Metabolic Panel CBC and Differential Hemoglobin A1c Lipid Panel TSH T4, Free Microalbumin/Creatinine Ratio, UR Random Electronically Signed by: Demetrius Ramirez CNP 08/31/23 2:28 PM documented in this [id number] History of Present illness Narrative* Demetrius Ramirez CNP - 04/24/2023 2:20 PM EDT Patient ID: Allison Nguyen is a 22 y.o. female 2000 Subjective: Allison Nguyen presents for follow-up of Type 1 diabetes Patient has had diabetes for 14 years. Diagnosed in 2009 Allison Nguyen is a 22-year-old female patient follows in our practice for the management of her type 1 diabetes. Her most recent hemoglobin A1c is 6.1%. Her insulin pump was downloaded and reviewed.No consistent trends of hyper or hypoglycemia appreciated. She does not enter all blood sugars intoher pump, only readings that are on the low or high side of normal. Currently taking: Humalog via OmniPod insulin pump. Allergies Allergen Reactions Acetaminophen Rash Current Outpatient Medications Medication Sig Dispense Refill blood sugar diagnostic (glucose blood) strips Use to check BG 8 x daily. DX code E10.9 . 200 strip 11 glucagon (Baqsimi) 3 mg/actuation Langley Administer 1 (one) spray into one nostril as needed . 1 each3 glucagon 1 mg Kit 1 mg insulin lispro (AdmeLOG,HumaLOG) 100 unit/mL injection USE DIRECTED VIA INSULIN PUMP APPROX 100 UNITS PER DAY . 30 mL 12 insulin pump cart,cont inf,BT (Omnipod Dash Pods, Gen 4,) Crtg Use as directed every 3 days . 10 each 11 insulin aspart, niacinamide, (Fiasp U-100 Insulin) 100 unit/mL Soln Inject 100 (one hundred) Units under the skin daily . 30 mL 0 No current facility-administered medications for this visit. Review of Systems: Review of Systems Constitutional: Negative for appetite change, fatigue and unexpected weight change. HENT: Negative for trouble swallowing and voice change. Eyes: Negative for visual disturbance. Respiratory: Negative for cough, chest tightness, shortness of breath and wheezing. Cardiovascular: Negative for chest pain, palpitations and leg swelling. Gastrointestinal: Negative for abdominal pain, constipation, diarrhea, nausea and vomiting. Endocrine: Negative for heat intolerance, polydipsia, polyphagia and polyuria. Genitourinary: Negative for dysuria and frequency. Musculoskeletal: Negative for arthralgias, gait problem and myalgias. Neurological: Negative for tremors, weakness, numbness and headaches. Objective: BP 130/81 Pulse 87 Wt 64.9 kg (143 lb) BMI 26.16 kg/m Wt Readings from Last 3 Encounters: 04/24/23 64.9 kg (143 lb) 12/25/22 62.1 kg (137 lb) 12/03/22 61 kg (134 lb 7.7 oz) Physical Exam: General: alert, appears stated age and cooperative Eyes: conjunctivae/corneas clear. PERRL, EOM's intact. Neck: no adenopathy, supple, symmetrical, trachea midline. Thyroid: No thyromegaly appreciated Lung: clear to auscultation bilaterally Heart: regular rate and rhythm, S1, S2 normal, no murmur, click, rub or gallop Extremities: extremities normal, atraumatic, no cyanosis or edema Feet: Dry skin, Bilateral Feet: warm, good capillary refill and normal DP. Monofilament exam Normal, bilateral lower extremities. Neuro: normal without focal findings, mental status, speech normal, alert and oriented x3 and VIVIEN Lab Review 04/24/23: Hgb A1c: 6.1% 10/20/2022 Hemoglobin A1c 6.3% Creatinine 0.80 GFR 107 AST 15 ALT 12 TSH 0.886, free T41.1 Microalbumin creatinine ratio 3 07/16/2022 Hemoglobin A1C 6.3% 03/13/22 Hgb A1c: 6.5% 10/23/2021 Hemoglobin A1c 7.0% Creatinine 0.82, estimated GFR 105, K4.8 AST 30, ALT 19 06/14/2021 Hemoglobin A1c 7.3% Creatinine 0.78, estimated GFR 112, K4.7 AST 16, ALT 12 T cholesterol 143, TG 45, HDL 67, LDL 66 TSH 0.862, free T4: 0.93 Microalbumin/creatinine ratio: 2 03/06/2021 Hemoglobin A1C in office 7.7% 10/31/2020 Hemoglobin A1c 6.8% 05/30/2020 Hemoglobin A1C 7.9% Creatinine 0.99 GFR 83 AST 15 ALT 12 TSH 0.836 FT4 1.10 Microalbumin creatinine ratio 42 02/29/2020 Hemoglobin A1c 7.1% 10/27/2019 Hemoglobin A1c: 7.4% in the office 06/23/2019 Hemoglobin A1c: 6.6% in the office 02/10/19 Hgb A1c: 7.7% Creat: 0.76; eGFR: >60 AST: 19; ALT: 21 K: 3.9 11/03/18 HgbA1C 7.5% in office 06/25/18 Hgb A1c: 8.2% in office 02/18/18 HgbA1C 7.7% 08/28/17 Hemoglobin A1c 7.4% Creatinine 0.85, sodium 139, potassium 4.7 AST 19, ALT 10 Total cholesterol 140, triglycerides 74, HDL 61, LDL 64 TSH 0.864, FT4--1.14 WBC 6.6, hemoglobin 12.4, hematocrit 38.5, platelet count 262,000, MCV 77 microAlbumin/creatinine ratio 17.0 05/06/17 (in the office POC) Hgb A1C 7.5% Assessment/Plan: Dx: 1. Type 1 diabetes mellitus without complication (HCC) Type 1 diabetes, under good control Patient is currently managed with: Insulin pump downloaded/reviewed. Current Hemoglobin A1C= 6.1% 04/24/23 Lab Results Component Value Date HGBA1C 6.1 (A) 04/24/2023 HGBA1C 6.3 10/20/2022 HGBA1C 6.3 (A) 07/16/2022 Weight trend: is stable Current diet: carbohydrate counting Current exercise: none Current monitoring regimen: home blood tests - 4 times daily Any episodes of hypoglycemia? Occasionally if more active in the afternoon. 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 Other Ophthalmologic Conditions: None known Nephropathy: Negative Creatinine 0.80 GFR 107 10/20/2022 Lab Results Component Value Date CREATININE 0.80 10/20/2022 EXTEGFR 107 10/20/2022 EXTEGFRAFAME 96 05/30/2020 Microalbumin/creatinine ratio: 3 Is patient on SURYA inhibitor or angiotensin II receptor polly? no Peripheral Neuropathy: Negative Denies symptoms associated with neuropathy (numbness and/or tingling) Autonomic Neuropathy: Positive Hypoglycemia unawareness. Senses low BG at 45-60 mg/dl. Can fluctuate, states most times can tell if BG <60. Other: Hyperlipidemia: Negative Currently taking: No lipid lowering agents. LFT's WNL Hypertension: Negative . 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 Rx changes: none BASAL RATES: Time U/Hr. 0000 1.20 0500 1.05 1800 1.20 Insulin to Carb Ratio: 0000 1:9 1100 1:8 1600 1:7 Sensitivity: 0000 1:50 0400 1:45 No changes are made to the patient's current diabetic regimen. I did discuss that it would be helpful if she would enter in all blood sugars to her insulin pump, that would help us be able to make additional changes if needed in the future based on blood sugar trends. We will send a referral to cardiology for the patient's complaints of heart racing. We may order anevent monitor if we are able to through this office. Patient to get updated A1c in our office, if were able. The patient is self-pay and they prefer to have his minimal cost as possible which includes frequent lab testing. 2. Education: Reviewed ABCs of diabetes management (respective goals in parentheses): A1C (7.0-8.0), blood pressure (<130/80), and cholesterol (LDL <100). 3. Compliance at present is estimated to be good. Efforts to improve compliance (if necessary) willbe directed at dietary modifications: avoid concentrated sweets and sugars and regular blood sugar monitorin times daily. 4. Follow up: 4 months 5. Record blood sugar readings as instructed. Call if BG consistently <70 or >250. [phone] 6. Bring blood sugar meter to follow up appointment. Orders Placed This Encounter Procedures POC Hemoglobin A1C Electronically Signed by: Demetrius Ramirez CNP 04/24/23 2:28 PM documented in this [id number] Instructions* Patient Instructions* Consuelo Ravi RN - 12/25/2022 11:[address] Steel Nurse- DIEGO Cordero Any questions or concerns please call [phone] THANK YOU FOR VISITING [facility]! Holter Help and Phone Number ROSHAN Meier [phone] [employer] [phone] Date and Time of Study to End Holter Monitor Essentials 1. The device is waterproof. Showers are OKAY 2. Device battery is to last up to 5 days. Anything past 5 days needs to be charged. Child Development Director included in the box. 3. Extra strips are inside of the box. Sensitivity patches will need to be mailed by [employer] if needed. [phone] 4. Please DO NOT return the device to [facility] after the study has been completed. It will be the patient's responsibility to return the device to [facility]. 5. Diary is located in the box. Date, Time of event and symptom is to be written down. Please note if having palpitations frequently, it is not necessary to write down every symptom. Your device will catch every heart rhythm for you. 6. After the device is mailed, it will take 1-2 weeks for your results to be returned to you. It is the ordering provider s nurse responsibility to call you with the results. UPS Drop Off Box Locations Number for [facility]: [id number] [address] [place], [address] [address] [place] [address] [address] [place], [address] [facility] STORE # [id number] [address] [place], [address] [employer] [facility] ST[address] [place], [address] [facility] [employer] [address], [address] [facility] [address] [facility], [place], [address] [employer] ST[address] [place], [address] [facility] MORE [address], [place], [address] [employer] [facility] [address], [place], [address] [employer] ST[facility] [address]0045 [address] [address], [place], [address] [facility] [address] [facility], [place], [address] [facility] [address] [place], [address] [address] [address] [place], [address] [facility] STORE # 6367 [address] [place], [address] [employer] STORE [address] [place], [address] CARDIAC STRESS TEST You are scheduled to have a standard exercise stress test on at . This is a monitored test on a treadmill at various work levels of increasing difficulty. During andafter the test, your heart rate, blood pressure, electrocardiogram and clinical symptoms are carefully observed. This data provides information on the status of your heart, blood pressure and physical fitness. The total time required to complete the test is 45 minutes to one hour. NOTHING TO EAT OR DRINK 2 HOURS PRIOR TO APPOINTMENT TIME. Specifically, DO NOT drink coffee or carbonated beverages that contain caffeine including drinks labeled decaffeinated. Drinks containing caffeine can artificially raise your heart rate. Tobacco should be avoided 4 hours prior to procedure. Wear loose fitting clothes and comfortable shoes for exercise. Gym shorts would be appropriate. Medications: You may take all of your medications prior to your procedure. Please bring a list of your current medications with you. If you have any further questions, please contact your care team or call our office at [phone]. documented in this [id number] History of Present illness Narrative* Rico Steel MD - 12/25/2022 10:51 AM EST OFFICE CONSULTATION NOTE [facility] [address]) [facility] [address] [facility] [address] Physicians: Olivia Pruett PA-C (Family); Isabel Garcia CNP (Referring) Subjective: Allison Nguyen is a 22 y.o. female seen in the office today for Establish Care (Per Isabel Garcia CNP for heart racing & heart palpitations) . HPI patient complains of intermittent central chest pains sometimes dull sometimes sharp she noticed some tenderness in her chest pressing on elicits same complaint of pain. It is not exertionally related related. There is no association or emotional arousal or ingestion of food. She says is there pretty much all the time. She complains of her heart racing primarily at night or when things are quiet Assessment/Plan I recommended a treadmill and Holter monitor but given their insurance situation she wanted to know the garcia of each. An alternative to these would be simple observation and they will decide ECG: Sinus Rhythm WITHIN NORMAL LIMITS No problem-specific Assessment & Plan notes found for this encounter. Follow Up Ordered: No follow-ups on file. Patient's Medications New Prescriptions No medications on file Previous Medications BLOOD SUGAR DIAGNOSTIC (GLUCOSE BLOOD) STRIPS Use to check BG 8 x daily. DX code E10.9 . BLOOD-GLUCOSE METER KIT Use to check BG 8 x daily. DX code E10.9 . GLUCAGON (BAQSIMI) 3 MG/ACTUATION SPRY Administer 1 (one) spray into one nostril as needed . GLUCAGON 1 MG KIT 1 mg INSULIN ASPART, NIACINAMIDE, (FIASP U-100 INSULIN) 100 UNIT/ML SOLN Inject 100 (one hundred) Units under the skin daily . INSULIN LISPRO (ADMELOG,HUMALOG) 100 UNIT/ML INJECTION USE DIRECTED VIA INSULIN PUMP APPROX 100 UNITS PER DAY . Modified Medications No medications on file Discontinued Medications ONDANSETRON (ZOFRAN-ODT) 4 MG DISINTEGRATING TABLET Dissolve 1 (one) tablet (4 mg total) on top of tongue every 8 (eight) hours as needed for nausea . Histories: Past Medical History: Diagnosis Date Diabetes mellitus type 1 (HCC) 12/2011 History reviewed. No pertinent surgical history. History reviewed. No pertinent family history. Social History Tobacco Use Smoking status: Never Smokeless tobacco: Never Vaping Use Vaping Use: Never used Substance Use Topics Alcohol use: No Alcohol/week: 0.0 standard drinks of alcohol Drug use: No Allergies Allergen Reactions Acetaminophen Rash ROS Overview of Problems Addressed: No problems updated. Objective: Vitals: BP 127/84 (BP Location: Left arm) Pulse 88 Ht 5' 2 Wt 62.1 kg (137 lb) SpO2 99% BMI 25.06 kg/m Physical Exam 1. Palpitations 2. Type 1 diabetes mellitus without complication (HCC) 3. Racing heart beat Rico Steel MD 12/25/2022 * Aspen Elizabeth MA - 12/25/2022 10:47 AM EST Review of Systems Cardiovascular: Positive for palpitations. documented in this [id number] History of Present illness Narrative* Isabel Garcia CNP - 12/03/2022 10:58 AM EDT Images from the original note were not included. Patient ID: Allison Nguyen is a 22 y.o. female 2000 Subjective: Allison Nguyen presents for follow-up of Type 1 diabetes Patient has had diabetes for 10 years. Diagnosed in 2009 Allison Nguyen is a 22-year-old female patient follows in our practice for the management of her type 1 diabetes. Her most recent hemoglobin A1c is 6.3%. Her insulin pump was downloaded and reviewed.No consistent trends of hyper or hypoglycemia appreciated. She does not enter all blood sugars intoher pump, only readings that are on the low or high side of normal. She does reveal today she has been having episodes of heart racing. She reports that its at varioustimes throughout the day and is not consistent. She is never got an actual rate when her heart is racing, she states that she can just feel like . She said this has been an ongoing issue for her but seems to be getting fairly worse than it had been previously. Currently taking: Humalog via OmniPod insulin pump. Allergies Allergen Reactions Acetaminophen Rash Current Outpatient Medications Medication Sig Dispense Refill blood sugar diagnostic (glucose blood) strips Use to check BG 8 x daily. DX code E10.9 . 200 strip 11 blood-glucose meter kit Use to check BG 8 x daily. DX code E10.9 . 1 kit 0 glucagon (Baqsimi) 3 mg/actuation Langley Administer 1 (one) spray into one nostril as needed . 1 each3 glucagon 1 mg Kit 1 mg insulin aspart, niacinamide, (Fiasp U-100 Insulin) 100 unit/mL Soln Inject 100 (one hundred) Units under the skin daily . 30 mL 0 insulin lispro (AdmeLOG,HumaLOG) 100 unit/mL injection USE DIRECTED VIA INSULIN PUMP APPROX 100 UNITS PER DAY . 30 mL 12 ondansetron (ZOFRAN-ODT) 4 MG disintegrating tablet Dissolve 1 (one) tablet (4 mg total) on top of tongue every 8 (eight) hours as needed for nausea . 20 tablet 0 No current facility-administered medications for this visit. Review of Systems: Review of Systems Constitutional: Negative for appetite change, fatigue and unexpected weight change. HENT: Negative for trouble swallowing and voice change. Eyes: Negative for visual disturbance. Respiratory: Negative for cough, chest tightness, shortness of breath and wheezing. Cardiovascular: Negative for chest pain, palpitations and leg swelling. Gastrointestinal: Negative for abdominal pain, constipation, diarrhea, nausea and vomiting. Endocrine: Negative for heat intolerance, polydipsia, polyphagia and polyuria. Genitourinary: Negative for dysuria and frequency. Musculoskeletal: Negative for arthralgias, gait problem and myalgias. Neurological: Negative for tremors, weakness, numbness and headaches. Objective: BP 111/71 Pulse 81 Wt 61 kg (134 lb 7.7 oz) BMI 24.60 kg/m Wt Readings from Last 3 Encounters: 12/03/22 61 kg (134 lb 7.7 oz) 07/16/22 62.1 kg (136 lb 14.4 oz) 03/13/22 64.4 kg (142 lb) Physical Exam: General: alert, appears stated age and cooperative Eyes: conjunctivae/corneas clear. PERRL, EOM's intact. Neck: no adenopathy, supple, symmetrical, trachea midline. Thyroid: No thyromegaly appreciated Lung: clear to auscultation bilaterally Heart: regular rate and rhythm, S1, S2 normal, no murmur, click, rub or gallop Extremities: extremities normal, atraumatic, no cyanosis or edema Feet: Dry skin, Bilateral Feet: warm, good capillary refill and normal DP. Monofilament exam Normal, bilateral lower extremities. Neuro: normal without focal findings, mental status, speech normal, alert and oriented x3 and VIVIEN Lab Review 10/20/2022 Hemoglobin A1c 6.3% Creatinine 0.80 GFR 107 AST 15 ALT 12 TSH 0.886, free T41.1 Microalbumin creatinine ratio 3 07/16/2022 Hemoglobin A1C 6.3% 03/13/22 Hgb A1c: 6.5% 10/23/2021 Hemoglobin A1c 7.0% Creatinine 0.82, estimated GFR 105, K4.8 AST 30, ALT 19 06/14/2021 Hemoglobin A1c 7.3% Creatinine 0.78, estimated GFR 112, K4.7 AST 16, ALT 12 T cholesterol 143, TG 45, HDL 67, LDL 66 TSH 0.862, free T4: 0.93 Microalbumin/creatinine ratio: 2 03/06/2021 Hemoglobin A1C in office 7.7% 10/31/2020 Hemoglobin A1c 6.8% 05/30/2020 Hemoglobin A1C 7.9% Creatinine 0.99 GFR 83 AST 15 ALT 12 TSH 0.836 FT4 1.10 Microalbumin creatinine ratio 42 02/29/2020 Hemoglobin A1c 7.1% 10/27/2019 Hemoglobin A1c: 7.4% in the office 06/23/2019 Hemoglobin A1c: 6.6% in the office 02/10/19 Hgb A1c: 7.7% Creat: 0.76; eGFR: >60 AST: 19; ALT: 21 K: 3.9 11/03/18 HgbA1C 7.5% in office 06/25/18 Hgb A1c: 8.2% in office 02/18/18 HgbA1C 7.7% 08/28/17 Hemoglobin A1c 7.4% Creatinine 0.85, sodium 139, potassium 4.7 AST 19, ALT 10 Total cholesterol 140, triglycerides 74, HDL 61, LDL 64 TSH 0.864, FT4--1.14 WBC 6.6, hemoglobin 12.4, hematocrit 38.5, platelet count 262,000, MCV 77 microAlbumin/creatinine ratio 17.0 05/06/17 (in the office POC) Hgb A1C 7.5% Assessment/Plan: Dx: 1. Type 1 diabetes mellitus without complication (HCC) Ambulatory referral to Cardiology 2. Insulin pump titration 3. Racing heart beat Ambulatory referral to Cardiology Type 1 diabetes, under good control Patient is currently managed with: Insulin pump downloaded/reviewed. Current Hemoglobin A1C= 6.3% 10/20/2022 Lab Results Component Value Date HGBA1C 6.3 10/20/2022 HGBA1C 6.3 (A) 07/16/2022 HGBA1C 6.5 (A) 03/13/2022 Weight trend: is stable Current diet: carbohydrate counting Current exercise: none Current monitoring regimen: home blood tests - 4 times daily Any episodes of hypoglycemia? Occasionally if more active in the afternoon. 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 Other Ophthalmologic Conditions: None known Nephropathy: Negative Creatinine 0.80 GFR 107 10/20/2022 Lab Results Component Value Date CREATININE 0.80 10/20/2022 EXTEGFR 107 10/20/2022 EXTEGFRAFAME 96 05/30/2020 Microalbumin/creatinine ratio: 3 Is patient on SURYA inhibitor or angiotensin II receptor polly? no Peripheral Neuropathy: Negative Denies symptoms associated with neuropathy (numbness and/or tingling) Autonomic Neuropathy: Positive Hypoglycemia unawareness. Senses low BG at 45-60 mg/dl. Can fluctuate, states most times can tell if BG <60. Other: Hyperlipidemia: Negative Currently taking: No lipid lowering agents. LFT's WNL Hypertension: Negative . Currently taking: Patient on no antihypertensives BP: 111/71 Cardiac: Negative Experiencing chest pain No Experiencing shortness of breath No History of No history of CAD Follows routinely with: Vascular: Negative History of None Feet: 12/03/2022 Follows with Podiatry: No Youth Worker: History of foot ulceration: No History of amputation: No Thyroid: Lab Results Component Value Date TSH 0.886 10/20/2022 Negative Other: Plan: 1. Rx changes: none BASAL RATES: Time U/Hr. 0000 1.20 0500 1.050 1800 1.20 Insulin to Carb Ratio: 0000 1:9 1100 1:8 1600 1:7 Sensitivity: 0000 1:50 0400 1:45 Changes are made to the patient's current diabetic regimen. I did discuss that it would be helpful if she would enter in all blood sugars to her insulin pump, that would help us be able to make additional changes if needed in the future based on blood sugar trends. We will send a referral to cardiology for the patient's complaints of heart racing. We may order anevent monitor if we are able to through this office. Patient to get updated A1c in our office, if were able. The patient is self-pay and they prefer to have his minimal cost as possible which includes frequent lab testing. 2. Education: Reviewed ABCs of diabetes management (respective goals in parentheses): A1C (7.0-8.0), blood pressure (<130/80), and cholesterol (LDL <100). 3. Compliance at present is estimated to be good. Efforts to improve compliance (if necessary) willbe directed at dietary modifications: avoid concentrated sweets and sugars and regular blood sugar monitorin times daily. 4. Follow up: 4 months 5. Record blood sugar readings as instructed. Call if BG consistently <70 or >250. [phone] 6. Bring blood sugar meter to follow up appointment. Orders Placed This Encounter Procedures Ambulatory referral to Cardiology Electronically signed by Isabel LUNA 12/03/2309:16 AM documented in this [id number] Instructions* Patient Instructions* Isabel Garcia CNP - 07/16/2022 10:18 AM EDT Call the office with Blood sugar readings in 1 week for dose adjustments to your insulin, if needed. The goal hemoglobin A1C is 7%-8%, closer to 7%, which is an average BG of 150 Please call the office sooner for episodes of hypoglycemia, BG < 70. Please remember to check your blood sugar 4x per day. Bring your blood sugar meter with you to appointments for review/download. It is important for us to prove you are checking your blood sugar, in order for us to renew/prescribe testing supplies. *Get updated labs done prior to your follow up appointment with us. If you do not get updated labs done, that are requested, please consider rescheduling your appointment until those are done * Following a diabetic diet during 30grams carbohydrates at breakfast, 40-65 gm lunch and supper We will shoot for fasting morning BG readings around 95 1 hour after your meal we are hoping for BG 130 or less. documented in this [id number] History of Present illness Narrative* Isabel Garcia CNP - 07/16/2022 10:14 AM EDT Images from the original note were not included. Patient ID: Allison Theodore is a 21 y.o. female 2000 Subjective: Allison Theodore presents for follow-up of Type 1 diabetes Patient has had diabetes for 10 years. Diagnosed in 2009 Allison Theodore is an 21-year-old female patient follows in our practice for the management of her type1 diabetes. Her most recent hemoglobin A1c is 6.3%. Her insulin pump was downloaded and reviewed. No consistent trends of hyper or hypoglycemia appreciated. Currently taking: Humalog via OmniPod insulin pump. Allergies Allergen Reactions Acetaminophen Rash Current Outpatient Medications Medication Sig Dispense Refill insulin lispro (AdmeLOG,HumaLOG) 100 unit/mL injection USE DIRECTED VIA INSULIN PUMP APPROX 100 UNITS PER DAY . 30 mL 12 ondansetron (ZOFRAN-ODT) 4 MG disintegrating tablet Dissolve 1 (one) tablet (4 mg total) on top of tongue every 8 (eight) hours as needed for nausea . 20 tablet 0 blood sugar diagnostic (glucose blood) strips Use to check BG 8 x daily. DX code E10.9 . 200 strip 11 blood-glucose meter kit Use to check BG 8 x daily. DX code E10.9 . 1 kit 0 flash glucose sensor (FreeStyle Sharon 2 Sensor) Kit 1 kit by Miscellaneous route every 14 (fourteen) days Use as directed to apply new sensor . 2 kit 11 glucagon 1 mg Kit 1 mg insulin aspart, niacinamide, (Fiasp U-100 Insulin) 100 unit/mL Soln Inject 100 (one hundred) Units under the skin daily . 30 mL 0 No current facility-administered medications for this visit. Review of Systems: Review of Systems Constitutional: Negative for appetite change, fatigue and unexpected weight change. HENT: Negative for trouble swallowing and voice change. Eyes: Negative for visual disturbance. Respiratory: Negative for cough, chest tightness, shortness of breath and wheezing. Cardiovascular: Negative for chest pain, palpitations and leg swelling. Gastrointestinal: Negative for abdominal pain, constipation, diarrhea, nausea and vomiting. Endocrine: Negative for heat intolerance, polydipsia, polyphagia and polyuria. Genitourinary: Negative for dysuria and frequency. Musculoskeletal: Negative for arthralgias, gait problem and myalgias. Neurological: Negative for tremors, weakness, numbness and headaches. Objective: BP 112/73 Pulse 71 Ht 5' 2 Wt 62.1 kg (136 lb 14.4 oz) BMI 25.04 kg/m Wt Readings from Last 3 Encounters: 07/16/22 62.1 kg (136 lb 14.4 oz) 03/13/22 64.4 kg (142 lb) 11/15/21 63 kg (139 lb) Physical Exam: General: alert, appears stated age and cooperative Eyes: conjunctivae/corneas clear. PERRL, EOM's intact. Neck: no adenopathy, supple, symmetrical, trachea midline. Thyroid: No thyromegaly appreciated Lung: clear to auscultation bilaterally Heart: regular rate and rhythm, S1, S2 normal, no murmur, click, rub or gallop Extremities: extremities normal, atraumatic, no cyanosis or edema Feet: Dry skin, Bilateral Feet: warm, good capillary refill and normal DP. Monofilament exam Normal, bilateral lower extremities. Neuro: normal without focal findings, mental status, speech normal, alert and oriented x3 and VIV[facility]EN Lab Review 07/16/2022 Hemoglobin A1C 6.3% 03/13/22 Hgb A1c: 6.5% 10/23/2021 Hemoglobin A1c 7.0% Creatinine 0.82, estimated GFR 105, K4.8 AST 30, ALT 19 06/14/2021 Hemoglobin A1c 7.3% Creatinine 0.78, estimated GFR 112, K4.7 AST 16, ALT 12 T cholesterol 143, TG 45, HDL 67, LDL 66 TSH 0.862, free T4: 0.93 Microalbumin/creatinine ratio: 2 03/06/2021 Hemoglobin A1C in office 7.7% 10/31/2020 Hemoglobin A1c 6.8% 05/30/2020 Hemoglobin A1C 7.9% Creatinine 0.99 GFR 83 AST 15 ALT 12 TSH 0.836 FT4 1.10 Microalbumin creatinine ratio 42 02/29/2020 Hemoglobin A1c 7.1% 10/27/2019 Hemoglobin A1c: 7.4% in the office 06/23/2019 Hemoglobin A1c: 6.6% in the office 02/10/19 Hgb A1c: 7.7% Creat: 0.76; eGFR: >60 AST: 19; ALT: 21 K: 3.9 11/03/18 HgbA1C 7.5% in office 06/25/18 Hgb A1c: 8.2% in office 02/18/18 HgbA1C 7.7% 08/28/17 Hemoglobin A1c 7.4% Creatinine 0.85, sodium 139, potassium 4.7 AST 19, ALT 10 Total cholesterol 140, triglycerides 74, HDL 61, LDL 64 TSH 0.864, FT4--1.14 WBC 6.6, hemoglobin 12.4, hematocrit 38.5, platelet count 262,000, MCV 77 microAlbumin/creatinine ratio 17.0 05/06/17 (in the office POC) Hgb A1C 7.5% Assessment/Plan: Dx: 1. Type 1 diabetes mellitus without complication (HCC) POC Hemoglobin A1C Comprehensive Metabolic Panel Hemoglobin A1c T4, Free TSH Microalbumin/Creatinine Ratio, UR Random 2. Insulin pump titration Type 1 diabetes, under good control Patient is currently managed with: Insulin pump downloaded/reviewed. Current Hemoglobin A1C= 6.3% 07/16/2022 Lab Results Component Value Date HGBA1C 6.3 (A) 07/16/2022 HGBA1C 6.5 (A) 03/13/2022 HGBA1C 7.0 (H) 10/23/2021 Weight trend: is stable Current diet: carbohydrate counting Current exercise: none Current monitoring regimen: home blood tests - 4 times daily Any episodes of hypoglycemia? Occasionally if more active in the afternoon. 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 Other Ophthalmologic Conditions: None known Nephropathy: Negative Lab Results Component Value Date CREATININE 0.82 10/23/2021 EXTEGFR 105 10/23/2021 EXTEGFRAFAME 96 05/30/2020 Microalbumin/creatinine ratio: 2 Is patient on SURYA inhibitor or angiotensin II receptor polly? no Peripheral Neuropathy: Negative Denies symptoms associated with neuropathy (numbness and/or tingling) Autonomic Neuropathy: Positive Hypoglycemia unawareness. Senses low BG at 45-60 mg/dl. Can fluctuate, states most times can tell if BG <60. Other: Hyperlipidemia: Negative Currently taking: No lipid lowering agents. LFT's WNL Hypertension: Negative . Currently taking: Patient on no antihypertensives BP: 112/73 Cardiac: Negative Experiencing chest pain No Experiencing shortness of breath No History of No history of CAD Follows routinely with: Vascular: Negative History of None Feet: Follows with Podiatry: No Youth Worker: History of foot ulceration: No History of amputation: No Thyroid: Lab Results Component Value Date TSH 0.862 06/14/2021 Negative Other: Plan: 1. Rx changes: none BASAL RATES: Time U/Hr. 0000 1.20 0500 1.050 1800 1.20 Insulin to Carb Ratio: 0000 1:9 1100 1:8 1600 1:7 Sensitivity: 0000 1:50 0400 1:45 No changes were made to the patient's current insulin/diabetes regimen. She seems to do quite well at managing her diabetes. She did inquire today about what things would look like should she ever get . She reports she is going to be getting in the late summer/fall. I did explain toher that we would recommend much tighter blood sugar control during , we discussed we would want hemoglobin A1c was around 6.0, fasting blood sugars around 95, 1 hour postprandial readings less than 130. She was asked to call the office should anything occur prior to her follow-up visit with the consider sooner than planned if needed. 2. Education: Reviewed ABCs of diabetes management (respective goals in parentheses): A1C (7.0-8.0), blood pressure (<130/80), and cholesterol (LDL <100). 3. Compliance at present is estimated to be good. Efforts to improve compliance (if necessary) willbe directed at dietary modifications: avoid concentrated sweets and sugars and regular blood sugar monitorin times daily. 4. Follow up: 4 months 5. Record blood sugar readings as instructed. Call if BG consistently <70 or >250. [phone] 6. Bring blood sugar meter to follow up appointment. Orders Placed This Encounter Procedures Comprehensive Metabolic Panel Hemoglobin A1c T4, Free TSH Microalbumin/Creatinine Ratio, UR Random POC Hemoglobin A1C Electronically signed by Isabel LUNA 07/16/2309:16 AM documented in this [id number] History of Present illness Narrative* Demetrius Ramirez CNP - 03/13/2022 1:38 PM EST Images from the original note were not included. Patient ID: Allison Theodore is a 21 y.o. female 2000 Subjective: Allison Theodore presents for follow-up of Type 1 diabetes Patient has had diabetes for 10 years. Diagnosed in 2009 Allison Theodore is an 21-year-old female patient follows in our practice for the management of her type1 diabetes. Her most recent hemoglobin A1c is 6.5%. Her insulin pump was downloaded and reviewed. No consistent trends of hyper or hypoglycemia appreciated. Currently taking: Humalog via OmniPod insulin pump. Allergies Allergen Reactions Acetaminophen Rash Current Outpatient Medications Medication Sig Dispense Refill blood sugar diagnostic (glucose blood) strips Use to check BG 8 x daily. DX code E10.9 . 200 strip 11 blood-glucose meter kit Use to check BG 8 x daily. DX code E10.9 . 1 kit 0 glucagon 1 mg Kit 1 mg insulin lispro (AdmeLOG,HumaLOG) 100 unit/mL injection USE DIRECTED VIA INSULIN PUMP APPROX 100 UNITS PER DAY . 10 mL 12 flash glucose scanning reader (FreeStyle Sharon 2 [place]) [facility] Use as directed for glucose monitoring . (Patient not taking: Reported on 03/13/2022 .) 1 each 0 flash glucose sensor (FreeStyle Sharon 2 Sensor) Kit 1 kit by Miscellaneous route every 14 (fourteen) days Use as directed to apply new sensor . (Patient not taking: Reported on 03/13/2022 .) 2 kit 11 ondansetron (ZOFRAN-ODT) 4 MG disintegrating tablet Dissolve 1 (one) tablet (4 mg total) on top of tongue every 8 (eight) hours as needed for nausea . 20 tablet 0 No current facility-administered medications for this visit. Review of Systems: Review of Systems Constitutional: Negative for appetite change, fatigue and unexpected weight change. HENT: Negative for trouble swallowing and voice change. Eyes: Negative for visual disturbance. Respiratory: Negative for cough, chest tightness, shortness of breath and wheezing. Cardiovascular: Negative for chest pain, palpitations and leg swelling. Reports occasional heaviness in chest, stabbing pain or racing heart beat. Generally can pinpoint pain, reports feeling like a bruise. Gastrointestinal: Negative for abdominal pain, constipation, diarrhea, nausea and vomiting. Endocrine: Negative for heat intolerance, polydipsia, polyphagia and polyuria. Genitourinary: Negative for dysuria and frequency. Musculoskeletal: Negative for arthralgias, gait problem and myalgias. Neurological: Negative for tremors, weakness, numbness and headaches. Objective: BP 114/72 Pulse 80 Ht 5' 2 Wt 64.4 kg (142 lb) BMI 25.97 kg/m Wt Readings from Last 3 Encounters: 03/13/22 64.4 kg (142 lb) 11/15/21 63 kg (139 lb) 07/03/21 62.7 kg (138 lb 3.2 oz) (67 %, Z= 0.43)* * Growth percentiles are based on CDC (Girls, 2-20 Years) data. Physical Exam: General: alert, appears stated age and cooperative Eyes: conjunctivae/corneas clear. PERRL, EOM's intact. Neck: no adenopathy, supple, symmetrical, trachea midline. Thyroid: No thyromegaly appreciated Lung: clear to auscultation bilaterally Heart: regular rate and rhythm, S1, S2 normal, no murmur, click, rub or gallop Extremities: extremities normal, atraumatic, no cyanosis or edema Feet: Dry skin, Bilateral Feet: warm, good capillary refill and normal DP. Monofilament exam Normal, bilateral lower extremities. Neuro: normal without focal findings, mental status, speech normal, alert and oriented x3 and [facility] Lab Review 03/13/22 Hgb A1c: 6.5% 10/23/2021 Hemoglobin A1c 7.0% Creatinine 0.82, estimated GFR 105, K4.8 AST 30, ALT 19 06/14/2021 Hemoglobin A1c 7.3% Creatinine 0.78, estimated GFR 112, K4.7 AST 16, ALT 12 T cholesterol 143, TG 45, HDL 67, LDL 66 TSH 0.862, free T4: 0.93 Microalbumin/creatinine ratio: 2 03/06/2021 Hemoglobin A1C in office 7.7% 10/31/2020 Hemoglobin A1c 6.8% 05/30/2020 Hemoglobin A1C 7.9% Creatinine 0.99 GFR 83 AST 15 ALT 12 TSH 0.836 FT4 1.10 Microalbumin creatinine ratio 42 02/29/2020 Hemoglobin A1c 7.1% 10/27/2019 Hemoglobin A1c: 7.4% in the office 06/23/2019 Hemoglobin A1c: 6.6% in the office 02/10/19 Hgb A1c: 7.7% Creat: 0.76; eGFR: >60 AST: 19; ALT: 21 K: 3.9 11/03/18 HgbA1C 7.5% in office 06/25/18 Hgb A1c: 8.2% in office 02/18/18 HgbA1C 7.7% 08/28/17 Hemoglobin A1c 7.4% Creatinine 0.85, sodium 139, potassium 4.7 AST 19, ALT 10 Total cholesterol 140, triglycerides 74, HDL 61, LDL 64 TSH 0.864, FT4--1.14 WBC 6.6, hemoglobin 12.4, hematocrit 38.5, platelet count 262,000, MCV 77 microAlbumin/creatinine ratio 17.0 05/06/17 (in the office POC) Hgb A1C 7.5% Assessment/Plan: Dx: 1. Type 1 diabetes mellitus without complication (HCC) POC Hemoglobin A1C Type 1 diabetes, under good control Patient is currently managed with: Insulin pump Current Hemoglobin A1C= Lab Results Component Value Date HGBA1C 6.5 (A) 03/13/2022 HGBA1C 7.0 (H) 10/23/2021 HGBA1C 7.3 06/14/2021 Weight trend: is stable Current diet: carbohydrate counting Current exercise: none Current monitoring regimen: home blood tests - 4 times daily Any episodes of hypoglycemia? Occasionally if more active in the afternoon. 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 Other Ophthalmologic Conditions: None known Nephropathy: Negative Lab Results Component Value Date CREATININE 0.82 10/23/2021 EXTEGFR 105 10/23/2021 EXTEGFRAFAME 96 05/30/2020 Microalbumin/creatinine ratio: 2 Is patient on SURYA inhibitor or angiotensin II receptor polly? no Peripheral Neuropathy: Negative Denies symptoms associated with neuropathy (numbness and/or tingling) Autonomic Neuropathy: Positive Hypoglycemia unawareness. Senses low BG at 45-60 mg/dl. Can fluctuate, states most times can tell if BG <60. Other: Hyperlipidemia: Negative Currently taking: No lipid lowering agents. LFT's WNL Hypertension: Negative . Currently taking: Patient on no antihypertensives BP: 114/72 Cardiac: Negative Experiencing chest pain No Experiencing shortness of breath No History of No history of CAD Follows routinely with: Vascular: Negative History of None Feet: Follows with Podiatry: No Youth Worker: History of foot ulceration: No History of amputation: No Thyroid: Lab Results Component Value Date TSH 0.862 06/14/2021 Negative Other: Plan: 1. Rx changes: none BASAL RATES: Time U/Hr. 0000 1.20 0500 1.050 1800 1.20 Insulin to Carb Ratio: 0000 1:9 1100 1:8 1600 1:7 Sensitivity: 0000 1:50 0400 1:45 No changes to patient's insulin pump settings today. We did discuss covering snacks between meals with insulin, as well as trying to reduce higher carb loads meals. Otherwise BG control very stable. A1c in office at next appointment per request 2. Education: Reviewed ABCs of diabetes management (respective goals in parentheses): A1C (7.0-8.0), blood pressure (<130/80), and cholesterol (LDL <100). 3. Compliance at present is estimated to be good. Efforts to improve compliance (if necessary) willbe directed at dietary modifications: avoid concentrated sweets and sugars and regular blood sugar monitorin times daily. 4. Follow up: 4 months 5. Record blood sugar readings as instructed. Call if BG consistently <70 or >250. [phone] Patient has been checking blood glucoses 4 times daily for the past 90 days. Patient needs to continue checking blood glucoses 4 times daily. Blood glucose readings are used to adjust medication or insulin doses for meals, monitor dietary compliance, and adjust for high or low blood glucoses by patient on a daily basis. Blood glucose readings are reviewed at office visits for adjustment in medication regimen and assistance with dietary management, and other self- management issues including exercise, etc. Prognosis: Good. Duration of need for diabetes testing equipment: Permanent #150 strips/month prescribed. 6. Bring blood sugar meter to follow up appointment. Orders Placed This Encounter Procedures POC Hemoglobin A1C Electronically Signed by: Demetrius Ramirez CNP 03/13/22 1:49 PM documented in this [id number] History of Present illness Narrative* Triston Chacon PA-C - 11/15/2021 1:03 PM EDT Images from the original note were not included. Patient ID: Allison Theodore is a 21 y.o. female 2000 Subjective: Allison Theodore presents for follow-up of Type 1 diabetes Patient has had diabetes for 10 years. Diagnosed in 2009 Allisno Theodore is an 21-year-old female patient follows in our practice for the management of her type1 diabetes. Her most recent hemoglobin A1c is 7.0%. Her insulin pump was downloaded and reviewed. No consistent trends of hyper or hypoglycemia appreciated. Currently taking: Humalog via OmniPod insulin pump. Allergies Allergen Reactions Acetaminophen Rash Current Outpatient Medications Medication Sig Dispense Refill insulin lispro (AdmeLOG,HumaLOG) 100 unit/mL injection USE DIRECTED VIA INSULIN PUMP APPROX 100 UNITS PER DAY . 10 mL 12 blood sugar diagnostic (Contour Next Test Strips) strips Use as directed 8 times per day . 250 strip 11 blood sugar diagnostic (FreeStyle Lite Strips) strips test up to EIGHT times DAILY DIRECTED . 200 strip 11 flash glucose scanning reader (FreeStyle Sharon 2 [place]) [facility] Use as directed for glucose monitoring . 1 each 0 flash glucose sensor (FreeStyle Sharon 2 Sensor) Kit 1 kit by Miscellaneous route every 14 (fourteen) days Use as directed to apply new sensor . 2 kit 11 glucagon (glucagon) 1 mg injection 1 mg ondansetron (ZOFRAN-ODT) 4 MG disintegrating tablet Dissolve 1 (one) tablet (4 mg total) on top of tongue every 8 (eight) hours as needed for nausea . 20 tablet 0 No current facility-administered medications for this visit. Review of Systems: Review of Systems Constitutional: Negative for appetite change, fatigue and unexpected weight change. HENT: Negative for trouble swallowing and voice change. Eyes: Negative for visual disturbance. Respiratory: Negative for cough, chest tightness, shortness of breath and wheezing. Cardiovascular: Negative for chest pain, palpitations and leg swelling. Gastrointestinal: Negative for abdominal pain, constipation, diarrhea, nausea and vomiting. Endocrine: Negative for heat intolerance, polydipsia, polyphagia and polyuria. Genitourinary: Negative for dysuria, frequency and menstrual problem. Musculoskeletal: Negative for arthralgias, gait problem and myalgias. Neurological: Negative for tremors, weakness, numbness and headaches. Objective: BP 102/73 Pulse 86 Ht 5' 2 Wt 63 kg (139 lb) BMI 25.42 kg/m Wt Readings from Last 3 Encounters: 11/15/21 63 kg (139 lb) 07/03/21 62.7 kg (138 lb 3.2 oz) (67 %, Z= 0.43)* 03/06/21 63.2 kg (139 lb 6.4 oz) (69 %, Z= 0.50)* * Growth percentiles are based on CDC (Girls, 2-20 Years) data. Physical Exam: General: alert, appears stated age and cooperative Eyes: conjunctivae/corneas clear. PERRL, EOM's intact. Neck: no adenopathy, supple, symmetrical, trachea midline. Thyroid: No thyromegaly appreciated Lung: clear to auscultation bilaterally Heart: regular rate and rhythm, S1, S2 normal, no murmur, click, rub or gallop Extremities: extremities normal, atraumatic, no cyanosis or edema Feet: Dry skin, Bilateral Feet: warm, good capillary refill and normal DP. Monofilament exam Normal, bilateral lower extremities. Neuro: normal without focal findings, mental status, speech normal, alert and oriented x3 and [facility] Lab Review 10/23/2021 Hemoglobin A1c 7.0% Creatinine 0.82, estimated GFR 105, K4.8 AST 30, ALT 19 06/14/2021 Hemoglobin A1c 7.3% Creatinine 0.78, estimated GFR 112, K4.7 AST 16, ALT 12 T cholesterol 143, TG 45, HDL 67, LDL 66 TSH 0.862, free T4: 0.93 Microalbumin/creatinine ratio: 2 03/06/2021 Hemoglobin A1C in office 7.7% 10/31/2020 Hemoglobin A1c 6.8% 05/30/2020 Hemoglobin A1C 7.9% Creatinine 0.99 GFR 83 AST 15 ALT 12 TSH 0.836 FT4 1.10 Microalbumin creatinine ratio 42 02/29/2020 Hemoglobin A1c 7.1% 10/27/2019 Hemoglobin A1c: 7.4% in the office 06/23/2019 Hemoglobin A1c: 6.6% in the office 02/10/19 Hgb A1c: 7.7% Creat: 0.76; eGFR: >60 AST: 19; ALT: 21 K: 3.9 11/03/18 HgbA1C 7.5% in office 06/25/18 Hgb A1c: 8.2% in office 02/18/18 HgbA1C 7.7% 08/28/17 Hemoglobin A1c 7.4% Creatinine 0.85, sodium 139, potassium 4.7 AST 19, ALT 10 Total cholesterol 140, triglycerides 74, HDL 61, LDL 64 TSH 0.864, FT4--1.14 WBC 6.6, hemoglobin 12.4, hematocrit 38.5, platelet count 262,000, MCV 77 microAlbumin/creatinine ratio 17.0 05/06/17 (in the office POC) Hgb A1C 7.5% Assessment/Plan: Dx: No diagnosis found. Type 1 diabetes, under good control Patient is currently managed with: Insulin pump Current Hemoglobin A1C= Lab Results Component Value Date HGBA1C 7.0 (H) 10/23/2021 HGBA1C 7.3 06/14/2021 HGBA1C 7.7 (A) 03/06/2021 Weight trend: is stable Current diet: carbohydrate counting Current exercise: none Current monitoring regimen: home blood tests - 4 times daily Any episodes of hypoglycemia? Occasionally if more active in the afternoon. 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 Other Ophthalmologic Conditions: None known Nephropathy: Negative Lab Results Component Value Date CREATININE 0.82 10/23/2021 EXTEGFR 105 10/23/2021 EXTEGFRAFAME 96 05/30/2020 Microalbumin/creatinine ratio: 2 Is patient on SURYA inhibitor or angiotensin II receptor polly? no Peripheral Neuropathy: Negative Denies symptoms associated with neuropathy (numbness and/or tingling) Autonomic Neuropathy: Positive Hypoglycemia unawareness. Senses low BG at 45-60 mg/dl. Can fluctuate, states most times can tell if BG <60. Other: Hyperlipidemia: Negative Currently taking: No lipid lowering agents. LFT's WNL Hypertension: Negative . Currently taking: Patient on no antihypertensives BP: 102/73 Cardiac: Negative Experiencing chest pain No Experiencing shortness of breath No History of No history of CAD Follows routinely with: Vascular: Negative History of None Feet: Follows with Podiatry: No Youth Worker: History of foot ulceration: No History of amputation: No Thyroid: Lab Results Component Value Date TSH 0.862 06/14/2021 Negative Other: Plan: 1. Rx changes: none BASAL RATES: Time U/Hr. 0000 1.20 0500 1.050 1800 1.20 Insulin to Carb Ratio: 0000 1:9 1100 1:8 1600 1:7 Sensitivity: 0000 1:50 0400 1:45 No changes to patient's insulin pump settings today. We did discuss covering snacks between meals with insulin, as well as trying to reduce higher carb loads meals. Otherwise BG control very stable. A1c in office at next appointment per request 2. Education: Reviewed ABCs of diabetes management (respective goals in parentheses): A1C (7.0-8.0), blood pressure (<130/80), and cholesterol (LDL <100). 3. Compliance at present is estimated to be good. Efforts to improve compliance (if necessary) willbe directed at dietary modifications: avoid concentrated sweets and sugars and regular blood sugar monitorin times daily. 4. Follow up: 4 months 5. Record blood sugar readings as instructed. Call if BG consistently <70 or >250. [phone] Patient has been checking blood glucoses 4 times daily for the past 90 days. Patient needs to continue checking blood glucoses 4 times daily. Blood glucose readings are used to adjust medication or insulin doses for meals, monitor dietary compliance, and adjust for high or low blood glucoses by patient on a daily basis. Blood glucose readings are reviewed at office visits for adjustment in medication regimen and assistance with dietary management, and other self- management issues including exercise, etc. Prognosis: Good. Duration of need for diabetes testing equipment: Permanent #150 strips/month prescribed. 6. Bring blood sugar meter to follow up appointment. No orders of the defined types were placed in this encounter. Electronically signed by: Triston Chacon PA-C, [facility] 11/15/21 1:05 PM documented in this [id number] History of Present illness Narrative* Triston Chacon PA-C - 07/03/2021 9:50 AM EDT Images from the original note were not included. Patient ID: Allison Theodore is a 20 y.o. female 2000 Subjective: Allison Theodore presents for follow-up of Type 1 diabetes Patient has had diabetes for 10 years. Diagnosed in 2009 Allison Theodore is an 20-year-old female patient follows in our practice for the management of her type1 diabetes. Her most recent hemoglobin A1c is 7.3%. Her insulin pump was downloaded and reviewed. No consistent hyper or hypoglycemia. Currently taking: Humalog via OmniPod insulin pump. Allergies Allergen Reactions Acetaminophen Rash Current Outpatient Medications Medication Sig Dispense Refill ondansetron (ZOFRAN-ODT) 4 MG disintegrating tablet Dissolve 1 (one) tablet (4 mg total) on top of tongue every 8 (eight) hours as needed for nausea . 20 tablet 0 blood sugar diagnostic (Contour Next Test Strips) strips Use as directed 8 times per day . 250 strip 11 blood sugar diagnostic (FreeStyle Lite Strips) strips test up to EIGHT times DAILY DIRECTED . 200 strip 11 flash glucose scanning reader (FreeStyle Sharon 2 [place]) [facility] Use as directed for glucose monitoring . 1 each 0 flash glucose sensor (FreeStyle Sharon 2 Sensor) Kit 1 kit by Miscellaneous route every 14 (fourteen) days Use as directed to apply new sensor . 2 kit 11 glucagon (glucagon) 1 mg injection 1 mg insulin lispro (AdmeLOG,HumaLOG) 100 unit/mL injection USE DIRECTED VIA INSULIN PUMP APPROX 100 UNITS PER DAY . 10 mL 12 No current facility-administered medications for this visit. Review of Systems: Review of Systems Constitutional: Negative for appetite change, fatigue and unexpected weight change. HENT: Negative for trouble swallowing and voice change. Eyes: Negative for visual disturbance. Respiratory: Negative for cough, chest tightness, shortness of breath and wheezing. Cardiovascular: Negative for chest pain, palpitations and leg swelling. Gastrointestinal: Negative for abdominal pain, constipation, diarrhea, nausea and vomiting. Endocrine: Negative for heat intolerance, polydipsia, polyphagia and polyuria. Genitourinary: Negative for dysuria, frequency and menstrual problem. Musculoskeletal: Negative for arthralgias, gait problem and myalgias. Neurological: Negative for tremors, weakness, numbness and headaches. Objective: BP 104/71 Pulse 76 Ht 5' 2 Wt 62.7 kg (138 lb 3.2 oz) BMI 25.28 kg/m Wt Readings from Last 3 Encounters: 07/03/21 62.7 kg (138 lb 3.2 oz) (67 %, Z= 0.43)* 03/06/21 63.2 kg (139 lb 6.4 oz) (69 %, Z= 0.50)* 10/31/20 63 kg (139 lb) (70 %, Z= 0.52)* * Growth percentiles are based on [facility] (Girls, 2-20 Years) data. Physical Exam: General: alert, appears stated age and cooperative Eyes: conjunctivae/corneas clear. PERRL, EOM's intact. Neck: no adenopathy, supple, symmetrical, trachea midline. Thyroid: No thyromegaly appreciated Lung: clear to auscultation bilaterally Heart: regular rate and rhythm, S1, S2 normal, no murmur, click, rub or gallop Extremities: extremities normal, atraumatic, no cyanosis or edema Feet: Dry skin, Bilateral Feet: warm, good capillary refill and normal DP. Monofilament exam Normal, bilateral lower extremities. Neuro: normal without focal findings, mental status, speech normal, alert and oriented x3 and [facility] Lab Review 06/14/2021 Hemoglobin A1c 7.3% Creatinine 0.78, estimated GFR 112, K4.7 AST 16, ALT 12 T cholesterol 143, TG 45, HDL 67, LDL 66 TSH 0.862, free T4: 0.93 Microalbumin/creatinine ratio: 2 03/06/2021 Hemoglobin A1C in office 7.7% 10/31/2020 Hemoglobin A1c 6.8% 05/30/2020 Hemoglobin A1C 7.9% Creatinine 0.99 GFR 83 AST 15 ALT 12 TSH 0.836 FT4 1.10 Microalbumin creatinine ratio 42 02/29/2020 Hemoglobin A1c 7.1% 10/27/2019 Hemoglobin A1c: 7.4% in the office 06/23/2019 Hemoglobin A1c: 6.6% in the office 02/10/19 Hgb A1c: 7.7% Creat: 0.76; eGFR: >60 AST: 19; ALT: 21 K: 3.9 11/03/18 HgbA1C 7.5% in office 06/25/18 Hgb A1c: 8.2% in office 02/18/18 HgbA1C 7.7% 08/28/17 Hemoglobin A1c 7.4% Creatinine 0.85, sodium 139, potassium 4.7 AST 19, ALT 10 Total cholesterol 140, triglycerides 74, HDL 61, LDL 64 TSH 0.864, FT4--1.14 WBC 6.6, hemoglobin 12.4, hematocrit 38.5, platelet count 262,000, MCV 77 microAlbumin/creatinine ratio 17.0 05/06/17 (in the office POC) Hgb A1C 7.5% Assessment/Plan: Dx: 1. Type 1 diabetes mellitus without complication (HCC) Comprehensive Metabolic Panel Hemoglobin A1c Type 1 diabetes, under good control Patient is currently managed with: Insulin pump Current Hemoglobin A1C= Lab Results Component Value Date HGBA1C 7.3 06/14/2021 HGBA1C 7.7 (A) 03/06/2021 HGBA1C 7.7 (A) 03/06/2021 Weight trend: is stable Current diet: carbohydrate counting Current exercise: none Current monitoring regimen: home blood tests - 4 times daily Any episodes of hypoglycemia? 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 Other Ophthalmologic Conditions: None known Nephropathy: Negative Lab Results Component Value Date CREATININE 0.78 06/14/2021 EXTEGFR 112 06/14/2021 EXTEGFRAFAME 96 05/30/2020 Microalbumin/creatinine ratio: 2 Is patient on SURYA inhibitor or angiotensin II receptor polly? no Peripheral Neuropathy: Negative Denies symptoms associated with neuropathy (numbness and/or tingling) Autonomic Neuropathy: Positive Hypoglycemia unawareness. Senses low BG at 45-60 mg/dl. Can fluctuate, states most times can tell if BG <60. Other: Patient would like to get back to using a freestyle sharon. She had been using one a couple of years ago but stopped using it. Pt is self pay. Hyperlipidemia: Negative Currently taking: No lipid lowering agents. LFT's WNL Hypertension: Negative . Currently taking: Patient on no antihypertensives BP: 104/71 Cardiac: Negative Experiencing chest pain No Experiencing shortness of breath No History of No history of CAD Follows routinely with: Vascular: Negative History of None Feet: Follows with Podiatry: No Youth Worker: History of foot ulceration: No History of amputation: No Thyroid: Lab Results Component Value Date TSH 0.862 06/14/2021 Negative Other: Plan: 1. Rx changes: none BASAL RATES: Time U/Hr. 0000 1.20 0500 1.050 1800 1.20 Insulin to Carb Ratio: 0000 1:9 1100 1:8 1600 1:7 Sensitivity: 0000 1:50 0400 1:45 2. Education: Reviewed ABCs of diabetes management (respective goals in parentheses): A1C (7.0-8.0), blood pressure (<130/80), and cholesterol (LDL <100). 3. Compliance at present is estimated to be good. Efforts to improve compliance (if necessary) willbe directed at dietary modifications: avoid concentrated sweets and sugars and regular blood sugar monitorin times daily. 4. Follow up: 4 months 5. Record blood sugar readings as instructed. Call if BG consistently <70 or >250. [phone] Patient has been checking blood glucoses 4 times daily for the past 90 days. Patient needs to continue checking blood glucoses 4 times daily. Blood glucose readings are used to adjust medication or insulin doses for meals, monitor dietary compliance, and adjust for high or low blood glucoses by patient on a daily basis. Blood glucose readings are reviewed at office visits for adjustment in medication regimen and assistance with dietary management, and other self- management issues including exercise, etc. Prognosis: Good. Duration of need for diabetes testing equipment: Permanent #150 strips/month prescribed. 6. Bring blood sugar meter to follow up appointment. Orders Placed This Encounter Procedures Comprehensive Metabolic Panel Hemoglobin A1c Electronically signed by: Triston Chacon PA-C, [facility] 07/03/21 10:21 AM documented in this [id number] History of Present illness Narrative* Triston Chacon PA-C - 10/31/2020 10:34 AM EDT Images from the original note were not included. Patient ID: Allison Theodore is a 20 y.o. female 2000 Subjective: Allison Theodore presents for follow-up of Type 1 diabetes Patient has had diabetes for 10 years. Diagnosed in 2009 Allison Theodore is an 19-year-old female patient follows in our practice for the management of her type1 diabetes. Her most recent hemoglobin A1c is 6.8% today in office. Her insulin pump was downloadedand reviewed. She has highly fluctuating BG. She states snacking between meals without insulin coverage typically causes her high BG. She does have several episodes of low BG each week which tend to be after a correction bolus. Currently taking: Humalog via OmniPod insulin pump. Allergies Allergen Reactions Acetaminophen Rash Current Outpatient Medications Medication Sig Dispense Refill blood sugar diagnostic (Contour Next Test Strips) strips Use as directed 8 times per day . 250 strip 11 blood sugar diagnostic (FreeStyle Lite Strips) strips Use as directed 8 times per day. . 250 each 11 glucagon (glucagon) 1 mg injection 1 mg insulin lispro (HumaLOG) 100 unit/mL injection Use as directed via insulin pump, approx 100 units per day. 30 mL 12 insulin lispro (HumaLOG KwikPen) 100 unit/mL InPn Use as directed approx 50 units/day. (Patient nottaking: Reported on 10/31/2020 .) 10 pen 4 ondansetron (ZOFRAN-ODT) 4 MG disintegrating tablet Dissolve 1 (one) tablet (4 mg total) on top of tongue every 8 (eight) hours as needed for nausea . (Patient not taking: Reported on 10/31/2020 .) 20tablet 0 No current facility-administered medications for this visit. Review of Systems: Review of Systems Constitutional: Negative for appetite change, fatigue and unexpected weight change. HENT: Negative for trouble swallowing and voice change. Eyes: Negative for visual disturbance. Respiratory: Negative for cough, chest tightness, shortness of breath and wheezing. Cardiovascular: Negative for chest pain, palpitations and leg swelling. Gastrointestinal: Negative for abdominal pain, constipation, diarrhea, nausea and vomiting. Endocrine: Negative for heat intolerance, polydipsia, polyphagia and polyuria. Genitourinary: Negative for dysuria, frequency and menstrual problem. Musculoskeletal: Negative for arthralgias, gait problem and myalgias. Neurological: Negative for tremors, weakness, numbness and headaches. Objective: BP 107/69 Pulse 68 Ht 5' 2 Wt 63 kg (139 lb) BMI 25.42 kg/m Wt Readings from Last 3 Encounters: 10/31/20 63 kg (139 lb) (70 %, Z= 0.52)* 06/27/20 63 kg (139 lb) (71 %, Z= 0.56)* 02/29/20 64.4 kg (142 lb) (76 %, Z= 0.70)* * Growth percentiles are based on CDC (Girls, 2-20 Years) data. Physical Exam: General: alert, appears stated age and cooperative Eyes: conjunctivae/corneas clear. PERRL, EOM's intact. Neck: no adenopathy, supple, symmetrical, trachea midline. Thyroid: No thyromegaly appreciated Lung: clear to auscultation bilaterally Heart: regular rate and rhythm, S1, S2 normal, no murmur, click, rub or gallop Extremities: extremities normal, atraumatic, no cyanosis or edema Feet: Dry skin, Bilateral Feet: warm, good capillary refill and normal DP. Monofilament exam Normal, bilateral lower extremities. Neuro: normal without focal findings, mental status, speech normal, alert and oriented x3 and [facility] Lab Review Lab Results Component Value Date HGBA1C 7.9 05/30/2020 Date: 10/31/2020 Hemoglobin A1c 6.8% 05/30/2020 Hemoglobin A1C 7.9% Creatinine 0.99 GFR 83 AST 15 ALT 12 TSH 0.836 FT4 1.10 Microalbumin creatinine ratio 42 02/29/2020 Hemoglobin A1c 7.1% 10/27/2019 Hemoglobin A1c: 7.4% in the office 06/23/2019 Hemoglobin A1c: 6.6% in the office 02/10/19 Hgb A1c: 7.7% Creat: 0.76; eGFR: >60 AST: 19; ALT: 21 K: 3.9 11/03/18 HgbA1C 7.5% in office 06/25/18 Hgb A1c: 8.2% in office 1/10/19 HgbA1C 7.7% 08/28/17 Hemoglobin A1c 7.4% Creatinine 0.85, sodium 139, potassium 4.7 AST 19, ALT 10 Total cholesterol 140, triglycerides 74, HDL 61, LDL 64 TSH 0.864, FT4--1.14 WBC 6.6, hemoglobin 12.4, hematocrit 38.5, platelet count 262,000, MCV 77 microAlbumin/creatinine ratio 17.0 05/06/17 (in the office POC) Hgb A1C 7.5% Assessment/Plan: Dx: 1. Type 1 diabetes mellitus without complication (HCC) Type 1 diabetes, under good control Patient is currently managed with: Current Hemoglobin A1C= Lab Results Component Value Date HGBA1C 7.9 05/30/2020 HGBA1C 7.1 (A) 02/29/2020 HGBA1C 7.7 02/10/2019 Weight trend: is stable Current diet: carbohydrate counting Current exercise: none Current monitoring regimen: home blood tests - 4 times daily Any episodes of hypoglycemia? Several times weekly after a correction bolus typically NOTES: Retinopathy: Negative Exam within last 12 months: yes Robotics Testing Technician/Feed Preparation Operator: Other Ophthalmologic Conditions: None known Nephropathy: Negative Creatinine 0.99 GFR 83--05/30/2020 Microlbumin/creat ratio: 42 05/30/2020 -patient made aware and encouraged to make sure that BG is well controlled, avoid high BG. We will recheck with next lab draw to determine whether or not SURYA inhibitor would be beneficial for her. They would like to hold off on starting any new medication if atall possible. Is patient on SURYA inhibitor or angiotensin II receptor polly? no Peripheral Neuropathy: Negative Denies symptoms associated with neuropathy (numbness and/or tingling) Autonomic Neuropathy: Positive Hypoglycemia unawareness. Senses low BG at 45-60 mg/dl. Other: Hyperlipidemia: Negative Currently taking: No lipid lowering agents. LFT's WNL Hypertension: Negative . Currently taking: Patient on no antihypertensives BP: 107/69 Cardiac: Negative Experiencing chest pain No . Experiencing shortness of breath No History of No history of CAD Follows routinely with: Vascular: Negative History of None Feet: Follows with Podiatry: No Youth Worker: History of foot ulceration: No History of amputation: No Thyroid: Lab Results Component Value Date TSH 0.836 05/30/2020 Negative Other: Plan: 1. Rx changes: none BASAL RATES: Time U/Hr. 0000 1.20 0500 1.050 1800 1.20 Insulin to Carb Ratio: 0000 1:9 1100 1:8 1600 1:7 Sensitivity: 0000 1:50 0400 1:45 Patient's sensitivity factor was adjusted as above as it appears she is having some occasional low BG after a correction bolus. Otherwise BG well controlled with hemoglobin A1c of 6.8%. Patient is self-pay therefore requests in office hemoglobin A1c for next appointment with lab draw at the following appointment. 2. Education: Reviewed ABCs of diabetes management (respective goals in parentheses): A1C (7.0-8.0), blood pressure (<130/80), and cholesterol (LDL <100). 3. Compliance at present is estimated to be good. Efforts to improve compliance (if necessary) willbe directed at dietary modifications: avoid concentrated sweets and sugars and regular blood sugar monitorin times daily. 4. Follow up: 4 months 5. Record blood sugar readings as instructed. Call if BG consistently <70 or >250. [phone] Patient has been checking blood glucoses 4 times daily for the past 90 days. Patient needs to continue checking blood glucoses 4 times daily. Blood glucose readings are used to adjust medication or insulin doses for meals, monitor dietary compliance, and adjust for high or low blood glucoses by patient on a daily basis. Blood glucose readings are reviewed at office visits for adjustment in medication regimen and assistance with dietary management, and other self- management issues including exercise, etc. Prognosis: Good. Duration of need for diabetes testing equipment: Permanent #150 strips/month prescribed. 6. Bring blood sugar meter to follow up appointment. No orders of the defined types were placed in this encounter. Electronically signed by: Triston Chcaon PA-C, [facility] 10/31/20 10:40 AM documented in this [id number] Instructions* Patient Instructions* Isabel Garcia, [facility] - 06/27/2020 10:41 AM EDT Contact the office with Blood sugar readings in 1 week for dose adjustments to your insulin, if needed. The goal hemoglobin A1C is 7%-8%, closer to 7%, which is an average BG of 150 Please call the office sooner for episodes of hypoglycemia, BG < 70. Please remember to check your blood sugar 4x per day. Bring your blood sugar meter with you to appointments for review/download. It is important for us to prove you are checking your blood sugar, in order for us to renew/prescribe testing supplies. documented in this [id number] History of Present illness Narrative* Isabel Garcia CNP - 06/27/2020 10:35 AM EDT Images from the original note were not included. Patient ID: Allison Theodore is a 19 y.o. female 2000 Subjective: Allison Theodore presents for follow-up of Type 1 diabetes Patient has had diabetes for 10 years. Diagnosed in 2009 Allison Theodore is an 19-year-old female patient follows in our practice for the management of her type1 diabetes. Her most recent hemoglobin A1c is 7.9%. Her insulin pump was downloaded and reviewed. She denies any issues since her last visit with us. She does not feel that she has any trends of hypoor hyperglycemia. She states that now that the weather is getting nicer she definitely will be moreactive, and working outside. Currently taking: Humalog via OmniPod insulin pump. Allergies Allergen Reactions Acetaminophen Rash Current Outpatient Medications Medication Sig Dispense Refill blood sugar diagnostic (Contour Next Test Strips) strips Use as directed 8 times per day . 250 strip 11 blood sugar diagnostic (FreeStyle Lite Strips) strips Use as directed 8 times per day. . 250 each 11 glucagon (glucagon) 1 mg injection 1 mg insulin lispro (HumaLOG KwikPen) 100 unit/mL InPn Use as directed approx 50 units/day. 10 pen 4 insulin lispro (HumaLOG) 100 unit/mL injection Use as directed via insulin pump, approx 100 units per day. 30 mL 12 ondansetron (ZOFRAN-ODT) 4 MG disintegrating tablet Dissolve 1 (one) tablet (4 mg total) on top of tongue every 8 (eight) hours as needed for nausea . 20 tablet 0 No current facility-administered medications for this visit. Review of Systems: Review of Systems Constitutional: Negative for appetite change, fatigue and unexpected weight change. HENT: Negative for trouble swallowing and voice change. Eyes: Negative for visual disturbance. Respiratory: Negative for cough, chest tightness, shortness of breath and wheezing. Cardiovascular: Negative for chest pain, palpitations and leg swelling. Gastrointestinal: Negative for abdominal pain, constipation, diarrhea, nausea and vomiting. Endocrine: Negative for heat intolerance, polydipsia, polyphagia and polyuria. Genitourinary: Negative for dysuria, frequency and menstrual problem. Musculoskeletal: Negative for arthralgias, gait problem and myalgias. Neurological: Negative for tremors, weakness, numbness and headaches. Objective: BP 115/71 Pulse 72 Ht 5' 2 Wt 63 kg (139 lb) BMI 25.42 kg/m Wt Readings from Last 3 Encounters: 06/27/20 63 kg (139 lb) (71 %, Z= 0.56)* 02/29/20 64.4 kg (142 lb) (76 %, Z= 0.70)* 10/27/19 63.6 kg (140 lb 4.8 oz) (75 %, Z= 0.68)* * Growth percentiles are based on CDC (Girls, 2-20 Years) data. Physical Exam: General: alert, appears stated age and cooperative Eyes: conjunctivae/corneas clear. PERRL, EOM's intact. Neck: no adenopathy, supple, symmetrical, trachea midline. Thyroid: No thyromegaly appreciated Lung: clear to auscultation bilaterally Heart: regular rate and rhythm, S1, S2 normal, no murmur, click, rub or gallop Extremities: extremities normal, atraumatic, no cyanosis or edema Feet: Dry skin, Bilateral Feet: warm, good capillary refill and normal DP. Monofilament exam Normal, bilateral lower extremities. Neuro: normal without focal findings, mental status, speech normal, alert and oriented x3 and [facility] Lab Review Lab Results Component Value Date HGBA1C 7.9 05/30/2020 Date: 05/30/2020 Hemoglobin A1C 7.9% Creatinine 0.99 GFR 83 AST 15 ALT 12 TSH 0.836 FT4 1.10 Microalbumin creatinine ratio 42 02/29/2020 Hemoglobin A1c 7.1% 10/27/2019 Patient had labs including TFTs, and Lipids completed prior to appt today at [facility] that are stillpending. Hemoglobin A1c: 7.4% in the office 06/23/2019 Hemoglobin A1c: 6.6% in the office 02/10/19 Hgb A1c: 7.7% Creat: 0.76; eGFR: >60 AST: 19; ALT: 21 K: 3.9 11/03/18 HgbA1C 7.5% in office 06/25/18 Hgb A1c: 8.2% in office 02/18/18 HgbA1C 7.7% 08/28/17 Hemoglobin A1c 7.4% Creatinine 0.85, sodium 139, potassium 4.7 AST 19, ALT 10 Total cholesterol 140, triglycerides 74, HDL 61, LDL 64 TSH 0.864, FT4--1.14 WBC 6.6, hemoglobin 12.4, hematocrit 38.5, platelet count 262,000, MCV 77 microAlbumin/creatinine ratio 17.0 05/06/17 (in the office POC) Hgb A1C 7.5% Assessment/Plan: Dx: 1. Type 1 diabetes mellitus without complication (HCC) 2. Insulin pump titration Type 1 diabetes, under good control Patient is currently managed with: Current Hemoglobin A1C= 7.9% 05/30/2020 Lab Results Component Value Date HGBA1C 7.9 05/30/2020 HGBA1C 7.1 (A) 02/29/2020 HGBA1C 7.7 02/10/2019 Weight trend: is stable Current diet: carbohydrate counting Current exercise: none Current monitoring regimen: home blood tests - 4 times daily Any episodes of hypoglycemia? 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 We will recheck in the near future to determine whether or not SURYA inhibitor would be beneficial for her. They would like to hold off on starting any new medication if atall possible. Is patient on SURYA inhibitor or angiotensin II receptor polly? no Peripheral Neuropathy: Negative Denies symptoms associated with neuropathy (numbness and/or tingling) Autonomic Neuropathy: Positive Hypoglycemia unawareness. Senses low BG at 45-60 mg/dl. Other: Hyperlipidemia: Negative Currently taking: No lipid lowering agents. LFT's WNL Hypertension: Negative . Currently taking: Patient on no antihypertensives BP: 115/71 Cardiac: Negative Experiencing chest pain No . 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 Rx changes: none BASAL RATES: Time U/Hr. 0000 1.20 0500 1.050 1800 1.20 Insulin to Carb Ratio: 0000 1:9 1100 1:8 1600 1:7 Sensitivity: 0000 1:50 0400 1:40 No changes were made to the patient's current diabetic regimen. She was asked to call the office with any issues prior to her next visit with us. We will get an A1c in the office at her follow-up. 2. Education: Reviewed ABCs of diabetes management (respective goals in parentheses): A1C (7.0-8.0), blood pressure (<130/80), and cholesterol (LDL <100). 3. Compliance at present is estimated to be good. Efforts to improve compliance (if necessary) willbe directed at dietary modifications: avoid concentrated sweets and sugars and regular blood sugar monitorin times daily. 4. Follow up: 4 months 5. Record blood sugar readings as instructed. Call if BG consistently <70 or >250. [phone] Patient has been checking blood glucoses 4 times daily for the past 90 days. Patient needs to continue checking blood glucoses 4 times daily. Blood glucose readings are used to adjust medication or insulin doses for meals, monitor dietary compliance, and adjust for high or low blood glucoses by patient on a daily basis. Blood glucose readings are reviewed at office visits for adjustment in medication regimen and assistance with dietary management, and other self- management issues including exercise, etc. Prognosis: Good. Duration of need for diabetes testing equipment: Permanent #150 strips/month prescribed. 6. Bring blood sugar meter to follow up appointment. No orders of the defined types were placed in this encounter. Electronically signed by Isabel LUNA 06/27/2109:38 AM [facility] Diagnosis Type 1 diabetes mellitus without complication (HCC)- Primary Type I (juvenile type) diabetes mellitus without mention of complication, not stated as uncontrolled Insulin pump titration Fitting and adjustment of insulin pump [facility] Diagnosis Type 1 diabetes mellitus without complication (HCC)- Primary Type I (juvenile type) diabetes mellitus without mention of complication, not stated as uncontrolled [facility]* Diagnosis Type 1 diabetes mellitus without complication (HCC)- Primary Type I (juvenile type) diabetes mellitus without mention of complication, not stated as uncontrolled [facility] Diagnosis Type 1 diabetes mellitus without complication (HCC)- Primary Type I (juvenile type) diabetes mellitus without mention of complication, not stated as uncontrolled [facility] Diagnosis Type 1 diabetes mellitus without complication (HCC)- Primary Type I (juvenile type) diabetes mellitus without mention of complication, not stated as uncontrolled [facility]* Diagnosis Type 1 diabetes mellitus without complication (HCC)- Primary Type I (juvenile type) diabetes mellitus without mention of complication, not stated as uncontrolled Insulin pump titration Fitting and adjustment of insulin pump [facility] Diagnosis Type 1 diabetes mellitus without complication (HCC)- Primary Type I (juvenile type) diabetes mellitus without mention of complication, not stated as uncontrolled Insulin pump titration Fitting and adjustment of insulin pump Racing heart beat Unspecified tachycardia [facility] Diagnosis Palpitations- Primary Type 1 diabetes mellitus without complication (HCC) Type I (juvenile type) diabetes mellitus without mention of complication, not stated as uncontrolled Racing heart beat Unspecified tachycardia Chest pain, unspecified type [facility] Diagnosis Type 1 diabetes mellitus without complication (HCC)- Primary Type I (juvenile type) diabetes mellitus without mention of complication, not stated as uncontrolled [facility] Diagnosis Type 1 diabetes mellitus without complication (HCC) Type I (juvenile type) diabetes mellitus without mention of complication, not stated as uncontrolled [facility] Diagnosis Type 1 diabetes mellitus without complication (HCC) Type I (juvenile type) diabetes mellitus without mention of complication, not stated as uncontrolled [facility]* Diagnosis Type 1 diabetes mellitus without complication (HCC)- Primary Type I (juvenile type) diabetes mellitus without mention of complication, not stated as uncontrolled Insulin pump titration Fitting and adjustment of insulin pump [facility]* Diagnosis Type 1 diabetes mellitus without complication (HCC)- Primary Type I (juvenile type) diabetes mellitus without mention of complication, not stated as uncontrolled Insulin pump titration Fitting and adjustment of insulin pump [facility]* Diagnosis Type 1 diabetes mellitus without complication (HCC) Type I (juvenile type) diabetes mellitus without mention of complication, not stated as uncontrolled [facility]* Diagnosis Type 1 diabetes mellitus during in first trimester- Primary Type 1 diabetes mellitus without complication (HCC) Type I (juvenile type) diabetes mellitus without mention of complication, not stated as uncontrolled [facility]* Diagnosis Type 1 diabetes mellitus during in first trimester- Primary [facility]* Diagnosis Type 1 diabetes mellitus during in first trimester [facility]* Diagnosis Type 1 diabetes mellitus during in second trimester- Primary Type 1 diabetes mellitus without complication (HCC) Type I (juvenile type) diabetes mellitus without mention of complication, not stated as uncontrolled Insulin pump titration Fitting and adjustment of insulin pump [facility]* Diagnosis Pre-existing type 1 diabetes mellitus, in , second trimester [facility] Diagnosis Type 1 diabetes mellitus during in first trimester documented in this encounter [facility] note Author Radha Juarez [facility] Note Date/Time November 21, 2024 1 1:56am [facility] [address] [place] [address], [address] [place] [address] OFFICE VISIT Date of Service: 11/21/24 MR#: [id number] Acct: [id number] Name: ALLISON NGUYEN Rep #: [id number] : 2000 Provider: ABHAY Juarez Age/Sex: 24/F Location: 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 Is patient in pain?: No Allergies acetaminophen (From Tylenol) Allergy (Mild, Verified 11/21/24 11:37) Rash Medications ?Medication ?Instructions ?Recorded ?Confirmed ?Type insulin lispro 100 unit/mL 1 sliding scale dose subcut 06/14/24 11/21/24 History subcutaneous pen (Humalog KwikPen USEASDIRECTD (U-100) Insulin) Last Menstrual Period: 05/09/24 : No Have you fallen in the past year?: No PFSH PFSH Medical History Diabetes type 1 Family History Mother Colon cancer Grandfather Colon cancer Grandfather Prostate cancer Social History adopted: No household members: spouse housing: house 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 pets and animals: Yes pets and animals: farm animals history of recent travel: Yes ([place]) out of state: Yes out of country: No sexually active: Yes Smoking Status: Never smoker alcohol intake: never substance use type: does not use well-balanced diet: daily or most days caffeine: Yes Type: coffee eating out: rarely or never during the past year weight has: remained stable what type of physical activity do you participate in: walking frequency: 1-2 times per week duration: 15-30 minutes/day ness/yarsani: M[employer]onite seatbelt use: always do you feel safe at home: Yes additional social history: : Seven - Lau/Katie History 1 Elective abortions Hx Para 0 Spontaneous abortions 0 Hx # Term Pregnancies Ectopic pregnancies Hx # Pregnancies Multiple births # of living children HPI 28wk ob/glucose Details: ALLISON NGUYEN is a 24 year old who presents for routine OB visit. OB Visit MCKENNA Calculator Estimated Delivery Date Method Current WG Current Estimate 02/13/25 LMP (Certain) 28w 0d Other Estimates 02/17/25 Ultrasound #1 27w 3d Expected Delivery Route/Plan needs fu placental location US Labor Preferences- CB/BF classes: [] labor support person: [] labor intervention preferences: [] pain management options preferred: [] cut cord/dad catch: [] : [] PP control planned: [] discussed possible routes of delivery and associated risks: [] special requests: [] Specific Issue/Plans Covid status: [] Flu vaccine: [] Tdap vaccine: [] Rhogam: [] LARC form signed: [] Problem list reviewed and updated with the most current plan of care details and appropriate orders placed. Relevant counseling for the gestational age provided. Continue routine care and follow up unless otherwise noted in visit notes/problem list details Initial Weight: Not Recorded Date -?-?-?-?-?-?-?-?-?-?-?-?- EGA Weight BP Urine Prot -?-?-?-?-?-?-?-?-?-?-?-?- Glucose FHR FuHt Pres Dilation -?-?-?-?-?-?-?-?-?-?-?-?- Effaced St Visit Note 07/05/24 -?-?-?-?-?-?-?-?-?-?-?-?- 8w 1d 131 lb 4 oz 111/62 -?-?-?-?-?-?-?-?-?-?-?-?- 140 -?-?-?-?-?-?-?-?-?-?-?-?- SM- no vb crampi ng co nausea nd constipation, labile blood sugars. 08/02/24 -?-?-?-?-?-?-?-?-?-?-?-?- 12w 1d 134 lb 3 oz 105/68 Nega tive -?-?-?-?-?-?-?-?-?-?-?-?- Negative 160 -?-?-?-?-?-?-?-?-?-?-?-?- MH-no VB. Nausea improving. Saw MFM and managing glucose, improved. Br US confirm FHT 08/29/24 -?-?-?-?-?-?-?-?-?-?-?-?- 16w 0d 140 lb 8 oz 108/71 Nega tive -?-?-?-?-?-?-?-?-?-?-?-?- 250 g/dL 165 -?-?-?-?-?-?--?-?-?-?-?-?- KW- no vb/crampi ng. Appt with MFM on for insulin adjustment. Blood sugars are up and down Has MFM US scheduled. 09/28/24 -?-?-?-?-?-?-?-?-?-?-?-?- 20w 2d 147 lb 3 oz 109/70 Nega tive -?-?-?-?-?-?-?-?-?-?-?-?- Negative 139 -?-?-?-?-?-?-?-?-?-?-?-?- JV- pt has a pre via of the tail end of the placenta over the cervix. we discussed pelvic rest. Patient was running every day and mowing the lawn, etc. We discussed that we can not do these things. Fasting glucose levels are 90's-110 and she states that her 2 hr pp are not what she wants them to be. SHe has m appt tomorrow to discuss insulin pump. Continue monthly growth scans. will eventually need twice weekly testing starting 28 weeks. 10/24/24 -?-?-?-?-?-?-?-?-?-?-?-?- 24w 0d 152 lb 6 oz 97/64 Nega tive -?-?-?-?-?-?-?-?-?-?-?-?- Negative 140 24 -?-?-?-?-?-?-?-?-?-?-?-?- SM- following mfm for bs control, us follow up. no vb cramping 11/21/24 -?-?-?-?-?-?-?-?-?-?-?-?- 28w 0d 159 lb 5 oz 116/73 Nega tive -?-?-?-?-?-?-?--?-?-?-?-?- Negative 150 28 -?-?-?-?-?-?-?-?-?-?-?-?- kw- no vb/lof/ct x. good fm. cbc today. has insulin pump. ACOG First Trimester First Trimester: Desire for , Alcohol, Tobacco Cessation, Illicit/Recreational Drug/Substance Use, Intimate Partner Violence, Barriers to care, Unstable Housing, Communication Barriers, Environmental/Work Hazards, Anticipated Course of Care, Toxoplasmosis Precations, Use of Any medications, Sexual activity, Exercise, Dental Care, Sauna/Hot tub use, Seat Belt use, Childbirth classes/Hospital facilities, Travel, Indications for Ultrasound and Screening for Aneuploidy; Discussed Second Trimester Second Trimester: Signs and Symptoms of Labor, Selecting a care provider, Reproductive Life Planning & Contreception, Care Planning, Depression/Anxiety and Intimate Partner Violence; Discussed Tobacco Cessation Third Trimester Third Trimester: Pain Management Plans, Labor support person(s), Immediate Larc, Movement Monitoring, Signs and Symptoms of Preeclampsia and [place] Education ROS Const Reports system reviewed and no additional complaints, except as documented Eyes Reports system reviewed and no additional complaints, except as documented ENT Reports system reviewed and no additional complaints, except as documented Card Reports system reviewed and no additional complaints, except as documented Resp Reports system reviewed and no additional complaints, except as documented GI Reports system reviewed and no additional complaints, except as documented, Denies nausea and Denies vomiting Reports system reviewed and no additional complaints, except as documented Musc Reports system reviewed and no additional complaints, except as documented Skin/Breast Reports system reviewed and no additional complaints, except as documented Neuro Yes system reviewed and no additional complaints, except as documented Psych Reports system reviewed and no additional complaints, except as documented Endo Reports system reviewed and no additional complaints, except as documented [place]/Lymph Reports system reviewed and no additional complaints, except as documented Aller/Immun Reports system reviewed and no additional complaints, except as documented Exam Const General: cooperative, healthy appearing and no acute distress Orientation: alert, awake and oriented x3 Neck Neck: normal visual inspection and full ROM Resp Effort & Inspection: normal respiratory effort, able to speak in complete sentences and symmetric chest movement GI Inspection: normal to inspection Palpation: soft and other Other: gravid Skin General: no rashes or lesions noted Neuro General: patient alert, patient awake and patient oriented x3 Cognition: normal cognition Speech: speech normal Gait: normal gait Motor: muscle tone normal throughout Extrem General: normal to inspection and full ROM Psych Appearance: grossly normal Mental Status: mental status grossly normal Mood: congruent mood Affect: normal affect Speech and Movement: speech and movement normal Attitude: cooperative Thought Process: normal Thought Content: normal Judgment: judgment good Results POC Urinalysis 2 Dip (Clinic) Office Urine Glucose Negative Last Edit by Sweetie Lai on 11/21/24 11:45 Office Urine Protein Negative Last Edit by Sweetie Lai on 11/21/24 11:45 Coding Level of Care Code OB Routine Diagnoses Partial previa O44.20 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 baseline labs and ekg pending. Nl CMP. HgbA1c 6.1. echo at 22-24wk [facility] BPP wkly and BWC NST wkly start at 28 wk Growth US Q4wk at 28 wk Del at 37-39 wk (3) Supervision of high-risk : Status: Acute Qualifiers: Trimester: first trimester Qualified Code(s): O09.91 - Supervision of high risk , unspecified, first trimester Comment: [id number] MCKENNA 02/13/25, : Seven (4) : Status: Acute Qualifiers: Weeks of gestation: 28 weeks Qualified Code(s): Z3A.28 - 28 weeks gestation of Comment: Discussed genetic/carrier testing - declined., nl anatomy (5) Diabetes in : Status: Acute Qualifiers: Diabetes in type: pre-existing, type 1 Trimester: second trimester Qualified Code(s): O24.012 - Pre-existing type 1 diabetes mellitus, in , second trimester Comment: [id number]; on Humalog; HgBA1C ordered w/NOB Orders: Orders POC Urinalysis 2 Dip (Clinic) Today Plan Details Additional Comments: ACOG trimester education reviewed and updated. see problem list details for updated plan management information and see below for orders placed at this visit. GA appropriate handout given. Clinical Quality Measures Falls Risk Screening/Assistive Devices Have you fallen in the past year?: No 11/21/24 1156 <Electronically signed by Radha hawkins CNM> Date _ Radha Juarez CNM Cosigner Signature: Date (if applicable) CC: ~ [facility] Work Phone: [place] for referral (narrative)No reason for referral information availableBlS[facility] Work Phone: [place] for visit Narrative* Evaluate and Treat (Routine) - Closed Specialty Diagnoses / Procedures Referred By Davi batres Referred To Contact Nutrition Diagnoses Type 1 diabetes mellitus during in first trimester Isabel Garcia, [employer] [address] [place] [address] Phone: tel: fax: [facility] [address] [place] [address] Phone: tel: fax: Referral ID Status Reason Start Date Expiration Date Visits Re quested Visits Authorized [id number] Closed 06/13/2024 06/13/2025 1 1 [facility] Assessments Diagnosis Type 1 diabetes mellitus wit hout complication (HCC) - Primary Type I (juvenile type) diabetes mellitus without mention of complication, not stated as uncontrolled Diagnosis Type 1 diabetes mellitus without complication (HCC)- Primary Type I (juvenile type) diabetes mellitus without mention of complication, not stated as uncontrolled Diagnosis Type 1 diabetes mellitus without complication (HCC)- Primary Type I (juvenile type) diabetes mellitus without mention of complication, not stated as uncontrolled Diagnosis Type 1 diabetes mellitus without complication (HCC) Type I (juvenile type) diabetes mellitus without mention of complication, not stated as uncontrolled Diagnosis Type 1 diabetes mellitus without complication (HCC)- Primary Type I (juvenile type) diabetes mellitus without mention of complication, not stated as uncontrolled Diagnosis Type 1 diabetes mellitus without complication (HCC)- Primary Type I (juvenile type) diabetes mellitus without mention of complication, not stated as uncontrolled Insulin pump titration Fitting and adjustment of insulin pump Diagnosis Type 1 diabetes mellitus without complication (HCC) Type I (juvenile type) diabetes mellitus without mention of complication, not stated as uncontrolled Insulin pump titration Fitting and adjustment of insulin pump Diagnosis Type 1 diabetes mellitus without complication (HCC)- Primary Type I (juvenile type) diabetes mellitus without mention of complication, not stated as uncontrolled Instructions * Patient Instructions* Ruthie Abad PA-C - 02/18/2018 3:17 PM EST Continue current insulin doses in this encounter* Patient Instructions* Isabel Garcia CNP - 02/29/2020 10:43 AM EST Call the office with Blood sugar readings for dose adjustments to your insulin, if needed. The goal hemoglobin A1C is 7%-8%, closer to 7%, which is an average BG of 150 Please call the office sooner for episodes of hypoglycemia, BG < 70. Please remember to check your blood sugar 4x per day. Get updated labs done prior to next visit in 4months. documented in this encounter History of Present Illness * uRthie Abad PA-C - 02/18/2018 3:13 PM EST Subjective Patient ID: Allison Theoodre is a 17 y.o. female. Diabetes She presents for her follow-up diabetic visit. She has type 1 diabetes mellitus. Her disease coursehas been stable. Hypoglycemia symptoms include tremors (with hypoglycemia). Pertinent negatives forhypoglycemia include no headaches. (Aware of BG ~ 70) Pertinent negatives for diabetes include no blurred vision, no chest pain, no fatigue, no foot paresthesias, no foot ulcerations, no polydipsia, no polyphagia, no polyuria, no visual change, no weakness and no weight loss. There are no hypoglycemic complications. Symptoms are stable. There are no diabetic complications. She is currently takinginsulin pre-breakfast, pre-lunch, pre- dinner and at bedtime (Humalog 1:10 Breakfast 1:8 Lunch Dinner/ Lantus 34). Her weight is increasing steadily. She is following a generally healthy diet. Meal planning includes carbohydrate counting. She participates in exercise daily. Frequency home blood tests: QID. Her home blood glucose trend is fluctuating minimally. An SURYA inhibitor/angiotensin II receptor polly is not being taken. She does not see a floatlight powder mixer.Eye exam is not current (08/25). The following portions of the patient's history were reviewed and updated as appropriate: allergies, current medications, past family history, past medical history, past social history, past surgicalhistory and problem list. Review of Systems Constitutional: Negative for appetite change, fatigue, unexpected weight change and weight loss. HENT: Negative for trouble swallowing and voice change. Eyes: Negative for blurred vision and visual disturbance. Respiratory: Negative for cough, chest tightness, shortness of breath and wheezing. Cardiovascular: Negative for chest pain, palpitations and leg swelling. Gastrointestinal: Negative for abdominal pain, constipation, diarrhea, nausea and vomiting. Endocrine: Negative for heat intolerance, polydipsia, polyphagia and polyuria. Genitourinary: Negative for dysuria, frequency and menstrual problem. Musculoskeletal: Negative for arthralgias, gait problem and myalgias. Neurological: Positive for tremors (with hypoglycemia). Negative for weakness, numbness and headaches. Objective BP Readings from Last 3 Encounters: 02/18/18 110/71 (56 %, Z = 0.15 / 74 %, Z = 0.65)* 09/09/17 120/78 (87 %, Z = 1.12 / 92 %, Z = 1.42)* 05/06/17 110/84 (59 %, Z = 0.23 / 97 %, Z = 1.95)* *BP percentiles are based on the September 2016 AAP Clinical Practice Guideline for girls Wt Readings from Last 3 Encounters: 02/18/18 62.1 kg (136 lb 12.8 oz) (76 %, Z= 0.70)* 09/09/17 58.1 kg (128 lb) (66 %, Z= 0.41)* 05/06/17 59.8 kg (131 lb 14.4 oz) (73 %, Z= 0.61)* * Growth percentiles are based on [facility] (Girls, 2-20 Years) data. BMI: Estimated body mass index is 25.02 kg/m as calculated from the following: Height as of this encounter: 5' 2. Weight as of this encounter: 62.1 kg (136 lb 12.8 oz).Physical Exam Constitutional: She is oriented to person, place, and time. She appears well- developed and well-nourished. No distress. HENT: Head: Normocephalic and atraumatic. Mouth/Throat: Oropharynx is clear and moist. Eyes: EOM are normal. Neck: Normal range of motion. Neck supple. No thyromegaly present. Cardiovascular: Normal rate, regular rhythm and normal heart sounds. No murmur heard. Pulmonary/Chest: Effort normal and breath sounds normal. No respiratory distress. She has no wheezes. She has no rales. Musculoskeletal: She exhibits no edema. Neurological: She is alert and oriented to person, place, and time. No sensory deficit. Psychiatric: Judgment normal. Vitals reviewed. Assessment/Plan: Type 1 diabetes, under good control Allison Theodore presents for follow-up of Type 1 diabetes Patient is currently managed with: QID insulin. Has occasional low BG following days of activity/bike riding; she is aware of these low BG. Patient tried FreeStyle Sharon after last apt but states there was a large discrepancy in readings and hasnot continued to wear consistently. SMBG reviewed and patient is monitoring BG QID. She is currently on Ins: Carb ratio 1:10/ 1:8/ 1:8/ Lantus 34. PAtient's mother is asking about diabetes education-patient only received education in hospital at the time of dx. Rec referral to Diabetic Educ with use of [employer] to cover expenses. Mom will consider and call back to office if she wishes to proceed. PLAN: Patient Instructions Continue current insulin doses Retinopathy: Negative Exam within last 12 months: yes Date: around 08/25 Nephropathy: Negative Creat: 0.85 on 08/28/17 Alb/creat ratio: 17.0 on 08/28/17 Peripheral Neuropathy: Negative Denies symptoms associated with neuropathy (numbness and/or tingling) Autonomic Neuropathy: Negative Patient aware of most lows in the 70 range Hyperlipidemia: Negative Currently taking: No lipid lowering agents. Hypertension: Negative . Currently taking: Patient on no antihypertensives BP: 110/71 Cardiac: Negative Denies Chest pain or SOB at this time. Vascular: Negative edema Feet: Negative sores or lesions at this time. Last foot exam: 02/18/18 Thyroid: Negative Other: She has completed 8th grade. Will not be returning to school. Problem List Items Addressed This Visit Endocrine Type 1 diabetes mellitus without complication (HCC) - Primary LABS- 02/18/18 HgbA1C 7.7% 08/28/17 Hemoglobin A1c 7.4% Creatinine 0.85, sodium 139, potassium 4.7 AST 19, ALT 10 Total cholesterol 140, triglycerides 74, HDL 61, LDL 64 TSH 0.864, FT4--1.14 WBC 6.6, hemoglobin 12.4, hematocrit 38.5, platelet count 262,000, MCV 77 Albumin/creatinine ratio 17.0 05/06/17 (in the office POC) Hgb A1C 7.5% Electronically signed by: Ruthie Abad PA-C 02/23/18 , 3:13 PM. in this encounter* Isabel Garcia CNP - 06/25/2018 10:22 AM EDT Patient ID: Allison Theodore is a 17 y.o. female 2000 Subjective: Allison Theodore presents for follow-up of Type 1 diabetes Patient has had diabetes for 6years. Diagnosed in 2009 Patient has taken Insulin for 6years Allison Louie is a 17-year-old female who presents the office for follow-up of her type 1 diabetes. Patient reports she been feeling fairly well without any issues since her appointment with us previously. She is hemoglobin A1c is 8.2% today in our office versus 7.7 back in February 2018. Patient did bring blood sugars with her to for review today. Patient feels that her blood sugars are elevated upon waking in the morning. When asked, she states that she does not really follow a diabetic diet very closely. She has a hard time avoiding snacking in the evening and occasionally drinks regular pop.Complications from diabetes includes none. Currently taking: Humalog insulin: 1:8 units at breakfast; 1:8 units at lunch; 1:8 units at supper Lantus insulin: 34 units at bedtime Allergies Allergen Reactions Acetaminophen Rash Current Outpatient Medications Medication Sig Dispense Refill insulin glargine (LANTUS SOLOSTAR) 100 unit/mL (3 mL) InPn Use as directed approx 34 units/day. 30 mL 4 insulin lispro (HumaLOG KwikPen) 100 unit/mL InPn Use as directed approx 50 units/day. 10 pen 4 BASAGLAR KWIKPEN 100 unit/mL (3 mL) InPn Inject 32 (thirty two) Units under the skin nightly. 30 mL11 flash glucose sensor (FREESTYLE SHARON 10 DAY SENSOR) Kit Use as directed, just needs sensor. . 3 kit 5 glucagon (glucagon) 1 mg injection 1 mg No current facility-administered medications for this visit. Review of Systems: Review of Systems Constitutional: Negative for appetite change, fatigue and unexpected weight change. HENT: Negative for trouble swallowing and voice change. Eyes: Negative for visual disturbance. Respiratory: Negative for cough, chest tightness, shortness of breath and wheezing. Cardiovascular: Negative for chest pain, palpitations and leg swelling. Gastrointestinal: Negative for abdominal pain, constipation, diarrhea, nausea and vomiting. Endocrine: Negative for heat intolerance, polydipsia, polyphagia and polyuria. Genitourinary: Negative for dysuria, frequency and menstrual problem. Musculoskeletal: Negative for arthralgias, gait problem and myalgias. Neurological: Negative for tremors, weakness, numbness and headaches. The following portions of the patient's history were reviewed and updated as appropriate: allergies, current medications, past family history, past medical history, past social history, past surgicalhistory and problem list. Objective: BP 112/71 Pulse 75 Ht 5' 2 Wt 61.7 kg (136 lb) BMI 24.87 kg/m Wt Readings from Last 3 Encounters: 06/25/18 61.7 kg (136 lb) (74 %, Z= 0.64)* 02/18/18 62.1 kg (136 lb 12.8 oz) (76 %, Z= 0.70)* 09/09/17 58.1 kg (128 lb) (66 %, Z= 0.41)* * Growth percentiles are based on CDC (Girls, 2-20 Years) data. Physical Exam: General: alert, appears stated age and cooperative Eyes: conjunctivae/corneas clear. PERRL, EOM's intact. Neck: no adenopathy, supple, symmetrical, trachea midline. Thyroid: No thyromegaly appreciated Lung: clear to auscultation bilaterally Heart: regular rate and rhythm, S1, S2 normal, no murmur, click, rub or gallop Extremities: extremities normal, atraumatic, no cyanosis or edema Feet: Dry skin, Bilateral Feet: warm, good capillary refill and normal DP. Monofilament exam Normal, bilateral lower extremities. Neuro: normal without focal findings, mental status, speech normal, alert and oriented x3 and VIVIEN Lab Review Lab Results Component Value Date HGBA1C 7.5 (A) 05/06/2017 Date: 06/25/18 Hgb A1c: 8.2% in office 02/18/18 HgbA1C 7.7% 08/28/17 Hemoglobin A1c 7.4% Creatinine 0.85, sodium 139, potassium 4.7 AST 19, ALT 10 Total cholesterol 140, triglycerides 74, HDL 61, LDL 64 TSH 0.864, FT4--1.14 WBC 6.6, hemoglobin 12.4, hematocrit 38.5, platelet count 262,000, MCV 77 microAlbumin/creatinine ratio 17.0 05/06/17 (in the office POC) Hgb A1C 7.5% Assessment/Plan: Dx: SNOMED CT(R) 1. Type 1 diabetes mellitus without complication (HCC) TYPE 1 DIABETES MELLITUS WITHOUT COMPLICATION Type 1 diabetes, under fair control Patient is currently managed with: Currently taking: Humalog insulin: 1:8 units at breakfast; 1:8 units at lunch; 1:8 units at supper Lantus insulin: 34 units at bedtime Current Hemoglobin A1C= 8.2% 06/25/18 Lab Results Component Value Date HGBA1C 7.5 (A) 05/06/2017 HGBA1C 6.9 (A) 12/31/2016 HGBA1C 7.2 (A) 04/18/2016 Weight trend: is stable Current diet: carbohydrate counting patient did meet with community health educator one time, on 03/08/2018.They did not feel they needed to get any additional education at this time Current exercise: none Current monitoring regimen: home blood tests - 4 times daily Home blood sugar records: brought with patient for review Fasting B-306 Pre-lunch B-323 Pre-supper B-447 Bedtime B-280 Any episodes of hypoglycemia? yes - occasional if working outside on chores and does not eat enoughat a meal NOTES: PLAN: See below Retinopathy: Negative Exam within last 12 months: no Date: 08/2016 Robotics Testing Technician/Feed Preparation Operator: Other Ophthalmologic Conditions: None known * patient and mother encouraged to get an eye exam soon Nephropathy: Negative Creatinine 0.85, 08/28/17 Microlbumin/creat ratio: 17, 08/2017 Plan: check following next appt. Is patient on SURYA inhibitor or angiotensin II receptor polly? no Peripheral Neuropathy: Negative Denies symptoms associated with neuropathy (numbness and/or tingling) Autonomic Neuropathy: Negative Hypoglycemia unawareness. Senses low BG at 70mg/dl. Other: Hyperlipidemia: Negative Currently taking: No lipid lowering agents. LFT's WNL Total cholesterol 140, triglycerides 74, HDL 61, LDL 64 08/2017 Hypertension: Negative . Currently taking: Patient on no antihypertensives BP: 112/71 Cardiac: Negative Experiencing chest pain No . Experiencing shortness of breath No History of No history of CAD Follows routinely with: Vascular: Negative History of None Feet: Last foot exam: 06/25/18 Follows with Podiatry: No Youth Worker: History of foot ulceration: No History of amputation: No Thyroid: No results found for: TSH, [id number], [id number], THYROIDAB Negative Other: Plan: 1. Rx changes: see below Humalog insulin: 1:8 units at breakfast; 1:7 units at lunch; 1:7 units at supper Lantus 36 units at HS We have made the above changes to the patient's current insulin regimen. She was also counseled on better food choices and how to follow a diabetic diet more closely including limited concentrated sweets/sugars, limit portion of starchy vegetables and breads, and not drinking regular pop. She was also told to limit her snacks at bedtime. They were instructed to call our office should she continueto notice hyperglycemia upon wakening in the morning or in the evening, to call our office for further instruct. They would like to get routine labs done after their next appointment with us in 4 months. Patients mother and the patient would also like to discuss the possibility of starting an insulin pump prior to her next appt. 2. Education: Reviewed ABCs of diabetes management (respective goals in parentheses): A1C (7.0-8.0), blood pressure (<130/80), and cholesterol (LDL <100). 3. Compliance at present is estimated to be good. Efforts to improve compliance (if necessary) willbe directed at dietary modifications: avoid concentrated sweets and sugars and regular blood sugar monitorin times daily. 4. Follow up: 4 months 5. Record blood sugar readings as instructed. Call if BG consistently <70 or >250. [phone] Patient has been checking blood glucoses 4 times daily for the past 90 days. Patient needs to continue checking blood glucoses 4 times daily. Blood glucose readings are used to adjust medication or insulin doses for meals, monitor dietary compliance, and adjust for high or low blood glucoses by patient on a daily basis. Blood glucose readings are reviewed at office visits for adjustment in medication regimen and assistance with dietary management, and other self- management issues including exercise, etc. Prognosis: Good. Duration of need for diabetes testing equipment: Permanent #150 strips/month prescribed. 6. Bring blood sugar meter to follow up appointment. No orders of the defined types were placed in this encounter. Electronically signed by Isabel LUNA 06/25/1909:55 AM documented in this encounter* Demetrius Ramirez CNP - 02/15/2019 9:44 AM EST Patient ID: Allison Theodore is a 18 y.o. female 2000 Subjective: Allison Theodore presents for follow-up of Type 1 diabetes Patient has had diabetes for 10 years. Diagnosed in 2009 Patient has taken Insulin for 10 years Patient reports she been feeling fairly well without any issues since her appointment with us previously. Hemoglobin A1c is 7.7%. Her glycemic control appears to be going well per her blood sugar logs. Currently taking: Humalog insulin: 1:8 units at breakfast; 1:7 units at lunch; 1:7 units at supper Lantus insulin: 36 units at bedtime Allergies Allergen Reactions Acetaminophen Rash Current Outpatient Medications Medication Sig Dispense Refill BASAGLAR KWIKPEN 100 unit/mL (3 mL) InPn Inject 32 (thirty two) Units under the skin nightly. 30 mL11 flash glucose sensor (FREESTYLE SHARON 10 DAY SENSOR) Kit Use as directed, just needs sensor. . 3 kit 5 glucagon (glucagon) 1 mg injection 1 mg insulin glargine (LANTUS SOLOSTAR) 100 unit/mL (3 mL) InPn Use as directed approx 34 units/day. 30 mL 4 insulin lispro (HumaLOG KwikPen) 100 unit/mL InPn Use as directed approx 50 units/day. 10 pen 4 No current facility-administered medications for this visit. Review of Systems: Review of Systems Constitutional: Negative for appetite change, fatigue and unexpected weight change. HENT: Negative for trouble swallowing and voice change. Eyes: Negative for visual disturbance. Respiratory: Negative for cough, chest tightness, shortness of breath and wheezing. Cardiovascular: Negative for chest pain, palpitations and leg swelling. Gastrointestinal: Negative for abdominal pain, constipation, diarrhea, nausea and vomiting. Endocrine: Negative for heat intolerance, polydipsia, polyphagia and polyuria. Genitourinary: Negative for dysuria, frequency and menstrual problem. Musculoskeletal: Negative for arthralgias, gait problem and myalgias. Neurological: Negative for tremors, weakness, numbness and headaches. The following portions of the patient's history were reviewed and updated as appropriate: allergies, current medications, past family history, past medical history, past social history, past surgicalhistory and problem list. Objective: Ht 5' 2 Wt Readings from Last 3 Encounters: 11/03/18 61.2 kg (135 lb) (72 %, Z= 0.57)* 06/25/18 61.7 kg (136 lb) (74 %, Z= 0.64)* 02/18/18 62.1 kg (136 lb 12.8 oz) (76 %, Z= 0.70)* * Growth percentiles are based on [facility] (Girls, 2-20 Years) data. Physical Exam: General: alert, appears stated age and cooperative Eyes: conjunctivae/corneas clear. PERRL, EOM's intact. Neck: no adenopathy, supple, symmetrical, trachea midline. Thyroid: No thyromegaly appreciated Lung: clear to auscultation bilaterally Heart: regular rate and rhythm, S1, S2 normal, no murmur, click, rub or gallop Extremities: extremities normal, atraumatic, no cyanosis or edema Feet: Dry skin, Bilateral Feet: warm, good capillary refill and normal DP. Monofilament exam Normal, bilateral lower extremities. Neuro: normal without focal findings, mental status, speech normal, alert and oriented x3 and VIVIEN Lab Review Lab Results Component Value Date HGBA1C 7.7 02/10/2019 Date: 02/10/19 *labs reviewed 02/15/19 Hgb A1c: 7.7% Creat: 0.76; eGFR: >60 AST: 19; ALT: 21 K: 3.9 11/03/18 HgbA1C 7.5% in office 06/25/18 Hgb A1c: 8.2% in office 02/18/18 HgbA1C 7.7% 08/28/17 Hemoglobin A1c 7.4% Creatinine 0.85, sodium 139, potassium 4.7 AST 19, ALT 10 Total cholesterol 140, triglycerides 74, HDL 61, LDL 64 TSH 0.864, FT4--1.14 WBC 6.6, hemoglobin 12.4, hematocrit 38.5, platelet count 262,000, MCV 77 microAlbumin/creatinine ratio 17.0 05/06/17 (in the office POC) Hgb A1C 7.5% Assessment/Plan: Dx: 1. Type 1 diabetes mellitus without complication (HCC) Type 1 diabetes, under good control Patient is currently managed with: Currently taking: Humalog insulin: 1:8 units at breakfast; 1:7 units at lunch; 1:7 units at supper Lantus insulin: 36 units at bedtime Current Hemoglobin A1C= Lab Results Component Value Date HGBA1C 7.7 02/10/2019 HGBA1C 7.5 (A) 05/06/2017 HGBA1C 6.9 (A) 12/31/2016 Weight trend: is stable Current diet: carbohydrate counting patient did meet with community health educator one time, on 03/08/2018.They did not feel they needed to get any additional education at this time. Current exercise: none Current monitoring regimen: home blood tests - 4 times daily Home blood sugar records: per scanned results Fasting BG: Pre-lunch BG: Pre-supper BG: Bedtime BG: Any episodes of hypoglycemia? yes - occasional if working outside on chores and does not eat enoughat a meal NOTES: PLAN: See below Retinopathy: Negative Exam within last 12 months: no Date: 10/2018 Robotics Testing Technician/Feed Preparation Operator: Other Ophthalmologic Conditions: None known Nephropathy: Negative Creatinine 0.85, 08/28/17 Microlbumin/creat ratio: 17, 08/2017 Plan: check following next appt. Is patient on SURYA inhibitor or angiotensin II receptor polly? no Peripheral Neuropathy: Negative Denies symptoms associated with neuropathy (numbness and/or tingling) Autonomic Neuropathy: Negative Hypoglycemia unawareness. Senses low BG at 70mg/dl. Other: Hyperlipidemia: Negative Currently taking: No lipid lowering agents. LFT's WNL Total cholesterol 140, triglycerides 74, HDL 61, LDL 64 -- 08/2017 Hypertension: Negative . Currently taking: Patient on no antihypertensives BP: 116/70 Cardiac: Negative Experiencing chest pain No . Experiencing shortness of breath No History of No history of CAD Follows routinely with: Vascular: Negative History of None Feet: Last foot exam: 06/25/18 Follows with Podiatry: No Youth Worker: History of foot ulceration: No History of amputation: No Thyroid: No results found for: TSH, [id number], [id number], THYROIDAB Negative Other: Plan: 1. Rx changes: none Humalog insulin: 1:8 units at breakfast; 1:7 units at lunch; 1:7 units at supper Lantus 36 units at HS Pt to continue with current regimen. Long discussion with patient and her mother regarding insulin pumps. Patient's family does not haveinsurance. Willing to consider purchase of insulin pump. Patient likes the idea of Omnipod. Patientprovided with contact information for Dexcom, Chooosipod and medtronic to evaluation options and afforadabillity. If within their means we will seek to start insulin pump therapy. 2. Education: Reviewed ABCs of diabetes management (respective goals in parentheses): A1C (7.0-8.0), blood pressure (<130/80), and cholesterol (LDL <100). 3. Compliance at present is estimated to be good. Efforts to improve compliance (if necessary) willbe directed at dietary modifications: avoid concentrated sweets and sugars and regular blood sugar monitorin times daily. 4. Follow up: 4 months 5. Record blood sugar readings as instructed. Call if BG consistently <70 or >250. [phone] Patient has been checking blood glucoses 4 times daily for the past 90 days. Patient needs to continue checking blood glucoses 4 times daily. Blood glucose readings are used to adjust medication or insulin doses for meals, monitor dietary compliance, and adjust for high or low blood glucoses by patient on a daily basis. Blood glucose readings are reviewed at office visits for adjustment in medication regimen and assistance with dietary management, and other self- management issues including exercise, etc. Prognosis: Good. Duration of need for diabetes testing equipment: Permanent #150 strips/month prescribed. 6. Bring blood sugar meter to follow up appointment. No orders of the defined types were placed in this encounter. Electronically Signed by: Demetrius Ramirez CNP 02/15/19 9:45 AM documented in this encounter* Jasmin Henriquez PA-C - 06/23/2019 10:33 AM EDT Patient ID: Allison Theodore is a 18 y.o. female 2000 Subjective: Allison Theodore presents for follow-up of Type 1 diabetes Patient has had diabetes for 10 years. Diagnosed in 2009 Patient has taken Insulin for 10 years Ms. Ontiveros is a 18-year-old female with a history of type 1 diabetes. Patient was last seen in our office in April 2019 for 2-week follow-up after starting the Omni pod insulin pump. Patient currently likes her Omni pod and states it has simplified her life. Patient began using Omnipod insulin pumpon 04/04/19. Patient is currently checking BG approximately 4-6 times daily via finger prick. BG logs were reviewed today. 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 Patient states that she has not been feeling her hypoglycemia and thus believes that her meter was incorrect. We compared her meter with our meter in the office today and her meter seems to be accurate. I believe patient has begun to develop hypoglycemia unawareness. Her most recent hemoglobin A1c dropped from 7.7% in February 2019 to 6.6% today in the office. Patient states that with warmer weather she has began to increase her activity as well. Currently taking: Lispro via OmniPod insulin pump. Allergies Allergen Reactions Acetaminophen Rash Current Outpatient Medications Medication Sig Dispense Refill blood sugar diagnostic (Contour Next Test Strips) strips Use as directed 8 times per day . 250 strip 11 blood sugar diagnostic (FreeStyle Test) strips Use as directed 8 times per day . 250 each 11 glucagon (glucagon) 1 mg injection 1 mg insulin lispro (HumaLOG KwikPen) 100 unit/mL InPn Use as directed approx 50 units/day. 10 pen 4 insulin lispro (HumaLOG) 100 unit/mL injection Use as directed via insulin pump, approx 100 units per day . 30 mL 12 flash glucose sensor (FREESTYLE SHARON 10 DAY SENSOR) Kit Use as directed, just needs sensor. . 3 kit 5 No current facility-administered medications for this visit. Review of Systems: Review of Systems Constitutional: Negative for appetite change, fatigue and unexpected weight change. HENT: Negative for trouble swallowing and voice change. Eyes: Negative for visual disturbance. Respiratory: Negative for cough, chest tightness, shortness of breath and wheezing. Cardiovascular: Negative for chest pain, palpitations and leg swelling. Gastrointestinal: Negative for abdominal pain, constipation, diarrhea, nausea and vomiting. Endocrine: Negative for heat intolerance, polydipsia, polyphagia and polyuria. Genitourinary: Negative for dysuria, frequency and menstrual problem. Musculoskeletal: Negative for arthralgias, gait problem and myalgias. Neurological: Negative for tremors, weakness, numbness and headaches. Objective: BP 120/75 Pulse 81 Ht 5' 2 Wt 64 kg (141 lb) BMI 25.79 kg/m Wt Readings from Last 3 Encounters: 06/23/19 64 kg (141 lb) (77 %, Z= 0.74)* 04/19/19 63.5 kg (140 lb) (76 %, Z= 0.72)* 04/04/19 63 kg (139 lb) (75 %, Z= 0.68)* * Growth percentiles are based on [facility] (Girls, 2-20 Years) data. Physical Exam: General: alert, appears stated age and cooperative Eyes: conjunctivae/corneas clear. PERRL, EOM's intact. Neck: no adenopathy, supple, symmetrical, trachea midline. Thyroid: No thyromegaly appreciated Lung: clear to auscultation bilaterally Heart: regular rate and rhythm, S1, S2 normal, no murmur, click, rub or gallop Extremities: extremities normal, atraumatic, no cyanosis or edema Feet: Dry skin, Bilateral Feet: warm, good capillary refill and normal DP. Monofilament exam Normal, bilateral lower extremities. Neuro: normal without focal findings, mental status, speech normal, alert and oriented x3 and VIVIEN Lab Review Lab Results Component Value Date HGBA1C 7.7 02/10/2019 Date: 06/23/2019 Hemoglobin A1c: 6.6% 02/10/19 Hgb A1c: 7.7% Creat: 0.76; eGFR: >60 AST: 19; ALT: 21 K: 3.9 11/03/18 HgbA1C 7.5% in office 06/25/18 Hgb A1c: 8.2% in office 02/18/18 HgbA1C 7.7% 08/28/17 Hemoglobin A1c 7.4% Creatinine 0.85, sodium 139, potassium 4.7 AST 19, ALT 10 Total cholesterol 140, triglycerides 74, HDL 61, LDL 64 TSH 0.864, FT4--1.14 WBC 6.6, hemoglobin 12.4, hematocrit 38.5, platelet count 262,000, MCV 77 microAlbumin/creatinine ratio 17.0 05/06/17 (in the office POC) Hgb A1C 7.5% Assessment/Plan: Dx: 1. Type 1 diabetes mellitus without complication (HCC) TSH T4, Free Lipid Panel Type 1 diabetes, under good control Patient is currently managed with: Currently taking: Current pump settings: BASAL RATES: Time U/Hr. 0000 1.20 0500 1.10 2200 1.20 Insulin to Carb Ratio: 0000 1:9 1100 1:8 1600 1:7 Sensitivity: 0000 1:40 Current Hemoglobin A1C= Lab Results Component Value Date HGBA1C 7.7 02/10/2019 HGBA1C 7.5 (A) 05/06/2017 HGBA1C 6.9 (A) 12/31/2016 Weight trend: is stable Current diet: carbohydrate counting Current exercise: none Current monitoring regimen: home blood tests - 4 times daily Home blood sugar records: per scanned results Fasting BG: Pre-lunch BG: Pre-supper BG: Bedtime BG: Any episodes of hypoglycemia? yes -occurring frequently throughout the day and occasionally mixer operator vacuum pan salt. NOTES: BG logs were reviewed today. It does appear patient is having frequent hypoglycemia throughout the day and occasional mixer operator vacuum pan salt. Patient states that she has not been feeling her hypoglycemia and thus believes that her meter was incorrect. We compared her meter with our meter in the office today and her meter seems to be accurate. I believe patient has begun to develop hypoglycemia unawareness. Her most recent hemoglobin A1c dropped from 7.7% in February 2019 to 6.6% today in the office. PLAN: See below Complications/updates below not reviewed 04/19/19. Retinopathy: Negative Exam within last 12 months: no Date: 10/2018 Robotics Testing Technician/Feed Preparation Operator: Other Ophthalmologic Conditions: None known Nephropathy: Negative Creatinine 0.85, 08/28/17 Microlbumin/creat ratio: 17, 08/2017 Plan: check following next appt. Is patient on SURYA inhibitor or angiotensin II receptor polly? no Peripheral Neuropathy: Negative Denies symptoms associated with neuropathy (numbness and/or tingling) Autonomic Neuropathy: Positive Hypoglycemia unawareness. Senses low BG at 45-60 mg/dl. Other: Hyperlipidemia: Negative Currently taking: No lipid lowering agents. LFT's WNL Total cholesterol 140, triglycerides 74, HDL 61, LDL 64 -- 08/2017 Hypertension: Negative . Currently taking: Patient on no antihypertensives BP: 120/75 Cardiac: Negative Experiencing chest pain No . Experiencing shortness of breath No History of No history of CAD Follows routinely with: Vascular: Negative History of None Feet: Last foot exam: 06/25/18 Follows with Podiatry: No Youth Worker: History of foot ulceration: No History of amputation: No Thyroid: No results found for: TSH, [id number], [id number], THYROIDAB Negative Other: Plan: 1. Rx changes: none BASAL RATES: Time U/Hr. 0000 1.15 0500 1.00 2200 1.15 Insulin to Carb Ratio: 0000 1:9 1100 1:8 1600 1:7 Sensitivity: 0000 1:50 0400 1:40 The above changes were made to patient's current insulin regimen. Patient's mother expressed concern that as the weather continues to improve patient will become more active. She was instructed to call our office should she continue to have hypoglycemia. I believe patient has begun to develop hypoglycemia unawareness. She was instructed to begin treating BG of less than 90 to help try to improve hypoglycemia awareness. She would benefit from CGM but patient's mother states that it is too expensive. For labs prior to next appointment, patient's mother states it is very difficult for them to come into [place] prior to appointment to complete labs. I told patient's mother that they may complete labs day of appointment so that they only need to make one trip to [place] and we would run a hemoglobin A1c in the office so that we can review that at appointment. 2. Education: Reviewed ABCs of diabetes management (respective goals in parentheses): A1C (7.0-8.0), blood pressure (<130/80), and cholesterol (LDL <100). 3. Compliance at present is estimated to be good. Efforts to improve compliance (if necessary) willbe directed at dietary modifications: avoid concentrated sweets and sugars and regular blood sugar monitorin times daily. 4. Follow up: 4 months 5. Record blood sugar readings as instructed. Call if BG consistently <70 or >250. [phone] Patient has been checking blood glucoses 4 times daily for the past 90 days. Patient needs to continue checking blood glucoses 4 times daily. Blood glucose readings are used to adjust medication or insulin doses for meals, monitor dietary compliance, and adjust for high or low blood glucoses by patient on a daily basis. Blood glucose readings are reviewed at office visits for adjustment in medication regimen and assistance with dietary management, and other self- management issues including exercise, etc. Prognosis: Good. Duration of need for diabetes testing equipment: Permanent #150 strips/month prescribed. 6. Bring blood sugar meter to follow up appointment. Orders Placed This Encounter Procedures TSH T4, Free Lipid Panel Electronically signed by Jasmin Henriquez PA-C 06/23/19 12:45 PM documented in this encounter* Demetrius Ramirez, EDDIE - 04/19/2019 12:03 PM EDT Patient ID: Allison Theodore is a 18 y.o. female 2000 Subjective: Allison Theodore presents for follow-up of Type 1 diabetes Patient has had diabetes for 10 years. Diagnosed in 2009 Patient has taken Insulin for 10 years Patient reports she been feeling fairly well without any issues since her appointment when Omnipod insulin pump started 04/04/19. Settings as below. Hemoglobin A1c is 7.7%. Her glycemic control appears to be going well per her blood sugar logs. Currently taking: Lispro via OmniPod insulin pump. Allergies Allergen Reactions Acetaminophen Rash Current Outpatient Medications Medication Sig Dispense Refill insulin lispro (HumaLOG) 100 unit/mL injection Use as directed via insulin pump, approx 100 units per day . 30 mL 12 blood sugar diagnostic (Contour Next Test Strips) strips Use as directed 8 times per day . 250 strip 11 blood sugar diagnostic (FreeStyle Test) strips Use as directed 8 times per day . 250 each 11 flash glucose sensor (FREESTYLE SHARON 10 DAY SENSOR) Kit Use as directed, just needs sensor. . 3 kit 5 glucagon (glucagon) 1 mg injection 1 mg insulin lispro (HumaLOG KwikPen) 100 unit/mL InPn Use as directed approx 50 units/day. 10 pen 4 No current facility-administered medications for this visit. Review of Systems: Review of Systems Constitutional: Negative for appetite change, fatigue and unexpected weight change. HENT: Negative for trouble swallowing and voice change. Eyes: Negative for visual disturbance. Respiratory: Negative for cough, chest tightness, shortness of breath and wheezing. Cardiovascular: Negative for chest pain, palpitations and leg swelling. Gastrointestinal: Negative for abdominal pain, constipation, diarrhea, nausea and vomiting. Endocrine: Negative for heat intolerance, polydipsia, polyphagia and polyuria. Genitourinary: Negative for dysuria, frequency and menstrual problem. Musculoskeletal: Negative for arthralgias, gait problem and myalgias. Neurological: Negative for tremors, weakness, numbness and headaches. Objective: BP 113/72 Pulse 80 Ht 5' 2 Wt 63.5 kg (140 lb) BMI 25.61 kg/m Wt Readings from Last 3 Encounters: 04/19/19 63.5 kg (140 lb) (76 %, Z= 0.72)* 04/04/19 63 kg (139 lb) (75 %, Z= 0.68)* 02/15/19 62.1 kg (137 lb) (73 %, Z= 0.62)* * Growth percentiles are based on CDC (Girls, 2-20 Years) data. Physical Exam: General: alert, appears stated age and cooperative Eyes: conjunctivae/corneas clear. PERRL, EOM's intact. Neck: no adenopathy, supple, symmetrical, trachea midline. Thyroid: No thyromegaly appreciated Lung: clear to auscultation bilaterally Heart: regular rate and rhythm, S1, S2 normal, no murmur, click, rub or gallop Extremities: extremities normal, atraumatic, no cyanosis or edema Feet: Dry skin, Bilateral Feet: warm, good capillary refill and normal DP. Monofilament exam Normal, bilateral lower extremities. Neuro: normal without focal findings, mental status, speech normal, alert and oriented x3 and VIVIEN Lab Review Lab Results Component Value Date HGBA1C 7.7 02/10/2019 Date: 02/10/19 *labs reviewed 04/19/19 Hgb A1c: 7.7% Creat: 0.76; eGFR: >60 AST: 19; ALT: 21 K: 3.9 11/03/18 HgbA1C 7.5% in office 06/25/18 Hgb A1c: 8.2% in office 02/18/18 HgbA1C 7.7% 08/28/17 Hemoglobin A1c 7.4% Creatinine 0.85, sodium 139, potassium 4.7 AST 19, ALT 10 Total cholesterol 140, triglycerides 74, HDL 61, LDL 64 TSH 0.864, FT4--1.14 WBC 6.6, hemoglobin 12.4, hematocrit 38.5, platelet count 262,000, MCV 77 microAlbumin/creatinine ratio 17.0 05/06/17 (in the office POC) Hgb A1C 7.5% Assessment/Plan: Dx: 1. Type 1 diabetes mellitus without complication (HCC) Type 1 diabetes, under good control Patient is currently managed with: Currently taking: Current pump settings: BASAL RATES: Time U/Hr. 0000 1.20 0200 1.10 2200 1.20 Insulin to Carb Ratio: 0000 1:9 1100 1:8 Sensitivity: 0000 1:40 Current Hemoglobin A1C= Lab Results Component Value Date HGBA1C 7.7 02/10/2019 HGBA1C 7.5 (A) 05/06/2017 HGBA1C 6.9 (A) 12/31/2016 Weight trend: is stable Current diet: carbohydrate counting Current exercise: none Current monitoring regimen: home blood tests - 4 times daily Home blood sugar records: per scanned results Fasting BG: Pre-lunch BG: Pre-supper BG: Bedtime BG: Any episodes of hypoglycemia? yes - occasional if working outside on chores and does not eat enoughat a meal NOTES: 2 week follow up after pump start. Patient doing well with OmniPod, information reviewed as below. See adjustments. PLAN: See below Complications/updates below not reviewed 04/19/19. Retinopathy: Negative Exam within last 12 months: no Date: 10/2018 Robotics Testing Technician/Feed Preparation Operator: Other Ophthalmologic Conditions: None known Nephropathy: Negative Creatinine 0.85, 08/28/17 Microlbumin/creat ratio: 17, 08/2017 Plan: check following next appt. Is patient on SURYA inhibitor or angiotensin II receptor polly? no Peripheral Neuropathy: Negative Denies symptoms associated with neuropathy (numbness and/or tingling) Autonomic Neuropathy: Negative Hypoglycemia unawareness. Senses low BG at 70mg/dl. Other: Hyperlipidemia: Negative Currently taking: No lipid lowering agents. LFT's WNL Total cholesterol 140, triglycerides 74, HDL 61, LDL 64 -- 08/2017 Hypertension: Negative . Currently taking: Patient on no antihypertensives BP: 113/72 Cardiac: Negative Experiencing chest pain No . Experiencing shortness of breath No History of No history of CAD Follows routinely with: Vascular: Negative History of None Feet: Last foot exam: 06/25/18 Follows with Podiatry: No Youth Worker: History of foot ulceration: No History of amputation: No Thyroid: No results found for: TSH, [id number], [id number], THYROIDAB Negative Other: Plan: 1. Rx changes: none BASAL RATES: Time U/Hr. 0000 1.20 0500 1.10 2200 1.20 Insulin to Carb Ratio: 0000 1:9 1100 1:8 1600 1:7 Sensitivity: 0000 1:50 0400 1:40 2. Education: Reviewed ABCs of diabetes management (respective goals in parentheses): A1C (7.0-8.0), blood pressure (<130/80), and cholesterol (LDL <100). 3. Compliance at present is estimated to be good. Efforts to improve compliance (if necessary) willbe directed at dietary modifications: avoid concentrated sweets and sugars and regular blood sugar monitorin times daily. 4. Follow up: 4 months 5. Record blood sugar readings as instructed. Call if BG consistently <70 or >250. [phone] Patient has been checking blood glucoses 4 times daily for the past 90 days. Patient needs to continue checking blood glucoses 4 times daily. Blood glucose readings are used to adjust medication or insulin doses for meals, monitor dietary compliance, and adjust for high or low blood glucoses by patient on a daily basis. Blood glucose readings are reviewed at office visits for adjustment in medication regimen and assistance with dietary management, and other self- management issues including exercise, etc. Prognosis: Good. Duration of need for diabetes testing equipment: Permanent #150 strips/month prescribed. 6. Bring blood sugar meter to follow up appointment. No orders of the defined types were placed in this encounter. Electronically Signed by: Demetrius Ramirez CNP 04/19/19 9:45 AM documented in this encounter* Jasmin Henriquez PA-C - 10/27/2019 10:12 AM EDT Patient ID: Allison Theodore is a 19 y.o. female 2000 Subjective: Allison Theodore presents for follow-up of Type 1 diabetes Patient has had diabetes for 10 years. Diagnosed in 2009 Patient has taken Insulin for 10 years Ms. Theodore is a 19-year-old female with a history of type 1 diabetes. Patient was last seen in our office in June 2019 where she reported frequent hypoglycemia and her hemoglobin A1c decreased to 6.6%. I feared then that patient began to develop hypoglycemia unawareness as she was not believing her meter when it read low BG. She was instructed to begin treating BG of less than 90 to help try to improve hypoglycemia awareness. Patient reports doing this and states that she has noticed some improvement in sensing low BG. Patient began using Omnipod insulin pump on 04/04/19. She would benefit fromCGM but patient's mother states that it is too expensive. Patient is currently checking BG approximately 4-6 times daily via finger prick. BG logs and pump download were reviewed today. Patient's BG fluctuates but it dose appear she has been experiencing hyperglycemia prior to and after supper. Herhemoglobin A1c increased to 7.4% today in the office. Currently taking: Lispro via OmniPod insulin pump. Allergies Allergen Reactions Acetaminophen Rash Current Outpatient Medications Medication Sig Dispense Refill blood sugar diagnostic (Contour Next Test Strips) strips Use as directed 8 times per day . 250 strip 11 blood sugar diagnostic (FreeStyle Test) strips Use as directed 8 times per day . 250 each 11 glucagon (glucagon) 1 mg injection 1 mg insulin lispro (HumaLOG) 100 unit/mL injection Use as directed via insulin pump, approx 100 units per day . 30 mL 12 flash glucose sensor (FREESTYLE SHARON 10 DAY SENSOR) Kit Use as directed, just needs sensor. . (Patient not taking: Reported on 10/27/2019 .) 3 kit 5 insulin lispro (HumaLOG KwikPen) 100 unit/mL InPn Use as directed approx 50 units/day. (Patient nottaking: Reported on 10/27/2019 .) 10 pen 4 No current facility-administered medications for this visit. Review of Systems: Review of Systems Constitutional: Negative for appetite change, fatigue and unexpected weight change. HENT: Negative for trouble swallowing and voice change. Eyes: Negative for visual disturbance. Respiratory: Negative for cough, chest tightness, shortness of breath and wheezing. Cardiovascular: Negative for chest pain, palpitations and leg swelling. Gastrointestinal: Negative for abdominal pain, constipation, diarrhea, nausea and vomiting. Endocrine: Negative for heat intolerance, polydipsia, polyphagia and polyuria. Genitourinary: Negative for dysuria, frequency and menstrual problem. Musculoskeletal: Negative for arthralgias, gait problem and myalgias. Neurological: Negative for tremors, weakness, numbness and headaches. Objective: BP 112/73 Pulse 72 Ht 5' 2 Wt 63.6 kg (140 lb 4.8 oz) BMI 25.66 kg/m Wt Readings from Last 3 Encounters: 10/27/19 63.6 kg (140 lb 4.8 oz) (75 %, Z= 0.68)* 06/23/19 64 kg (141 lb) (77 %, Z= 0.74)* 04/19/19 63.5 kg (140 lb) (76 %, Z= 0.72)* * Growth percentiles are based on [facility] (Girls, 2-20 Years) data. Physical Exam: General: alert, appears stated age and cooperative Eyes: conjunctivae/corneas clear. PERRL, EOM's intact. Neck: no adenopathy, supple, symmetrical, trachea midline. Thyroid: No thyromegaly appreciated Lung: clear to auscultation bilaterally Heart: regular rate and rhythm, S1, S2 normal, no murmur, click, rub or gallop Extremities: extremities normal, atraumatic, no cyanosis or edema Feet: Dry skin, Bilateral Feet: warm, good capillary refill and normal DP. Monofilament exam Normal, bilateral lower extremities. Neuro: normal without focal findings, mental status, speech normal, alert and oriented x3 and V[facility] Lab Review Lab Results Component Value Date HGBA1C 7.7 02/10/2019 Date: 10/27/2019 Patient had labs including TFTs, and Lipids completed prior to appt today at [facility] that are stillpending. Hemoglobin A1c: 7.4% in the office 06/23/2019 Hemoglobin A1c: 6.6% in the office 02/10/19 Hgb A1c: 7.7% Creat: 0.76; eGFR: >60 AST: 19; ALT: 21 K: 3.9 11/03/18 HgbA1C 7.5% in office 06/25/18 Hgb A1c: 8.2% in office 02/18/18 HgbA1C 7.7% 08/28/17 Hemoglobin A1c 7.4% Creatinine 0.85, sodium 139, potassium 4.7 AST 19, ALT 10 Total cholesterol 140, triglycerides 74, HDL 61, LDL 64 TSH 0.864, FT4--1.14 WBC 6.6, hemoglobin 12.4, hematocrit 38.5, platelet count 262,000, MCV 77 microAlbumin/creatinine ratio 17.0 05/06/17 (in the office POC) Hgb A1C 7.5% Assessment/Plan: Dx: No diagnosis found. Type 1 diabetes, under good control Patient is currently managed with: Currently taking: Current pump settings: BASAL RATES: Time U/Hr. 0000 1.20 0500 1.10 2200 1.15 Insulin to Carb Ratio: 0000 1:9 1100 1:8 1600 1:7 Sensitivity: 0000 1:50 0400 1:40 Current Hemoglobin A1C= Lab Results Component Value Date HGBA1C 7.7 02/10/2019 HGBA1C 7.5 (A) 05/06/2017 HGBA1C 6.9 (A) 12/31/2016 Weight trend: is stable Current diet: carbohydrate counting Current exercise: none Current monitoring regimen: home blood tests - 4 times daily Home blood sugar records: per scanned results Fasting BG: Pre-lunch BG: Pre-supper BG: Bedtime BG: Any episodes of hypoglycemia? yes - randomly NOTES: BG logs were reviewed today. Patient is having less hypoglycemia but it is occurring randomly. Her hemoglobin A1c is 7.4% today in the office. Patient is having consistent hyperglycemia prior to and after supper. PLAN: See below Retinopathy: Negative Exam within last 12 months: no Date: 10/2018 Robotics Testing Technician/Feed Preparation Operator: Other Ophthalmologic Conditions: None known Nephropathy: Negative Creatinine 0.85, 08/28/17 Microlbumin/creat ratio: 08/2017 Plan: check following next appt. Is patient on SURYA inhibitor or angiotensin II receptor polly? no Peripheral Neuropathy: Negative Denies symptoms associated with neuropathy (numbness and/or tingling) Autonomic Neuropathy: Positive Hypoglycemia unawareness. Senses low BG at 45-60 mg/dl. 10/27/2019 - Patient reports improvement in this since last visit in June 2019 Other: Hyperlipidemia: Negative Currently taking: No lipid lowering agents. LFT's WNL Total cholesterol 140, triglycerides 74, HDL 61, LDL 64 -- 08/2017 Hypertension: Negative . Currently taking: Patient on no antihypertensives BP: 112/73 Cardiac: Negative Experiencing chest pain No . Experiencing shortness of breath No History of No history of CAD Follows routinely with: Vascular: Negative History of None Feet: Last foot exam: 06/25/18 Follows with Podiatry: No Youth Worker: History of foot ulceration: No History of amputation: No Thyroid: No results found for: TSH, [id number], I4VPRKT, THYROIDAB Negative Other: Plan: 1. Rx changes: none BASAL RATES: Time U/Hr. 0000 1.20 0500 1.00 1800 1.20 Insulin to Carb Ratio: 0000 1:9 1100 1:8 1600 1:7 Sensitivity: 0000 1:50 0400 1:40 The above changes were made to patient's current insulin regimen. She was instructed to call our office should she continue to have hyperglycemia or hypoglycemia. I believe patient has begun to develop hypoglycemia unawareness. She was again instructed to begin treating BG of less than 90 to help try to improve hypoglycemia awareness. She would benefit from CGM but patient's mother states that it is too expensive. For labs prior to next appointment, patient's mother states it is very difficult for them to come into [place] prior to appointment to complete labs. We will run a hemoglobin A1c in the office so that we can review that at appointment. 2. Education: Reviewed ABCs of diabetes management (respective goals in parentheses): A1C (7.0-8.0), blood pressure (<130/80), and cholesterol (LDL <100). 3. Compliance at present is estimated to be good. Efforts to improve compliance (if necessary) willbe directed at dietary modifications: avoid concentrated sweets and sugars and regular blood sugar monitorin times daily. 4. Follow up: 4 months 5. Record blood sugar readings as instructed. Call if BG consistently <70 or >250. [phone] Patient has been checking blood glucoses 4 times daily for the past 90 days. Patient needs to continue checking blood glucoses 4 times daily. Blood glucose readings are used to adjust medication or insulin doses for meals, monitor dietary compliance, and adjust for high or low blood glucoses by patient on a daily basis. Blood glucose readings are reviewed at office visits for adjustment in medication regimen and assistance with dietary management, and other self- management issues including exercise, etc. Prognosis: Good. Duration of need for diabetes testing equipment: Permanent #150 strips/month prescribed. 6. Bring blood sugar meter to follow up appointment. No orders of the defined types were placed in this encounter. Electronically signed by Jasmin Henriquez PA-C 10/27/19 12:30 PM documented in this encounter* Isabel Garcia CNP - 02/29/2020 10:35 AM EST Patient ID: Allison Theodore is a 19 y.o. female 2000 Subjective: Allison Theodore presents for follow-up of Type 1 diabetes Patient has had diabetes for 10 years. Diagnosed in 2009 Patient has taken Insulin for 10 years Allison Theodore is an 19-year-old female patient follows in our practice for the management of her type1 diabetes. Her most recent hemoglobin A1c is 7.1%. Her insulin pump was downloaded and reviewed. She denies any issues since her last visit with us. She did have 1 day where her blood sugar was running in upwards of 400, but eventually corrected. She does not feel that she has any trends of hypo or hyperglycemia. Currently taking: Humalog via OmniPod insulin pump. Allergies Allergen Reactions Acetaminophen Rash Current Outpatient Medications Medication Sig Dispense Refill insulin lispro (HumaLOG KwikPen) 100 unit/mL InPn Use as directed approx 50 units/day. 10 pen 4 blood sugar diagnostic (Contour Next Test Strips) strips Use as directed 8 times per day . 250 strip 11 blood sugar diagnostic (FreeStyle Test) strips Use as directed 8 times per day . 250 each 11 glucagon (glucagon) 1 mg injection 1 mg insulin lispro (HumaLOG) 100 unit/mL injection Use as directed via insulin pump, approx 100 units per day . 30 mL 12 No current facility-administered medications for this visit. Review of Systems: Review of Systems Constitutional: Negative for appetite change, fatigue and unexpected weight change. HENT: Negative for trouble swallowing and voice change. Eyes: Negative for visual disturbance. Respiratory: Negative for cough, chest tightness, shortness of breath and wheezing. Cardiovascular: Negative for chest pain, palpitations and leg swelling. Gastrointestinal: Negative for abdominal pain, constipation, diarrhea, nausea and vomiting. Endocrine: Negative for heat intolerance, polydipsia, polyphagia and polyuria. Genitourinary: Negative for dysuria, frequency and menstrual problem. Musculoskeletal: Negative for arthralgias, gait problem and myalgias. Neurological: Negative for tremors, weakness, numbness and headaches. Objective: BP 120/76 Pulse 73 Ht 5' 2 Wt 64.4 kg (142 lb) BMI 25.97 kg/m Wt Readings from Last 3 Encounters: 02/29/20 64.4 kg (142 lb) (76 %, Z= 0.70)* 10/27/19 63.6 kg (140 lb 4.8 oz) (75 %, Z= 0.68)* 06/23/19 64 kg (141 lb) (77 %, Z= 0.74)* * Growth percentiles are based on [facility] (Girls, 2-20 Years) data. Physical Exam: General: alert, appears stated age and cooperative Eyes: conjunctivae/corneas clear. PERRL, EOM's intact. Neck: no adenopathy, supple, symmetrical, trachea midline. Thyroid: No thyromegaly appreciated Lung: clear to auscultation bilaterally Heart: regular rate and rhythm, S1, S2 normal, no murmur, click, rub or gallop Extremities: extremities normal, atraumatic, no cyanosis or edema Feet: Dry skin, Bilateral Feet: warm, good capillary refill and normal DP. Monofilament exam Normal, bilateral lower extremities. Neuro: normal without focal findings, mental status, speech normal, alert and oriented x3 and VIVI[facility] Lab Review Lab Results Component Value Date HGBA1C 7.7 02/10/2019 Date: 02/29/2020 Hemoglobin A1c 7.1% 10/27/2019 Patient had labs including TFTs, and Lipids completed prior to appt today at [facility] that are stillpending. Hemoglobin A1c: 7.4% in the office 06/23/2019 Hemoglobin A1c: 6.6% in the office 02/10/19 Hgb A1c: 7.7% Creat: 0.76; eGFR: >60 AST: 19; ALT: 21 K: 3.9 11/03/18 HgbA1C 7.5% in office 06/25/18 Hgb A1c: 8.2% in office 02/18/18 HgbA1C 7.7% 08/28/17 Hemoglobin A1c 7.4% Creatinine 0.85, sodium 139, potassium 4.7 AST 19, ALT 10 Total cholesterol 140, triglycerides 74, HDL 61, LDL 64 TSH 0.864, FT4--1.14 WBC 6.6, hemoglobin 12.4, hematocrit 38.5, platelet count 262,000, MCV 77 microAlbumin/creatinine ratio 17.0 05/06/17 (in the office POC) Hgb A1C 7.5% Assessment/Plan: Dx: 1. Type 1 diabetes mellitus without complication (HCC) POC Hemoglobin A1C Comprehensive Metabolic Panel Hemoglobin A1c Microalbumin/Creatinine Ratio, UR Random T4, Free TSH 2. Insulin pump titration Type 1 diabetes, under good control Patient is currently managed with: Current Hemoglobin A1C= 7.1% 02/29/2020 Lab Results Component Value Date HGBA1C 7.7 02/10/2019 HGBA1C 7.5 (A) 05/06/2017 HGBA1C 6.9 (A) 12/31/2016 Weight trend: is stable Current diet: carbohydrate counting Current exercise: none Current monitoring regimen: home blood tests - 4 times daily Any episodes of hypoglycemia? None often, typically from stacking/frequent bolusing for high BG. NOTES: PLAN: See below Retinopathy: Negative Exam within last 12 months: no Date: Robotics Testing Technician/Feed Preparation Operator: Encouraged to get an updated eye exam. Other Ophthalmologic Conditions: None known Nephropathy: Negative Creatinine 0.85, 08/28/17 Microlbumin/creat ratio: 08/2017 Is patient on SURYA inhibitor or angiotensin II receptor polly? no Peripheral Neuropathy: Negative Denies symptoms associated with neuropathy (numbness and/or tingling) Autonomic Neuropathy: Positive Hypoglycemia unawareness. Senses low BG at 45-60 mg/dl. Other: Hyperlipidemia: Negative Currently taking: No lipid lowering agents. LFT's WNL Hypertension: Negative . Currently taking: Patient on no antihypertensives BP: 120/76 Cardiac: Negative Experiencing chest pain No . Experiencing shortness of breath No History of No history of CAD Follows routinely with: Vascular: Negative History of None Feet: Last foot exam: 02/29/20 Follows with Podiatry: No Youth Worker: History of foot ulceration: No History of amputation: No Thyroid: Lab Results Component Value Date TSH 0.843 10/27/2019 Negative Other: Plan: 1. Rx changes: none BASAL RATES: Time U/Hr. 0000 1.20 0500 1.050 1800 1.20 Insulin to Carb Ratio: 0000 1:9 1100 1:8 1600 1:7 Sensitivity: 0000 1:50 0400 1:40 No changes were made to the patient's current diabetic regimen. She was encouraged to get updated eye exam prior to next visit with us. She was also encouraged to get updated labs done prior to her next visit with us 2. Education: Reviewed ABCs of diabetes management (respective goals in parentheses): A1C (7.0-8.0), blood pressure (<130/80), and cholesterol (LDL <100). 3. Compliance at present is estimated to be good. Efforts to improve compliance (if necessary) willbe directed at dietary modifications: avoid concentrated sweets and sugars and regular blood sugar monitorin times daily. 4. Follow up: 4 months 5. Record blood sugar readings as instructed. Call if BG consistently <70 or >250. [phone] Patient has been checking blood glucoses 4 times daily for the past 90 days. Patient needs to continue checking blood glucoses 4 times daily. Blood glucose readings are used to adjust medication or insulin doses for meals, monitor dietary compliance, and adjust for high or low blood glucoses by patient on a daily basis. Blood glucose readings are reviewed at office visits for adjustment in medication regimen and assistance with dietary management, and other self- management issues including exercise, etc. Prognosis: Good. Duration of need for diabetes testing equipment: Permanent #150 strips/month prescribed. 6. Bring blood sugar meter to follow up appointment. Orders Placed This Encounter Procedures Comprehensive Metabolic Panel Hemoglobin A1c Microalbumin/Creatinine Ratio, UR Random T4, Free TSH POC Hemoglobin A1C Electronically signed by Isabel LUNA 02/28/2109:38 AM documented in this encounter* Kita Carter MD - 04/04/2019 2:29 PM EST Subjective Patient ID: Allison Theodore is a 18 y.o. female. HPI patient is a 18-year-old female with a 10-year history of type 1 diabetes mellitus, presenting for initiation of insulin pump therapy with Omni pod insulin pump. She has been trained by Shyanne Reynolds RN, insulin pump diabetes trainer on the use of the Omni pod pump including setting and adjusting basal rates, insulin: Carbohydrate ratios, correction factors and target BG. She has been instructed on howto instill insulin into the pod, and then properly apply the pod. She has been advised on the treatment of hypo-hypoglycemia and hyperglycemia with instruction to change the Omni pod if she develops h yperglycemia and not responsive to bolus doses of insulin. Currently her insulin doses are Humalog with an insulin: Carbohydrate ratio of 1: 8 at breakfast and 1: 7 at lunch and dinner, 36 units of Lantus at 7 PM, and correction dose of 1 unit: 40 points BG.She has been counting carbohydrates and generally has between 100-115 g of carbohydrates with her meals, and takes Humalog 13 units at breakfast, 16 units at lunch and dinner on average. The following portions of the patient's history were reviewed and updated as appropriate: allergies, current medications, past family history, past medical history, past social history, past surgicalhistory and problem list. Review of Systems Constitutional: Negative for appetite change, fatigue and unexpected weight change. HENT: Negative for trouble swallowing. Eyes: Negative for visual disturbance. Respiratory: Negative for cough, chest tightness, shortness of breath and wheezing. Cardiovascular: Negative for chest pain, palpitations and leg swelling. Gastrointestinal: Negative for abdominal pain, constipation, diarrhea, nausea and vomiting. Endocrine: Negative for polydipsia, polyphagia and polyuria. Genitourinary: Negative for dysuria and frequency. Musculoskeletal: Negative for arthralgias, gait problem and myalgias. Skin: Negative for rash. Neurological: Negative for weakness, numbness and headaches. Psychiatric/Behavioral: Negative for sleep disturbance. Objective BP 118/71 Pulse 81 Ht 5' 2 Wt 63 kg (139 lb) BMI 25.42 kg/m Wt Readings from Last 3 Encounters: 04/04/19 63 kg (139 lb) (75 %, Z= 0.68)* 02/15/19 62.1 kg (137 lb) (73 %, Z= 0.62)* 11/03/18 61.2 kg (135 lb) (72 %, Z= 0.57)* * Growth percentiles are based on CDC (Girls, 2-20 Years) data. Physical Exam Constitutional: Appearance: Normal appearance. She is well-developed. HENT: Head: Normocephalic and atraumatic. Eyes: Conjunctiva/sclera: Conjunctivae normal. Pupils: Pupils are equal, round, and reactive to light. Cardiovascular: Rate and Rhythm: Normal rate and regular rhythm. Heart sounds: Normal heart sounds. No murmur. Pulmonary: Effort: Pulmonary effort is normal. No respiratory distress. Breath sounds: Normal breath sounds. No wheezing or rales. Skin: General: Skin is warm. Findings: No erythema. Neurological: Mental Status: She is alert and oriented to person, place, and time. Psychiatric: Mood and Affect: Mood normal. Behavior: Behavior normal. Thought Content: Thought content normal. Judgment: Judgment normal. Assessment/Plan: Diagnoses and all orders for this visit: Type 1 diabetes mellitus without complication (HCC) Insulin pump titration: She was started on Omni pod insulin pump with Humalog insulin today in the office. Review of pump operation and settings was complete. Review of hypo and hyperglycemia treatment was complete. Her insulin pump infusion settings are as follows: Basal rates: 0000--1.3 units/h 0200--1.1 units/h 0700--1.2 units/h 2200--1.3 units/h Insulin: Carbohydrate ratio: 0000--8 1100--7 Sensitivity/correction factor: 0000--40 She is to check her blood sugars before and 2 hours after each meal, bedtime, and 2 AM until settings are stable. Her mother is to call in her blood glucoses on a daily basis for insulin pump settingadjustments until stable. She is to follow-up in 2 weeks. She has been advised to call if she has any questions concerning insulin pump operation. MD Cristina documented in this encounter* Triston Chacon PA-C - 11/03/2018 2:58 PM EDT Patient ID: Allison Theodore is a 18 y.o. female 2000 Subjective: Allison Theodore presents for follow-up of Type 1 diabetes Patient has had diabetes for 6years. Diagnosed in 2009 Patient has taken Insulin for 6years Patient reports she been feeling fairly well without any issues since her appointment with us previously. Hemoglobin A1c is 7.5% today in our office versus 8.2% at her last appt. Her glycemic controlappears to be going well per her blood sugar logs. Her and her mother bring several questions regarding insulin pumps today as she continues to use self insulin injections. Currently taking: Humalog insulin: 1:8 units at breakfast; 1:7 units at lunch; 1:7 units at supper Lantus insulin: 36 units at bedtime Allergies Allergen Reactions Acetaminophen Rash Current Outpatient Medications Medication Sig Dispense Refill insulin glargine (LANTUS SOLOSTAR) 100 unit/mL (3 mL) InPn Use as directed approx 34 units/day. 30 mL 4 insulin lispro (HumaLOG KwikPen) 100 unit/mL InPn Use as directed approx 50 units/day. 10 pen 4 BASAGLAR KWIKPEN 100 unit/mL (3 mL) InPn Inject 32 (thirty two) Units under the skin nightly. 30 mL11 flash glucose sensor (FREESTYLE SHARON 10 DAY SENSOR) Kit Use as directed, just needs sensor. . 3 kit 5 glucagon (glucagon) 1 mg injection 1 mg No current facility-administered medications for this visit. Review of Systems: Review of Systems Constitutional: Negative for appetite change, fatigue and unexpected weight change. HENT: Negative for trouble swallowing and voice change. Eyes: Negative for visual disturbance. Respiratory: Negative for cough, chest tightness, shortness of breath and wheezing. Cardiovascular: Negative for chest pain, palpitations and leg swelling. Gastrointestinal: Negative for abdominal pain, constipation, diarrhea, nausea and vomiting. Endocrine: Negative for heat intolerance, polydipsia, polyphagia and polyuria. Genitourinary: Negative for dysuria, frequency and menstrual problem. Musculoskeletal: Negative for arthralgias, gait problem and myalgias. Neurological: Negative for tremors, weakness, numbness and headaches. The following portions of the patient's history were reviewed and updated as appropriate: allergies, current medications, past family history, past medical history, past social history, past surgicalhistory and problem list. Objective: BP 117/74 Pulse 64 Ht 5' 2 Wt 61.2 kg (135 lb) BMI 24.69 kg/m Wt Readings from Last 3 Encounters: 11/03/18 61.2 kg (135 lb) (72 %, Z= 0.57)* 06/25/18 61.7 kg (136 lb) (74 %, Z= 0.64)* 02/18/18 62.1 kg (136 lb 12.8 oz) (76 %, Z= 0.70)* * Growth percentiles are based on [facility] (Girls, 2-20 Years) data. Physical Exam: General: alert, appears stated age and cooperative Eyes: conjunctivae/corneas clear. PERRL, EOM's intact. Neck: no adenopathy, supple, symmetrical, trachea midline. Thyroid: No thyromegaly appreciated Lung: clear to auscultation bilaterally Heart: regular rate and rhythm, S1, S2 normal, no murmur, click, rub or gallop Extremities: extremities normal, atraumatic, no cyanosis or edema Feet: Dry skin, Bilateral Feet: warm, good capillary refill and normal DP. Monofilament exam Normal, bilateral lower extremities. Neuro: normal without focal findings, mental status, speech normal, alert and oriented x3 and VIVIEN Lab Review Lab Results Component Value Date HGBA1C 7.5 (A) 05/06/2017 Date: 11/03/18 HgbA1C 7.5% in office 06/25/18 Hgb A1c: 8.2% in office 02/18/18 HgbA1C 7.7% 08/28/17 Hemoglobin A1c 7.4% Creatinine 0.85, sodium 139, potassium 4.7 AST 19, ALT 10 Total cholesterol 140, triglycerides 74, HDL 61, LDL 64 TSH 0.864, FT4--1.14 WBC 6.6, hemoglobin 12.4, hematocrit 38.5, platelet count 262,000, MCV 77 microAlbumin/creatinine ratio 17.0 05/06/17 (in the office POC) Hgb A1C 7.5% Assessment/Plan: Dx: 1. Type 1 diabetes mellitus without complication (HCC) Hemoglobin A1c Comprehensive Metabolic Panel Type 1 diabetes, under good control Patient is currently managed with: Currently taking: Humalog insulin: 1:8 units at breakfast; 1:7 units at lunch; 1:7 units at supper Lantus insulin: 36 units at bedtime Current Hemoglobin A1C= Lab Results Component Value Date HGBA1C 7.5 (A) 05/06/2017 HGBA1C 6.9 (A) 12/31/2016 HGBA1C 7.2 (A) 04/18/2016 Weight trend: is stable Current diet: carbohydrate counting patient did meet with community health educator one time, on 03/08/2018.They did not feel they needed to get any additional education at this time. Current exercise: none Current monitoring regimen: home blood tests - 4 times daily Home blood sugar records: per scanned results Fasting BG: Pre-lunch BG: Pre-supper BG: Bedtime BG: Any episodes of hypoglycemia? yes - occasional if working outside on chores and does not eat enoughat a meal NOTES: PLAN: See below Retinopathy: Negative Exam within last 12 months: no Date: 08/2016 Robotics Testing Technician/Feed Preparation Operator: Other Ophthalmologic Conditions: None known * patient and mother encouraged to get an eye exam soon Nephropathy: Negative Creatinine 0.85, 08/28/17 Microlbumin/creat ratio: 17, 08/2017 Plan: check following next appt. Is patient on SURYA inhibitor or angiotensin II receptor polly? no Peripheral Neuropathy: Negative Denies symptoms associated with neuropathy (numbness and/or tingling) Autonomic Neuropathy: Negative Hypoglycemia unawareness. Senses low BG at 70mg/dl. Other: Hyperlipidemia: Negative Currently taking: No lipid lowering agents. LFT's WNL Total cholesterol 140, triglycerides 74, HDL 61, LDL 64 -- 08/2017 Hypertension: Negative . Currently taking: Patient on no antihypertensives BP: 117/74 Cardiac: Negative Experiencing chest pain No . Experiencing shortness of breath No History of No history of CAD Follows routinely with: Vascular: Negative History of None Feet: Last foot exam: 06/25/18 Follows with Podiatry: No Youth Worker: History of foot ulceration: No History of amputation: No Thyroid: No results found for: TSH, K1BXNER, [id number], THYROIDAB Negative Other: Plan: 1. Rx changes: none Humalog insulin: 1:8 units at breakfast; 1:7 units at lunch; 1:7 units at supper Lantus 36 units at HS Pt to continue with current regimen. Several questions were answered regarding insulin pump therapy. Patient and her family will continue to think about this option and bring more questions to next appt. 2. Education: Reviewed ABCs of diabetes management (respective goals in parentheses): A1C (7.0-8.0), blood pressure (<130/80), and cholesterol (LDL <100). 3. Compliance at present is estimated to be good. Efforts to improve compliance (if necessary) willbe directed at dietary modifications: avoid concentrated sweets and sugars and regular blood sugar monitorin times daily. 4. Follow up: 4 months 5. Record blood sugar readings as instructed. Call if BG consistently <70 or >250. [phone] Patient has been checking blood glucoses 4 times daily for the past 90 days. Patient needs to continue checking blood glucoses 4 times daily. Blood glucose readings are used to adjust medication or insulin doses for meals, monitor dietary compliance, and adjust for high or low blood glucoses by patient on a daily basis. Blood glucose readings are reviewed at office visits for adjustment in medication regimen and assistance with dietary management, and other self- management issues including exercise, etc. Prognosis: Good. Duration of need for diabetes testing equipment: Permanent #150 strips/month prescribed. 6. Bring blood sugar meter to follow up appointment. Orders Placed This Encounter Procedures Hemoglobin A1c Comprehensive Metabolic Panel Electronically signed by: Triston Chacon PA-C, [facility] 11/07/18 9:15 PM documented in this encounter Summary Purpose Family History No Family History Records Found Relationship Condition Age at Onset Recorded Date/T javier mother Malignant neoplasm of colon Unknown grandfather Malignant neoplasm of colon Unknown grandfather Malignant neoplasm of prostate Unknown Advance Directives No Advanced Directives Records FoundDocuments on File Type Date Recorded Patient Mental Health Specialist Expl anation Advance Directives and Living Will Documents on File Type Date Recorded Patient Mental Health Specialist Expl anation Advance Directives and Livin g Will 02/29/2020 10:14 AM Reason for Referral Specialty Diagnoses / Procedures Referred By Contac t Referred To Contact Cardiology Diagnoses Type 1 diabetes mellitus without complication (HCC) Racing heart beat Isabel Garcia, EDDIE [address] [place] [address] [place] [address] Referral ID Status Reason Start Date Expiration Date V isits Requested Visits Authorized [id number] Authorized 12/03/2022 12/03/2023 1 1 Specialty Diagnoses / Procedures Referred By Contac t Referred To Contact Cardiology Diagnoses Palpitations Chest pain, unspecified type Procedures Extended Holter Monitor (3-7 days) Rico Steel MD [address] [place] [address] Referral ID Status Reason Start Date Expiration Date V isits Requested Visits Authorized [id number] Pending Review 12/25/2022 12/25/2023 1 1 Specialty Diagnoses / Procedures Referred By Contac t Referred To Contact Cardiology Diagnoses Palpitations Chest pain, unspecified type Procedures Stress test only, exercise Rico Steel MD [address] [place] [address] Referral ID Status Reason Start Date Expiration Date V isits Requested Visits Authorized [id number] Pending Review 12/25/2022 12/25/2023 1 1 Chief Complaint and Reason for Visit Chief Complaint Admit Date Pre new ob, est/ vitals June 14, 2024 10 :51am New OB, LMP 3/31, Type 1 DM, first baby July 05, 2024 1:03pm Reason for Visit Admit Date Diabetes in June 14, 2024 10:5 1am June 14, 2024 10:51a m Supervision of high-risk June 142024 10:51am Diabetes in July 05, 2024 1:0 3pm 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 July 05, 2024 1:03pm July 05, 2024 1:03p m Supervision of high-risk June 102024 1:03pm Chief Complaint Admit Date Pre new ob, est/ vitals June 14, 2024 10 :51am New OB, LMP 3/31, Type 1 DM, first baby July 05, 2024 1:03pm HIGH RISK August 02, 2024 1:02 pm 12wk OB August 02, 2024 1:16 pm Reason for Visit Admit Date Diabetes in June 14, 2024 10:5 1am June 14, 2024 10:51a m Supervision of high-risk June 142024 10:51am Diabetes in July 05, 2024 1:0 3pm 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 July 05, 2024 1:03pm July 05, 2024 1:03p m Supervision of high-risk June 102024 1:03pm Diabetes in August 02, 2024 1: 16pm 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 August 02, 2024 1:16pm August 02, 2024 1:16 pm Supervision of high-risk August 02, 2024 1:16pm Chief Complaint Admit Date Pre new ob, est/ vitals June 14, 2024 10 :51am New OB, LMP 3/31, Type 1 DM, first baby July 05, 2024 1:03pm HIGH RISK August 02, 2024 1:02 pm 12wk OB August 02, 2024 1:16 pm 16 wk ob August 29, 2024 1:07 pm Reason for Visit Admit Date Diabetes in June 14, 2024 10:5 1am June 14, 2024 10:51a m Supervision of high-risk June 142024 10:51am Diabetes in July 05, 2024 1:0 3pm 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 July 05, 2024 1:03pm July 05, 2024 1:03p m Supervision of high-risk June 102024 1:03pm Diabetes in August 02, 2024 1: 16pm 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 August 02, 2024 1:16pm August 02, 2024 1:16 pm Supervision of high-risk August 02, 2024 1:16pm Diabetes in August 29, 2024 1: 07pm 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 August 29, 2024 1:07pm August 29, 2024 1:07 pm Supervision of high-risk August 29, 2024 1:07pm Chief Complaint Admit Date Pre new ob, est/ vitals June 14, 2024 10 :51am New OB, LMP 3, Type 1 DM, first baby July 05, 2024 1:03pm HIGH RISK August 02, 2024 1:02 pm 12wk OB August 02, 2024 1:16 pm 16 wk ob August 29, 2024 1:07 pm 20 wk ob September 28, 2024 1: 40pm Reason for Visit Admit Date Diabetes in June 14, 2024 10:5 1am June 14, 2024 10:51a m Supervision of high-risk June 142024 10:51am Diabetes in July 05, 2024 1:0 3pm 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 July 05, 2024 1:03pm July 05, 2024 1:03p m Supervision of high-risk June 102024 1:03pm Diabetes in August 02, 2024 1: 16pm 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 August 02, 2024 1:16pm August 02, 2024 1:16 pm Supervision of high-risk August 02, 2024 1:16pm Diabetes in August 29, 2024 1: 07pm 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 August 29, 2024 1:07pm August 29, 2024 1:07 pm Supervision of high-risk August 29, 2024 1:07pm Diabetes in September 28, 2024 1:40pm 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 September 28, 2024 1:40pm Partial previa September 28, 2024 1: 40pm September 28, 2024 1: 40pm Supervision of high-risk Sepus 2024 1:40pm Chief Complaint Admit Date New OB, LMP 05/09, Type 1 DM, first baby July 05, 2024 1:03pm HIGH RISK August 02, 2024 1:02 pm 12wk OB August 02, 2024 1:16 pm 16 wk ob August 29, 2024 1:07 pm 20 wk ob September 28, 2024 1: 40pm 24 WK OB October 24, 2024 2:19pm Reason for Visit Admit Date Diabetes in July 05, 2024 1:0 3pm 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 July 05, 2024 1:03pm July 05, 2024 1:03p m Supervision of high-risk June 102024 1:03pm Diabetes in August 02, 2024 1: 16pm 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 August 02, 2024 1:16pm August 02, 2024 1:16 pm Supervision of high-risk August 02, 2024 1:16pm Diabetes in August 29, 2024 1: 07pm 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 August 29, 2024 1:07pm August 29, 2024 1:07 pm Supervision of high-risk August 29, 2024 1:07pm Diabetes in September 28, 2024 1:40pm 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 September 28, 2024 1:40pm Partial previa September 28, 2024 1: 40pm September 28, 2024 1: 40pm Supervision of high-risk Augus 2024 1:40pm Diabetes in October 24 2:19pm 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 October 24, 2024 2:19pm Partial previa October 24, 2024 2:19pm October 24, 2024 2:19pm Supervision of high-risk Alexandrea mber 2024 2:19pm Chief Complaint Admit Date 16 wk ob August 29, 2024 1:07 pm 20 wk ob September 28, 2024 1: 40pm 24 WK OB October 24, 2024 2:19pm 28wk ob/glucose November 21, 2024 1 1:36am Reason for Visit Admit Date Diabetes in August 29, 2024 1: 07pm 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 August 29, 2024 1:07pm August 29, 2024 1:07 pm Supervision of high-risk August 29, 2024 1:07pm Diabetes in September 28, 2024 1:40pm 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 September 28, 2024 1:40pm Partial previa September 28, 2024 1: 40pm September 28, 2024 1: 40pm Supervision of high-risk Augus t 2024 1:40pm Diabetes in October 24 2:19pm 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 October 24, 2024 2:19pm Partial previa October 24, 2024 2:19pm October 24, 2024 2:19pm Supervision of high-risk Alexandrea [facility] 2024 2:19pm Diabetes in November 21, 2024 11:36am 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 New meter and strips sent to get cheaper strips. Reason Comments Diabetes Mellitus Gap Closure (Health Maintenance) Ophthal mology Exam Never done Reason Comments Diabetes Mellitus Gap Closure (Health Maintenance) Diabeti c Eye Exam Never doneUrine Microalbumin due on 06/14/2022 Reason Comments Diabetes Mellitus Gap Closure (Health Maintenance) Diabeti c Eye Exam Never done Reason Comments Establish Care Per Isabel Garcia CNP for heart racing & heart palpitations Specialty Diagnoses / Procedures Referred By Contchristie t Referred To Contact Cardiology Diagnoses Type 1 diabetes mellitus without complication (HCC) Racing heart beat Isabel Garcia CNP [address] [place] [address] [facility] [address] [facility] [place] [address] Referral ID Status Reason Start Date Expiration Date Visits Re quested Visits Authorized [id number] Closed 12/03/2022 12/03/2023 1 1 Reason Onset Date Comments Medication Refill 01/12/2023 Reason Onset Date Comments Medication Refill 01/20/2023 Reason Onset Date Comments Medication Refill 03/12/2023 Reason Comments Diabetes Mellitus Gap Closure (Health Maintenance) Diabeti c Eye Exam Never satkR2P due on 04/20/2023 Reason Comments Diabetes Mellitus Gap Closure (Health Maintenance) Diabeti c Eye Exam Never done Reason Comments Type 1 diabetes mellitus without complic ation (HCC) Gap Closure (Health Maintenance) Diabeti c Eye Exam Never done Reason Onset Date Comments Medication Refill 10/07/2024 Reason Onset Date Comments Medication Refill 11/01/2024 INFORMATION SOURCE (unrecogn ized section and content) DATE CREATED AUTHOR 03/25/2018 [facility] DATE CREATED AUTHOR AUTHOR'S ORGANIZ ATION 06/26/2024 [facility] DATE CREATED AUTHOR AUTHOR'S ORGANIZ ATION 08/27/2024 [facility] DATE CREATED AUTHOR AUTHOR'S ORGANIZ ATION 2024 [facility] DATE CREATED AUTHOR AUTHOR'S ORGANIZ ATION 12/10/2024 [facility] DATE CREATED AUTHOR AUTHOR'S ORGANIZ ATION 12/20/2024 [facility] Care Teams (unrecognized sec tion and content) Mechanic Insulator Relationship Specialty Start Date End Date Olivia Pruett PA-C PCP - General Physician Parts Designer 06/25/18 Mechanic Insulator Relationship Specialty Start Date End Date Olivia Pruett PA-C PCP - General Physician Parts Designer 06/25/18 Mechanic Insulator Relationship Specialty Start Date End Date Olivia Pruett PA-C PCP - General Physician Parts Designer 06/25/18 Mechanic Insulator Relationship Specialty Start Date End Date Olivia Pruett PA-C PCP - General Physician Parts Designer 06/25/18 Mechanic Insulator Relationship Specialty Start Date End Date Olivia Pruett PA-C PCP - General Physician Parts Designer 06/25/18 Mechanic Insulator Relationship Specialty Start Date End Date Olivia Pruett PA-C PCP - General Physician Parts Designer 06/25/18 Mechanic Insulator Relationship Specialty Start Date End Date Olivia Pruett PA-C [address] [place] [address] PCP - General Physician Parts Designer 06/25/18 Mechanic Insulator Relationship Specialty Start Date End Date Olivia Pruett PA-C [address] [place] [address] PCP - General Physician Parts Designer 06/25/18 Mechanic Insulator Relationship Specialty Start Date End Date Olivia Pruett PA-C [address] [place] [address] PCP - General Physician Parts Designer 06/25/18 Mechanic Insulator Relationship Specialty Start Date End Date Olivia Pruett PA-C [address] [place] [address] PCP - General Physician Parts Designer 06/25/18 Mechanic Insulator Relationship Specialty Start Date End Date Olivia Pruett PA-C [address] [place] [address] PCP - General Physician Parts Designer 06/25/18 Mechanic Insulator Relationship Specialty Start Date End Date Olivia Pruett PA-C [address] [place] [address] PCP - General Physician Parts Designer 06/25/18 Mechanic Insulator Relationship Specialty Start Date End Date Olivia Pruett PA-C [address] [place] [id number] PCP - General Physician Parts Designer 06/25/18 Team Status: Active Member Role Status Dates Dr. Olivia Pruett PA-C Primary Care Provider Active Team Status: Inactive Member Role Status Dates Dr. Olivia Pruett PA-C Primary Care Provider Active Start: June 14, 2024 End: June 14, 2024 Dr. Olivia Pruett PA-C Referring Provider Active Start: June 14, 2024 End: June 14, 2024 Dr. Jenny Guerrier DO Attending Provider Activ e Start: June 14, 2024 End: June 14, 2024 Team Status: Inactive Member Role Status Dates Dr. Olivia Pruett PA-C Primary Care Provider Active Start: July 05, 2024 End: July 05, 2024 Dr. Olivia Pruett PA-C Referring Provider Active Start: July 05, 2024 End: July 05, 2024 Dr. Anitra Zamudio MD Attending Provider Active Start: July 05, 2024 End: July 05, 2024 Team Status: Active Member Role Status Dates Dr. Olivia Pruett PA-C Primary Care Provider Active Start: July 05, 2024 Dr. Anitra Zamudio MD Attending Provider Active Start: July 05, 2024 Team Status: Inactive Member Role Status Dates Dr. Olivia Pruett PA-C Primary Care Provider Active Start: July 05, 2024 End: July 05, 2024 Dr. Anitra Zamudio MD Attending Provider Active Start: July 05, 2024 End: July 05, 2024 Dr. Anitra Zamudio MD Referring Provider Active Start: July 05, 2024 End: July 05, 2024 Team Status: Active Member Role Status Dates Dr. Olivia Pruett PA-C Primary Care Provider Active Start: August 02, 2024 Dr. Anitra Zamudio MD Attending Provider Active Start: August 02, 2024 Dr. Anitra Zamudio MD Referring Provider Active Start: August 02, 2024 Team Status: Inactive Member Role Status Dates Dr. Olivia Pruett PA-C Primary Care Provider Active Start: August 02, 2024 End: August 02, 2024 Dr. Olivia Pruett PA-C Referring Provider Active Start: August 02, 2024 End: August 02, 2024 Leigh Junior SASH STICKER, SASH STICKER-C Attending Provider Active Start: August 02, 2024 End: August 02, 2024 Mechanic Insulator Relationship Specialty Start Date End Date Olivia Pruett PA-C [address] [place] [address] PCP - General Physician Parts Designer 06/25/18 Team Status: Active Member Role/Relationship Status Dates Dr. Olivia Pruett PA-C Primary Care Provider Active Team Status: Inactive Member Role/Relationship Status Dates Dr. Olivia Pruett PA-C Primary Care Provider Active Start: June 14, 2024 End: June 14, 2024 Dr. Olivia Pruett PA-C Referring Provider Active Start: June 14, 2024 End: June 14, 2024 Dr. Jenny Guerrier DO Attending Provider Activ e Start: June 14, 2024 End: June 14, 2024 Team Status: Inactive Member Role/Relationship Status Dates Dr. Olivia Pruett PA-C Primary Care Provider Active Start: July 05, 2024 End: July 05, 2024 Dr. Olivia Pruett PA-C Referring Provider Active Start: July 05, 2024 End: July 05, 2024 Dr. Anitra Zamudio MD Attending Provider Active Start: July 05, 2024 End: July 05, 2024 Team Status: Inactive Member Role/Relationship Status Dates Dr. Olivia Pruett PA-C Primary Care Provider Active Start: July 05, 2024 End: July 05, 2024 Dr. Anitra Zamudio MD Attending Provider Active Start: July 05, 2024 End: July 05, 2024 Dr. Anitra Zamudio MD Referring Provider Active Start: July 05, 2024 End: July 05, 2024 Team Status: Inactive Member Role/Relationship Status Dates Dr. Olivia Pruett PA-C Primary Care Provider Active Start: August 02, 2024 End: August 02, 2024 Dr. Anitra Zamudio MD Attending Provider Active Start: August 02, 2024 End: August 02, 2024 Dr. Anitra Zamudio MD Referring Provider Active Start: August 02, 2024 End: August 02, 2024 Team Status: Inactive Member Role/Relationship Status Dates Dr. Olivia Pruett PA-C Primary Care Provider Active Start: August 02, 2024 End: August 02, 2024 Dr. Olivia Pruett PA-C Referring Provider Active Start: August 02, 2024 End: August 02, 2024 Leigh Junior NP, SASH STICKER-C Attending Provider Active Start: August 02, 2024 End: August 02, 2024 Team Status: Inactive Member Role/Relationship Status Dates Dr. Olivia Pruett PA-C Primary Care Provider Active Start: August 29, 2024 End: August 29, 2024 Dr. Olivia Pruett PA-C Referring Provider Active Start: August 29, 2024 End: August 29, 2024 Radha Juarez CNM Attending Provider Active S tart: August 29, 2024 End: August 29, 2024 Mechanic Insulator Relationship Specialty Start Date End Date Olivia Pruett PA-C [address] [address] PCP - General Physician Parts Designer 06/25/18 Team Status: Inactive Member Role/Relationship Status Dates Dr. Olivia Pruett PA-C Primary Care Provider Active Start: September 28, 2024 End: September 28, 2024 Dr. Olivia Pruett PA-C Referring Provider Active Start: September 28, 2024 End: September 28, 2024 Dr. Jenny Guerrier DO Attending Provider Activ e Start: September 28, 2024 End: September 28, 2024 Mechanic Insulator Relationship Specialty Start Date End Date Olivia Pruett PA-C [address] [place] [address] PCP - General Physician Parts Designer 06/25/18 Mechanic Insulator Relationship Specialty Start Date End [place] [address] PCP - General Pediatrics 07/20/24 Mechanic Insulator Relationship Specialty Start Date End [place] [address] PCP - General Pediatrics 07/20/24 Team Status: Inactive Member Role/Relationship Status Dates Dr. Olivia Pruett PA-C Primary Care Provider Active Start: July 05, 2024 End: July 05, 2024 Dr. Olivia Pruett PA-C Referring Provider Active Start: July 05, 2024 End: July 05, 2024 Dr. Anitra Zamudio MD Attending Provider Active Start: July 05, 2024 End: July 05, 2024 Team Status: Inactive Member Role/Relationship Status Dates Dr. Olivia Pruett PA-C Primary Care Provider Active Start: July 05, 2024 End: July 05, 2024 Dr. Anitra Zamudio MD Attending Provider Active Start: July 05, 2024 End: July 05, 2024 Dr. Anitra Zamudio MD Referring Provider Active Start: July 05, 2024 End: July 05, 2024 Team Status: Inactive Member Role/Relationship Status Dates Dr. Olivia Pruett PA-C Primary Care Provider Active Start: August 02, 2024 End: August 02, 2024 Dr. Anitra Zamudio MD Attending Provider Active Start: August 02, 2024 End: August 02, 2024 Dr. Anitra Zamudio MD Referring Provider Active Start: August 02, 2024 End: August 02, 2024 Team Status: Inactive Member Role/Relationship Status Dates Dr. Olivia Pruett PA-C Primary Care Provider Active Start: August 02, 2024 End: August 02, 2024 Dr. Olivia Pruett PA-C Referring Provider Active Start: August 02, 2024 End: August 02, 2024 Leigh Junior NP, DALE-C Attending Provider Active Start: August 02, 2024 End: August 02, 2024 Team Status: Inactive Member Role/Relationship Status Dates Dr. Olivia Pruett PA-C Primary Care Provider Active Start: August 29, 2024 End: August 29, 2024 Dr. Olivia Pruett PA-C Referring Provider Active Start: August 29, 2024 End: August 29, 2024 Radha Juarez CNM Attending Provider Active S tart: August 29, 2024 End: August 29, 2024 Team Status: Inactive Member Role/Relationship Status Dates Dr. Olivia Pruett PA-C Primary Care Provider Active Start: September 28, 2024 End: September 28, 2024 Dr. Olivia Pruett PA-C Referring Provider Active Start: September 28, 2024 End: September 28, 2024 Dr. Jenny Guerrier DO Attending Provider Activ e Start: September 28, 2024 End: September 28, 2024 Team Status: Inactive Member Role/Relationship Status Dates Dr. Olivia Pruett PA-C Primary Care Provider Active Start: October 24, 2024 End: October 24, 2024 Dr. Olivia Pruett PA-C Referring Provider Active Start: October 24, 2024 End: October 24, 2024 Dr. Anitra Zamudio MD Attending Provider Active Start: October 24, 2024 End: October 24, 2024 Team Status: Active Member Role/Relationship Status Dates Dr. Olivia Pruett PA-C Primary care physician Active Team Status: Inactive Member Role/Relationship Status Dates Dr. Olivia Pruett PA-C Primary care physician Active Start: August 29, 2024 End: August 29, 2024 Dr. Olivia Pruett PA-C Referring Provider Active Start: August 29, 2024 End: August 29, 2024 Radha Juarez CNM Attending physician Active Start: August 29, 2024 End: August 29, 2024 Team Status: Inactive Member Role/Relationship Status Dates Dr. Olivia Pruett PA-C Primary care physician Active Start: September 28, 2024 End: September 28, 2024 Dr. Olivia Pruett PA-C Referring Provider Active Start: September 28, 2024 End: September 28, 2024 Dr. Jenny Guerrier DO Attending physician Acti ve Start: September 28, 2024 End: September 28, 2024 Team Status: Inactive Member Role/Relationship Status Dates Dr. Olivia Pruett PA-C Primary care physician Active Start: October 24, 2024 End: October 24, 2024 Dr. Olivia Pruett PA-C Referring Provider Active Start: October 24, 2024 End: October 24, 2024 Dr. Anitra Zamudio MD Attending physician Active Start: October 24, 2024 End: October 24, 2024 Team Status: Inactive Member Role/Relationship Status Dates Dr. Olivia Pruett PA-C Primary care physician Active Start: November 21, 2024 End: November 21, 2024 Dr. Olivia Pruett PA-C Referring Provider Active Start: November 21, 2024 End: November 21, 2024 Radha Juarez CNM Attending physician Active Start: November 21, 2024 End: November 21, 2024 Team Status: Active Member Role/Relationship Status Dates Dr. Olivia Pruett PA-C Primary care physician Active Start: November 21, 2024 Radha Juarez CNM Attending physician Active Start: November 21, 2024 Goals (unrecognized section and content) Type Care Experience needs fu placental l ocation USLabor Preferences-CB/BF classes: []labor support person: []labor intervention preferences: []pain management options preferred: []cut cord/dad catch: []: []PP control planned: []discussed possible routes of delivery and associated risks: []special requests: [] FOR RECORDS PERTAINING TO PATIENTS WHO ARE OR HAVE BEEN ENROLLED IN A CHEMICAL DEPENDENCY/SUBSTANCEABUSE PROGRAM, SOME INFORMATION MAY BE OMITTED. This clinical summary was aggregated from multiple sources. Caution should be exercised in using it in the provision of clinical care. This summary normalizes information from multiple sources, and as a consequence, information in this document may materially change the coding, format and clinical context of patient data. In addition, data may be omitted in some cases. CLINICAL DECISIONS SHOULD BE BASED ON THE PRIMARY CLINICAL RECORDS. [facility]. provides no warranty or guarantee of the accuracy or completeness of information in this document.
--- OUTSIDE RECORDS SUMMARY | 2025-02-05 10:17 | XMS RPT_ITS | CCD ---
Author Organization [facility] Care Team Providers Care Billet Heater Name Role Phone Wilbert Martinez Unavailable Kita Carter Admitting Unavailable Kita Carter Attending Unavailable Olivia Pruett Primary Care Provider Olivia Pruett Primary Care Provider Olivia Pruett PA-C Primary Care Provid er Olivia Pruett PA-C Primary Care Provid er Olivia Pruett PA-C Primary Care Provid er Olivia Pruett PA-C Primary Care Provid er Miya MINA, Olivia White Primary Care Provid er MIKE ALLRED Attending Unavailable OLIVIA PRUETT Primary Care Unavaila ble ISABEL GARCIA Referring Unavailable ISABEL GARCIA Admitting Unavailable Dr. Olivia Pruett PA-C Primary Care Provider [phone] Dr. Olivia Pruett PA-C Referring Provider Dr. Jenny Guerrier DO Attending Provider Lizz ROOT, Dr. Ayoub Attending Provider Dr. Anitra Zamudio MD Referring Provider Vernon HUNTER-Leigh Gonsales Attending Provider CHAPARRO, ODALIS Referring Unavailable CHAPARRO, ODALIS Attending Unavailable Radha Juarez CNM Attending Provider [phone] OLIVIA PRUETT Primary Care Unavaila ble DEMETRIUS [...] PRUETT Primary Care Unavaila mike Mcclain MD, [facility] Primary Care Provider Unavaildaniella Pruett PA-C, Dr. [...] MARCANTHONY, ANITRA E Referring Unavailabl e DOC, [facility] Primary Care Unavailable ANITRA ZAMUDIO Referring Unavailabl e ELSINOAHAcostaJONATHAN Attending Unavailable JENNY TATE Attending Unavailable DOC, [facility] Primary Care Unavailable ANITRA ZAMUDIO Referring Unavailabl e DOC, [facility] Primary Care Unavailable JENNY TATE Attending Unavailable ANITRA ZAMUDIO Referring Unavailabl e DOC, [facility] Primary Care Unavailable JENNY TATE Attending Unavailable ANITRA ZAMUDIO Referring Unavailabl e Allergies Allergy Classification Reported Allergen(s) Allergy Type Date of Onset Reaction(s) Facility Acetaminophen (1 source) Acetaminophen Drug Allergy 12-11-2014 [facility] (20 sources) acetaminophen; Translations: [ACETAMINOPHEN] Drug Allergy 12-11-2014 [facility] (1 source) Acetaminophen Drug Allergy 12-08-2024 [facility] Repository Medications Current Medications Medication Drug [...] Start: 12-03-2022 glucagon (Baqs imi) 3 mg/actuation [place] Administer 1 (one) spray into one nostril as needed . 1 each 3 12/03/2022 Active End: 03-01-2024 glucagon 1 mg Kit Indication s: Type 1 diabetes mellitus without complication (HCC) 1 mg 03/01/2024 Discontinued (Reorder (Suppress CancelRx Message to Pharmacy)) Insulin Disposable Pump (OMNIPOD 5 [id number] PODS GEN 5) MISC (2 sources) Start: 06-15-2024 Insulin Dispos able Pump (OMNIPOD 5 [id number] PODS GEN 5) MISC INJECT 1 DEVICE [...] units/day. 10 pen 4 04/18/2016 Active insulin construction project mgr cart,aut,G6/7,cn tr (Omnipod 5 G6-G7 Intro Kt,Gen5,) Crtg (9 sources) Start: 03-10-2024 insulin construction project mgr ca rt,aut,G6/7,cntr (Omnipod 5 G6-G7 Intro Kt,Gen5,) [...] flash glucose scanning reader (FreeStyle [place] 2 [place]) Misc (5 sources) Start: 03-06-2021 End: 07-16-2022 flash glucose scanning reader (FreeStyle [place] 2 [place]) Misc Use as directed for glucose monitoring . 1 each 0 03/06/2021 07/16/2022 Discontinued Start: 03-06-2021 flash glucose scanning reader (FreeStyle [place] 2 [place]) Misc Use as directed for glucose monitoring [...] Onset: 06-22-2024 06-13-2024 Chronic Comment on above: [id number]; on Humalog ; HgBA1C ordered w/NOB insulin pump on yg log, saw [facility] endocrinology, [facility] consult NILSON. baseline labs and ekg ordered. insulin pump on yg log, saw [facility] endocrinology, m managing. baseline labs and ekg pending. Nl CMP. HgbA1c 6.1. insulin pump on yg log, saw [facility] endocrinology, m managing. baseline labs and ekg pending. Nl CMP. HgbA1c 6.1. echo at 22-24wkMFM BPP wkly and BWC NST wkly start at 28 wkGrowth US Q4wk at 28 wkDel at 39 wk insulin pump on yg log, saw [facility] endocrinology, [facility] managing. baseline labs and ekg pending. Nl CMP. HgbA1c 6.1. echo at 22-24wkMFM BPP wkly and BWC NST wkly start at 28 wkGrowth US Q4wk at 28 wkDel at 37-39 wk insulin pump on yg log, saw [facility] endocrinology, [facility] managing. baseline labs and ekg pending. Nl [...] on above: MCKENNA 02/13/25, H usband: Seven [id number] MCKENNA 02/13/25 , : Seven Other complications [...] Interpretation Reference Range Facility Progress Noteon 12-19-2024 Woolen Tester Authentication Interface Message Text Comanage Pregestational T1 [...] as needed Insulin Disposable Pump (OMNIPOD 5 [id number] PODS GEN 5) MISC INJECT 1 DEVICE [...] [2] Allergies Allergen Reactions Acetaminophen Rash Normal [facility] Trimmer Machine Operator Office Visit Reporton 12-08-2024 Trimmer Machine Operator Office Visit Report [facility] [address], [address] [place] [address] OFFICE VISIT Date of Service: 12/08/24 MR#: [id number] Acct: [id number] Name: ALLISON NGUYEN Rep #: [id number] 18 : 2000 Provider: ABHAY [place] ams Age/Sex: 24/F [place] [facility] Status: Signed Intake Vital Signs 10/24/24 14:24 11/21/24 11:37 12/08/24 14:48 12/08/24 14:48 Height 5 ft 3 in 5 ft 3 in 5 ft 3 in 5 ft 3 in Weight: 152 lb 6 oz 159 lb 5 oz 162 lb 3 oz BMI 26.9 28.2 28.7 BP 97/64 116/73 109/73 Intake Visit Reasons: 30wk ob Independent Sales Representative Required: No Is patient in pain?: No [...] 1-2 times per week duration: 15-30 minutes/day ness/amish: Mennonite seatbelt use: always do you feel [...] the place (more content not included)... Normal [facility] Progress Noteon 12-06-2024 Woolen Tester Authentication Interface Message Text Comanage Pregestational T1 [...] as needed Insulin Disposable Pump (OMNIPOD 5 [id number] PODS GEN 5) MISC INJECT 1 DEVICE [...] [2] Allergies Allergen Reactions Acetaminophen Rash Normal [facility] Progress Noteon 11-23-2024 Woolen Tester Authentication Interface Message Text Comanage Pregestational T1 [...] all afternoon hyperglycemia on Sundays- meal after zoroastrian and notes decreased activity. Encouraged pt to [...] on 11/09/2024) Insulin Disposable Pump (OMNIPOD 5 [id number] PODS GEN 5) MISC INJECT 1 DEVICE UNDER THE SKIN EVERY 72 HOURS Vit-Fe Fumarate-FA ( PO) Take by mouth (Patient not taking: Reported on 11/23/2024) No facility-administer ed encounter medications on file as of 11/23/2024. [2] Allergies Allergen Reactions Acetaminophen Rash Normal [facility] Absolute lymphocyte countOrd ered By: Anitra Zamudio on 11-21-2024 Lymphocytes Auto (Unsp spec) [#/Vol] 2.10 10*3/uL 0.83-4.51 [facility] Absolute neutrophil countOrd ered By: Anitra Zamudio on 11-21-2024 Neutrophils (Bld) [#/Vol] 9.0 10*3/uL High 2.0-7.7 [facility] Automated lymphocyte count a s percentage of total leukocytesOrdered By: Anitra Zamudio on 11-21-2024 Lymphocytes/100 WBC Auto (Unsp spec) 17.6 % Low 19-41 [facility] Basophil percentageOrdered B y: Anitra Zamudio on 11-21-2024 Basophils/100 WBC (Bld) 0.3 % 0-1 [facility] CBC W/Diff, Automatedon 11-09-2024 Absolute Lymph 2.10 X10 3/uL Normal 0.83-4.51 [facility] Comment on above: Performed By: #### L 100.0100, L3890.6006, L509.8002 ####[facility] [address] [place], [address] Absolute Neut 9.0 X10 3/uL High 2.0-7.7 [facility] Comment on above: Performed By: #### L 100.0100, L3890.6006, L509.8002 ####[facility] [address] [place], [address] Basophils/100 WBC (Bld) 0.3 % Normal 0-1 [facility] Comment on above: Performed By: #### L 100.0100, L3890.6006, L509.8002 ####[facility] [address] [place], [address] Eosinophils/100 WBC (Bld) 1.5 % Normal 0-5 [facility] Comment on above: Performed By: #### L 100.0100, L3890.6006, L509.8002 ####[facility] [address] [place], [address] Erythrocyte distribution width (RBC) [Ratio] 13.1 % Normal 11.6-14.6 [facility] Comment on above: Performed By: #### L 100.0100, L3890.6006, L509.8002 ####[facility] [address] [place], [address] Hematocrit (Bld) [Volume fraction] 38.0 % Normal 37-47 [facility] Comment on above: Performed By: #### L 100.0100, L3890.6006, L509.8002 ####[facility] [address] [place], [address] Hemoglobin (Bld) [Mass/Vol] 12.7 g/dL Normal 12.0-15.0 [facility] Comment on above: Performed By: #### L 100.0100, L3890.6006, L509.8002 ####[facility] [address] [place], [address] IG% 0.800 Normal 0.0-0.9 [facility] Comment on above: Result Comment: IG% - Immature Granulocytes (promyelocytes, myelocytes and metamyelocytes) > 1% indicates that a LEFT SHIFT is Present. Performed By: #### L 100.0100, L3890.6006, L509.8002 ####[facility] [address] [place], [address] Lymphocytes/100 WBC (Bld) 17.6 % Low 19-41 [facility] Comment on above: Performed By: #### L 100.0100, L3890.6006, L509.8002 ####[facility] [address] [place], [address] MCH (RBC) [Entitic mass] 27.9 pg Normal 27.0-32.0 [facility] Comment on above: Performed By: #### L 100.0100, L3890.6006, L509.8002 ####[facility] [address] [place], [address] MCHC (RBC) [Mass/Vol] 33.4 g/dL Normal 32-36 [facility] Comment on above: Performed By: #### L 100.0100, L3890.6006, L509.8002 ####[facility] [address] [place], [address] MCV (RBC) [Entitic vol] 83.5 fL Normal 81-99 [facility] Comment on above: Performed By: #### L 100.0100, L3890.6006, L509.8002 ####[facility] [address] [place], [address] Monocytes/100 WBC (Bld) 4.4 % Normal 0-10 [facility] Comment on above: Performed By: #### L 100.0100, L3890.6006, L509.8002 ####[facility] [address] [place], [address] Neutrophils/100 WBC (Bld) 75.4 % High 47-70 [facility] Comment on above: Performed By: #### L 100.0100, L3890.6006, L509.8002 ####[facility] [address] [place], [address] Nucleated RBC (Bld) [#/Vol] 0 10*3/uL Normal 0-5 [facility] Comment on above: Performed By: #### L 100.0100, L3890.6006, L509.8002 ####[facility] [address] [place], [address] Platelet mean volume (Bld) [Entitic vol] 9.5 fL Normal 6.2-12.0 [facility] Comment on above: Performed By: #### L 100.0100, L3890.6006, L509.8002 ####[facility] [address] [place], [address] Platelets (Bld) [#/Vol] 220 10*3/uL Normal 150-450 [facility] Comment on above: Performed By: #### L 100.0100, L3890.6006, L509.8002 ####[facility] [address] [place], [address] RBC (Bld) [#/Vol] 4.55 10*6/uL Normal 4.2-5.4 [facility] Comment on above: Performed By: #### L 100.0100, L3890.6006, L509.8002 ####[facility] [address] [place], [address] RDW SD 39.7 fl Normal 35.1-43.9 [facility] Comment on above: Performed By: #### L 100.0100, L3890.6006, L509.8002 ####[facility] [address] [place], [address] WBC (Bld) [#/Vol] 11.9 10*3/uL High 4.4-11.0 [facility] Comment on above: Performed By: #### L 100.0100, L3890.6006, L509.8002 ####[facility] [address] [place], [address] Eosinophil percentageOrdered By: Anitra Zamudio on 11-21-2024 Eosinophils/100 WBC (Bld) 1.5 % 0-5 [facility] Erythrocyte distribution wid th ratioOrdered By: Anitra Zamudio on 11-21-2024 Erythrocyte distribution width (RBC) [Ratio] 13.1 % 11.6-14.6 [facility] Erythrocyte distribution wid th standard deviationOrdered By: Anitra Zamudio on 11-21-2024 Erythrocyte distribution width (RBC) [Ratio] 39.7 fl 35.1-43.9 [facility] HIVon 11-21-2024 HIV Non-Reactive Normal Nonreactive [facility] Comment on above: Result Comment: Non- Reactive Reactive Repeatedly reactive samples must be confirmed according to CDC recommended confirmatory algorithms. The subresults for either HIVAG or AHIV can be used as an aid in the selection of the confirmation algorithm for reactive samples. Send out specimens with Reactive results to [facility] for confirmation. Order the HIV antibody detection and differentiation: lc#[id number] Performed By: #### L 100.0100, L3890.6006, L509.8002 ####[facility] [address] [place], [address] Hematocrit Auto (Bld) [Volum e fraction]Ordered By: Anitra Zamudio on 11-21-2024 Hematocrit (Bld) [Volume fraction] 38.0 % 37-47 [facility] Hemoglobin measurementOrdere d By: Anitra Zamudio on 11-21-2024 Hemoglobin (Bld) [Mass/Vol] 12.7 g/dL 12.0-15.0 [facility] Immature granulocytes/100 WB C Auto (Bld)Ordered By: Anitra Zamudio on 11-21-2024 Immature granulocytes/100 WBC (Bld) 0.800 % 0.0-0.9 [facility] Comment on above: IG% - Immature Granu locytes (promyelocytes, myelocytes and metamyelocytes) > 1% indicates that a LEFT SHIFT is Present. Laboratory - Chemistry and C hemistry - challengeOrdered By: Radha Juarez on 11-21-2024 Glucose Ql (U) Negative [facility] Laboratory - UrinalysisOrder ed By: Radha Juarez on 11-21-2024 Protein Ql (U) Negative [facility] MCV (mean corpuscular volume ) determinationOrdered By: Anitra Zamudio on 11-21-2024 MCV (RBC) [Entitic vol] 83.5 fL 81-99 [facility] Mean corpuscular hemoglobin (MCH) determinationOrdered By: Anitra Zamudio on 11-21-2024 MCH (RBC) [Entitic mass] 27.9 pg 27.0-32.0 [facility] Mean corpuscular hemoglobin concentration (MCHC) determinationOrdered By: Anitra Zamudio on 11-21-2024 MCHC (RBC) [Mass/Vol] 33.4 g/dL 32-36 [facility] Mean platelet volume determi nationOrdered By: Anitra Zamudio on 11-21-2024 Platelet mean volume (Bld) [Entitic vol] 9.5 fL 6.2-12.0 [facility] Monocyte percentageOrdered B y: Anitra Zamudio on 11-21-2024 Monocytes/100 WBC (Bld) 4.4 % 0-10 [facility] Neutrophil percentageOrdered By: Anitra Zamudio on 11-21-2024 Neutrophils/100 WBC (Bld) 75.4 % High 47-70 [facility] No Panel InformationOrdered By: Anitra Zamudio on 11-21-2024 HIV (1&2) Antibody Non-Reactive Nonreactive [facility] Comment on above: Non-ReactiveReactive Repeatedly reactive samples must be confirmed according to CDC recommended confirmatory algorithms. The subresults for either HIVAG or AHIV can be used as an aid in the selection of the confirmation algorithm for reactive samples.Send out specimens with Reactive results to [facility] for confirmation.Order the HIV antibody detection and differentiation: #[id number] Nucleated red blood cell per centageOrdered By: Anitra Zamudio on 11-21-2024 Nucleated RBC/100 WBC (Bld) [Ratio] 0 % 0-5 [facility] Trimmer Machine Operator Office Visit Reporton 11-21-2024 Trimmer Machine Operator Office Visit Report [facility] [address], [address] [place] [address] OFFICE VISIT Date of Service: 11/21/24 MR#: [id number] Acct: [id number] Name: ALLISON NGUYEN Rep #: [id number] 28 : 2000 Provider: ABHAY [place] ams Age/Sex: 24/F [place] [facility] [place] Status: Signed Intake Vital Signs 09/28/24 13:43 10/24/24 14:24 11/21/24 11:37 Height 5 ft 3 in 5 ft 3 in 5 ft 3 in Weight: 152 lb 6 oz 159 lb 5 oz BMI 26.9 28.2 BP 97/64 116/73 Intake Visit Reasons: 28wk ob/glucose Chief Complaint: 28wk OB Independent Sales Representative Required: No Is patient in pain?: No [...] 1-2 times per week duration: 15-30 minutes/day ness/amish: Mennonite seatbelt use: always do you feel [...] no vb/cr amping[facility]. Blood sugars are up and down Has MFM US scheduled. 09/28/24 -???-???-???-???-?? ?-???-???-???-???-? ??-???-???- 20w 2d 147 lb 3 oz 109/70 Negative -???-???-???-???-?? ?-???-???-???-???-? ??-???-???- Negative 139 -???-???-???-???-?? ?-???-???-???-???-? ??-???-???- JV- pt has a previa of the tail end of the placenta over the cervix. w (more content not included)... Normal [facility] Platelet countOrdered By: Pollo Zamudio on 11-21-2024 Platelets (Bld) [#/Vol] 220 10*3/uL 150-450 [facility] RBC Auto (Bld) [#/Vol]Ordere d By: Anitra Martinezcallie on 11-21-2024 RBC (Bld) [#/Vol] 4.55 10*6/uL 4.2-5.4 [facility] Syphilis Antibodieson 2024 Syphilis Abs Non-Reactive Normal Nonreactive [facility] Comment on above: Performed By: #### L 100.0100, L3890.6006, L509.8002 ####[facility] [address] [place], [place], [id number] White blood cell (WBC) count Ordered By: Anitra Zamudio on 11-21-2024 WBC (Bld) [#/Vol] 11.9 10*3/uL High 4.4-11.0 [facility] Progress Noteon 11-09-2024 Woolen Tester Authentication Interface Message Text Comanage Pregestational T1 [...] SENSOR) MISC Insulin Disposable Pump (OMNIPOD 5 [id number] PODS GEN 5) MISC INJECT 1 DEVICE [...] [2] Allergies Allergen Reactions Acetaminophen Rash Normal [facility] Progress Noteon 10-26-2024 Woolen Tester Authentication Interface Message Text Comanage Pregestational T1 [...] SENSOR) MISC Insulin Disposable Pump (OMNIPOD 5 [id number] PODS GEN 5) MISC INJECT 1 DEVICE [...] [2] Allergies Allergen Reactions Acetaminophen Rash Normal [facility] Laboratory - Chemistry and C hemistry - challengeOrdered By: Anitra Zamudio on 10-24-2024 Glucose Ql (U) Negative [facility] Laboratory - UrinalysisOrder ed By: Anitra Zamudio on 10-24-2024 Protein Ql (U) Negative [facility] Trimmer Machine Operator Office Visit Reporton 10-24-2024 Trimmer Machine Operator Office Visit Report [facility] [address], [address] [place] [address] OFFICE VISIT Date of Service: 10/24/24 MR#: [id number] Acct: [id number] Name: ALLISON NGUYEN Rep #: [id number] 06 : 2000 Provider: Dr. Anitra monreal MD Age/Sex: 24/F Location[place] [facility] [place] Status: Signed Intake Vital Signs 08/29/24 13:12 09/28/24 13:43 10/24/24 14:24 Height 5 ft 3 in 5 ft 3 in 5 ft 3 in Weight: 140 lb 8 oz 152 lb 6 oz BMI 24.8 26.9 BP 108/71 97/64 Intake Visit Reasons: 24 WK OB Independent Sales Representative Required: No Is patient in pain?: No [...] 1-2 times per week duration: 15-30 minutes/day ness/amish: Mennonite seatbelt use: always do you feel [...] pelvic rest. (more content not included)... Normal [facility] HEMOGLOBIN A1Con 10-12-2024 HbA1c (Bld) [Mass fraction] 5.7 % High <=5.6 [facility] Comment on above: Reference Interval: <5.7% [...] Interpretation and review of laboratory results Abnormal [facility] Progress Noteon 10-12-2024 Woolen Tester Authentication Interface Message Text Comanage Pregestational T1 [...] as needed Insulin Disposable Pump (OMNIPOD 5 [id number] PODS GEN 5) MISC INJECT 1 DEVICE UNDER THE SKIN EVERY 72 HOURS HUMALOG 100 UNIT/ML SOLN Use with insulin pump, up to 100u per day . Vit-Fe Fumarate-FA ( PO) Take by mouth No facility-administer ed encounter medications on file as of 10/12/2024. [2] Allergies Allergen Reactions Acetaminophen Rash Normal [facility] TSH WITH REFLEX TO T4Luanne 10-12-2024 TSH 1.130 ???IU/mL Normal 0.300-4.200 [facility] Comment on above: Order Comment: Relea se to patient->Automatic TSH with Reflex to T4Luanne 10-12-2024 Interpretation and review of laboratory results Normal [facility] TSH Qn 1.130 m[IU]/L [facility] Progress Noteon 09-29-2024 Woolen Tester Authentication Interface Message Text Comanage Pregestational T1 [...] 28 weeks echo scheduled 10/12 Assessment/Plan: Allison Nguyen is a 24 y.o. at 20w3d with: [...] as needed Insulin Disposable Pump (OMNIPOD 5 [id number] PODS GEN 5) MISC INJECT 1 DEVICE UNDER THE SKIN EVERY 72 HOURS No facility-administer ed encounter medications on file as of 09/29/2024. [2] Allergies Allergen Reactions Acetaminophen Rash Normal [facility] Laboratory - Chemistry and C hemistry - challengeOrdered By: Jenny Ervin on 09-28-2024 Glucose Ql (U) Negative [facility] Laboratory - UrinalysisOrder ed By: Jenny Ervin on 09-28-2024 Protein Ql (U) Negative [facility] Trimmer Machine Operator Office Visit Reporton 09-28-2024 Trimmer Machine Operator Office Visit Report [facility] [address], [address] [place] [address] OFFICE VISIT Date of Service: 09/28/24 MR#: [id number] Acct: [id number] Name: ALLISON NGUYEN Rep #: [id number] 71 : 2000 Provider: Dr. Jenny Ayesr DO Age/Sex: 24/F Location: [facility] [place] Status: Signed Intake Vital Signs 08/02/24 13:27 08/29/24 13:12 09/28/24 13:42 09/28/24 13:43 Height 5 ft 3 in 5 ft 3 in 5 ft 3 in 5 ft 3 in Weight: 147 lb 3 oz BMI 26.0 BP 109/70 Intake Visit Reasons: 20 wk ob Independent Sales Representative Required: No Is patient in pain?: No [...] 1-2 times per week duration: 15-30 minutes/day ness/amish: Mennonite seatbelt use: always do you feel [...] she wants them to be. SHe [facility] tomorrow to discuss insulin pump. Continue [...] use, Sea (more content not included)... Normal [facility] Progress Noteon 09-14-2024 Woolen Tester Authentication Interface Message Text Comanage Pregestational T1 [...] as needed Insulin Disposable Pump (OMNIPOD 5 [id number] PODS GEN 5) MISC INJECT 1 DEVICE UNDER THE SKIN EVERY 72 HOURS HUMALOG 100 UNIT/ML SOLN Use with insulin pump, up to 100u per day . Vit-Fe Fumarate-FA ( PO) Take by mouth No facility-administer ed encounter medications on file as of 09/14/2024. [2] Allergies Allergen Reactions Acetaminophen Rash Normal [facility] Progress Noteon 09-01-2024 Woolen Tester Authentication Interface Message Text Comanage Pregestational T1 [...] mouth daily Insulin Disposable Pump (OMNIPOD 5 [id number] PODS GEN 5) MISC INJECT 1 DEVICE [...] [2] Allergies Allergen Reactions Acetaminophen Rash Normal [facility] HbA1c (Bld) [Mass fraction]O rdered By: Blake Rai on 08-30-2024 Interpretation and review of laboratory results Normal [facility] POC Hemoglobin [id number] By : Blake Rai on 08-30-2024 HbA1c (Bld) [Mass fraction] 5.5 % - 5.6 % [facility] Laboratory - Chemistry and C hemistry - challengeOrdered By: Radha Juarez on 08-29-2024 Bilirubin Ql (U) Negative [facility] Glucose Ql (U) 250 g/dL [facility] Ketones Ql (U) Negative [facility] pH (U) 6 [pH] [facility] [facility] Urobilinogen (U) [Mass/Vol] Negative [facility] - Hematology and Cell countsOrdered By: Radha Juarez on 08-29-2024 Hemoglobin Ql (U) Negative [facility] - Specimen inform ationOrdered By: Radha Juarez on 08-29-2024 Clarity (U) Clear [facility] Color (U) YELLOW [facility] - UrinalysisOrder ed By: Radha Juarez on 08-29-2024 Nitrite Ql (U) Negative [facility] Protein Ql (U) Negative [facility] No Panel InformationOrdered By: Radha Juarez on 08-29-2024 Urine Leukocytes Negatve [facility] Urine Non-Hemolyzed Blood [facility] Trimmer Machine Operator Office Visit Reporton 08-29-2024 Trimmer Machine Operator Office Visit Report 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 baseline labs and ekg pending. Nl CMP. HgbA1c 6.1. echo at 22-24wk MFM BPP wkly and BWC NST wkly start at 28 wk Growth US Q4wk at 28 wk Del at 39 wk (2) Supervision of high-risk : Status: Acute Qualifiers: Trimester: first trimester Qualified Code(s): O09.91 - Supervision of high risk , unspecified, first trimester Comment: [id number] MCKENNA 02/13/25, : Seven (3) : Status: Acute Qualifiers: Weeks of gestation: 16 weeks Qualified Code(s): Z3A.16 - 16 weeks gestation of Comment: Discussed genetic/carrier testing - declined. (4) Diabetes in : Status: Acute Qualifiers: Diabetes in type: pre-existing, type 1 Trimester: second trimester Qualified Code(s): O24.012 - Pre-existing type 1 diabetes mellitus, in , second trimester Comment: [id number]; on Humalog; HgBA1C ordered w/NOB Orders: Orders [...] 16 wk ob Chief Complaint: 16wk OB Independent Sales Representative Required: No Is patient in pain?: No [...] 1-2 times per week duration: 15-30 minutes/day ness/amish: Mennonite seatbelt use: always do you feel [...] -???-???-???-???-?? ?-???-???-?? (more content not included)... Normal [facility] ABO/RH(D)on 08-24-2024 ABO/RH(D) ABO/RH(D) O POSITIVE Testing performed at [facility], [place], [place] [address] Normal [facility] Comment on above: Performed By: #### A BRH #### Testing [place] [address] ANTIBODY SCREENon 08-24-2024 Antibody screen ANTIBODY SCREEN NEGATIVE WORKUP EXPIRES 08/26/2024,2359 Testing performed at [address] Comment on above: Performed By: #### R ESCRN #### Testing [place] [address] FAX REQUESTon 08-23-2024 FAX TO [facility] Comment on above: Result Comment: Test ing performed at [place] [address] Performed By: #### F X #### Testing [place] [address] Progress Noteon 08-17-2024 Woolen Tester Authentication Interface Message Text Comanage Pregestational T1 [...] as needed Insulin Disposable Pump (OMNIPOD 5 [id number] PODS GEN 5) MISC INJECT 1 DEVICE UNDER THE SKIN EVERY 72 HOURS HUMALOG 100 UNIT/ML SOLN Use with insulin pump, up to 100u per day . Vit-Fe Fumarate-FA ( PO) Take by mouth No facility-administer ed encounter medications on file as of 08/17/2024. [2] Allergies Allergen Reactions Acetaminophen Rash Normal [facility] Progress Noteon 08-04-2024 Woolen Tester Authentication Interface Message Text [facility] Co-Management Visit Allison Nguyen is being [...] 3d with an MCKENNA of 02/13/2025. 2. Ramer rump length measurement is consistent with established [...] her pump. This was obtained through her gardener for the past 14 days July 22 [...] 10 PM 6 Aldair Hutchison MD Normal [facility] Electrocardiogram reportOrde red By: Ajit Tompkins on 08-03-2024 EKG study [facility] [address] [place] [address] 12 Lead EKG 08/02/24 1309 MR#: [id number] Acct: [id number] Name: ALLISON NGUYEN Rep #:[id number] : [...] Borderline ECG Confirmed by AJIT TOMPKINS MD ([id number]), staff editor VELVET GANDHI ([id number]) on 511:01:50 AM Referred By: Anitra Zamudio Confirmed By: AJIT TOMPKINS MD 08/03/24 1101 Date _ Ajit Tompkins MD CC: LEOPOLDO Pruett; Dr. Anitra Zamudio MD ~ Signed [facility] Other 12 Lead EKGon 08-02-2024 12 Lead EKG [facility] [address] [place] [address] 12 Lead EKG 08/02/24 1309 MR#: [id number] Acct: [id number] Name: ALLISON NGUYEN Rep #: [id number] : 2000 23 From: Ajit Tompkins MD [...] Borderline ECG Confirmed by AJIT TOMPKINS MD ([id number]), staff editor VELVET GANDHI ([id number]) on 08/03/2024 11:01:50 AM Referred By: Anitra Zamudio Confirmed By: AJIT TOMPKINS MD 08/03/24 1101 Date Ajit Tompkins MD CC: LEOPOLDO Pruett; Dr. Anitra Zamudio MD Signed Normal [facility] - Chemistry and C hemistry - challengeOrdered By: Leigh Junior on 08-02-2024 Glucose Ql (U) Negative [facility] - UrinalysisOrder ed By: Leigh Junior on 08-02-2024 Protein Ql (U) Negative [facility] Trimmer Machine Operator Office Visit Reporton 08-02-2024 Trimmer Machine Operator Office Visit Report [facility]'s [address], [address] [place] [address] OFFICE VISIT Date of Service: 08/02/24 MR#: [id number] Acct: [id number] Name: ALLISON NGUYEN Rep #: [id number] : 2000 Provider: MAMI gould Age/Sex: 23/F [place] [facility] [place] Status: Signed Intake Vital Signs 07/05/24 13:07 08/02/24 13:27 Height 5 ft 3 in 5 ft 3 in Weight: 134 lb 3 oz BMI 23.8 BP 105/68 Intake Visit Reasons: 12wk OB Chief Complaint: 12 Week OB Independent Sales Representative Required: No Is patient in pain?: No [...] tabs prochlorperazine 25 mg rectal 25 mg OR BID #12 ea 06/18/2408/02 Rx suppository (Compazine) [...] 1-2 times per week duration: 15-30 minutes/day ness/amish: Mennonite seatbelt use: always do you feel [...] first trimester (more content not included)... Normal [facility] PAP I-G w/rfx hrHPV-Aptimaon 07-11-2024 ADEQ Comment Normal . [facility] Comment on above: Order Comment: Dalton cool Comment: [id number] Comment: No. of containers..01 ThinPrep Vial Result Comment: Sati sfactory for evaluation. Endocervical and/or squamous metaplastic cells (endocervical component) are present. Performed By: #### L 501.0900, M100.2200, L7000.1800, L7400.0353 ####[facility] [address] [place], [address] COMM . Normal . [facility] Comment on above: Order Comment: Dalton cool Comment: [id number] Comment: No. of containers..01 ThinPrep Vial Performed By: #### L 501.0900, M100.2200, L7000.1800, L7400.0353 ####[facility] [address] [place], [place], [id number] COMMENT Comment Normal . [facility] Comment on above: Order Comment: Dalton cool Comment: [id number] Comment: No. of containers..01 ThinPrep Vial Result Comment: This liquid based ThinPrep(R) pap test was screened with the use of an image guided system. Performed By: #### L 501.0900, M100.2200, L7000.1800, L7400.0353 ####[facility] [address] [place], [place], [id number] DIAG Comment Normal . [facility] Comment on above: Order Comment: Speci men Comment: [id number] Comment: No. of containers..01 ThinPrep Vial Result Comment: NEGA TIVE FOR INTRAEPITHELIAL LESION OR MALIGNANCY. THIS SPECIMEN WAS RESCREENED PART OF OUR MOLD CARPENTER PROGRAM. Performed By: #### L 501.0900, M100.2200, L7000.1800, L7400.0353 ####[facility] [address] [place], [address] HPV RFLX Comment Normal . [facility] Comment on above: Order Comment: Speci men Comment: [id number] Comment: No. of containers..01 ThinPrep Vial Result Comment: The HPV DNA reflex criteria were not met with this specimen result therefore, no HPV testing was performed. Performed at: [address] [id number] Accounting Systems Analyst: Indiana Magaña MD, Phone: [phone] Performed By: #### L 501.0900, M100.2200, L7000.1800, L7400.0353 ####[facility] [address] [place], [place], [address] PAPSMR Comment Normal . [facility] Comment on above: Order Comment: Speci men Comment: [id number] Comment: No. of containers..01 ThinPrep Vial Result [...] By: #### L 501.0900, M100.2200, L7000.1800, L7400.0353 ####[facility] [address] [place], [address] PERFORM Comment Normal . [facility] Comment on above: Order Comment: Speci men Comment: [id number] Comment: No. of containers..01 ThinPrep Vial Result Comment: Caitie Swenson, Installation And Service Technician (ASCP) Performed By: #### L 501.0900, M100.2200, L7000.1800, L7400.0353 ####[facility] [address] [place], [address] QC REV Comment Normal . [facility] Comment on above: Order Comment: Specshandra cool Comment: [id number] Comment: No. of containers..01 ThinPrep Vial Result Comment: Muna Rowe, Installation And Service Technician (ASCP) Performed By: #### L 501.0900, M100.2200, L7000.1800, L7400.0353 ####[facility] [address] [place], [address] Chlamydia/GC KATE aptimaon CHLAMY,NUC ACID Negative Normal Negative [facility] Comment on above: Performed By: #### L 501.0900, M100.2200, L7000.1800, L7400.0353 ####[facility] [address] [place], [address] GC BY NUC ACID Negative Normal Negative [facility] Comment on above: Result Comment: Perf ormed at: =G - [facility] [address] [place] [id number] Accounting Systems Analyst: Indiana Magaña MD, Phone: [phone] Performed By: #### L 501.0900, M100.2200, L7000.1800, L7400.0353 ####[facility] [address] [place], [place], [address] Urine Cultureon 07-08-2024 URC Below infection level. Mixed Gram Positive Organisms [place] Count 1000-10,000 MIXC Mixed contaminants. Submit a new specimen if indicated. Normal [facility] Comment on above: Performed By: #### L 501.0900, M100.2200, L7000.1800, L7400.0353 ####[facility] [address] [place], [address] Absolute lymphocyte countOrd ered By: Anitra Zamudio on 07-05-2024 Lymphocytes Auto (Unsp spec) [#/Vol] 2.68 10*3/uL 0.83-4.51 [facility] Absolute neutrophil countOrd ered By: Anitra Zamudio on 07-05-2024 Neutrophils (Bld) [#/Vol] 10.9 10*3/uL High 2.0-7.7 [facility] Anion gap in Serum or Plasma Ordered By: Anitra Zamudio on 07-05-2024 Anion gap [Moles/Vol] 12 mmol/L 5-15 [facility] Automated lymphocyte count a s percentage of total leukocytesOrdered By: Anitra Zamudio on 07-05-2024 Lymphocytes/100 WBC Auto (Unsp spec) 17.9 % Low 19-41 [facility] BUN/creatinine ratioOrdered By: Anitra Zamudio on 07-05-2024 Urea nitrogen/Creatinine [Mass ratio] 15.0 mg/mg 10-20 [facility] Basophil percentageOrdered B y: Anitra Zamudio on 07-05-2024 Basophils/100 WBC (Bld) 0.3 % 0-1 [facility] Bilirubin, totalOrdered By: Anitra Zamudio on 07-05-2024 Bilirubin [Mass/Vol] 0.17 mg/dL 0.00-1.30 [facility] CBC W/Diff, Automatedon 06-10 Absolute Lymph 2.68 X10 3/uL Normal 0.83-4.51 [facility] Comment on above: Performed By: #### B TS, L3890.6301, L501.9985, L100.0100, L500.4050, L3890.6006, L509.8002, L509.4006, L501.9520, L3890.6102 #### [facility] [address] [place], [address] Absolute Neut 10.9 X10 3/uL High 2.0-7.7 [facility] Comment on above: Performed By: #### B TS, L3890.6301, L501.9985, L100.0100, L500.4050, L3890.6006, L509.8002, L509.4006, L501.9520, L3890.6102 #### [facility] [address] [facility] [place], [address] Basophils/100 WBC (Bld) 0.3 % Normal 0-1 [facility] Comment on above: Performed By: #### B TS, L3890.6301, L501.9985, L100.0100, L500.4050, L3890.6006, L509.8002, L509.4006, L501.9520, L3890.6102 #### [facility] [address] [facility] [place], [address] Eosinophils/100 WBC (Bld) 1.8 % Normal 0-5 [facility] Comment on above: Performed By: #### B TS, L3890.6301, L501.9985, L100.0100, L500.4050, L3890.6006, L509.8002, L509.4006, L501.9520, L3890.6102 #### [facility] [address] [place], [address] Erythrocyte distribution width (RBC) [Ratio] 12.7 % Normal 11.6-14.6 [facility] Comment on above: Performed By: #### B TS, L3890.6301, L501.9985, L100.0100, L500.4050, L3890.6006, L509.8002, L509.4006, L501.9520, L3890.6102 #### [facility] [address] [place], [address] Hematocrit (Bld) [Volume fraction] 37.4 % Normal 37-47 [facility] Comment on above: Performed By: #### B TS, L3890.6301, L501.9985, L100.0100, L500.4050, L3890.6006, L509.8002, L509.4006, L501.9520, L3890.6102 #### [facility] [address] [facility] [place], [address] Hemoglobin (Bld) [Mass/Vol] 12.2 g/dL Normal 12.0-15.0 [facility] Comment on above: Performed By: #### B TS, L3890.6301, L501.9985, L100.0100, L500.4050, L3890.6006, L509.8002, L509.4006, L501.9520, L3890.6102 #### [facility] [address] [facility] [place], [address] IG% 2.200 High 0.0-0.9 [facility] Comment on above: Result Comment: IG% - Immature Granulocytes (promyelocytes, myelocytes and metamyelocytes) > 1% indicates that a LEFT SHIFT is Present. Performed By: #### B TS, L3890.6301, L501.9985, L100.0100, L500.4050, L3890.6006, L509.8002, L509.4006, L501.9520, L3890.6102 #### [facility] [address] [place], [address] Lymphocytes/100 WBC (Bld) 17.9 % Low 19-41 [facility] Comment on above: Performed By: #### B TS, L3890.6301, L501.9985, L100.0100, L500.4050, L3890.6006, L509.8002, L509.4006, L501.9520, L3890.6102 #### [facility] [address] [place], [address] MCH (RBC) [Entitic mass] 27.0 pg Normal 27.0-32.0 [facility] Comment on above: Performed By: #### B TS, L3890.6301, L501.9985, L100.0100, L500.4050, L3890.6006, L509.8002, L509.4006, L501.9520, L3890.6102 #### [facility] [address] [facility] [place], [address] MCHC (RBC) [Mass/Vol] 32.6 g/dL Normal 32-36 [facility] Comment on above: Performed By: #### B TS, L3890.6301, L501.9985, L100.0100, L500.4050, L3890.6006, L509.8002, L509.4006, L501.9520, L3890.6102 #### [facility] [address] [facility] [place], [address] MCV (RBC) [Entitic vol] 82.7 fL Normal 81-99 [facility] Comment on above: Performed By: #### B TS, L3890.6301, L501.9985, L100.0100, L500.4050, L3890.6006, L509.8002, L509.4006, L501.9520, L3890.6102 #### [facility] [address] [facility] [address] [place], [address] Monocytes/100 WBC (Bld) 5.1 % Normal 0-10 [facility] Comment on above: Performed By: #### B TS, L3890.6301, L501.9985, L100.0100, L500.4050, L3890.6006, L509.8002, L509.4006, L501.9520, L3890.6102 #### [facility] [address] [place], [address] Neutrophils/100 WBC (Bld) 72.7 % High 47-70 [facility] Comment on above: Performed By: #### B TS, L3890.6301, L501.9985, L100.0100, L500.4050, L3890.6006, L509.8002, L509.4006, L501.9520, L3890.6102 #### [facility] [address] [place], [address] Nucleated RBC (Bld) [#/Vol] 0 10*3/uL Normal 0-5 [facility] Comment on above: Performed By: #### B TS, L3890.6301, L501.9985, L100.0100, L500.4050, L3890.6006, L509.8002, L509.4006, L501.9520, L3890.6102 #### [facility] [address] [facility] [place], [address] Platelet mean volume (Bld) [Entitic vol] 9.5 fL Normal 6.2-12.0 [facility] Comment on above: Performed By: #### B TS, L3890.6301, L501.9985, L100.0100, L500.4050, L3890.6006, L509.8002, L509.4006, L501.9520, L3890.6102 #### [facility] [address] [place], [address] Platelets (Bld) [#/Vol] 337 10*3/uL Normal 150-450 [facility] Comment on above: Performed By: #### B TS, L3890.6301, L501.9985, L100.0100, L500.4050, L3890.6006, L509.8002, L509.4006, L501.9520, L3890.6102 #### [facility] [address] [place], [address] RBC (Bld) [#/Vol] 4.52 10*6/uL Normal 4.2-5.4 [facility] Comment on above: Performed By: #### B TS, L3890.6301, L501.9985, L100.0100, L500.4050, L3890.6006, L509.8002, L509.4006, L501.9520, L3890.6102 #### [facility] [address] [place], [place], [address] (821) RDW SD 37.9 fl Normal 35.1-43.9 [facility] Comment on above: Performed By: #### B TS, L3890.6301, L501.9985, L100.0100, L500.4050, L3890.6006, L509.8002, L509.4006, L501.9520, L3890.6102 #### [facility] [address] [place], [address] WBC (Bld) [#/Vol] 15.0 10*3/uL High 4.4-11.0 [facility] Comment on above: Performed By: #### B TS, L3890.6301, L501.9985, L100.0100, L500.4050, L3890.6006, L509.8002, L509.4006, L501.9520, L3890.6102 #### [facility] [address] [place], [address] Carbon dioxide, total [Moles /volume] in Central venous bloodOrdered By: Anitra Zamudio on 07-05-2024 CO2 [Moles/Vol] 21.4 mmol/L 21.0-32.0 [facility] Cervical or vagninal specime n microscopic examination by cytology stain (reported asOrdered By: Anitra Zamudio on 07-05-2024 Cytology report Cyto stain Doc (Cvx/Vag) Comment . [facility] Comment on above: The Pap smear [...] rRNA KATE+probe Ql (Unsp spec) Negative Negative [facility] Chloride assayOrdered By: Pollo Zamudio on 07-05-2024 Chloride [Moles/Vol] 102 mmol/L 98-108 [facility] Comprehensive Metabolic Prof ilon 07-05-2024 Albumin [Mass/Vol] 4.1 g/dL Normal 3.5-5.0 [facility] [place] [facility] Comment on above: Performed By: #### B TS, L3890.6301, L501.9985, L100.0100, L500.4050, L3890.6006, L509.8002, L509.4006, L501.9520, L3890.6102 #### [facility] [address] [place], [place], [address] Albumin/Globulin [Mass ratio] 1.3 {ratio} Normal 0.9-2.4 [facility] Comment on above: Performed By: #### B TS, L3890.6301, L501.9985, L100.0100, L500.4050, L3890.6006, L509.8002, L509.4006, L501.9520, L3890.6102 #### [facility] [address] [place], [address] ALK PHOS 73 U/L Normal 35-104 [facility] Comment on above: Performed By: #### B TS, L3890.6301, L501.9985, L100.0100, L500.4050, L3890.6006, L509.8002, L509.4006, L501.9520, L3890.6102 #### [facility] [address] [place], [place], [address] ALT [Catalytic activity/Vol] 11 U/L Normal <=34 [facility] Comment on above: Performed By: #### B TS, L3890.6301, L501.9985, L100.0100, L500.4050, L3890.6006, L509.8002, L509.4006, L501.9520, L3890.6102 #### [facility] [address] [place], [address] AST [Catalytic activity/Vol] 15 U/L Normal <=31 [facility] Comment on above: Performed By: #### B TS, L3890.6301, L501.9985, L100.0100, L500.4050, L3890.6006, L509.8002, L509.4006, L501.9520, L3890.6102 #### [facility] [address] [place], [place], [address] Bilirubin [Mass/Vol] 0.17 mg/dL Normal 0.00-1.30 [facility] Comment on above: Performed By: #### B TS, L3890.6301, L501.9985, L100.0100, L500.4050, L3890.6006, L509.8002, L509.4006, L501.9520, L3890.6102 #### [facility] [address] [place], [place], [address] BUN/CRE 15.0 RATIO Normal 10-20 [facility] Comment on above: Performed By: #### B TS, L3890.6301, L501.9985, L100.0100, L500.4050, L3890.6006, L509.8002, L509.4006, L501.9520, L3890.6102 #### [facility] [address] [place], [address] Calcium [Mass/Vol] 9.3 mg/dL Normal 7.6-11.0 [facility] [place] [facility] Comment on above: Performed By: #### B TS, L3890.6301, L501.9985, L100.0100, L500.4050, L3890.6006, L509.8002, L509.4006, L501.9520, L3890.6102 #### [facility] [address] [place], [address] Chloride [Moles/Vol] 102 mmol/L Normal 98-108 [facility] Comment on above: Performed By: #### B TS, L3890.6301, L501.9985, L100.0100, L500.4050, L3890.6006, L509.8002, L509.4006, L501.9520, L3890.6102 #### [facility] [address] [place], [address] CO2 [Moles/Vol] 21.4 mmol/L Normal 21.0-32.0 [facility] Comment on above: Performed By: #### B TS, L3890.6301, L501.9985, L100.0100, L500.4050, L3890.6006, L509.8002, L509.4006, L501.9520, L3890.6102 #### [facility] [address] [place], [address] Creatinine [Mass/Vol] 0.76 mg/dL Normal 0.70-1.20 [facility] Comment on above: Performed By: #### B TS, L3890.6301, L501.9985, L100.0100, L500.4050, L3890.6006, L509.8002, L509.4006, L501.9520, L3890.6102 #### [facility] [address] [place], [address] GAP 12 Normal 5-15 [facility] Comment on above: Performed By: #### B TS, L3890.6301, L501.9985, L100.0100, L500.4050, L3890.6006, L509.8002, L509.4006, L501.9520, L3890.6102 #### [facility] [address] [place], [address] GFR/1.73 sq M.predicted among non-blacks MDRD (S/P/Bld) [Vol rate/Area] 113 mL/min/{1.73_m2} Normal >60 [facility] Comment on above: Result Comment: mL/m in/1.73m2 CKD-EPI Creatinine Equation (2020) Performed By: #### B TS, L3890.6301, L501.9985, L100.0100, L500.4050, L3890.6006, L509.8002, L509.4006, L501.9520, L3890.6102 #### [facility] [address] [place], [address] Globulin (S) [Mass/Vol] 3.1 g/dL Normal 2.2-4.2 [facility] Comment on above: Performed By: #### B TS, L3890.6301, L501.9985, L100.0100, L500.4050, L3890.6006, L509.8002, L509.4006, L501.9520, L3890.6102 #### [facility] [address] [place], [address] Glucose [Mass/Vol] 77 mg/dL Normal 70-99 [facility] Comment on above: Performed By: #### B TS, L3890.6301, L501.9985, L100.0100, L500.4050, L3890.6006, L509.8002, L509.4006, L501.9520, L3890.6102 #### [facility] [address] [place], [address] Potassium [Moles/Vol] 3.7 mmol/L Normal 3.3-5.1 [facility] Comment on above: Performed By: #### B TS, L3890.6301, L501.9985, L100.0100, L500.4050, L3890.6006, L509.8002, L509.4006, L501.9520, L3890.6102 #### [facility] [address] [place], [address] Sodium [Moles/Vol] 135 mmol/L Normal 133-145 [facility] Comment on above: Performed By: #### B TS, L3890.6301, L501.9985, L100.0100, L500.4050, L3890.6006, L509.8002, L509.4006, L501.9520, L3890.6102 #### [facility] [address] [place], [address] T PROT 7.2 g/dL Normal 5.9-8.4 [facility] Comment on above: Performed By: #### B TS, L3890.6301, L501.9985, L100.0100, L500.4050, L3890.6006, L509.8002, L509.4006, L501.9520, L3890.6102 #### [facility] [address] [place], [address] Urea nitrogen [Mass/Vol] 11 mg/dL Normal 4-19 [facility] Comment on above: Performed By: #### B TS, L3890.6301, L501.9985, L100.0100, L500.4050, L3890.6006, L509.8002, L509.4006, L501.9520, L3890.6102 #### [facility] [place], [address] Eosinophil percentageOrdered By: Anitra Zamudio on 07-05-2024 Eosinophils/100 WBC (Bld) 1.8 % 0-5 [facility] Erythrocyte distribution wid th ratioOrdered By: Anitra Zamudio on 07-05-2024 Erythrocyte distribution width (RBC) [Ratio] 12.7 % 11.6-14.6 [facility] Erythrocyte distribution wid th standard deviationOrdered By: Anitra Zamudio on 07-05-2024 Erythrocyte distribution width (RBC) [Ratio] 37.9 fl 35.1-43.9 [facility] Glomerular filtration rate ( GFR) estimation/1.73 sq m using serum, plasma, or whole bOrdered By: Anitra Zamudio on 07-05-2024 GFR/1.73 sq M.predicted among non-blacks MDRD (S/P/Bld) [Vol rate/Area] 113 mL/min/{1.73_m2} >60 [facility] Comment on above: mL/min/1.73m2 CKD-EP I Creatinine Equation (2020) HIVon 07-05-2024 HIV Non-Reactive Normal Nonreactive [facility] Comment on above: Result Comment: Non- Reactive Reactive Repeatedly reactive samples must be confirmed according to CDC recommended confirmatory algorithms. The subresults for either HIVAG or AHIV can be used as an aid in the selection of the confirmation algorithm for reactive samples. Send out specimens with Reactive results to [facility] for confirmation. Order the HIV antibody detection and differentiation: lc#[id number] Performed By: #### B TS, L3890.6301, L501.9985, L100.0100, L500.4050, L3890.6006, L509.8002, L509.4006, L501.9520, L3890.6102 #### [facility] [address] [place], [address] Hematocrit Auto (Bld) [Volum e fraction]Ordered By: Anitra Lizz on 07-05-2024 Hematocrit (Bld) [Volume fraction] 37.4 % 37-47 [facility] Hemoglobin A1con 07-05-2024 HbA1c (Bld) [Mass fraction] 6.2 % High <=5.6 [facility] Comment on above: Result Comment: Norm al < 5.7 % Prediabetic 5.7 - 6.4 % Diabetic >or= 6.5 % Please note range changes. Performed By: #### B TS, L3890.6301, L501.9985, L100.0100, L500.4050, L3890.6006, L509.8002, L509.4006, L501.9520, L3890.6102 #### [facility] [address] [place], [place], [id number] Hemoglobin A1c percentageOrd ered By: Anitra Zamudio on 07-05-2024 HbA1c (Bld) [Mass fraction] 6.2 % High <5.7 [facility] Comment on above: Normal < 5.7 % Predi abetic 5.7 - 6.4 % Diabetic >or= 6.5 % Please note range changes. Hemoglobin measurementOrdere d By: Anitra Zamudio on 07-05-2024 Hemoglobin (Bld) [Mass/Vol] 12.2 g/dL 12.0-15.0 [facility] Hepatitis C Antibodyon 07-05 Hepatitis C Ab Non-Reactive Normal Nonreactive [facility] Comment on above: Result Comment: Reac tive: Presumptive evidence of antibodies to HCV. Follow CDC recommendations for supplemental testing. Non-Reactive: Antibodies to HCV were not detected; does not exclude the possibility of exposure to HCV Reactive Results are presumptive evidence of antibodies to HCV. Follow CDC recommendations for supplemental testing. Order confirmation testing: HCV Quant by PCR testing - HCVPCR #[id number] Non Reactive: < 0.8 Equivocal: >/= 0.8 to < 1.0 Reactive: >/= 1.0 The CDC requires that a reactive/equivocal HCV antibody result be sent out for confirmation. HCV Quant by PCR testing. Performed By: #### B TS, L3890.6301, L501.9985, L100.0100, L500.4050, L3890.6006, L509.8002, L509.4006, L501.9520, L3890.6102 ####[facility] [address] [facility] [place], [place], [id number] Immature granulocytes/100 WB C Auto (Bld)Ordered By: Anitra Zamudio on 07-05-2024 Immature granulocytes/100 WBC (Bld) 2.200 % High 0.0-0.9 [facility] Comment on above: IG% - Immature Granu locytes (promyelocytes, myelocytes and metamyelocytes) > 1% indicates that a LEFT SHIFT is Present. L3890.6102on 07-05-2024 HEP B Surf Ag Non-Reactive Normal Nonreactive [facility] Comment on above: Result Comment: Reac tive: Presumptive evidence of HBV. Repeatedly reactive samples must be confirmed using a neutralization test ([employer] HBsAg Confirmatory Test) Non-Reactive: HBsAg not detected; does not exclude the possibility of exposure to HBV Performed By: #### B TS, L3890.6301, L501.9985, L100.0100, L500.4050, L3890.6006, L509.8002, L509.4006, L501.9520, L3890.6102 ####[facility] [address] [facility] [place], [place], [id number] L509.4006on 07-05-2024 Rubella IgG REAC Normal Nonreactive [facility] Comment on above: Result Comment: Anti body Result: Interpretation Non-Reactive: Non-Immune Reactive: Immune The following results were obtained with the [employer] Rubella IgG assay. Results from assays of other manufacturers cannot be used interchangeably. Performed By: #### B TS, L3890.6301, L501.9985, L100.0100, L500.4050, L3890.6006, L509.8002, L509.4006, L501.9520, L3890.6102 #### [facility] [place] [address], [address] Laboratory - Chemistry and C hemistry - challengeOrdered By: Anitra Zamudio on 07-05-2024 AST [Catalytic activity/Vol] 15 U/L <32 [facility] - CytologyOrdered By: Anitra Zamudio on 07-05-2024 Installation And Service Technician Cyto stain Nom (Cvx/Vag) [ID] Comment . [facility] Comment on above: Ruthie Swenson, Installation And Service Technician (ASC) Laboratory - Microbiology an d Antimicrobial susceptibilityOrdered By: Anitra Zamudio on 07-05-2024 HBV surface Ag Ql (S) Non-Reactive Nonreactive [facility] Comment on above: Reactive: Presumptiv e evidence of HBV. Repeatedly reactive samples must be confirmed using a neutralization test ([employer] HBsAg Confirmatory Test)Non-Reactive: HBsAg not detected; does not exclude the possibility of exposure to HBV Laboratory - Miscellaneous t estsOrdered By: Anitra Zamudio on 07-05-2024 Service comment (Unsp spec) [Interp] . . [facility] MCV (mean corpuscular volume ) determinationOrdered By: Anitra Zamudio on 07-05-2024 MCV (RBC) [Entitic vol] 82.7 fL 81-99 [facility] Mean corpuscular hemoglobin (MCH) determinationOrdered By: Anitra Zamudio on 07-05-2024 MCH (RBC) [Entitic mass] 27.0 pg 27.0-32.0 [facility] Mean corpuscular hemoglobin concentration (MCHC) determinationOrdered By: Anitra Zamudio on 07-05-2024 MCHC (RBC) [Mass/Vol] 32.6 g/dL 32-36 [facility] Mean platelet volume determi nationOrdered By: Anitra Zamudio on 07-05-2024 Platelet mean volume (Bld) [Entitic vol] 9.5 fL 6.2-12.0 [facility] Monocyte percentageOrdered B y: Anitra Zamudio on 07-05-2024 Monocytes/100 WBC (Bld) 5.1 % 0-10 [facility] Neisseria gonorrhoeae nuclei c acid detection by amplified probe techniqueOrdered By: Anitra Zamudio on 07-05-2024 N. gonorrhoeae DNA KATE+probe Ql (Unsp spec) Negative Negative [facility] Comment on above: Performed at: =[address] [id number] Director: Indiana Magaña MD, Phone: [phone] Neutrophil percentageOrdered By: Anitra Zamudio on 07-05-2024 Neutrophils/100 WBC (Bld) 72.7 % High 47-70 [facility] No Panel InformationOrdered By: Anitra Zamudio on 07-05-2024 Pap Smear QC Review Comment . [facility] Comment on above: Mariel Valera (ASCP) Pap Smear Specimen Adequacy Comment . [facility] Comment on above: Satisfactory for zaina luation. Endocervical and/or squamous metaplasticcells (endocervical component) are present. HIV (1&2) Antibody Non-Reactive Nonreactive [facility] Comment on above: Non-ReactiveReactive Repeatedly reactive samples must be confirmed according to CDC recommended confirmatory algorithms. 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 Normal [facility] Platelet countOrdered By: Pollo Zamudio on 07-05-2024 Platelets (Bld) [#/Vol] 337 10*3/uL 150-450 [facility] Potassium measurement (mass/ volume)Ordered By: Anitra Zamudio on 07-05-2024 Potassium (Unsp spec) [Mass/Vol] 3.7 mmol/L 3.3-5.1 [facility] Protein+Creatinine Ratio,Uri neon 07-05-2024 PROT:CRE RATIO 81 mg/g CRE Normal 0-200 [facility] Comment on above: Performed By: #### L 501.0900, M100.2200, L7000.1800, L7400.0353 ####[facility] [address] [place], [address] Protein (U) [Mass/Vol] 7.0 mg/dL Normal 0.0-12.0 [facility] Comment on above: Performed By: #### L 501.0900, M100.2200, L7000.1800, L7400.0353 ####[facility] [address] [place], [address] UR CREAT 86.50 mg/dL Normal 28.00-217.00 [facility] Comment on above: Performed By: #### L 501.0900, M100.2200, L7000.1800, L7400.0353 ####[facility] [address] [place], [address] RBC Auto (Bld) [#/Vol]Ordere d By: Anitra Zamudio on 07-05-2024 RBC (Bld) [#/Vol] 4.52 10*6/uL 4.2-5.4 [facility] Random urine creatinine junior urement (mass/volume)Ordered By: Anitra Zamudio on 07-05-2024 Creatinine Unsp time (U) [Mass/Vol] 86.50 mg/dL 28.00-217.00 [facility] Serum creatinine measurement (mass/volume)Ordered By: Anitra Zamudio on 07-05-2024 Creatinine [Mass/Vol] 0.76 mg/dL 0.70-1.20 [facility] Serum globulin measurementOr dered By: Anitra Zamudio on 07-05-2024 Globulin (S) [Mass/Vol] 3.1 g/dL 2.2-4.2 [facility] Serum glucose measurement (m ass/volume)Ordered By: Anitra Zamudio on 07-05-2024 Glucose [Mass/Vol] 77 mg/dL 70-99 [facility] Serum or plasma alanine kern otransferase (ALT) measurementOrdered By: Anitra Zamudio on 07-05-2024 ALT [Catalytic activity/Vol] 11 U/L <35 [facility] Serum or plasma albumin junior urement (mass/volume)Ordered By: Anitra Zamudio on 07-05-2024 Albumin [Mass/Vol] 4.1 g/dL 3.5-5.0 [facility] Serum or plasma albumin/glob ulin mass ratioOrdered By: Anitra Zamudio on 07-05-2024 Albumin/Globulin [Mass ratio] 1.3 {ratio} 0.9-2.4 [facility] Serum or plasma alkaline hansa sphatase measurementOrdered By: Anitra Zamudio on 07-05-2024 ALP [Catalytic activity/Vol] 73 U/L 35-104 [facility] Serum or plasma calcium junior urement (mass/volume)Ordered By: Anitra Zamudio on 07-05-2024 Calcium [Mass/Vol] 9.3 mg/dL 7.6-11.0 [facility] Serum or plasma urea nitroge n measurement (mass/volume)Ordered By: Anitra Zamudio on 07-05-2024 Urea nitrogen [Mass/Vol] 11 mg/dL 4-19 [facility] Sodium levelOrdered By: Antwon Zamudio on 07-05-2024 Sodium [Moles/Vol] 135 mmol/L 133-145 [facility] Syphilis Antibodieson 2024 Syphilis Abs Non-Reactive Normal Nonreactive [facility] Comment on above: Performed By: #### B TS, L3890.6301, L501.9985, L100.0100, L500.4050, L3890.6006, L509.8002, L509.4006, L501.9520, L3890.6102 #### [facility] [address] [place] [address], [id number] TSH DL <= 0.005 mIU/L QnOrde red By: Anitra Zamudio on 07-05-2024 TSH Qn 0.652 uIU/mL 0.300-4.200 [facility] Thyroid Stim Hormone (TSH)on 07-05-2024 TSH 0.652 uIU/mL Normal 0.300-4.200 [facility] Comment on above: Performed By: #### B TS, L3890.6301, L501.9985, L100.0100, L500.4050, L3890.6006, L509.8002, L509.4006, L501.9520, L3890.6102 #### [facility] [address] [place], [address] Total proteinOrdered By: Eagle Zamudio on 07-05-2024 Protein [Mass/Vol] 7.2 g/dL 5.9-8.4 [facility] Type AND Screenon 07-05-2024 Ab SCREEN GEL Negative Normal [facility] Comment on above: Order Comment: PN Performed By: #### B TS, L3890.6301, L501.9985, L100.0100, L500.4050, L3890.6006, L509.8002, L509.4006, L501.9520, L3890.6102 #### [facility] [address] [place], [address] Urine cultureOrdered By: Eagle Zamudio on 07-05-2024 Bacteria identified Cx Nom (U) Positive Abnormal [facility] Urine protein measurement (m ass/volume)Ordered By: Anitra Zamudio on 07-05-2024 Protein (U) [Mass/Vol] 7.0 mg/dL 0.0-12.0 [facility] Urine protein/creatinine mas s ratioOrdered By: Anitra Zamudio on 07-05-2024 Protein/Creatinine (U) [Mass ratio] 81 mg/g CRE 0-200 [facility] White blood cell (WBC) count Ordered By: Anitra Zamudio on 07-05-2024 WBC (Bld) [#/Vol] 15.0 10*3/uL High 4.4-11.0 [facility] Laboratory - Chemistry and C hemistry - challengeOrdered By: Anitra Zamudio on 06-14-2024 HCG ( test) Ql (U) Positive [facility] Office Visit Reporton 2024 Office Visit Report [facility] [address] [place] [address] OFFICE VISIT Date of Service: 06/14/24 MR#: [id number] Acct: [id number] Patient: ALLISON NGUYEN Rep #: [id number] : 2000 Provider: Dr. Jenny Ayers DO Age/Sex: 23/F Location[place] [facility] [place] Status: Signed Intake Vital Signs 06/14/24 11:50 [...] (3) Diabetes in : Status: Acute Comment: [id number]; on Humalog; HgBA1C ordered w/NOB Orders: Orders [...] Mendez Signature: Date (if applicable) CC: Normal [facility] HbA1c (Bld) [Mass fraction]O rdered By: Helena Henley on 06-13-2024 Interpretation and review of laboratory results Normal [facility] POC Hemoglobin [id number] By : Helena Henley on 06-13-2024 HbA1c (Bld) [Mass fraction] 5.8 % 4.0 - 6.0 % [facility] HbA1c (Bld) [Mass fraction]o n 04-24-2023 Interpretation and review of laboratory results Abnormal [facility] POC Hemoglobin A1Con 024 HbA1c (Bld) [Mass fraction] 6.1 % Abnormal 4.0 - 6.0 % [facility] ECG 12 Leadon 12-25-2022 Atrial Rate [facility] P Opdyke [facility] P-R Interval [facility] Q-T Interval [facility] Q-T Interval (corrected) [facility] QRS Duration [facility] QTC Calculation (Bezet) [facility] R Opdyke [facility] T Opdyke [facility] Ventricular Rate [facility] HbA1c (Bld) [Mass fraction]O rdered By: Inez Salas on 07-16-2022 Interpretation and review of laboratory results Abnormal [facility] POC Hemoglobin [id number] By : Inez Salas on 07-16-2022 HbA1c (Bld) [Mass fraction] 6.3 % Abnormal 4.0 - 6.0 % [facility] HbA1c (Bld) [Mass fraction]O rdered By: Camilla Lee on 03-13-2022 Interpretation and review of laboratory results Abnormal [facility] POC Hemoglobin [id number] By : Camilla Lee on 03-13-2022 HbA1c (Bld) [Mass fraction] 6.5 % Abnormal 4.0 - 6.0 % [facility] POC Hemoglobin A1Con HbA1c (Bld) [Mass fraction] 7.1 % Abnormal 4.0 - 6.0 % [facility] Interpretation and review of laboratory results Abnormal [facility] Vital Signs Date Time Vital Sign Value Performing Clinician Juan kothari 11-21-2024 11:37-0400 Body height 160.[address] Olivia Pruett PA-C Work Phone: [facility] 11-21-2024 11:37-0400 Body mass index (BMI) [Ratio] 28.2 kg/m2 Dr. Olivia Pruett PA-C Work Phone: [facility] 11-21-2024 11:37-0400 Body weight 72.[address] Olivia Pruett PA-C Work Phone: [facility] 11-21-2024 11:37-0400 Diastolic blood pressure 73 mm[Hg] Dr. Olivia Pruett PA-C Work Phone: [facility] 11-21-2024 11:37-0400 Systolic blood pressure 116 mm[Hg] Dr. Olivia Pruett PA-C Work Phone: [facility] 10-24-2024 14:24-0400 Body height 160.[address] Olivia Pruett PA-C Work Phone: [facility] 10-24-2024 14:24-0400 Body mass index (BMI) [Ratio] 26.9 kg/m2 Dr. Olivia Pruett PA-C Work Phone: [facility] 10-24-2024 14:24-0400 Body weight 69.[address] Olivia Pruett PA-C Work Phone: [facility] 10-24-2024 14:24-0400 Diastolic blood pressure 64 mm[Hg] Dr. Olivia Pruett PA-C Work Phone: [facility] 10-24-2024 14:24-0400 Systolic blood pressure 97 mm[Hg] Dr. Olivia Pruett PA-C Work Phone: [facility] 09-28-2024 13:43-0400 Body height 160.[address] Olivia Pruett PA-C Work Phone: [facility] 09-28-2024 13:42-0400 Body mass index (BMI) [Ratio] 26 kg/m2 Dr. Olivia Pruett PA-C Work Phone: [facility] 09-28-2024 13:42-0400 Body weight 66.[address] Olivia Pruett PA-C Work Phone: [facility] 09-28-2024 13:42-0400 Diastolic blood pressure 70 mm[Hg] Dr. Olivia Pruett PA-C Work Phone: [facility] 09-28-2024 13:42-0400 Systolic blood pressure 109 mm[Hg] Dr. Olivia Pruett PA-C Work Phone: [facility] 08-30-2024 09:36-0400 Body mass index (BMI) [Ratio] 24.8 kg/m2 Oscar Lowe [employer] Work Phone: [facility] 08-30-2024 09:36-0400 Body weight 63.5 kg Oscar Olivares [employer] Work Phone: [facility] 08-30-2024 09:36-0400 Diastolic blood pressure 63 mm[Hg] Oscar Olivares [employer] Work Phone: [facility] 08-30-2024 09:36-0400 Heart rate 73 /min Oscar Olivares [employer] Work Phone: [facility] 08-30-2024 09:36-0400 Systolic blood pressure 98 mm[Hg] Oscar Olivares [employer] Work Phone: [facility] 08-29-2024 13:12-0400 Body height 160.[address] Olivia Pruett PA-C Work Phone: [facility] 08-29-2024 13:12-0400 Body mass index (BMI) [Ratio] 24.8 kg/m2 Dr. Olivia Pruett PA-C Work Phone: [facility] 08-29-2024 13:12-0400 Body weight 63.[address] Olivia Pruett PA-C Work Phone: [facility] 08-29-2024 13:12-0400 Diastolic blood pressure 71 mm[Hg] Dr. Olivia Pruett PA-C Work Phone: [facility] 08-29-2024 13:12-0400 Systolic blood pressure 108 mm[Hg] Dr. Olivia Pruett PA-C Work Phone: [facility] 08-02-2024 13:27-0400 Body height 160.[address] Olivia Pruett PA-C Work Phone: [facility] 08-02-2024 13:27-0400 Body mass index (BMI) [Ratio] 23.8 kg/m2 Dr. Olivia Pruett PA-C Work Phone: [facility] 08-02-2024 13:27-0400 Body weight 60.[address] Olivia Pruett PA-C Work Phone: [facility] 08-02-2024 13:27-0400 Diastolic blood pressure 68 mm[Hg] Dr. Olivia Pruett PA-C Work Phone: [facility] 08-02-2024 13:27-0400 Systolic blood pressure 105 mm[Hg] Dr. Olivia Pruett PA-C Work Phone: [facility] 07-05-2024 13:07-0400 Body height 160.[address] Olivia Pruett PA-C Work Phone: [facility] 07-05-2024 13:07-0400 Body mass index (BMI) [Ratio] 23.2 kg/m2 Dr. Olivia Pruett PA-C Work Phone: [facility] 07-05-2024 13:07-0400 Body weight 59.[address] Olivia Pruett PA-C Work Phone: [facility] 07-05-2024 13:07-0400 Diastolic blood pressure 62 mm[Hg] Dr. Olivia Pruett PA-C Work Phone: [facility] 07-05-2024 13:07-0400 Systolic blood pressure 111 mm[Hg] Dr. Olivia Pruett PA-C Work Phone: [facility] 06-22-2024 13:41-0400 Body height [address] [facility] 06-22-2024 13:41-0400 Body mass index (BMI) [Ratio] 23.56 kg/m2 Mike Allred RD [facility] 06-22-2024 13:41-0400 Body weight 60.[address] [facility] 06-14-2024 11:50-0400 Body mass index (BMI) [Ratio] 23.6 kg/m2 Dr. Olivia Pruett PA-C Work Phone: [facility] 06-14-2024 11:50-0400 Body weight 60.[address] Olivia Pruett PA-C Work Phone: [facility] 06-14-2024 11:50-0400 Diastolic blood pressure 68 mm[Hg] Dr. Olivia Pruett PA-C Work Phone: [facility] 06-14-2024 11:50-0400 Systolic blood pressure 112 mm[Hg] Dr. Olivia Pruett PA-C Work Phone: [facility] 06-13-2024 10:09-0400 Body mass index (BMI) [Ratio] 24.14 kg/m2 Isabel Garcia CNP Work Phone: [facility] 06-13-2024 10:09-0400 Body weight 59.88 kg Isabel GarciaUriel MORGAN Work Phone: [facility] 06-13-2024 10:09-0400 Diastolic blood pressure 73 mm[Hg] Isabel KirbyKee [employer] Work Phone: [facility] 06-13-2024 10:09-0400 Heart rate 92 /min Isabel Garcia [employer] Work Phone: [facility] 06-13-2024 10:09-0400 Systolic blood pressure 111 mm[Hg] Isabel Garcia [employer] Work Phone: [facility] 03-01-2024 09:06-0500 Body mass index (BMI) [Ratio] 25.15 kg/m2 Demetrius Ramirez [employer] Work Phone: [facility] 03-01-2024 09:06-0500 Body weight 62.37 kg Demetrius Ramirez [employer] Work Phone: [facility] 03-01-2024 09:06-0500 Diastolic blood pressure 68 mm[Hg] Demetrius Ramirez [employer] Work Phone: [facility] 03-01-2024 09:06-0500 Heart rate 87 /min Demetrius Ramirez [employer] Work Phone: [facility] 03-01-2024 09:06-0500 Systolic blood pressure 106 mm[Hg] Demetrius Ramirez [employer] Work Phone: [facility] 2023 11:07-0400 Body mass index (BMI) [Ratio] 25.46 kg/m2 Demetrius Ramirez [employer] Work Phone: [facility] 2023 11:07-0400 Body weight 63.14 kg Demetrius Ramirez [employer] Work Phone: [facility] 04-24-2023 14:11-0400 Body mass index (BMI) [Ratio] 26.16 kg/m2 Demetrius Ramirez [employer] Work Phone: [facility] 04-24-2023 14:11-0400 Body weight 64.86 kg Demetrius Ramirez [employer] Work Phone: [facility] 04-24-2023 14:11-0400 Diastolic blood pressure 81 mm[Hg] Demetrius Ramirez [employer] Work Phone: [facility] 04-24-2023 14:11-0400 Heart rate 87 /min Demetrius Ramirez [employer] Work Phone: [facility] 04-24-2023 14:11-0400 Systolic blood pressure 130 mm[Hg] Demetrius Ramirez [employer] Work Phone: [facility] 12-25-2022 10:36-0500 Body height 157.5 cm Rico Steel MD Work Phone: [facility] 12-25-2022 10:36-0500 Body mass index (BMI) [Ratio] 25.06 kg/m2 Rico Steel MD Work Phone: [facility] 12-25-2022 10:36-0500 Body weight 62.14 kg Rico Steel MD Work Phone: [facility] 12-25-2022 10:36-0500 Diastolic blood pressure 84 mm[Hg] Rico Steel MD Work Phone: [facility] 12-25-2022 10:36-0500 Heart rate 88 /min Rico Steel MD Work Phone: [facility] 12-25-2022 10:36-0500 SaO2% (BldA) [Mass fraction] 99 % Rico Steel MD Work Phone: [facility] 12-25-2022 10:36-0500 Systolic blood pressure 127 mm[Hg] Rico Steel MD Work Phone: [facility] 12-03-2022 10:57-0400 Body mass index (BMI) [Ratio] 24.6 kg/m2 Isabel Garcia CNP Work Phone: [facility] 12-03-2022 10:57-0400 Body weight 61 kg Isabel Garcia CNP Work Phone: [facility] 12-03-2022 10:57-0400 Diastolic blood pressure 71 mm[Hg] Isabel Garcia CNP Work Phone: [facility] 12-03-2022 10:57-0400 Heart rate 81 /min Isabel Garcia CNP Work Phone: [facility] 12-03-2022 10:57-0400 Systolic blood pressure 111 mm[Hg] Isabel Garcia CNP Work Phone: [facility] 07-16-2022 10:03-0400 Body height 157.5 cm Isabel Garcia CNP Work Phone: [facility] 07-16-2022 10:03-0400 Body mass index (BMI) [Ratio] 25.04 kg/m2 Isabel Garcia CNP Work Phone: [facility] 07-16-2022 10:03-0400 Body weight 62.1 kg Isabel Garcia CNP Work Phone: [facility] 07-16-2022 10:03-0400 Diastolic blood pressure 73 mm[Hg] Isabel Garcia [employer] Work Phone: [facility] 07-16-2022 10:03-0400 Heart rate 71 /min Isabel Garcia CNP Work Phone: [facility] 07-16-2022 10:03-0400 Systolic blood pressure 112 mm[Hg] Isabel Garcia [employer] Work Phone: [facility] 03-13-2022 13:15-0500 Body height 157.5 cm Demetrius Ramirez [employer] Work Phone: [facility] 03-13-2022 13:15-0500 Body mass index (BMI) [Ratio] 25.97 kg/m2 Demetrius Ramirez [employer] Work Phone: [facility] 03-13-2022 13:15-0500 Body weight 64.41 kg Demetrius Ramirez [employer] Work Phone: [facility] 03-13-2022 13:15-0500 Diastolic blood pressure 72 mm[Hg] Demetrius Ramirez [employer] Work Phone: [facility] 03-13-2022 13:15-0500 Heart rate 80 /min Demetrius Ramirez [employer] Work Phone: [facility] 03-13-2022 13:15-0500 Systolic blood pressure 114 mm[Hg] Demetrius Ramirez [employer] Work Phone: [facility] 11-15-2021 11:06-0400 Body height 157.5 cm Triston Paynemann PA-C Work Phone: [facility] 11-15-2021 11:06-0400 Body mass index (BMI) [Ratio] 25.42 kg/m2 Triston Kleinmann PA-C Work Phone: [facility] 11-15-2021 11:06-0400 Body weight 63.05 kg Triston Kerrymann PA-C Work Phone: [facility] 11-15-2021 11:06-0400 Diastolic blood pressure 73 mm[Hg] Triston Kleinmann PA-C Work Phone: [facility] 11-15-2021 11:06-0400 Heart rate 86 /min Triston Kleinmann PA-C Work Phone: [facility] 11-15-2021 11:06-0400 Systolic blood pressure 102 mm[Hg] Triston Kleinmann PA-C Work Phone: [facility] 07-03-2021 09:52-0400 Body height 157.5 cm Triston Kleinmann PA-C Work Phone: [facility] 07-03-2021 09:52-0400 Body mass index (BMI) [Ratio] 25.28 kg/m2 Triston Kleinmann PA-C Work Phone: [facility] 07-03-2021 09:52-0400 Body weight 62.69 kg Triston Kleinmann PA-C Work Phone: [facility] 07-03-2021 09:52-0400 Diastolic blood pressure 71 mm[Hg] Triston Kleinmann PA-C Work Phone: [facility] 07-03-2021 09:52-0400 Heart rate 76 /min Triston Kleinmann PA-C Work Phone: [facility] 07-03-2021 09:52-0400 Systolic blood pressure 104 mm[Hg] Triston Kleinmann PA-C Work Phone: [facility] 10-31-2020 09:55-0400 Body height 157.5 cm Triston Kleinmann PA-C Work Phone: [facility] 10-31-2020 09:55-0400 Body mass index (BMI) [Percentile] Per age and sex 81.9 % Rtiston Kleinmann PA-C Work Phone: [facility] 10-31-2020 09:55-0400 Body mass index (BMI) [Ratio] 25.42 kg/m2 Triston Kleinmann PA-C Work Phone: [facility] 10-31-2020 09:55-0400 Body weight 63.05 kg Triston Kleinmann PA-C Work Phone: [facility] 10-31-2020 09:55-0400 Diastolic blood pressure 69 mm[Hg] Triston Kleinmann PA-C Work Phone: [facility] 10-31-2020 09:55-0400 Heart rate 68 /min Triston Kleinmann PA-C Work Phone: [facility] 10-31-2020 09:55-0400 Systolic blood pressure 107 mm[Hg] Triston Kleinmann PA-C Work Phone: [facility] 06-27-2020 10:12-0400 Body height 157.5 cm Isabel Garcia CNP Work Phone: [facility] 06-27-2020 10:12-0400 Body mass index (BMI) [Ratio] 25.42 kg/m2 Isabel Garcia CNP Work Phone: [facility] 06-27-2020 10:12-0400 Body weight 63.05 kg Isabel Garcia CNP Work Phone: [facility] 06-27-2020 10:12-0400 Diastolic blood pressure 71 mm[Hg] Isabel Garcia CNP Work Phone: [facility] 06-27-2020 10:12-0400 Heart rate 72 /min Isabel Garcia CNP Work Phone: [facility] 06-27-2020 10:12-0400 Systolic blood pressure 115 mm[Hg] Isabel Garcia CNP Work Phone: [facility] 02-29-2020 10:18-0500 BMI (Body Mass Index) 25.97 kg/m2 Isabel Garcia [facility] 02-29-2020 10:18-0500 Body weight 64.41 kg Isabel Garcia [facility] 02-29-2020 10:18-0500 BP Diastolic 76 mm[Hg] Isabel Garcia [facility] 02-29-2020 10:18-0500 BP Systolic 120 mm[Hg] Isabel Garcia [facility] 02-29-2020 10:18-0500 Height 157.5 cm Isabel Garcia [facility] 02-29-2020 10:18-0500 Pulse (Heart Rate) 73 /min Isabel Garcia [facility] 10-27-2019 10:07-0400 BMI (Body Mass Index) 25.66 kg/m2 Jasmin Henriquez [facility] 10-27-2019 10:07-0400 Body weight 63.64 kg Jasmin Henriquez [facility] 10-27-2019 10:07-0400 BP Diastolic 73 mm[Hg] Jasmin Henriquez [facility] 10-27-2019 10:07-0400 BP Systolic 112 mm[Hg] Jasmin Henriquez [facility] 10-27-2019 10:07-0400 Height 157.5 cm Jasmin Henriquez [facility] 10-27-2019 10:07-0400 Pulse (Heart Rate) 72 /min Jasmin Henriquez [facility] 06-23-2019 10:14-0400 BMI (Body Mass Index) 25.79 kg/m2 Jasmin Henriquez [facility] 06-23-2019 10:14-0400 Body weight 63.96 kg Jasmin Henriquez [facility] 06-23-2019 10:14-0400 BP Diastolic 75 mm[Hg] Jasmin Henriquez [facility] 06-23-2019 10:14-0400 BP Systolic 120 mm[Hg] Jasmin Henriquez [facility] 06-23-2019 10:14-0400 Height 157.5 cm Jasmin Henriquez [facility] 06-23-2019 10:14-0400 Pulse (Heart Rate) 81 /min Jasmin Henriquez [facility] 04-19-2019 11:06-0400 BMI (Body Mass Index) 25.61 kg/m2 Demetrius Ramirez [facility] 04-19-2019 11:06-0400 Body weight 63.5 kg Demetrius Ramirez [facility] 04-19-2019 11:06-0400 BP Diastolic 72 mm[Hg] Demetrius Ramirez [facility] 04-19-2019 11:06-0400 BP Systolic 113 mm[Hg] Demetrius Ramirez [facility] 04-19-2019 11:06-0400 Height 157.5 cm Demetrius Ramirez [facility] 04-19-2019 11:06-0400 Pulse (Heart Rate) 80 /min Demetrius Ramirez [facility] 04-04-2019 13:55-0500 BMI (Body Mass Index) 25.42 kg/m2 Kita Carter [facility] 04-04-2019 13:55-0500 Body weight 63.05 kg Kita Carter [facility] 04-04-2019 13:55-0500 BP Diastolic 71 mm[Hg] Kita Carter [facility] 04-04-2019 13:55-0500 BP Systolic 118 mm[Hg] Kita Carter [facility] 04-04-2019 13:55-0500 Height 157.5 cm Kita Carter [facility] 04-04-2019 13:55-0500 Pulse (Heart Rate) 81 /min Kita Carter [facility] 02-15-2019 09:43-0500 BMI (Body Mass Index) 25.06 kg/m2 Demetrius Ramirez [facility] 02-15-2019 09:43-0500 Body weight 62.14 kg Demetrius Ramirez [facility] 02-15-2019 09:43-0500 BP Diastolic 70 mm[Hg] Demetrius [facility] 02-15-2019 09:43-0500 BP Systolic 116 mm[Hg] Demetrius [facility] 02-15-2019 09:43-0500 Height 157.5 cm Demetrius [facility] 02-15-2019 09:43-0500 Pulse (Heart Rate) 73 /min Demetrius [facility] 11-03-2018 14:40-0400 BMI (Body Mass Index) 24.69 kg/m2 [facility] 11-03-2018 14:40-0400 Body weight 61.24 kg [facility] 11-03-2018 14:40-0400 BP Diastolic 74 mm[Hg] [facility] 11-03-2018 14:40-0400 BP Systolic 117 mm[Hg] [facility] 11-03-2018 14:40-0400 Height 157.5 cm [facility] 11-03-2018 14:40-0400 Pulse (Heart Rate) 64 /min [facility] 06-25-2018 10:10-0400 BMI (Body Mass Index) 24.87 kg/m2 Isabel Garcia [facility] 06-25-2018 10:10-0400 BP Diastolic 71 mm[Hg] Isabelwanda Gracia [facility] 06-25-2018 10:10-0400 BP Systolic 112 mm[Hg] Isabel Garcia [facility] 06-25-2018 10:10-0400 Height 157.5 cm Isabel Radha [facility] 06-25-2018 10:10-0400 Pulse (Heart Rate) 75 /min Isabel Garcia [facility] 06-25-2018 10:10-0400 Weight 61.69 kg Isabelwanda Garcia [facility] 02-18-2018 14:55-0500 BMI (Body Mass Index) 25.02 kg/m2 Ruthie Abad [facility] 02-18-2018 14:55-0500 BP Diastolic 71 mm[Hg] Ruthie Abad [facility] 02-18-2018 14:55-0500 BP Systolic 110 mm[Hg] Ruthie Abad [facility] 02-18-2018 14:55-0500 Height 157.5 cm Ruthie Abad [facility] 02-18-2018 14:55-0500 Pulse (Heart Rate) 73 /min Ruthie Abad [facility] 02-18-2018 14:55-0500 Weight 62.05 kg Ruthie Abad [facility] 09-09-2017 09:58-0400 BMI (Body Mass Index) 23.41 kg/m2 Kita Carter [facility] 09-09-2017 09:58-0400 BP Diastolic 78 mm[Hg] Kita Carter [facility] 09-09-2017 09:58-0400 BP Systolic 120 mm[Hg] Kita Carter [facility] 09-09-2017 09:58-0400 Height 157.5 cm Kita Carter [facility] 09-09-2017 09:58-0400 Pulse (Heart Rate) 76 /min Kita Carter [facility] 09-09-2017 09:58-0400 Weight 58.06 kg Kita Carter [facility] Encounters Encounter Date Encounter Type Care Provider Facility Start: 12-19-2024 End: 12-19-2024 ambulatory [facility] Start: 12-08-2024 End: 12-08-2024 ambulatory Radha [place]arez [place] [place]: 12-06-2024 End: 12-06-2024 ambulatory [facility] Start: 11-23-2024 End: 11-23-2024 ambulatory [facility] Start: 11-21-2024 End: 11-21-2024 Patient encounter procedure Radha Juarez [facility] Work Phone: Start: 11-21-2024 End: 11-21-[address] Olivia DUARTEC Work Phone: -[facility] Start: 11-21-2024 End: 11-21-2024 ambulatory [facility] Start: 11-21-2024 End: 11-21-2024 ambulatory Radha Juarez Facility:[facility] Start: 11-09-2024 End: 11-09-2024 ambulatory [facility] Start: 11-01-2024 End: 11-01-2024 Refill Oscar Olivares [employer] Work Phone: [facility] Comment on above: Type 1 diabetes rosa itus during in first trimester Start: 10-26-2024 End: 10-26-2024 ambulatory [facility] Start: 10-24-2024 End: 10-24-[address] Anitra Zamudio MD -[facility] Work Phone: Start: 10-24-2024 End: 10-24-[address] Olivia Pruett PA-C Work Phone: -[facility] Start: 10-12-2024 End: 10-12-2024 Subsequent hospital visit by physician Jenny MANLEY[employer] Work Phone: [facility] Comment on above: Pre-existing type 1 diabetes mellitus, in , second trimester Arrived Start: 10-12-2024 End: 10-12-2024 ambulatory [facility] Start: 10-12-2024 End: 10-12-2024 [facility] Start: 10-07-2024 End: 10-07-2024 Refill Demetrius Ramirez [employer] Work Phone: [facility] Start: 09-29-2024 End: 09-29-2024 ambulatory CHANI Moreno [facility] Start: 09-28-2024 End: 09-28-[address] Jenny Guerrier DO -[facility] Work Phone: Start: 09-28-2024 End: 09-28-[address] Olivia Pruett PA-C Work Phone: -[facility] Start: 09-14-2024 End: 09-14-2024 ambulatory [facility] Start: 09-01-2024 End: 09-01-2024 ambulatory [facility] Start: 08-30-2024 End: 08-30-2024 ambulatory OSCAR OLIVARES [facility] Start: 08-30-2024 End: 08-30-2024 Office outpatient visit 25 minutes Oscar Olivares [employer] Work Phone: [facility] Comment on above: Type 1 diabetes rosa itus during in second trimester (Primary Dx); Type 1 diabetes mellitus without complication (HCC); Insulin pump titration Start: 08-29-2024 End: 08-29-2024 Patient encounter procedure Radha Juarez CNM -[facility] Work Phone: Start: 08-29-2024 End: 08-29-[address] Olivia Pruett PA-C Work Phone: -[facility] Start: 08-23-2024 ambulatory [facility] Start: 08-17-2024 End: 08-17-2024 ambulatory [facility] Start: 08-05-2024 End: 08-05-2024 Documentation procedure Oscar Olivares [employer] Work Phone: [facility] Start: 08-04-2024 End: 08-04-2024 ambulatory OSCAR OLIVARES [facility] Start: 08-04-2024 ambulatory OSCAR OLIVARES [facility] Start: 08-02-2024 End: 08-02-[address] Olivia Pruett PA-C Work Phone: [facility] Work Phone: Start: 08-02-2024 End: 08-02-2024 Patient encounter procedure Leigh BOLAÑOS -[facility] Work Phone: Start: 08-02-2024 End: 08-02-2024 ambulatory Olivia Pruett Facility:[facility] Start: 07-20-2024 End: 08-05-2024 Documentation procedure Isabel Garcia CNP Work Phone: [facility] Start: 07-20-2024 End: 07-20-2024 ambulatory ANITRA ZAMUDIO [facility] Start: 07-05-2024 End: 07-05-[address] Olivia Pruett PA-C Work Phone: [facility] Work Phone: Start: 07-05-2024 End: 07-05-[address] Anitra Zamudio [facility] Start: 07-05-2024 End: 07-05-[address] Anitra Zamudio MD -[facility] Work Phone: Start: 07-05-2024 End: 07-05-[address] Olivia Pruett PA-C Work Phone: [facility] Work Phone: Start: 07-05-2024 End: 07-05-2024 ambulatory Anitra Zamudio Facility:[facility] Start: 06-22-2024 End: 06-22-2024 Nutrition therapy Isabel Gwendolyn Garcia [employer] Work Phone: [facility] Comment on above: Type 1 diabetes rosa itus during in first trimester Start: 06-22-2024 End: 06-26-2024 ambulatory [facility] Start: 06-15-2024 End: 06-15-2024 Refill Demetrius Ramirez [employer] Work Phone: [facility] [place] Comment on above: Type 1 diabetes rosa itus during in first trimester (Primary Dx) Start: 06-14-2024 End: 06-14-[address] Jenny Guerrier DO -[facility] Work Phone: Start: 06-14-2024 End: 06-14-2024 ambulatory Olivia Pruett Facility:[facility] Start: 06-13-2024 End: 08-13-2024 Follow-up encounter Isabel Garcia CNP Work Phone: [facility] Comment on above: OR END PACKER (MONITOR ); EXTERNAL, FOR USE WITH NONDURABLE MEDICAL EQUIPMENT INTERSTITIAL CONTINUOUS GLUCOSE MONITORING SYSTEM (CGM) Start: 06-13-2024 End: 06-13-2024 Office outpatient visit 25 minutes Isabel Garcia CNP Work Phone: [facility] Comment on above: Type 1 diabetes rosa itus during in first trimester (Primary Dx); Type 1 diabetes mellitus without complication (HCC) Start: 06-13-2024 End: 06-13-2024 ambulatory [facility] Start: 04-07-2024 ambulatory [facility] Start: 03-01-2024 End: 03-01-2024 Office outpatient visit 25 minutes Demetrius Ramirez CNP Work Phone: [facility] Comment on above: Type 1 diabetes rosa itus without complication (HCC) Start: 03-01-2024 End: 03-01-2024 ambulatory [facility] Amb[facility] Start: 01-27-2024 ambulatory [facility] Start: 2023 End: 2023 Office outpatient visit 15 minutes Demetrius Ramirez CNP Work Phone: [facility] [place] Comment on above: Type 1 diabetes rosa itus without complication (HCC) (Primary Dx); Insulin pump titration Start: 04-24-2023 End: 04-24-2023 Office outpatient visit 25 minutes Demetrius Ramirez CNP Work Phone: [facility] [place] Comment on above: Type 1 diabetes rosa itus without complication (HCC) (Primary Dx); Insulin pump titration Start: 03-12-2023 Refill Isabel toribio [employer] Work Phone: [facility] Comment on above: Type 1 diabetes rosa itus without complication (HCC) Start: 01-20-2023 Refill Isabel toribio [employer] Work Phone: [facility] Comment on above: Type 1 diabetes rosa itus without complication (HCC) Start: 01-12-2023 Refill Isabel toribio [employer] Work Phone: [facility] Comment on above: Type 1 diabetes rosa itus without complication (HCC) (Primary Dx) Start: 12-25-2022 End: 12-25-2022 Office outpatient new 30 minutes Isabel Garcia CNP Work Phone: [facility] Comment on above: Palpitations (Primar y Dx); Type 1 diabetes mellitus without complication (HCC); Racing heart beat; Chest pain, unspecified type Start: 12-03-2022 End: 12-03-2022 Office outpatient visit 25 minutes Isabel Garcia CNP Work Phone: [facility] Comment on above: Type 1 diabetes rosa itus without complication (HCC) (Primary Dx); Insulin pump titration; Racing heart beat Start: 07-16-2022 End: 07-16-2022 Office outpatient visit 25 minutes Isabel Garcia CNP Work Phone: [facility] Comment on above: Type 1 diabetes rosa itus without complication (HCC) (Primary Dx); Insulin pump titration Start: 03-13-2022 End: 03-13-2022 Office outpatient visit 15 minutes Demetrius Ramirez [employer] Work Phone: [facility] Comment on above: Type 1 diabetes rosa itus without complication (HCC) (Primary Dx) Start: 01-27-2022 Refill Isabel toribio [employer] Work Phone: [facility] Start: 11-15-2021 End: 11-15-2021 Office outpatient visit 25 minutes Triston Chacon PA-C Work Phone: [facility] Comment on above: Type 1 diabetes rosa itus without complication (HCC) (Primary Dx) Start: 07-03-2021 End: 07-03-2021 Office outpatient visit 25 minutes Triston Chacon PA-C Work Phone: [facility] Comment on above: Type 1 diabetes rosa itus without complication (HCC) (Primary Dx) Start: 10-31-2020 End: 10-31-2020 Office outpatient visit 25 minutes Triston Chacon PA-C Work Phone: [facility] Comment on above: Type 1 diabetes rosa itus without complication (HCC) (Primary Dx) Start: 06-27-2020 End: 06-27-2020 Office outpatient visit 25 minutes Isabel Garcia CNP Work Phone: [facility] Comment on above: Type 1 diabetes rosa itus without complication (HCC) (Primary Dx); Insulin pump titration Start: 04-16-2020 End: 04-16-2020 Refill Kita Carter Work Phone: [facility] Start: 04-13-2020 End: 04-13-2020 Orders Only Aziza Tobias Work Phone: [facility] Start: 03-29-2020 End: 03-29-2020 Refill Kita Carter Work Phone: [facility] Start: 02-29-2020 End: 02-29-2020 Office outpatient visit 25 minutes Isabel Garcia Work Phone: [facility] Comment on above: Type 1 diabetes rosa itus without complication (HCC) (Primary Dx); Insulin pump titration Start: 10-27-2019 End: 10-27-2019 Office outpatient visit 25 minutes Jasmin Henriquez Work Phone: [facility] Comment on above: Type 1 diabetes rosa itus without complication (HCC) (Primary Dx) Start: 06-23-2019 End: 06-23-2019 Office outpatient visit 15 minutes Jasmin Henriquez Work Phone: [facility] Comment on above: Type 1 diabetes rosa itus without complication (HCC) (Primary Dx) Start: 04-19-2019 End: 04-19-2019 Office outpatient visit 15 minutes Demetrius Ramirez Work Phone: [facility] Comment on above: Type 1 diabetes rosa itus without complication (HCC) (Primary Dx) Start: 04-04-2019 End: 04-04-2019 Office outpatient visit 15 minutes Kita Carter Work Phone: [facility] Comment on above: Type 1 diabetes rosa itus without complication (HCC) (Primary Dx); Insulin pump titration Start: 02-15-2019 End: 02-15-2019 Office outpatient visit 15 minutes Demetrius Ramirez Work Phone: [facility] Comment on above: Type 1 diabetes rosa itus without complication (HCC) (Primary Dx) Start: 11-03-2018 End: 11-03-2018 Office outpatient visit 25 minutes Triston Chacon Work Phone: [facility] Physicians Comment on above: Type 1 diabetes rosa itus without complication (HCC) (Primary Dx) Start: 06-25-2018 End: 06-25-2018 Office outpatient visit 15 minutes Isabel Garcia Work Phone: [facility] Comment on above: Type 1 diabetes rosa itus without complication (HCC) (Primary Dx) Start: 03-08-2018 Patient encounter procedure Kita Carter Facility:[facility] Start: 03-08-2018 End: 03-08-2018 Patient encounter procedure Kita Carter Work Phone: [facility] Start: 02-18-2018 End: 02-18-2018 Office outpatient visit 15 minutes Ruthie Abad Work Phone: [facility] Comment on above: Type 1 diabetes rosa itus without complication (HCC) (Primary Dx) Start: 09-09-2017 End: 09-09-2017 Office outpatient visit 15 minutes Kita Carter Work Phone: [facility] Procedures Date Procedure Procedure Detail Performing Clinician Start: 11-21-2024 Serologic test for syphilis Dr. Olivia Pruett PA-C Work Phone: Start: 10-12-2024 Hemoglobin glycosylated a1c Chani Mckinney PA-C Work Phone: Start: 08-30-2024 Hemoglobin glycosylated a1c Oscar Olivares [facility] Work Phone: Start: 08-30-2024 External planer off bearer, CGM sys Oscar Olivares [facility] Work Phone: Start: 07-20-2024 External planer off bearer, CG sys Demetrius Wilfredtom Ramirez [facility] Work Phone: Start: 07-05-2024 Liquid based cervica l cytology screening Dr. Olivia Pruett PA-C Work Phone: Comment on above: NEGATIVE FOR INTRAEP ITHELIAL LESION OR MALIGNANCY.THIS SPECIMEN WAS RESCREENED PART OF OUR MOLD CARPENTER PROGRAM. This liquid based Th inPrep(R) pap test was screened withthe use of an image guided system. The HPV DNA reflex c riteria were not met with this specimenresult therefore, no HPV testing was performed.Performed at: [address] [id number] Director: Indiana Magaña MD, Phone: [phone] Start: 07-05-2024 Hepatitis C antibody measurement Dr. [...] HCV Quant by PCR testing - HCVPCR #[id number] Non Reactive: < 0.8 Equivocal: >/= 0.8 [...] Pruett PA-C Work Phone: Start: 06-13-2024 External planer off bearer, CGM sys Isabel Snow Radha [place] Work Phone: Start: 06-13-2024 Hemoglobin glycosylated a1c Isabel Snow McUriel [place]GAN Work Phone: Start: 04-24-2023 Hemoglobin glycosylated a1c Demetrius Ramirez [facility] Work Phone: Start: 12-25-2022 Ecg routine ecg w/le ast 12 lds w/i&r Rico Steel MD Work Phone: Start: 12-03-2022 3 comp foot exam completed Isabel KirbyUriel MORGAN Work Phone: Start: 10-20-2022 Microalbumin [Mass/v olume] in Urine by Test strip Isabel KirbyUriel M[place]GAN Work Phone: Start: 07-16-2022 Hemoglobin glycosylated a1c Isabel Garcia [facility] Work Phone: Start: 07-16-2022 3 comp foot exam completed Isabel GarciaUriel MORGAN Work Phone: Start: 03-13-2022 Hemoglobin glycosylated a1c Demetrius Ramirez [facility] Work Phone: Start: 03-13-2022 3 comp foot [...] 06-23-2019 3 comp foot exam completed Jasmin Henriquez Start: 04-19-2019 3 comp foot exam completed [...] or 75+ (1 - 1-dose 75+ series) [facility] Start: 03-08-2025 End: 08-30-2025 Comprehensive metabolic 2000 panel - Serum or Plasma Comprehensive Metabolic Panel Lab Routine Type 1 diabetes mellitus during in second trimester Expected: 03/08/2025 (Approximate), Expires: 08/30/2025 [facility] Comment on above: Expected: 03/08/2025 (Approximate), Expi res: 08/30/2025 Start: 03-08-2025 End: 08-30-2025 Hemoglobin A1c/Hemoglobin.total in Blood Hemoglobin A1c Lab Routine Type 1 diabetes mellitus during in second trimester Expected: 03/08/2025 (Approximate), Expires: 08/30/2025 [facility] Work Phone: Comment on above: Expected: 03/08/2025 (Approximate), Expi res: 08/30/2025 Start: 03-08-2025 End: 08-30-2025 Lipid 1996 panel - Serum or Plasma Lipid Panel Lab Routine Type 1 diabetes mellitus during in second trimester Expected: 03/08/2025 (Approximate), Expires: 08/30/2025 [facility] Comment on above: Expected: 03/08/2025 (Approximate), Expi res: 08/30/2025 Start: 03-08-2025 End: 08-30-2025 Microalbumin measurement, urine, quantitative Microalbumin/Creatini ne Ratio, UR Random Lab Routine Type 1 diabetes mellitus during in second trimester Expected: 03/08/2025 (Approximate), Expires: 08/30/2025 [facility] Comment on above: Expected: 03/08/2025 (Approximate), Expi res: 08/30/2025 Start: 03-08-2025 End: 08-30-2025 Thyrotropin [Units/volume] in Serum or Plasma TSH Lab Routine Type 1 diabetes mellitus during in second trimester Expected: 03/08/2025 (Approximate), Expires: 08/30/2025 [facility] Comment on above: Expected: 03/08/2025 (Approximate), Expi res: 08/30/2025 Start: 03-08-2025 End: 08-30-2025 Thyroxine (T4) free [Mass/volume] in Serum or Plasma T4, Free Lab Routine Type 1 diabetes mellitus during in second trimester Expected: 03/08/2025 (Approximate), Expires: 08/30/2025 [facility] Comment on above: Expected: 03/08/2025 (Approximate), Expi res: 08/30/2025 Start: 03-02-2025 Hemoglobin A1c measurement A1C [facility] Start: 03-01-2025 Diabetic foot examination Diabetic Foot Exam [facility] Start: 03-01-2025 End: 03-01-2025 Patient encounter procedure 03/01/2025 9:00 AM EST Office Visit [facility] [address] [facility] [place] [address] Oscar Olivares, [employer] [address] [place] [address] [facility] Start: 02-13-2025 ambulatory Ambulatory Facility:[facility] Start: 01-31-2025 End: 01-31-2025 Patient encounter procedure 01/31/2025 2:00 PM EST Office Visit Maternal Medicine [address] [place] [address] Jenny Tate SEWING PATTERN LAYOUT TECHNICIAN[place] [address] Return in about 2 weeks (around 08/18/2024) for Comanage every 2 weeks, Comanage can see BRETT.- Per patient preference for dates/times [facility] Comment on above: Return in about 2 weeks (around ) for Comanage every 2 weeks, Comanage can see BRETT.- Per patient preference for dates/times Start: 01-25-2025 eGFR Diabetes eGFR Diabetes [facility] Start: 01-25-2025 Urine screening for protein eGFR Diabetes [facility] Start: 01-18-2025 End: 01-18-2025 Patient encounter procedure 01/18/2025 1:30 PM EST Office Visit Maternal Medicine [address] [place] [address] Jenny Tate SEWING PATTERN LAYOUT TECHNICIAN-[employer]VER HAND [place], [place] [id number] Return in about 2 weeks (around 08/18/2024) for Comanage every 2 weeks, Comanage can see BRETT.- Per patient preference for dates/times [facility] Comment on above: Return in about 2 weeks (around ) for Comanage every 2 weeks, Comanage can see BRETT.- Per patient preference for dates/times Start: 01-11-2025 Hemoglobin A1c/Hemoglobin.total in Blood HbA1c [facility] Start: 01-04-2025 End: 01-04-2025 Patient encounter procedure 01/04/2025 1:30 PM EST Office Visit Maternal Medicine [address], [place] [phone] Jenny Tate, SEWING PATTERN LAYOUT TECHNICIAN[place] [address] Return in about 2 weeks (around 08/18/2024) [...] EST Office Visit Maternal Medicine [address] [place], [place] [phone] Jenny Tate APRN-CNP [place], [place] [phone] Return in about 2 weeks (around 08/18/2024) [...] or 75+ (1 - Risk 1-dose series) [facility] Start: 12-14-2024 Hemoglobin A1c measurement A1C [facility] Start: 11-23-2024 End: 11-23-2024 Patient encounter procedure 11/23/2024 1:00 PM EDT Office Visit Maternal Medicine [address] [place], [place] [phone] Jenny Tate APRN-CNP [place], [place] [phone] Return in about 2 weeks (around 08/18/2024) [...] Ancillary Procedure Visit Maternal Medicine [facility] [address] [place] [address] Return for EDC 02/13/2025 US60 at 28 weeks. [facility] [place] Comment on above: Return for EDC 02/13/2025 US60 at 28 weeks . Start: 11-09-2024 End: 11-09-2024 Patient encounter procedure 11/09/2024 1:00 PM EDT Office Visit Maternal Medicine [address], [place] [phone] Jenny Tate, SEWING PATTERN LAYOUT TECHNICIAN-[employer] HAND [place], [place] [phone] Return in about 2 weeks (around 08/18/2024) [...] EDT Office Visit Maternal Medicine [address] [place] [address] Jenny Tate, SEWING PATTERN LAYOUT TECHNICIAN[place] [address] Return in about 2 weeks (around 08/18/2024) for Comanage every 2 weeks, Comanage can see BRETT.- Per patient preference for dates/times [facility] Comment on above: Return in about 2 weeks (around ) for Comanage every 2 weeks, Comanage can see BRETT.- Per patient preference for dates/times Start: 10-10-2024 COVID-19 ( season) COVID-19 ( season) [facility] Start: 10-10-2024 COVID-19 Vaccine ( season) COVID-19 Vaccine ( season) [facility] Start: 10-10-2024 FLU (#1) FLU (#1) [facility] Start: 10-10-2024 Influenza vaccination [facility] Start: 08-30-2024 Diabetic foot examination Diabetic Foot Exam [facility] Start: 08-30-2024 End: 08-30-2024 Patient encounter procedure 08/30/2024 9:30 AM EDT Office Visit [facility] [address] [facility] [place] [address] Oscar Olivares CNP [address] [place] [address] [facility] Start: 07-26-2024 Hemoglobin A1c measurement A1C [facility] Start: 07-05-2024 CBC W Auto Differential panel - Blood [facility] Start: 07-05-2024 Comprehensive metabolic 2000 panel - Serum or Plasma [facility] Start: 07-05-2024 Hemoglobin A1c/Hemoglobin.total in Blood [facility] Start: 07-05-2024 Hepatitis C antibody measurement [facility] Start: 07-05-2024 Rubella IgG measurement [facility] Start: 07-05-2024 Serologic test for syphilis [facility] Start: 07-05-2024 Thyroid stimulating hormone measurement [facility] Start: 07-05-2024 [facility] Start: 04-23-2024 Diabetic foot examination Diabetic Foot Exam [facility] Start: 03-01-2024 End: 03-01-2024 Patient encounter procedure 03/01/2024 9:15 AM EST Office Visit [facility] [address] [facility] [place] [address] Demetrius Ramirez, [employer] [address] [place] [address] [facility] Start: 12-04-2023 Diabetic foot examination [facility] Start: 10-25-2023 Hemoglobin A1c measurement A1C [facility] Start: 10-21-2023 Urine screening for protein [facility] Start: 10-11-2023 COVID-19 Vaccine ( season) COVID-19 Vaccine ( season) [facility] Start: 10-11-2023 Influenza vaccination Influenza Vaccine (#1) [facility] Start: 2023 End: 2023 Patient encounter procedure 2023 11:15 AM EDT Office Visit [facility] [place] [address] [place] [phone] Demetrius Ramirez CNP [address] [place] [address] [facility] [place] Start: 07-17-2023 Diabetic foot examination Foot Exam [facility] Start: 04-20-2023 Hemoglobin A1c measurement A1C [facility] Start: 04-16-2023 End: 04-16-2023 Patient encounter procedure 04/16/2023 11:00 AM EST Office Visit [facility] [place] [address] Demetrius Ramirez CNP [address] [place] [address] [facility] Start: 03-13-2023 Diabetic foot examination Foot Exam [facility] Start: 01-15-2023 Hemoglobin A1c measurement A1C [facility] Start: 12-25-2022 End: 02-25-2024 Extended Holter Monitor (3-7 days) Extended Holter Monitor (3-7 days) Cardiac Services Routine Palpitations Chest pain, unspecified type Expected: 12/25/2022, Expires: 02/25/2024 [facility] Comment on above: Expected: 12/25/2022, Expires: Start: 12-18-2022 End: 12-18-2022 Patient encounter procedure 12/18/2022 11:00 AM EST Office Visit [facility] [address] [facility] [place] [phone] Isabel Garcia CNP [address] [place] [address] Rico Steel MD [address] [place] [address] [facility] Start: 12-03-2022 End: 12-03-2022 Patient encounter procedure 12/03/2022 9:45 AM EDT Office Visit [facility] [address] [place] [phone] Triston Chacon PA-C [address] [place] [address] [facility] Start: 11-15-2022 End: 07-17-2023 Comprehensive metabolic 2000 panel - Serum or Plasma Comprehensive Metabolic Panel Lab Routine Type 1 diabetes mellitus without complication (HCC) Expected: 11/15/2022, Expires: 07/17/2023 [facility] Work Phone: Comment on above: Expected: 11/15/2022, Expires: 4 Start: 11-15-2022 Diabetic foot examination Foot Exam [facility] Start: 11-15-2022 End: 07-17-2023 Hemoglobin A1c/Hemoglobin.total in Blood Hemoglobin A1c Lab Routine Type 1 diabetes mellitus without complication (HCC) Expected: 11/15/2022, Expires: 07/17/2023 [facility] Comment on above: Expected: 11/15/2022, Expires: 4 Start: 11-15-2022 End: 07-17-2023 Microalbumin measurement, urine, quantitative Microalbumin/Creatini ne Ratio, UR Random Lab Routine Type 1 diabetes mellitus without complication (HCC) Expected: 11/15/2022, Expires: 07/17/2023 [facility] Comment on above: Expected: 11/15/2022, Expires: 4 Start: 11-15-2022 End: 07-17-2023 Thyrotropin [Units/volume] in Serum or Plasma TSH Lab Routine Type 1 diabetes mellitus without complication (HCC) Expected: 11/15/2022, Expires: 07/17/2023 [facility] Comment on above: Expected: 11/15/2022, Expires: Start: 11-15-2022 End: 07-17-2023 Thyroxine (T4) free [Mass/volume] in Serum or Plasma T4, Free Lab Routine Type 1 diabetes mellitus without complication (HCC) Expected: 11/15/2022, Expires: 07/17/2023 [facility] Comment on above: Expected: 11/15/2022, Expires: Start: 10-10-2022 COVID-19 Vaccine () COVID-19 Vaccine () [facility] Start: 10-10-2022 Influenza vaccination [facility] Start: 09-10-2022 Hemoglobin A1c measurement A1C [facility] Start: 2022 Microscopic observation [Identifier] in Cervix by Cyto stain Pap Smear [facility] Start: 2022 Screening for malignant neoplasm of cervix Pap Smear [facility] Start: 07-16-2022 End: 07-16-2022 Patient encounter procedure 07/16/2022 Office Visit Endocrinology Isabel Garcia, [employer] [address] [place] [address] [facility] Start: 07-03-2022 Diabetic foot examination Foot Exam [facility] Start: 06-14-2022 Microalbumin measurement, urine, quantitative Urine Microalbumin [facility] Start: 06-14-2022 Urine screening for protein Urine Microalbumin [facility] Start: 04-22-2022 Hemoglobin A1c measurement A1C [facility] Start: 03-19-2022 End: 03-19-2022 Patient encounter procedure 03/19/2022 Office Visit Endocrinology Isabel Garcia, [employer] [address] [place] [address] [facility] Start: 12-15-2021 Hemoglobin A1c measurement A1C [facility] Start: 11-08-2021 End: 11-08-2021 Patient encounter procedure 11/08/2021 Office Visit Endocrinology Triston Chacon PA-C [address] [place] [address] [facility] Start: 10-10-2021 Influenza vaccination [facility] Start: 06-27-2021 Diabetic foot examination Foot Exam [facility] Start: 05-30-2021 Microalbumin measurement, urine, quantitative Urine Microalbumin [facility] Start: 03-06-2021 End: 03-06-2021 Patient encounter procedure 03/06/2021 Office Visit Endocrinology Isabel Garcia, [employer] [address] [place] [address] [facility] Start: 02-28-2021 Diabetic foot examination Foot Exam [facility] Start: 11-29-2020 Hemoglobin A1c measurement A1C [facility] Start: 10-31-2020 End: 10-31-2020 Patient encounter procedure 10/31/2020 Office Visit Endocrinology Triston Chacon PA-C [address] [place] [address] [phone] [facility] Start: 10-10-2020 Influenza vaccination [facility] Start: 2020 Hepatitis A (1 of 2 - Risk 2-dose series) Hepatitis A (1 of 2 - Risk 2-dose series) [facility] Start: 2020 Hepatitis B (1 of 3 - 19+ 3-dose series) Hepatitis B (1 of 3 - 19+ 3-dose series) [facility] Start: 2020 Pneumococcal Vaccine: Ped or At-Risk (1 of 2 - PCV) Pneumococcal Vaccine: Ped or At-Risk (1 of 2 - PCV) [facility] Start: 08-28-2020 HbA1c (Bld) [Mass fraction] A1C [facility] Start: 06-27-2020 End: 06-27-2020 Office Visit 06/27/2020 Office Visit Endocrinology Isabel Garcia, [employer] [address] [place] [address] [phone] [facility] Start: 06-22-2020 Diabetic foot examination Foot Exam [facility] Start: 04-18-2020 Diabetic foot examination Foot Exam [facility] Start: 02-29-2020 End: 02-29-2020 Office Visit 02/29/2020 Office Visit Endocrinology Isabel Garcia, [employer] [address] [place] [address] [phone] [facility] Start: 02-16-2020 Diabetic foot examination Foot Exam [facility] Start: 11-04-2019 Diabetic foot examination FOOT EXAM [facility] Start: 10-27-2019 End: 10-27-2019 Office Visit 10/27/2019 Office Visit Endocrinology Jasmin Henriquez PA-C [address] [place] [address] [phone] [facility] Start: 10-24-2019 End: 06-22-2020 Free T4 [Mass/Vol] T4, Free Lab Routine Type 1 diabetes mellitus without complication (HCC) Expected: 10/24/2019 (Approximate), Expires: 06/22/2020 [facility] Comment on above: Expected: 10/24/2019 (Approximate), Expi res: 06/22/2020 Start: 10-24-2019 End: 06-22-2020 Lipid 1996 panel Lipid Panel Lab Routine Type 1 diabetes mellitus without complication (HCC) Expected: 10/24/2019 (Approximate), Expires: 06/22/2020 [facility] Comment on above: Expected: 10/24/2019 (Approximate), Expi res: 06/22/2020 Start: 10-24-2019 End: 06-22-2020 TSH Qn TSH Lab Routine Type 1 diabetes mellitus without complication (HCC) Expected: 10/24/2019 (Approximate), Expires: 06/22/2020 [facility] Comment on above: Expected: 10/24/2019 (Approximate), Expi res: 06/22/2020 Start: 10-11-2019 Influenza vaccination given [facility] Start: 09-01-2019 Hepatitis C antibody, confirmatory test Hepatitis C Screening [facility] Start: 09-01-2019 Hepatitis C screening Hepatitis C Screening [facility] Start: 08-11-2019 HbA1c (Bld) [Mass fraction] A1C [facility] Start: 06-23-2019 End: 06-23-2019 Office Visit 06/23/2019 Office Visit Endocrinology Jasmin Henriquez PA-C [address] [place] [address] [phone] [facility] Start: 05-17-2019 End: 05-17-2019 Office Visit 05/17/2019 Office Visit Endocrinology Jasmin Henriquez PA-C [address] [place] [address] [phone] [facility] Start: 04-19-2019 End: 04-19-2019 Office Visit 04/19/2019 Office Visit Endocrinology Demetrius Ramirez CNP [address] [place] [address] [phone] [facility] Start: 02-15-2019 End: 02-15-2019 Office Visit 02/15/2019 Office Visit Endocrinology Demetrius Ramirez CNP [address] [place] [address] [phone] [facility] Start: 10-29-2018 End: 10-29-2018 Office Visit 10/29/2018 Office Visit Endocrinology Kita Carter MD [address] [place] [address] [phone] [facility] Start: 10-10-2018 Influenza vaccination given [facility] Start: 09-09-2018 Diabetic foot examination FOOT EXAM [facility] Start: 06-25-2018 End: 06-25-2018 Office Visit 06/25/2018 Office Visit Endocrinology Isabel Garcia CNP [address] [place] [address] [phone] [facility] Start: 05-06-2018 Diabetic foot examination (regime/therapy) FOOT EXAM [facility] Start: 02-05-2018 End: 02-05-2018 Ambulatory 02/05/2018 Office Visit Endocrinology [place], Shalini Cross, [employer] [address] [place] [id number] [phone] [facility] Start: 11-06-2017 Hemoglobin A1c/Hemoglobin.total mass fraction (Bld) [facility] Start: 10-10-2017 Influenza vaccination SEQUENTIAL INFLUENZA VACCINE (#1) [facility] Start: 10-10-2017 Influenza vaccination given SEQUENTIAL INFLUENZA VACCINE (#1) [facility] Start: 2017 COVID-19 Vaccine (1 of 2) COVID-19 Vaccine (1 of 2) [facility] Start: 2017 MenB (1 of 2 - MenB 2-Dose Series Bexsero) MenB (1 of 2 - MenB 2-Dose Series Bexsero) [facility] Start: 2017 Meningococcal conjugate vaccination [facility] Start: 2017 Meningococcus vaccination MENINGOCOCCAL VACCINE (1 of 1) [facility] Start: 2016 HIV screening HIV Screening [facility] Start: 2016 HPV (1 - 3-dose series) HPV (1 - 3-dose series) [facility] Start: 2016 Vaccination for human papillomavirus [facility] Start: 2014 Varicella (1 of 2 - 13+ 2-dose series) Varicella (1 of 2 - 13+ 2-dose series) [facility] Start: 2014 Varicella vaccination [facility] Start: 10-28-2013 Albumin DL <= 20 mg/L (U) [Mass/Vol] Urine Microalbumin [facility] Start: 2013 Adolescent depression screening assessment Depression Screening (PHQ9) [facility] Start: 2013 COVID-19 Vaccine (1) COVID-19 Vaccine (1) [facility] Start: 2013 Depression screening using PHQ-9 (Patient Health Questionnaire 9) score [facility] Start: 2012 Vaccination for human papillomavirus [facility] Start: 09-01-2011 Albumin DL <= 20 mg/L mass conc (U) URINE MICROALBUMIN [facility] Start: 09-01-2011 Glaucoma screening [facility] Start: 09-01-2011 Ophthalmic examination and evaluation OPHTHALMOLOGY EXAM [facility] Start: 2008 Tetanus Diphtheria and Pertussis Vaccines (4 - Tdap) Tetanus Diphtheria and Pertussis Vaccines (4 - Tdap) [facility] [facility] Start: 2008 Tetanus, diphtheria and acellular [...] Polio (4 of 4 - 4-dose series) [facility] Start: 2004 History and physical examination, annual for health maintenance Wellness Visit [facility] Start: 2002 Hepatitis A immunization [facility] Start: 2002 Pgutuic-fufoe-jksrgsa vaccination [facility] Start: 2002 MMR (1 of 1 - Standard series) MMR (1 of 1 - Standard series) [facility] Start: 2002 Varicella vaccination VARICELLA VACCINES (1 of 2 - 2-dose childhood series) [facility] Start: 03-03-2002 COVID-19 Vaccine (#1) COVID-19 Vaccine (#1) [facility] Start: 2001 Inactivated poliovirus vaccine (product) [facility] Start: 2001 Hepatitis B vaccination [facility] Start: 2001 Screening for Chlamydia trachomatis Chlamydia Screening [facility] Start: 2001 Tetanus vaccination [facility] Alanine aminotransfe rase [Enzymatic activity/volume] in Serum or Plasma [facility] Albumin [Mass/volume ] in Serum or Plasma [facility] Alkaline phosphatase [Enzymatic activity/volume] in Serum or Plasma [facility] Anion gap in Serum or Plasma [facility] Bilirubin, total measurement [facility] BUN/Creatinine ratio [facility] Calcium [Mass/volume ] in Serum or Plasma [facility] Carbon dioxide, tota l [Moles/volume] in Central venous blood [facility] CBC W Auto Different ial panel - Blood [facility] Chlamydia deoxyribon ucleic acid detection [facility] End: 2024 Complete blood count with white cell differential, manual CBC and Differential Lab Routine Type 1 diabetes mellitus without complication (HCC) 1 Occurrences starting 2023 until 2024 [facility] Comment on above: 1 Occurrences starting 2023 until 2024 End: 02-28-2021 Comprehensive metabolic 2000 panel Comprehensive Metabolic Panel Lab Routine Type 1 diabetes mellitus without complication (HCC) 1 Occurrences starting 02/29/2020 until 02/28/2021 [facility] Comment on above: 1 Occurrences starting 02/29/2020 until 02/28/2021 End: 11-04-2019 Comprehensive metabolic 2000 panel Comprehensive Metabolic Panel Lab Routine Type 1 diabetes mellitus without complication (HCC) 1 Occurrences starting 11/03/2018 until 11/04/2019 [facility] Comment on above: 1 Occurrences starting 11/03/2018 until 11/04/2019 End: 07-03-2022 Comprehensive metabolic 2000 panel - Serum or Plasma Comprehensive Metabolic Panel Lab Routine Type 1 diabetes mellitus without complication (HCC) 1 Occurrences starting 07/03/2021 until 07/03/2022 [facility] Work Phone: Comment on above: 1 Occurrences starting 07/03/2021 until 07/03/2022 End: 2024 Comprehensive metabolic 2000 panel - Serum or Plasma Comprehensive Metabolic Panel Lab Routine Type 1 diabetes mellitus without complication (HCC) 1 Occurrences starting 2023 until 2024 [facility] Work Phone: Comment on above: 1 Occurrences starting 2023 until 2024 Creatinine [Mass/vol ume] in Serum or Plasma [facility] Electrocardiographic procedure [facility] Erythrocyte mean cor puscular volume determination [facility] End: 02-28-2021 Free T4 [Mass/Vol] T4, Free Lab Routine Type 1 diabetes mellitus without complication (HCC) 1 Occurrences starting 02/29/2020 until 02/28/2021 [facility] Comment on above: 1 Occurrences starting 02/29/2020 until 02/28/2021 Glucose [Mass/volume ] in Serum or Plasma [facility] End: 02-28-2021 HbA1c (Bld) [Mass fraction] Hemoglobin A1c Lab Routine Type 1 diabetes mellitus without complication (HCC) 1 Occurrences starting 02/29/2020 until 02/28/2021 [facility] Comment on above: 1 Occurrences starting 02/29/2020 until 02/28/2021 End: 11-04-2019 HbA1c (Bld) [Mass fraction] Hemoglobin A1c Lab Routine Type 1 diabetes mellitus without complication (HCC) 1 Occurrences starting 11/03/2018 until 11/04/2019 [facility] Comment on above: 1 Occurrences starting 11/03/2018 until 11/04/2019 Hematocrit [Volume F raction] of Blood [facility] Hemoglobin [Mass/vol ume] in Blood [facility] End: 07-03-2022 Hemoglobin A1c/Hemoglobin.total in Blood Hemoglobin A1c Lab Routine Type 1 diabetes mellitus without complication (HCC) 1 Occurrences starting 07/03/2021 until 07/03/2022 [facility] Comment on above: 1 Occurrences starting 07/03/2021 until 07/03/2022 End: 2024 Hemoglobin A1c/Hemoglobin.total in Blood Hemoglobin A1c Lab Routine Type 1 diabetes mellitus without complication (HCC) 1 Occurrences starting 2023 until 2024 [facility] Comment on above: 1 Occurrences starting 2023 until 2024 Hepatitis B virus velasco rface Ag [Presence] in Serum [facility] Leukocytes [#/volume ] in Blood [facility] End: 2024 Lipid 1996 panel - Serum or Plasma Lipid Panel Lab Routine Type 1 diabetes mellitus without complication (HCC) 1 Occurrences starting 2023 until 2024 [facility] Comment on above: 1 Occurrences starting 2023 until 2024 Liquid based cervica l cytology screening [facility] Mean corpuscular hem oglobin concentration determination [facility] Mean corpuscular hem oglobin determination [facility] Measurement of renal function [facility] Microalbumin measure ment, urine, quantitative Microalbumin/Creatini ne Ratio, UR Random Lab Routine Type 1 diabetes mellitus without complication (HCC) Ordered: 02/29/2020 [facility] Comment on above: Ordered: 02/29/2020 Microalbumin measure ment, urine, quantitative Microalbumin/Creatini ne Ratio, UR Random Lab Routine Type 1 diabetes mellitus without complication (HCC) Ordered: 2023 [facility] Comment on above: Ordered: 2023 Neutrophil count [facility] Neutrophil percent differential count [facility] Platelets [#/volume] in Blood [facility] Potassium measurement [facility] Protein/Creatinine [ Ratio] in Urine [facility] Red blood cell count [facility] Red cell distributio n width determination [facility] Serologic test for syphilis [facility] Serum chloride measurement [facility] Sodium measurement [facility] End: 02-25-2024 Stress test only, exercise Stress test only, exercise Cardiac Services Routine Palpitations Chest pain, unspecified type 1 Occurrences starting 12/25/2022 until 02/25/2024 [facility] Work Phone: Comment on above: 1 Occurrences starting 12/25/2022 until 02/25/2024 End: 2024 Thyrotropin [Units/volume] in Serum or Plasma TSH Lab Routine Type 1 diabetes mellitus without complication (HCC) 1 Occurrences starting 2023 until 2024 [facility] Comment on above: 1 Occurrences starting 2023 until 2024 End: 2024 Thyroxine (T4) free [Mass/volume] in Serum or Plasma T4, Free Lab Routine Type 1 diabetes mellitus without complication (HCC) 1 Occurrences starting 2023 until 2024 [facility] Comment on above: 1 Occurrences starting 2023 until 2024 Total protein measurement [facility] End: 02-28-2021 TSH Qn TSH Lab Routine Type 1 diabetes mellitus without complication (HCC) 1 Occurrences starting 02/29/2020 until 02/28/2021 [facility] Comment on above: 1 Occurrences starting 02/29/2020 until 02/28/2021 Urea nitrogen [Mass/ volume] in Serum or Plasma [facility] Immunizations Immunization Date Immunization Notes Care Provider Toyin perea 05-06-2017 HEMOGLOBIN A1C [facility] 04-27-2002 poliovirus vaccine, unspecified formulation Triston Chacon [facility] Payers Date Payer Category Payer Self-pay [id number] 2024 Self-pay 2024 Unknown [id number] Unknown [id number] 2.16.8 [id number] Unknown [id number] 2.16.8 [id number] Unknown [id number] 2.16.8 [id number] Unknown [id number] 2.16.8 [id number] Unknown [id number] 2.16.8 [id number] Unknown [id number] 2.16.8 [id number] Unknown [id number] 2.16.8 [id number] Unknown [id number] 2.16.8 [id number] Unknown [id number] 2.16.8 [id number] Unknown [id number] 2.16.8 [id number] Unknown [id number] 2.16.8 [id number] Unknown [id number] 2.16.8 [id number] Social History Date Type Detail Facility Start: 09-09-2017 End: 06-14-2024 Tobacco smoking status GAIS Never smoker [facility] Start: 2001 Sex Assigned At Not on file [facility] Start: 02-15-2019 End: 08-30-2024 Alcohol intake Current non-drinker of alcohol (finding) [facility] Start: 06-23-2021 End: 03-13-2022 Exposure to SARS-CoV-2 (event) Not sure [facility] Start: 10-27-2019 End: 12-03-2022 Tobacco use and exposure Never used [facility] Start: 06-27-2020 End: 08-30-2024 Alcohol intake [facility] Start: 07-16-2022 End: 08-30-2024 Tobacco use panel [facility] Start: 10-31-2020 Gender identity Identifies as female gender (finding) [facility] Start: 10-31-2020 Sexual orientation Heterosexual (finding) [facility] Start: 05-23-2024 [facility] Start: 2001 Sex Assigned At Female [facility] Start: 10-12-2024 Alcoholic beverage intake Ex-drinker (finding) [facility] Start: 07-07-2024 Sex Female (finding) [facility] Medical Equipment Procedure Code Equipment Code Equipment Origin al Text Equipment Identifier Dates Use as directed 8 times per day . [id number] Start: 03-22-2019 End: 01-27-2022 Use as directed 8 times per day . [id number] Start: 03-28-2019 End: 03-29-2020 Use as directed 8 times per day. . [id number] Start: 03-30-2020 test up to EIGHT times DAILY DIRECTED . [id number] Start: 04-09-2021 End: 01-27-2022 Use to check BG 8 x daily. DX code E10.9 . [id number] Start: 01-28-2022 End: 12-03-2022 by Miscellaneous route Use to check BG 8 x daily. DX code E10.9 . [id number] End: 01-27-2022 Use to check BG 8 x daily. DX code E10.9 . [id number] Start: 12-03-2022 by Miscellaneous route 4 (four) times a day . [id number] Start: 04-24-2023 Clinical Notes 06-27-2020 to 11-21-2024 Note Date & Type Note Facility 11-21-2024 Progress note [facility] 10-24-2024 Progress note [facility] 10-24-2024 Progress note Note Date/Time October 24, 2024 3:00pm [facility] [address], [address] [place] [address] OFFICE VISIT Date of Service: 10/24/24 MR#: [id number] Acct: [id number] Name: ALLISON NGUYEN Rep #: [id number] : 2000 Provider: Dr. Antwon Zamudio MD Age/Sex: 24/F [place] [facility] [place]: Signed Intake Vital Signs 08/29/24 13:12 09/28/24 13:43 10/24/24 14:24 Height 5 ft 3 in 5 ft 3 in 5 ft 3 in Weight: 140 lb 8 oz 152 lb 6 oz BMI 24.8 26.9 BP 108/71 97/64 Intake Visit Reasons: 24 WK OB Independent Sales Representative Required: No Is patient in pain?: No [...] 1-2 times per week duration: 15-30 minutes/day ness/amish: Mennonite seatbelt use: always do you feel [...] Monitoring, Signs and Symptoms of Preeclampsia and [place] [employer] ROS Const Denies fever(s) GI Reports [...] Acute Comment: insulin pump on humalog, saw [facility] endocrinology, [facility] managing. baseline labs and ekg pending. Nl CMP. HgbA1c 6.1. echo at 22-24wk MFM BPP wkly and BWC NST wkly start at 28 wk Growth US Q4wk at 28 wk Del at 37-39 wk (3) Supervision of high-risk : Status: Acute Qualifiers: Trimester: first trimester Qualified Code(s): O09.91 - Supervision of high risk , unspecified, first trimester Comment: [id number] MCKENNA 02/13/25, : Seven (4) : Status: Acute Qualifiers: Weeks of gestation: 24 weeks Qualified Code(s): Z3A.24 - 24 weeks gestation of Comment: Discussed genetic/carrier testing - declined., nl anatomy (5) Diabetes in : Status: Acute Qualifiers: Diabetes in type: pre-existing, type 1 Trimester: second trimester Qualified Code(s): O24.012 - Pre-existing type 1 diabetes mellitus, in , second trimester Comment: [id number]; on Humalog; HgBA1C ordered w/NOB Orders: Orders [...] Cosigner Signature: Date (if applicable) CC: ~ [facility] [employer] Work Phone: 1(215) 280-259308-20-2025 Progress [facility] [address] [place] [address] [address] [id number] OFFICE VISIT Date of Service: 09/28/24 MR#: [id number] Acct: [id number] Name: ALLISON NGUYEN Rep #: [id number] : 2000 Provider: Dr. Natalie Guerrier DO Age/Sex: 24/F Location[place] [facility] [place] Status: Signed Intake Vital Signs 08/02/24 13:27 08/29/24 13:12 09/28/24 13:42 09/28/24 13:43 Height 5 ft 3 in 5 ft 3 in 5 ft 3 in 5 ft 3 in Weight: 147 lb 3 oz BMI 26.0 BP 109/70 Intake Visit Reasons: 20 wk ob Independent Sales Representative Required: No Is patient in pain?: No [...] 1-2 times per week duration: 15-30 minutes/day ness/amish: Mennonite seatbelt use: always do you feel [...] Acute Comment: insulin pump on humalog, saw [facility] endocrinology, [facility] managing. baseline labs and ekg pending.Nl CMP. HgbA1c 6.1. echo at 22-24wk [facility] BPP wkly and BWC NST wkly start at 28 wk Growth US Q4wk at 28 wk Del at 37-39 wk (3) Supervision of high-risk : Status: Acute Qualifiers: Trimester: first trimester Qualified Code(s): O09.91 - Supervision of high risk , unspecified, first trimester Comment: [id number] MCKENNA 02/13/25, : Seven (4) : Status: Acute Qualifiers: Weeks of gestation: 20 weeks Qualified Code(s): Z3A.20 - 20 weeks gestation of Comment: Discussed genetic/carrier testing - declined., nl anatomy (5) Diabetes in : Status: Acute Qualifiers: Diabetes in type: pre-existing, type 1 Trimester: second trimester Qualified Code(s): O24.012 - Pre-existing type 1 diabetes mellitus, in , second trimester Comment: [id number]; on Humalog; HgBA1C ordered w/NOB Orders: Orders POC Urinalysis 2 Dip (Clinic) Today 09/28/24 1408 e Velde DO> Date _ Jenny Guerrier DO Cosigner Signature: Date (if applicable) CC: ~ [facility] [id number] Progress note Author Jenny Ervin [facility] Note Date/Time September 28, 2024 2: 08pm [facility] [address] [place] [address], [address] [place] [address] OFFICE VISIT Date of Service: 09/28/24 MR#: [id number] Acct: [id number] Name: ALLISON NGUYEN Rep #: [id number] : 2000 Provider: Dr. Natalie Guerrier DO Age/Sex: 24/F Location[place] [facility] [place] Status: Signed Intake Vital Signs 08/02/24 13:27 08/29/24 13:12 09/28/24 13:42 09/28/24 13:43 Height 5 ft 3 in 5 ft 3 in 5 ft 3 in 5 ft 3 in Weight: 147 lb 3 oz BMI 26.0 BP 109/70 Intake Visit Reasons: 20 wk ob Independent Sales Representative Required: No Is patient in pain?: No [...] 1-2 times per week duration: 15-30 minutes/day ness/amish: Mennonite seatbelt use: always do you feel [...] Acute Comment: insulin pump on humalog, saw [facility] endocrinology, [facility] managing. baseline labs and ekg pending. Nl CMP. HgbA1c 6.1. echo at 22-24wk [facility] BPP wkly and C NST wkly start at 28 wk Growth US Q4wk at 28 wk Del at 37-39 wk (3) Supervision of high-risk : Status: Acute Qualifiers: Trimester: first trimester Qualified Code(s): O09.91 - Supervision of high risk , unspecified, first trimester Comment: [id number] MCKENNA 02/13/25, : Seven (4) : Status: Acute Qualifiers: Weeks of gestation: 20 weeks Qualified Code(s): Z3A.20 - 20 weeks gestation of Comment: Discussed genetic/carrier testing - declined., nl anatomy (5) Diabetes in : Status: Acute Qualifiers: Diabetes in type: pre-existing, type 1 Trimester: second trimester Qualified Code(s): O24.012 - Pre-existing type 1 diabetes mellitus, in , second trimester Comment: [id number]; on Humalog; HgBA1C ordered w/NOB Orders: Orders POC Urinalysis 2 Dip (Clinic) Today 09/28/24 1408 <Electronically signed by Jenny Doran DO> Date _ Jenny Guerrier DO Cosigner Signature: Date (if applicable) CC: ~ [facility] [employer] Work Phone: 1(883) 599-771607-22-2025 Instructions* Patient Instructions* Oscar Olivares, [facility] - 08/30/2024 9:59 AM EDT EDUCATION: Goals [...] sugar 6 times daily. documented in this [id number] History of Present illness Narrative* Oscar Olivares [...] routinely with OBGYN every 3-4 weeks, at [facility]. Patient reports no issues at present. [...] 400 strip 3 glucagon (Baqsimi) 3 mg/actuation [place] Administer 1 (one) spray into one nostril as needed . (Patient not taking: Reported on 06/13/2024 .) 1 each 3 glucagon 1 mg SolR injection Inject 1 mL (1 mg total) under the skin once as needed . 1 each 3 HumaLOG U-100 Insulin 100 unit/mL injection Use with insulin pump, up to 100u per day . 30 mL 2 insulin construction project mgr cart,aut,G6/7,cntr (Omnipod 5 G6-G7 Intro Kt,Gen5,) Crtg [...] medications for this visit. documented in this [id number] NoteSubjective: Allison Nguyen 23 y.o. female being [...] routinely with OBGYN every 3-4 weeks, at [facility]. Patient reports no issues at present. [...] to avoid the complications (more content not included)...[facility]07-21-2025 Evaluation note* Diagnosis Onset Date Resolution Status [...] Supervision of high-risk acute November 21 11:36am [facility] Work Phone: 1(318) 609-299206-27-2025 History of Present illness Narrative* Shyanne Reynolds RN - 08/05/2024 12:58 PM EDT . documented in this [id number] NoteErroneous AUTHENTICATED BY OSCAR OLIVARES, ON 08/05/2024 10:40:02[facility] 08-05-2024 History of Present illness Narrative* Oscar Olivares CNP - 08/05/2024 10:39 AM EDT Erroneous documented in this [id number] [facility] [place] [facility] [place] [facility] Referring Provider Anitra Zamudio MD [address] [place] [phone] ASSESSMENT AND RECOMMENDATIONS The patient comes today for discussion of diabetes and . She is known to be a type 1 diabetic, currently maintained on an Omnipod insulin pump with dexcom G7. This has been managed by [facility] endocrinology outside of . She had been recently seen and was noted to have a Hgb A1c of 5.8%, which is within goal for . She was recently switched from automated delivery to manual mode by her gardener. We discussed options, and it seems it would be best to be in AID mode given she has lows overnight and little access to technology for management for social/yarsanism reasons ([employer], self-pay). I explained to the [...] use: Not Currently Drug (more content not included)...[facility] [id number] Evaluation note* Diagnosis Onset Date Resolution Status [...] of high-risk acute October 24, 2024 2:19pm [facility] [employer] [facility] Work Phone: 1([phone]) 685-339005-14-2025 History of Present illness Narrative* Mike Allred, [...] and has initial visit on 07/05/24 in [place]. This is her 1st . Reported symptoms [...] to . Primary support - Cultural or yarsanism dietary needs - none Diet Recall/Food Records: Food Prep/Grocery Shopping - self Breakfast - Arabic yogurt, granola, scrambled eggs; egg scramble, dimas; [...] she plans to follow with MFM in [place] for management of T1DM during . Patient/Family Education: Learner: patient and Readiness: action - ready to set action plan and implement goals Barriers to Learning: none Method: explanation and handout Response: verbalizes understanding Expected Adherence: good Education Materials Provided: Building a Healthy Eating Routine When You're or (DGA), Healthy Meal Planning handout ([facility]), Sample Meal Plan for GDM, Goal [...] Office [1] Current Outpatient Medications Ordered in [facility] Medication Sig Dispense Refill blood sugar [...] 400 strip 3 glucagon (Baqsimi) 3 mg/actuation [place] Administer 1 (one) spray into one nostril as needed . (Patient not taking: Reported on 06/13/2024 .) 1 each 3 glucagon 1 mg SolR injection Inject 1 mL (1 mg total) under the skin once as needed . 1 each 3 HumaLOG U-100 Insulin 100 unit/mL injection Use with insulin pump, up to 100u per day . 30 mL 2 insulin construction project mgr cart,aut,G6/7,cntr (Omnipod 5 G6-G7 Intro Kt,Gen5,) Crtg [...] 06/13/2024 .) 30 each 3 No current [facility]-ordered facility-administered medications on file. documented in this [id number] Evaluation note* Diagnosis Onset Date Resolution Status Admit Date Diabetes in acute June 14, 2024 10:51am acute June 14, 2024 10:51am Supervision of high-risk a cute June 14, 2024 10:51am Diabetes in acute July 05, 2024 1:03pm Modified White class C pregestational diabetes mellitus acute July 05, 2024 1:03pm acute July 05, 2024 1:03pm Supervision of high-risk a cute July 05, 2024 1:03pm [facility] [employer] [facility] Work Phone: [phone]) [phone] Evaluation note* Diagnosis Onset Date Resolution Status [...] of high-risk acute August 02, 2024 1:16pm [facility] Work Phone: [phone]) [phone] Evaluation note* Diagnosis Onset Date Resolution Status [...] of high-risk acute August 29, 2024 1:07pm [facility] [employer] Work Phone: 1(187) 569-347305-06-2025 Evaluation note* Diagnosis Onset Date Resolution Status [...] Supervision of high-risk acute September 28 1:40pm [facility] Work Phone: [phone]) [phone] Instructions* Patient Instructions* Isabel Garcia CNP - 06/13/2024 10:58 AM EDT Start taking Aspirin 81mg at the start of the second trimester Patient instructed to call PRN with BG outside of goal range <95 pre-meal and <140 1 hour post prandial. documented in this [id number] NoteSubjective: Allison Nguyen 23 y.o. female being seen today for follow up of Type 1 diabetes with . She is at Unknown Patient presents to our office today to report she had a positive test. She reports that she is about 3/4 weeks . We did an A1c in our office today which was 5.8%. She has an appointment tomorrow at [facility] with [facility]. She has been feeling well [...] once she is established tomorrow 06/14/2024 at [facility]. Patient reports no issues at present. [...] in the morning. (more content not included)... [facility]05-05-2025 History of Present illness Narrative* Isabel Garcia [...] 5.8%. She has an appointment tomorrow at [facility] with [facility]. She has been feeling well and denies [...] once she is established tomorrow 06/14/2024 at [facility]. Patient reports no issues at present. [...] the patient's pump download, there was an evening/early childhood aide classroom that the patient was not in automated [...] Viainsulin pump. . 30 mL 11 insulin construction project mgr cart,aut,G6/7,cntr (Omnipod 5 G6-G7 Intro Kt,Gen5,) Crtg Inject 1 Device under the skindaily . 1 each 0 insulin pump cart,auto,BT,G6/7 (Omnipod 5 G6-G7 Pods, Gen 5,) Crtg Inject 1 Device under the skin every 72 hours . 30 each 3 glucagon (Baqsimi) 3 mg/actuation [place] Administer 1 (one) spray into one nostril as needed . (Patient not taking: Reported on 06/13/2024 .) 1 each 3 insulin pump cart,cont inf,BT (Omnipod Dash Pods, Gen 4,) Crtg Use as directed every 3 days . (Patient not taking: Reported on 06/13/2024 .) 30 each 3 No current facility-administered medications for this visit. documented in this [id number] NotePatient ID: Allison Nguyen is a 23 [...] 400 strip 3 glucagon (Baqsimi) 3 mg/actuation [place] Administer 1 (one) spray into one nostril [...] control Patient is c (more content not included)...[facility]01-21-2025 History of Present illness Narrative* Demetrius Ramirez, [...] 400 strip 3 glucagon (Baqsimi) 3 mg/actuation [place] Administer 1 (one) spray into one nostril [...] Negative Exam within last 12 months: yes Principal Research Economist/Semiconductor Assembler: [facility]. Other Ophthalmologic Conditions: None known Nephropathy: Negative [...] None Feet: 12/03/2022 Follows with Podiatry: No Patient Care Representative: History of foot ulceration: No History of [...] Call if BG consistently <70 or >250. [phone] 6. Bring blood sugar meter to follow up appointment. No orders of the defined types were placed in this encounter. Electronically Signed by: Demetrius Ramirez CNP 03/01/24 2:28 PM documented in this [id number] History of Present illness Narrative* Demetrius Ramirez [...] 400 strip 3 glucagon (Baqsimi) 3 mg/actuation [place] Administer 1 (one) spray into one nostril [...] Negative Exam within last 12 months: yes Principal Research Economist/Semiconductor Assembler: [facility]. Other Ophthalmologic Conditions: None known [...] None Feet: 12/03/2022 Follows with Podiatry: No Patient Care Representative: History of foot ulceration: No History of [...] Call if BG consistently <70 or >250. [phone] 6. Bring blood sugar meter to follow up appointment. Orders Placed This Encounter Procedures Comprehensive Metabolic Panel CBC and Differential Hemoglobin A1c Lipid Panel TSH T4, Free Microalbumin/Creatinine Ratio, UR Random Electronically Signed by: Demetrius Ramirez CNP 08/31/23 2:28 PM documented in this [id number] History of Present illness Narrative* Demetrius Ramirez [...] 200 strip 11 glucagon (Baqsimi) 3 mg/actuation [place] Administer 1 (one) spray into one nostril [...] Negative Exam within last 12 months: yes Principal Research Economist/Semiconductor Assembler: [facility]. Other Ophthalmologic Conditions: None known [...] None Feet: 12/03/2022 Follows with Podiatry: No Patient Care Representative: History of foot ulceration: No History of [...] Call if BG consistently <70 or >250. [phone] 6. Bring blood sugar meter to follow up appointment. Orders Placed This Encounter Procedures POC Hemoglobin A1C Electronically Signed by: Demetrius Ramirez CNP 04/24/23 2:28 PM documented in this [id number] Instructions* Patient Instructions* Consuelo Ravi RN - 12/25/2022 11:[address] Steel Nurse- DIEGO Cordero Any questions or concerns please call [phone] THANK YOU FOR VISITING [facility]! Holter Help and Phone Number ROSHAN Meier [phone] [employer] [phone] Date and Time of Study to End Holter Monitor Essentials 1. The device is waterproof. Showers are OKAY 2. Device battery is to last up to 5 days. Anything past 5 days needs to be charged. [employer] Salesperson included in the box. 3. Extra strips are inside of the box. Sensitivity patches will need to be mailed by [employer] if needed. [phone] 4. Please DO NOT return the device to [facility] after the study has been completed. It will be the patient's responsibility to return the device to [facility]. 5. Diary is located in the box. [...] UPS Drop Off Box Locations Number for [facility]: [phone] [place] ST[facility] [address] [place], [address] [address] [place], [address] [place], [address] [facility] STORE # 3055 [address] [place], [address] [facility] [facility] ST[facility] [address] [place], [address] [facility], [address] [facility] [address] [facility], [place], [address] [facility] [address] [place], [address] [facility] & MORE [address], [place], [address] [place] [facility] [address] [place], [address] [facility][id number] [address] [facility] [address] [place], [address] [facility] [address] [facility] [place] [address] [facility] [address] [place], [address] [address] [place], [address] [facility] STORE # [address]167 [address] [place], [address] [facility] [address] [place], [address] CARDIAC STRESS TEST You are scheduled to [...] care team or call our office at [phone]. documented in this [id number] History of Present illness Narrative* Rico Steel MD - 12/25/2022 10:51 AM EST OFFICE CONSULTATION NOTE [facility] [address] ([address]) [facility] [address] [facility] [address] Physicians: Olivia Pruett PA-C (Family); Isabel [...] Cardiovascular: Positive for palpitations. documented in this [id number] History of Present illness Narrative* Isabel Garcia [...] 1 kit 0 glucagon (Baqsimi) 3 mg/actuation [place] Administer 1 (one) spray into one nostril [...] Negative Exam within last 12 months: yes Principal Research Economist/Semiconductor Assembler: [facility]. Other Ophthalmologic Conditions: None known Nephropathy: Negative [...] None Feet: 12/03/2022 Follows with Podiatry: No Patient Care Representative: History of foot ulceration: No History of [...] Call if BG consistently <70 or >250. [phone] 6. Bring blood sugar meter to follow up appointment. Orders Placed This Encounter Procedures Ambulatory referral to Cardiology Electronically signed by Isabel LUNA 12/03/2309:16 AM documented in this [id number] Instructions* Patient Instructions* Isabel Garcia CNP - [...] BG 130 or less. documented in this [id number] History of Present illness Narrative* Isabel Garcia [...] Negative Exam within last 12 months: yes Principal Research Economist/Semiconductor Assembler: [facility], recently. Other Ophthalmologic Conditions: None known Nephropathy: [...] of None Feet: Follows with Podiatry: No Patient Care Representative: History of foot ulceration: No History of [...] Call if BG consistently <70 or >250. [phone] 6. Bring blood sugar meter to follow up appointment. Orders Placed This Encounter Procedures Comprehensive Metabolic Panel Hemoglobin A1c T4, Free TSH Microalbumin/Creatinine Ratio, UR Random POC Hemoglobin A1C Electronically signed by Isabel LUNA 07/16/2309:16 AM documented in this [id number] History of Present illness Narrative* Demetrius Ramirez [...] flash glucose scanning reader (FreeStyle [place] [address] [place]) [facility] Use as directed for glucose monitoring . [...] Negative Exam within last 12 months: yes Principal Research Economist/Semiconductor Assembler: Went to [facility]. Other Ophthalmologic Conditions: None known Nephropathy: Negative [...] of None Feet: Follows with Podiatry: No Patient Care Representative: History of foot ulceration: No History of [...] Call if BG consistently <70 or >250. [phone] Patient has been checking blood glucoses 4 [...] CNP 03/13/22 1:49 PM documented in this [id number] History of Present illness Narrative* Triston Chacon [...] flash glucose scanning reader (FreeStyle [place] 2 [place]) [facility] Use as directed for glucose monitoring . [...] Negative Exam within last 12 months: yes Principal Research Economist/Semiconductor Assembler: Went to [facility]. Other Ophthalmologic Conditions: None known Nephropathy: Negative [...] of None Feet: Follows with Podiatry: No Patient Care Representative: History of foot ulceration: No History of [...] Call if BG consistently <70 or >250. [phone] Patient has been checking blood glucoses 4 [...] encounter. Electronically signed by: Triston Chacon PA-C, [facility] 11/15/21 1:05 PM documented in this [id number] History of Present illness Narrative* Triston Chacon [...] flash glucose scanning reader (FreeStyle [place] 2 [place]) [facility] Use as directed for glucose monitoring . [...] 0.52)* * Growth percentiles are based on [facility] (Girls, 2-20 Years) data. Physical Exam: General: [...] Negative Exam within last 12 months: yes Principal Research Economist/Semiconductor Assembler: Went to [facility]. Other Ophthalmologic Conditions: None known Nephropathy: Negative [...] of None Feet: Follows with Podiatry: No Patient Care Representative: History of foot ulceration: No History of [...] Call if BG consistently <70 or >250. [phone] Patient has been checking blood glucoses 4 [...] Panel Hemoglobin A1c Electronically signed by: Triston Chcaon PA-C, [facility] 07/03/21 10:21 AM documented in this [id number] History of Present illness Narrative* Triston Chacon [...] Negative Exam within last 12 months: yes Principal Research Economist/Semiconductor Assembler: Other Ophthalmologic Conditions: None known Nephropathy: Negative [...] of None Feet: Follows with Podiatry: No Patient Care Representative: History of foot ulceration: No History of [...] Call if BG consistently <70 or >250. [phone] Patient has been checking blood glucoses 4 [...] encounter. Electronically signed by: Triston Chacon PA-C, [facility] 10/31/20 10:40 AM documented in this [id number] Instructions* Patient Instructions* Isabel Garcia, [facility] - 06/27/2020 10:41 AM EDT Contact the [...] to renew/prescribe testing supplies. documented in this [id number] History of Present illness Narrative* Isabel Garcia [...] Lipids completed prior to appt today at [facility] that are stillpending. Hemoglobin A1c: 7.4% in [...] Exam within last 12 months: yes Date: Principal Research Economist/Semiconductor Assembler: Other Ophthalmologic Conditions: None known Nephropathy: Negative [...] foot exam: 06/27/2020 Follows with Podiatry: No Patient Care Representative: History of foot ulceration: No History of [...] Call if BG consistently <70 or >250. [phone] Patient has been checking blood glucoses 4 [...] Isabel LUNA 06/27/2109:38 AM [facility] Diagnosis Type 1 diabetes mellitus [...] stated as uncontrolled [facility] Diagnosis Type 1 diabetes mellitus without complication (HCC)- Primary Type I (juvenile type) diabetes mellitus without mention of complication, not stated as uncontrolled [facility] Diagnosis Type 1 diabetes mellitus without complication (HCC)- Primary Type I (juvenile type) diabetes mellitus without mention of complication, not stated as uncontrolled [facility]* Diagnosis Type 1 diabetes mellitus without complication (HCC)- Primary Type I (juvenile type) diabetes mellitus without mention of complication, not stated as uncontrolled Insulin pump titration Fitting and adjustment of insulin pump [facility] Diagnosis Type 1 diabetes mellitus without complication (HCC)- Primary Type I (juvenile type) diabetes mellitus without mention of complication, not stated as uncontrolled Insulin pump titration Fitting and adjustment of insulin pump Racing heart beat Unspecified tachycardia [facility] Diagnosis Palpitations- Primary Type 1 diabetes mellitus without complication (HCC) Type I (juvenile type) diabetes mellitus without mention of complication, not stated as uncontrolled Racing heart beat Unspecified tachycardia Chest pain, unspecified type [facility] Diagnosis Type 1 diabetes mellitus without complication (HCC)- Primary Type I (juvenile type) diabetes mellitus without mention of complication, not stated as uncontrolled [facility] Diagnosis Type 1 diabetes mellitus without complication (HCC) Type I (juvenile type) diabetes mellitus without mention of complication, not stated as uncontrolled [facility] Diagnosis Type 1 diabetes mellitus without [...] , second trimester [facility] Diagnosis Type 1 diabetes mellitus during in first trimester [facility] Author Radha Juarez [facility] Note Date/Time November 21, 2024 1 1:56am [facility] [address] [place] [address], [address] [place] [address] OFFICE VISIT Date of Service: 11/21/24 MR#: [id number] Acct: [id number] Name: ALLISON NGUYEN Rep #: [id number] : 2000 Provider: ABHAY Juarez Age/Sex: 24/F [place] [facility] Status: Signed Intake Vital Signs 09/28/24 13:43 10/24/24 14:24 11/21/24 11:37 Height 5 ft 3 in 5 ft 3 in 5 ft 3 in Weight: 152 lb 6 oz 159 lb 5 oz BMI 26.9 28.2 BP 97/64 116/73 Intake Visit Reasons: 28wk ob/glucose Chief Complaint: 28wk OB Independent Sales Representative Required: No Is patient in pain?: No [...] 1-2 times per week duration: 15-30 minutes/day ness/amish: Mennonite seatbelt use: always do you feel [...] Monitoring, Signs and Symptoms of Preeclampsia and [place] Education ROS Const Reports system reviewed and [...] Acute Comment: insulin pump on humalog, saw [facility] endocrinology, [facility] managing. baseline labs and ekg pending. Nl CMP. HgbA1c 6.1. echo at 22-24wk [facility] BPP wkly and BWC NST wkly start at 28 wk Growth US Q4wk at 28 wk Del at 37-39 wk (3) Supervision of high-risk : Status: Acute Qualifiers: Trimester: first trimester Qualified Code(s): O09.91 - Supervision of high risk , unspecified, first trimester Comment: [id number] MCKENNA 02/13/25, : Seven (4) : Status: Acute Qualifiers: Weeks of gestation: 28 weeks Qualified Code(s): Z3A.28 - 28 weeks gestation of Comment: Discussed genetic/carrier testing - declined., nl anatomy (5) Diabetes in : Status: Acute Qualifiers: Diabetes in type: pre-existing, type 1 Trimester: second trimester Qualified Code(s): O24.012 - Pre-existing type 1 diabetes mellitus, in , second trimester Comment: [id number]; on Humalog; HgBA1C ordered w/NOB Orders: Orders [...] Cosigner Signature: Date (if applicable) CC: ~ [facility] Work Phone: [facility] for referral (narrative)No reason for referral information availableBlPomona [facility] Work Phone: [employer] for visit Narrative* Evaluate and Treat (Routine) - Closed Specialty Diagnoses / Procedures Referred By Davi batres Referred To Contact Nutrition Diagnoses Type 1 diabetes mellitus during in first trimester Isabel Garcia, [facility] [address] [place] [address] Phone: tel: fax: [facility] [address] [place] [address] Phone: tel: fax: Referral ID Status Reason Start Date Expiration Date Visits Re quested Visits Authorized [id number] Closed 06/13/2024 06/13/2025 1 1 [facility] Assessments Diagnosis Type 1 diabetes mellitus [...] this encounter History of Present Illness * Ruthie Abad PA-C - 02/18/2018 3:13 PM EST Subjective Patient ID: Allison Theodore is a 17 y.o. female. Diabetes She [...] being taken. She does not see a steam setter.Eye exam is not current (08/25). The following [...] 0.61)* * Growth percentiles are based on [facility] (Girls, 2-20 Years) data. BMI: Estimated body [...] referral to Diabetic Educ with use of [employer] Funds to cover expenses. Mom will consider [...] diet: carbohydrate counting patient did meet with health promotion educator one time, on 03/08/2018.They did not [...] within last 12 months: no Date: 08/2016 Principal Research Economist/Semiconductor Assembler: Other Ophthalmologic Conditions: None known * patient [...] foot exam: 06/25/18 Follows with Podiatry: No Patient Care Representative: History of foot ulceration: No History of amputation: No Thyroid: No results found for: TSH, B8BNDGR, N7QTUVM, THYROIDAB Negative Other: Plan: 1. Rx changes: [...] Call if BG consistently <70 or >250. [phone] Patient has been checking blood glucoses 4 [...] 0.70)* * Growth percentiles are based on [facility] (Girls, 2-20 Years) data. Physical Exam: General: [...] diet: carbohydrate counting patient did meet with health promotion educator one time, on 03/08/2018.They did not [...] within last 12 months: no Date: 10/2018 Principal Research Economist/Semiconductor Assembler: Other Ophthalmologic Conditions: None known Nephropathy: Negative [...] foot exam: 06/25/18 Follows with Podiatry: No Patient Care Representative: History of foot ulceration: No History of amputation: No Thyroid: No results found for: TSH, V0OFEYZ, G1KCOUE, THYROIDAB Negative Other: Plan: 1. Rx changes: [...] Omnipod. Patientprovided with contact information for Dexcom, Newspepperipod and medtronic to evaluation options and afforadabillity. [...] Call if BG consistently <70 or >250. [phone] Patient has been checking blood glucoses 4 [...] having frequent hypoglycemia throughout the day andoccasional early childhood aide classroom. Patient states that she has not been [...] 0.68)* * Growth percentiles are based on [facility] (Girls, 2-20 Years) data. Physical Exam: General: [...] -occurring frequently throughout the day and occasionally early childhood aide classroom. NOTES: BG logs were reviewed today. It does appear patient is having frequent hypoglycemia throughout the day and occasional early childhood aide classroom. Patient states that she has not been [...] within last 12 months: no Date: 10/2018 Principal Research Economist/Semiconductor Assembler: Other Ophthalmologic Conditions: None known Nephropathy: Negative [...] foot exam: 06/25/18 Follows with Podiatry: No Patient Care Representative: History of foot ulceration: No History of amputation: No Thyroid: No results found for: TSH, I3QRQXZ, J6WZREM, THYROIDAB Negative Other: Plan: 1. Rx changes: [...] very difficult for them to come into [place] prior to appointment to complete labs. I told patient's mother that they may complete labs day of appointment so that they only need to make one trip to [place] and we would run a hemoglobin A1c [...] Call if BG consistently <70 or >250. [phone] Patient has been checking blood glucoses 4 [...] within last 12 months: no Date: 10/2018 Principal Research Economist/Semiconductor Assembler: Other Ophthalmologic Conditions: None known Nephropathy: Negative [...] foot exam: 06/25/18 Follows with Podiatry: No Patient Care Representative: History of foot ulceration: No History of amputation: No Thyroid: No results found for: TSH, R6DFPXU, R6HIULY, THYROIDAB Negative Other: Plan: 1. Rx changes: [...] Call if BG consistently <70 or >250. [phone] Patient has been checking blood glucoses 4 [...] 0.72)* * Growth percentiles are based on [facility] (Girls, 2-20 Years) data. Physical Exam: General: [...] Lipids completed prior to appt today at [facility] that are stillpending. Hemoglobin A1c: [...] within last 12 months: no Date: 10/2018 Principal Research Economist/Semiconductor Assembler: Other Ophthalmologic Conditions: None known Nephropathy: Negative [...] foot exam: 06/25/18 Follows with Podiatry: No Patient Care Representative: History of foot ulceration: No History of amputation: No Thyroid: No results found for: TSH, R7UHRKN, H9QWCSC, THYROIDAB Negative Other: Plan: 1. Rx changes: [...] very difficult for them to come into [place] prior to appointment to complete labs. We [...] Call if BG consistently <70 or >250. [phone] Patient has been checking blood glucoses 4 [...] 0.74)* * Growth percentiles are based on [facility] (Girls, 2-20 Years) data. Physical Exam: General: [...] Lipids completed prior to appt today at [facility] that are stillpending. Hemoglobin A1c: [...] Exam within last 12 months: no Date: Principal Research Economist/Semiconductor Assembler: Encouraged to get an updated eye exam. [...] foot exam: 02/29/20 Follows with Podiatry: No Patient Care Representative: History of foot ulceration: No History of [...] Call if BG consistently <70 or >250. [phone] Patient has been checking blood glucoses 4 [...] trained by Shyanne Reynolds RN, insulin pump bilingual trainer on the use of the Omni [...] 0.70)* * Growth percentiles are based on [facility] (Girls, 2-20 Years) data. Physical Exam: General: [...] diet: carbohydrate counting patient did meet with health promotion educator one time, on 03/08/2018.They did not [...] within last 12 months: no Date: 08/2016 Principal Research Economist/Semiconductor Assembler: Other Ophthalmologic Conditions: None known * patient [...] foot exam: 06/25/18 Follows with Podiatry: No Patient Care Representative: History of foot ulceration: No History of amputation: No Thyroid: No results found for: TSH, W8IDHYH, Z0QWRRR, THYROIDAB Negative Other: Plan: 1. Rx changes: [...] Call if BG consistently <70 or >250. [phone] Patient has been checking blood glucoses 4 [...] Panel Electronically signed by: Triston Chacon PA-C, [facility] 11/07/18 9:15 PM documented in this encounter Summary Purpose Family History No Family History Records Found Relationship Condition Age at Onset Recorded Date/T javier mother Malignant neoplasm of colon Unknown grandfather Malignant neoplasm of colon Unknown grandfather Malignant neoplasm of prostate Unknown Advance Directives No Advanced Directives Records FoundDocuments on File Type Date Recorded Patient Button Broacher Expl anation Advance Directives and Living Will Documents on File Type Date Recorded Patient Button Broacher Expl anation Advance Directives and Livin g Will 02/29/2020 10:14 AM Reason for Referral Specialty Diagnoses / Procedures Referred By Contac t Referred To Contact Cardiology Diagnoses Type 1 diabetes mellitus without complication (HCC) Racing heart beat Isabel Garcia, [facility] [address] [place] [address] [place] [address] Referral ID Status Reason Start Date Expiration Date V isits Requested Visits Authorized [id number] Authorized 12/03/2022 12/03/2023 1 1 Specialty Diagnoses / Procedures Referred By Contac t Referred To Contact Cardiology Diagnoses Palpitations Chest pain, unspecified type Procedures Extended Holter Monitor (3-7 days) Rico Steel MD [address] [place] [address] Referral ID Status Reason Start Date Expiration Date V isits Requested Visits Authorized [id number] Pending Review 12/25/2022 12/25/2023 1 1 Specialty Diagnoses / Procedures Referred By Contac t Referred To Contact Cardiology Diagnoses Palpitations Chest pain, unspecified type Procedures Stress test only, exercise Rico Steel MD [address] [place] [address] Referral ID Status Reason Start Date Expiration Date V isits Requested Visits Authorized [id number] Pending Review 12/25/2022 12/25/2023 1 1 Chief [...] 24, 2024 2:19pm Supervision of high-risk Alexandrea [facility] 2024 2:19pm Diabetes in November 21, 2024 [...] beat Isabel Garcia CNP [address] [place] [address] Opg pmc [facility] [address] [facility] [place] [address] Referral ID Status Reason Start Date Expiration Date Visits Re quested Visits Authorized [id number] Closed 12/03/2022 12/03/2023 1 1 Reason Onset Date Comments Medication Refill 01/12/2023 Reason Onset Date Comments Medication Refill 01/20/2023 Reason Onset Date Comments Medication Refill 03/12/2023 Reason Comments Diabetes Mellitus Gap Closure (Health Maintenance) Diabeti c Eye Exam Never [id number] due on 04/20/2023 Reason Comments Diabetes Mellitus Gap Closure (Health Maintenance) Diabeti c Eye Exam Never done Reason Comments Type 1 diabetes mellitus without complic ation (HCC) Gap Closure (Health Maintenance) Diabeti c Eye Exam Never done Reason Onset Date Comments Medication Refill 10/07/2024 Reason Onset Date Comments Medication Refill 11/01/2024 INFORMATION SOURCE (unrecogn ized section and content) DATE CREATED AUTHOR 03/25/2018 [facility] DATE CREATED AUTHOR AUTHOR'S ORGANIZ ATION 06/26/[address] [facility] DATE CREATED AUTHOR AUTHOR'S ORGANIZ ATION 08/27/2024 [facility] DATE CREATED AUTHOR AUTHOR'S ORGANIZ ATION 2024 [facility] DATE CREATED AUTHOR AUTHOR'S ORGANIZ ATION 12/10/2024 [facility] DATE CREATED AUTHOR AUTHOR'S ORGANIZ ATION 12/20/2024 [facility] Care Teams (unrecognized sec tion and content) Billet Heater Relationship Specialty Start Date End Date Olivia Pruett PA-C PCP - General Physician Ground Service Equipment Mechanic 06/25/18 Billet Heater Relationship Specialty Start Date End Date Olivia Pruett PA-C PCP - General Physician Ground Service Equipment Mechanic 06/25/18 Billet Heater Relationship Specialty Start Date End Date Olivia Pruett PA-C PCP - General Physician Ground Service Equipment Mechanic 06/25/18 Billet Heater Relationship Specialty Start Date End Date Olivia Pruett PA-C PCP - General Physician Ground Service Equipment Mechanic 06/25/18 Billet Heater Relationship Specialty Start Date End Date Olivia Pruett PA-C PCP - General Physician Ground Service Equipment Mechanic 06/25/18 Billet Heater Relationship Specialty Start Date End Date Olivia Pruett PA-C PCP - General Physician Ground Service Equipment Mechanic 06/25/18 Billet Heater Relationship Specialty Start Date End Date Olivia Pruett PA-C [address] [place] [address] PCP - General Physician Ground Service Equipment Mechanic 06/25/18 Billet Heater Relationship Specialty Start Date End Date Olivia Pruett PA-C [address] [place] [address] PCP - General Physician Ground Service Equipment Mechanic 06/25/18 Billet Heater Relationship Specialty Start Date End Date Olivia Pruett PA-C [address] [place] [address] PCP - General Physician Ground Service Equipment Mechanic 06/25/18 Billet Heater Relationship Specialty Start Date End Date Olivia Pruett PA-C [address] [place] [address] PCP - General Physician Ground Service Equipment Mechanic 06/25/18 Billet Heater Relationship Specialty Start Date End Date Olivia Pruett PA-C [address] [place] [address] PCP - General Physician Ground Service Equipment Mechanic 06/25/18 Billet Heater Relationship Specialty Start Date End Date Olivia Pruett PA-C [address] [facility] [place] [address] PCP - General Physician Ground Service Equipment Mechanic 06/25/18 Billet Heater Relationship Specialty Start Date End Date Olivia Pruett PA-C [address] [place] [id number] PCP - General Physician Ground Service Equipment Mechanic 06/25/18 Team Status: Active Member Role Status [...] 2024 End: August 02, 2024 Leigh Junior FIELD TALENT QUALIFICATION SPECIALIST, FIELD TALENT QUALIFICATION SPECIALIST-C Attending Provider Active Start: August 02, 2024 End: August 02, 2024 Billet Heater Relationship Specialty Start Date End Date Olivia Pruett PA-C [address] [place] [address] PCP - General Physician Ground Service Equipment Mechanic 06/25/18 Team Status: Active Member Role/Relationship Status [...] End: August 02, 2024 Leigh Junior NP, FIELD TALENT QUALIFICATION SPECIALIST-C Attending Provider Active Start: August 02, 2024 [...] August 29, 2024 End: August 29, 2024 Billet Heater Relationship Specialty Start Date End Date Olivia Pruett PA-C [address] [address] PCP - General Physician Ground Service Equipment Mechanic 06/25/18 Team Status: Inactive Member Role/Relationship Status Dates Dr. Olivia Pruett PA-C Primary Care Provider Active Start: September 28, 2024 End: September 28, 2024 Dr. Olivia Purett PA-C Referring Provider Active Start: September 28, 2024 End: September 28, 2024 Dr. Jenny Guerrier DO Attending Provider Activ e Start: September 28, 2024 End: September 28, 2024 Billet Heater Relationship Specialty Start Date End Date Olivia Pruett PA-C [address] [place] [address] PCP - General Physician Ground Service Equipment Mechanic 06/25/18 Billet Heater Relationship Specialty Start Date [place] [address] PCP - General Pediatrics 07/20/24 Billet Heater Relationship Specialty Start Date [place] [address] PCP - General Pediatrics 07/20/24 Team Status: [...] BE BASED ON THE PRIMARY CLINICAL RECORDS. [facility]. provides no warranty or guarantee of the accuracy or completeness of information in this document.
[2025-02-05 10:30] LABS: Hematocrit 39.0 % (37-47); Hemoglobin 13.2 g/dL (12.0-15.0); Immature Granulocytes Count 0.070 X10^3/uL (0.0-0.0); Mean Corp Hgb Conc 33.8 g/dL (32-36); Mean Corpuscular Volume 78.5 fL (81-99); Mean Platelet Vol. 11.4 fl (6.2-12.0); NRBC Flagged by Analyzer 0 % (0-5); Platelet Count 229 K/mm3 (150-450); RBC Distribution Width CV 12.6 % (11.6-14.6); RBC Distribution Width SD 35.6 fl (35.1-43.9); Red Blood Count 4.97 M/mm3 (4.2-5.4); White Blood Count 13.4 K/mm3 (4.4-11.0)
[2025-02-05 10:59] LABS: ROM Internal Control Test YES-OK TO RESULT pt. (Internal QC); ROM Patient Test POSITIVE (Negative); Record Kit Lot#, ROM+ K3607
[2025-02-05] MEDS: Lactated Ringers 1,000 ML 200 ML IV ×2 (11:03→16:48)
[2025-02-05] MEDS: Penicillin G Pot 5,000,000 UNITS in 0.9% Normal Saline (100mL MB+) 100 ML 150 UNITS IV (11:04)
[2025-02-05 11:07] LABS: Syphilis Antibodies Nonreactive (Nonreactive)
--- NOTE | 2025-02-05 11:51 | HP.PCM.OB_ITS ---
HPI - General General Date of Admission: 02/05/25 HPI Narrative DIPAK NGUYEN, is a 24 F who presents w/SROM on 02/05 @ 1630, clear/pink tinged fluid with onset of cramping/ctx shortly after midnight, becoming more regular around 0200. Maternal Data Information MCKENNA Calculator Estimated Delivery Date Method Current WG Current Estimate 02/13/25 LMP (Certain) 38w 6d Other Estimates 02/17/25 Ultrasound #1 38w 2d PFSH PFSH Medical History Diabetes type 1 Home Medications ?Medication ?Instructions ?Recorded ?Last Taken ?Type insulin lispro 100 unit/mL 1 unit continuous subcutane ous 02/05/25 Unknown History subcutaneous solution (Humalog infusion DAILY insulin pump U-100 Insulin) Allergy/AdvReac Type Severity Reaction Status Date / Time acetaminophen (From Tylenol) Allergy Mild Rash Verified 02/05/25 10:07 Family History Mother Colon cancer Grandfather Colon cancer Grandfather Prostate cancer Social History adopted: No household members: spouse housing: house 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 pets and animals: Yes pets and animals: farm animals history of recent travel: [place] ([place]) out of state: Yes out of country: No sexually active: Yes Smoking Status: Never smoker alcohol intake: never substance use type: does not use well-balanced diet: daily or most days caffeine: Yes Type: coffee eating out: rarely or never during the past year weight has: remained stable what type of physical activity do you participate in: walking frequency: 1-2 times per week duration: 15-30 minutes/day ness/judaism: Mennonite seatbelt use: always do you feel safe at home: Yes additional social history: : Seven - Lau/Katie History 1 Elective abortions Hx Para 0 Spontaneous abortions 0 Hx # Term Pregnancies Ectopic pregnancies Hx # Pregnancies Multiple births # of living children Visit Details Expected Delivery Route/Plan needs fu placental location US Labor Preferences- CB/BF classes: no labor support person: Seven labor intervention preferences: [] pain management options preferred: limited cut cord/dad catch: no : yes PP control planned: [] discussed possible routes of delivery and associated risks: [] special requests: [] Plans Covid status: [] Flu vaccine: decline Tdap vaccine: decline Rhogam: na LARC form signed: yes Problem list reviewed and updated with the most current plan of care details and appropriate orders placed. Relevant counseling for the gestational age provided. Continue routine care and follow up unless otherwise noted in visit notes/problem list details OB Flowsheet Initial Weight: Not Recorded Date -?-?-?-?-?-?-?-?-?-?-?-?- EGA Weight BP Urine Prot -?-?-?-?-?-?-?-?-?-?-?-?- Glucose FHR FuHt Pres Dilation -?-?-?-?-?-?-?-?-?-?-?-?- Effaced St Visit Note 07/05/24 -?-?-?-?-?-?-?-?-?-?-?-?- 8w 1d 131 lb 4 oz 111/62 -?-?-?-?-?-?-?-?-?-?-?-?- 140 -?-?-?-?-?-?-?-?-?-?-?-?- SM- no vb crampi ng co nausea nd constipation, labile blood sugars. 08/02/24 -?-?-?-?-?-?-?-?-?-?-?-?- 12w 1d 134 lb 3 oz 105/68 Nega tive -?-?-?-?-?-?-?-?-?-?-?-?- Negative 160 -?-?-?-?-?-?-?-?-?-?-?-?- MH-no VB. Nausea improving. Saw MFM and managing glucose, improved. Br US confirm FHT 08/29/24 -?-?-?-?-?-?-?-?-?-?-?-?- 16w 0d 140 lb 8 oz 108/71 Nega tive -?-?-?-?-?-?-?-?-?-?-?-?- 250 g/dL 165 -?-?-?-?-?-?-?-?-?-?-?-?- KW- no vb/crampi ng. Appt with [facility] on for insulin adjustment. Blood sugars are up and down Has MFM US scheduled. 09/28/24 -?-?-?-?-?-?-?-?-?-?-?-?- 20w 2d 147 lb 3 oz 109/70 Nega tive -?-?-?-?-?-?-?-?-?-?-?-?- Negative 139 -?-?-?-?-?-?-?-?-?-?-?-?- JV- pt has a pre via of the tail end of the placenta over the cervix. we discussed pelvic rest. Patient was running every day and mowing the lawn, etc. We discussed that we can not do these things. Fasting glucose levels are 90's- 110 and she states that her 2 hr pp are not what she wants them to be. SHe has [facility] appt tomorrow to discuss insulin pump. Continue monthly growth scans. will eventually need twice weekly testing starting 28 weeks. 10/24/24 -?-?-?-?-?-?-?-?-?-?-?-?- 24w 0d 152 lb 6 oz 97/64 Nega tive -?-?-?-?-?-?-?-?-?-?-?-?- Negative 140 24 -?-?-?-?-?-?-?-?-?-?-?-?- SM- following [facility] for bs control, us follow up. no vb cramping 11/21/24 -?-?-?-?-?-?-?-?-?-?-?-?- 28w 0d 159 lb 5 oz 116/73 Nega tive -?-?-?-?-?-?-?-?-?-?-?-?- Negative 150 28 -?-?-?-?-?-?-?-?-?-?-?-?- kw- no vb/lof/ct x. good fm. cbc today. has insulin pump. 12/08/24 -?-?-?-?-?-?-?-?-?-?-?-?- 30w 3d 162 lb 3 oz 109/73 Nega tive -?-?-?-?-?-?-?-?-?-?-?-?- Negative 135 -?-?-?-?-?-?-?-?-?-?-?-?- KW- NST only-winsome ctive 12/22/24 -?-?-?-?-?-?-?-?-?-?-?-?- 32w 3d 163 lb 1 oz 110/76 Nega tive -?-?-?-?-?-?-?-?-?-?-?-?- Negative 150 -?-?-?-?-?-?-?-?-?-?-?-?- JV- nst reactive . fasting levels are persistently over 120. pump being managed by mfm. not sent to them to help us optimize levels 12/29/24 -?-?-?-?-?-?-?-?-?-?-?-?- 33w 3d 166 lb 2 oz 112/73 Nega tive -?-?-?-?-?-?-?-?-?-?-?-?- Negative 140 -?-?-?-?-?-?-?-?-?-?-?-?- KV- NST only. Re active. 01/04/25 -?-?-?-?-?-?-?-?-?-?-?-?- 34w 2d 167 lb 8 oz 121/77 Nega tive -?-?-?-?-?-?-?-?-?-?--?-?- Negative 140 33 -?-?-?-?-?-?-?-?-?-?-?-?- MH-reactive NST. Denies VB, CTX. Good FM. FBS now 110, MFM aware and happy with this/continuous glucose monitoring. 01/12/25 -?-?-?-?-?-?-?-?-?-?-?-?- 35w 3d 169 lb 7 oz 120/77 -?-?-?-?-?-?-?-?-?-?-?-?- 135 -?-?-?-?-?-?-?-?-?-?-?-?- KW- NST reactive . has appt with MFM on thursday01/19/25 -?-?-?-?-?-?-?-?-?-?-?-?- 36w 3d 169 lb 8 oz 123/78 Nega tive -?-?-?-?-?-?-?-?-?-?-?-?- Negative 150 36 0 -?-?-?-?-?-?-?-?-?-?-?-?- MH-NST reactive. Good Fm. No VB. Some irreg CTX. GBS 01/26/25 -?-?-?-?-?-?-?-?-?-?-?-?- 37w 3d 171 lb 7 oz 136/80 Nega tive -?-?-?-?-?-?-?-?-?-?-?-?- Negative 140 -?-?-?-?-?-?-?-?-?-?-?-?- KV- Good FM. No regular ctx/LOF/VB. MFM keeping pump settings the same. NST reactive. 02/01/25 -?-?-?-?-?-?-?-?-?-?-?-?- 38w 2d 170 lb 7 oz 127/79 -?-?-?-?-?-?-?-?-?-?-?-?- 145 0 -?-?-?-?-?-?-?-?-?-?-?-?- KV- Good FM. No ctx/LOF/VB. MFM increased carb ratio for 9am. Induction scheduled for Thursday. NST Assessment Assessment Detail: current tracing: FHT: 145, accelerations present, decelerations absent, Moderate variability reactive [place]: Contractions q 4-7 mins, lasting 50 to 120 seconds. Palpates moderate. A/P: Latent labor becoming more active. FHR Category 1. ROS Constitutional Constitutional: Reports systems reviewed and no addt'l complaints, except as documented Cardiovascular Cardiovascular: Reports systems reviewed and no addt'l complaints, except as documented Respiratory/Chest Respiratory/Chest: Reports systems reviewed and no addt'l complaints, except as documented Gastrointestinal Gastrointestinal: Reports systems reviewed and no addt'l complaints, except as documented Genitourinary Genitourinary: Reports systems reviewed and no addt'l complaints, except as documented Musculoskeletal Musculoskeletal: Reports systems reviewed and no addt'l complaints, except as documented Psychiatric Psychiatric: Reports systems reviewed and no addt'l complaints, except as documented Vital Signs Vital Signs Vital Signs: 02/05/25 10:01 02/05/25 10:01 02/05/25 10:01 Temperature Temperature Source Temporal Pulse Rate 78 Respiratory Rate Blood Pressure 127/90 H BP Systolic 127 BP Diastolic 90 Pulse Ox 02/05/25 10:01 02/05/25 10:01 02/05/25 10:01 Temperature 98.6 F Temperature Source Pulse Rate Respiratory Rate 17 Blood Pressure BP Systolic BP Diastolic Pulse Ox 98 Weight Weight: 170 lb Body Mass Index (BMI) 30.1 PRE- weight 131 lb PRE- Body Mass Index 23.2 (BMI) Physical Exam Const alert, oriented x3 and no apparent distress General Appearance: cooperative and comfortable HEENT normocephalic Resp normal respiratory effort Resp Narrative: Respirations eased & unlabored. No s/s of respiratory distress noted. Cardio regular rate and regular rhythm GI normal to inspection, nondistended, normoactive bowel sounds and soft to palpation GI Narrative: Gravid abdomen noted. Manual OB Exam: presentation cephalic, dilated 4cm, effaced 90% and station -1 Skin no rashes or lesions noted Neuro moves all extremities Labs Labs Labs: Blood Type O POSITIVE Antibody Screen NEGATIVE Hct, (37-47) 39.0 % Hgb, (12.0-15.0) 13.2 g/dL Syphilis Total Ab, (Nonreactive) Nonreactive Rubella IgG Antibody, (Nonreactive) REAC Hep Bs Antigen, (Nonreactive) Nonreactive Hepatitis C Antibody, (Nonreactive) Nonreactive Chlamydia DNA (K[place]), (Negative) Negative N.gonorrhoeae DNA ([place]), (Negative) Negative HIV 1&2 Antibody, (Nonreactive) Nonreactive Assessment & Plan (1) GBS (group B Streptococcus carrier), +RV culture, currently : COMMENT: treat in labor (2) 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 Nl CMP. HgbA1c 6.1. echo at 22-24wk- normal MFM BPP wkly and BWC NST wkly start at 28 wk. Growth US Q4wk at 28 wk - 36w0d EFW 6#9oz 60%, AC 90% delivery by 39w (3) : QUALIFIERS: Weeks of gestation: 38 weeks Qualified Code(s): Z3A.38 - 38 weeks gestation of COMMENT: Discussed genetic/carrier testing - declined., nl anatomy (4) Diabetes in : QUALIFIERS: Diabetes in type: pre-existing, type 1 Trimester: second trimester Qualified Code(s): O24.012 - Pre-existing type 1 diabetes mellitus, in , second trimester COMMENT: [id number]; on Humalog; HgBA1C ordered w/NOB PLAN: Plan Patient presents w/[facility], plan expectant management for , pitocin/AROM PRN if needed. Pain management: undecided, leaning towards epidural. GBS positive: plan IV PCN Management of any complications: Type 1 Diabetes on insulin pump - Dr. Saldana to manage insulin/glucose levels while inpatient. Admit to L&D, anticipate . I have reviewed the [facility] and made any clinically relevant updates.
[2025-02-05] MEDS: Lactated Ringers 1,000 ML 999 ML IV ×2 (12:50→20:04)
[2025-02-05] MEDS: fentaNYL-bupivacaine (epidural) 100 ML BAG EPIDURAL ×2 (13:45→18:01)
--- NOTE | 2025-02-05 14:24 | PN.OBGYN_ITS ---
Subjective Subjective Calm, cooperative, resting comfortably now w/epidural in place. Spouse at bedside & supportive. Objective Data Objective Data Vital Signs: Vital Signs Temp Pulse Resp BP Pulse Ox 98.4 F 77 16 136/84 H 99 02/05/25 14:13 02/05/25 14:12 02/05/25 14:13 02/05/25 14:12 02/05/25 14:10 Weight: 170 lb Body Mass Index (BMI) 30.1 Intake & Output: Intake and Output for Last 24 Hours 02/03/25 02/04/25 02/05/25 23:59 23:59 23:59 Intake Total 460 / 460 Balance 460 / 460 Lab / Micro Data Attestation: I reviewed the patient's lab results. 02/05/25 10:15 Labs: Laboratory Results - last 24 hr 02/05/25 10:15: WBC 13.4 H, RBC 4.97, Hgb 13.2, Hct 39.0, MCV 78.5 L, MCH 26.6 L , MCHC 33.8, RDW Std Deviation 35.6, RDW Coeff of Miles 12.6, Plt Count 229, MPV 11.4, Immature Gran % (Auto) 0.500, Neut % (Auto) 81.3 H, Lymph % (Auto) 14.0 L, Gallia % (Auto) 3.7, Eos % (Auto) 0.4, Baso % (Auto) 0.1, Absolute Neuts (auto) 10.9 H, Absolute Lymphs (auto) 1.88, Nucleated RBC % 0, Syphilis Total Ab Nonreactive, Blood Type O POSITIVE, Antibody Screen NEGATIVE 02/05/25 10:40: Vag Amniotic Fld Detect POSITIVE H 02/05/25 11:18: POC Glucose 111 H Physical Exam Const alert, oriented x3 and no apparent distress General Appearance: cooperative, comfortable and well kempt Manual OB Exam: presentation cephalic, dilated 5cm, effaced 90%, station - 1 and other bloody show present. Assessment & Plan (1) : QUALIFIERS: Weeks of gestation: 38 weeks Qualified Code(s): Z 3A.38 - 38 weeks gestation of COMMENT: Discussed genetic/carrier testing - declined., nl anatomy (2) Diabetes in : QUALIFIERS: Diabetes in type: pre-existing, type 1 T rimester: second trimester Qualified Code(s): O24.012 - Pre-existing type 1 diabetes mellitus, in , second trimester COMMENT: [id number]; on Humalog; HgBA1C ordered w/NOB (3) GBS (group B Streptococcus carrier), +RV culture, currently : COMMENT: treat in labor PLAN: Plan current tracing: FHT: 130, accelerations present, decelerations absent, Moderate variability reactive, category I tracing [place]: contractions q 3 mins, lasting 60 to 120 seconds. Palpates moderate to strong. A/P: Active labor w/minimal progress. Baby Asynclitic. will start Pitocin. Dr. Saldana updated.
[2025-02-05] MEDS: Oxytocin 15 Units/NS 250ml 15 UNITS/250 ML IV.SOLN 2 UNITS IV (15:04)
[2025-02-05] MEDS: Penicillin G 3,000,000 Units 50 ML 100 UNITS IV ×2 (15:04→18:46)
[2025-02-05] MEDS: INSULIN PUMP (SELF-ADMIN/POM) 1 EACH NOTE (15:05)
--- NOTE | 2025-02-05 21:32 | EX.PCM.OBVAG ---
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 Nl CMP. HgbA1c 6.1. echo at 22-24wk- normal MFM BPP wkly and BWC NST wkly start at 28 wk. Growth US Q4wk at 28 wk - 36w0d EFW 6#9oz 60%, AC 90% delivery by 39w (3) Supervision of high-risk : QUALIFIERS: Trimester: third trimester Qualified Code(s): O09.93 - Supervision of high risk , unspecified, third trimester COMMENT: [id number] MCKENNA 02/13/25, : Seven (4) : QUALIFIERS: Weeks of gestation: 38 weeks Qualified Code(s): Z3A.38 - 38 weeks gestation of COMMENT: Discussed genetic/carrier testing - declined., nl anatomy (5) Diabetes in : QUALIFIERS: Diabetes in type: pre-existing, type 1 Trimester: second trimester Qualified Code(s): O24.012 - Pre-existing type 1 diabetes mellitus, in , second trimester COMMENT: [id number]; on Humalog; HgBA1C ordered w/NOB Maternal Data Information MCKENNA Calculator Estimated Delivery Date Method Current WG Current Estimate 02/13/25 LMP (Certain) 38w 6d Other Estimates 02/17/25 Ultrasound #1 38w 2d Final MCKENNA: 02/13/25 Final MCKENNA Source: LMP Gestational age: 38 weeks 6 days Doctor Who Attended Delivery: Jenny Samano CNM who managed labor up until delivery: brit rosa Vaginal Delivery Maternal Presentation Maternal Presentation: Active Labor Type of Induction: Pitocin Vaginal Delivery Information Procedure Performed: Vacuum Assisted Vaginal Delivery Station at time of placement: +3 Number of vacuum pulls: 4 Number of vacuum pop offs: 3 (3 initial pop offs, then after more pushing another try with the vacuum resulted in a 4th pop off. The baby had a lot of hair resulting in lack of adequate suction. ) Surgeon/Practitioner: Jenny Guerrier Estimated Blood Loss: 400cc Time of Delivery: 21:11 Findings Description of procedure: The patient presented to labor and delivery with spontaneous rupture of membranes. Pitocin was used to augment her labor and she progressed to complete. She began pushing and the tracing showed minimal variability. She pushed for an hour and 45 minutes and workers compensation examiner Samantha Rosa asked for my assistance. Upon arrival to labor and delivery of the station was noted to be between 2+ and 3+ station. Perineum was found to be intact. The patient was counseled on the risk benefits and alternatives of vacuum extraction and the reason being due to minimal variability and arrest of descent. The head was noted to have a marked amount of hair present. Patient was warned that the vacuum may not suction well due to the amount of hair. The Kiwi vacuum was placed on the head and during a contraction the patient was asked to push the vacuum was pulled in the usual fashion and immediately popped off before a good descent was achieved. A medial lateral episiotomy was performed. Th the vacuum application was performed 2 more times, both with immediate pop-off's due to lack of suction. The new Mara was then used however on the third attempt, and the station did move some. The patient instructed to continue pushing. She did so in the supine position with her legs flexed. After several more pushes the decision was made to try a different angle with the vacuum. The Kiwi vacuum was placed on the infant's head at a +3 station and pulled downward versus upward. This was able to deliver most of the head however the vacuum again popped off due to lack of suction from the hair on the head. The patient became nauseous and was rolled to her left side to vomit. While vomiting the head delivered more and she was rolled to her back at this time the head delivered completely however a shoulder dystocia was noted. At nuchal cord was noted around the head and during an attempt to reduce due to the It on the head the cord avulsed. The posterior shoulder was quickly identified and was 1 pull under the infants posterior axilla, the infant was delivered. The cord was clamped quickly and the infant was handed off to the waiting assurance manager insurance. The infant was noted to be crying and moving of all 4 extremities. The first score was a 5. A second-degree perineal laceration was identified and repaired using a 2-0 Vicryl in the usual sterile fashion. The patient tolerated the procedure well sponge lap needle counts were correct x 2 she is now recovering well in stable condition the final scores were 5 and 9. Procedure findings: Viable female scores 5 and 9 (the does not have anemia at this time) Presentation: Vertex Amniotic Membrane Rupture Type: Spontaneous Amniotic Fluid Description: Clear Placental Delivery Description: Spontaneous Placenta Disposition: [facility] Specimen collected: No Cord Vessel Description: 3 Vessels Cord Entanglement: Around neck x 1, tight Nuchal Cord Compression: Without compression Cord Gases: ABG and VBG Infant A Gender: Female (1 minute): 5 (5 minute): 9 Delayed Cord Clamping: No Long Chain Dyeing Machine Operator transport corps officer: No Post Vaginal Deli Medications given after delivery: IV Pitocin Episiotomy Description: 2nd degree Laceration: 2nd degree Complication Complications: No Multi Select Codes Urinary/Genital Urinary/Genital CPT Codes: 02085 Vaginal Delivery [facility]
[2025-02-05] MEDS: 0.9% Saline Lock 10 ML Syringe IV (21:42)
--- NOTE | 2025-02-05 21:47 | DCINST_ITS ---
Discharge Instructions DC O2, CPAP, BIPAP needs Home O2 Discharge instructions: No Dressing / Incision Discharge Activity: Return to Normal Activity, May Not Drive (while taking narcotic pain medications.) and May Shower May resume sexual activity in: 4-6 weeks Dressing / Incision Call your doctor if your incision/area has: Continuous Slow Oozing, Sudden Increased Bleeding, Increased Pain/ Swelling, Increased Redness and Foul Smelling Discharge Follow Up Care Please Follow Up With: Jenny Guerrier, When: Call [phone] to make an appointment with your doctor in 6 weeks. If you had elevated blood pressure or 4th degree laceration, you will need to be seen in 2 weeks. Test Results: Test results from this visit will be discussed in further detail at your follow- up appointment, if applicable. Discharge Plan Admission Admit Date/Time: 02/05/25 09:53 Primary Reason for Your Visit: vaginal delivery Attending Provider: Jenny Guerrier Primary Care Provider: Arvind Holliday Discharge Orders/Prescriptions Prescriptions: Continued insulin lispro [Humalog U-100 Insulin] 100 unit/mL solution 1 unit continuous subcutaneous infusion DAILY Referrals / Follow Up: Arvind Holliday PA-C [Primary Care Provider, Medical] Disposition Disposition (needs filled in before D/C Order can be placed): Home, Self Care
[2025-02-05] MEDS: Oxytocin 15 Units/NS 250ml 15 UNITS/250 ML IV.SOLN 83 UNITS IV (22:10)
[2025-02-06] VITALS (42 sets, daily range): BP systolic 106–159; BP diastolic 58–85; PULSE 70–94; RESP 16–17; TEMP 36.7–37; O2SAT 16–98
--- NOTE | 2025-02-06 07:40 | PN.OBGYN_ITS ---
Subjective Subjective Patient doing well without complaints. Tolerating PO. Ambulating and voiding without difficulty. infant feeding well. Denies chest pain, shortness of breath, calf pain/swelling, fevers, chills, lightheadedness. Objective Data Objective Data Vital Signs: Vital Signs Temp Pulse Resp BP Pulse Ox O2 Del Method 98.0 F 71 17 109/63 16 Room Air 02/05/25 23:57 02/06/25 06:14 02/06/25 05:07 02/06/25 06:14 02/06/25 05:07 02/06/25 05:07 Oxygen Delivery Method Room Air Weight: 170 lb Body Mass Index (BMI) 30.1 Intake & Output: Intake and Output for Last 24 Hours 02/04/25 02/05/25 02/06/25 23:59 23:59 23:59 Intake Total 3654.50 / 3654.50 228.25 / 228.25 Output Total 950 / 950 Balance 2704.50 / 2704.50 228.25 / 228.25 Lab / Micro Data 02/05/25 10:15 Labs: Laboratory Results - last 24 hr 02/05/25 10:15: WBC 13.4 H, RBC 4.97, Hgb 13.2, Hct 39.0, MCV 78.5 L, MCH 26.6 L , MCHC 33.8, RDW Std Deviation 35.6, RDW Coeff of Miles 12.6, Plt Count 229, MPV 11.4, Immature Gran % (Auto) 0.500, Neut % (Auto) 81.3 H, Lymph % (Auto) 14.0 L, Knott % (Auto) 3.7, Eos % (Auto) 0.4, Baso % (Auto) 0.1, Absolute Neuts (auto) 10.9 H, Absolute Lymphs (auto) 1.88, Nucleated RBC % 0, Syphilis Total Ab Nonreactive, Blood Type O POSITIVE, Antibody Screen NEGATIVE 02/05/25 10:40: Vag Amniotic Fld Detect POSITIVE H 02/05/25 11:18: POC Glucose 111 H 02/05/25 12:47: POC Glucose 79 02/05/25 13:57: POC Glucose 90 02/05/25 15:20: POC Glucose 96 02/05/25 16:25: POC Glucose 101 02/05/25 17:34: POC Glucose 94 02/05/25 18:38: POC Glucose 106 02/05/25 19:27: POC Glucose 115 H 02/05/25 20:47: POC Glucose 110 H 02/05/25 21:37: POC Glucose 122 H 02/05/25 22:23: POC Glucose 117 H ROS Constitutional Constitutional: Reports systems reviewed and no addt'l complaints, except as documented Cardiovascular Cardiovascular: Reports systems reviewed and no addt'l complaints, except as documented Respiratory/Chest Respiratory/Chest: Reports systems reviewed and no addt'l complaints, except as documented Gastrointestinal Gastrointestinal: Reports systems reviewed and no addt'l complaints, except as documented Physical Exam Const alert, oriented x3 and no apparent distress HEENT Head and Scalp: atraumatic Resp normal respiratory effort GI soft to palpation and non-tender Bimanual Exam - Vag & Uterus: uterus non-tender Uterus Palpation: uterus fundus firm (below Umbilicus) Assessment & Plan (1) Vaginal delivery: COMMENT: JV girl vacuum assisted, shoulder dystocia PLAN: Plan s/p vaVD PPD # 1 1. routine post delivery care 2. breast feeding- support given 3. rh positive 4. rubella immune diabetes- pump htn- labetalol
[2025-02-06] MEDS: INSULIN PUMP (SELF-ADMIN/POM) 1 EACH NOTE ×3 (08:00→21:45)
[2025-02-06] MEDS: GLYCERIN/WITCH HAZEL (TUCKS) MED..PAD 1 EACH TOPICAL (09:17)
[2025-02-06] MEDS: Benzocaine/Lanolin/Aloe Vera 85 GM Spray 1 SPRAY TOPICAL (09:17)
[2025-02-06] MEDS: SELF ADMINISTRATION OF MEDS 1 EACH NOTE (10:07)
[2025-02-07] MEDS: SELF ADMINISTRATION OF MEDS 1 EACH NOTE
[2025-02-07 02:39] VITALS: BP 127/86; PULSE 89; RESP 16; TEMP 36.6; O2SAT 96
[2025-02-07 06:45] VITALS: BP 127/91
--- NOTE | 2025-02-07 07:56 | PN.OBGYN_ITS ---
Subjective Subjective Patient doing well without complaints. Tolerating PO. Ambulating and voiding without difficulty. Feeding well. Denies chest pain, shortness of breath, calf pain/swelling, fevers, chills, lightheadedness. Objective Data Objective Data BPs in range and discussed taking BPs at home with patient. will take daily and call office in one week with numbers. call sooner if 140/90 or higher Vital Signs: Vital Signs Temp Pulse Resp BP Pulse Ox O2 Del Method 97.9 F 89 16 127/91 H 96 Room Air 02/07/25 02:39 02/07/25 02:39 02/07/25 02:39 02/07/25 06:45 02/07/25 02:39 02/07/25 02:39 Oxygen Delivery Method Room Air Weight: 170 lb Body Mass Index (BMI) 30.1 Intake & Output: Intake and Output for Last 24 Hours 02/05/25 02/06/25 02/07/25 23:59 23:59 23:59 Intake Total 3654.50 / 3654.50 228.25 / 228.25 Output Total 950 / 950 Balance 2704.50 / 2704.50 228.25 / 228.25 Lab / Micro Data Attestation: I reviewed the patient's lab results. 02/05/25 10:15 ROS Constitutional Constitutional: Reports systems reviewed and no addt'l complaints, except as documented; Denies anorexia or headache(s) Cardiovascular Cardiovascular: Reports systems reviewed and no addt'l complaints, except as documented; Denies dizziness, dyspnea, nausea or tachypnea Respiratory/Chest Respiratory/Chest: Reports systems reviewed and no addt'l complaints, except as documented; Denies cough, dyspnea, shortness of breath at rest or tachypnea Gastrointestinal Gastrointestinal: Reports systems reviewed and no addt'l complaints, except as documented; Denies abdominal pain, constipation or nausea Genitourinary Genitourinary: Reports systems reviewed and no addt'l complaints, except as documented; Denies burning urination, difficulty urinating, dysuria, urinary frequency or urinary incontinence Musculoskeletal Musculoskeletal: Reports systems reviewed and no addt'l complaints, except as documented Integumentary Integumentary: Reports systems reviewed and no addt'l complaints, except as documented Neurologic Neurologic: Reports systems reviewed and no addt'l complaints, except as documented; Denies abnormal speech, dizziness or headache(s) Psychiatric Psychiatric: Reports systems reviewed and no addt'l complaints, except as documented Endocrine Endocrinology: Reports systems reviewed and no addt'l complaints, except as documented Hematologic/Lymphatic Hematologic/Lymphatic: Reports systems reviewed and no addt'l complaints, except as documented Physical Exam Const alert, oriented x3 and no apparent distress Neck full ROM Resp normal respiratory effort, normal air movement and no retractions Effort and Inspection: able to speak in complete sentences and symmetric chest movement GI soft to palpation Bladder / Kidney Exam: bladder normal to palpation Uterus Palpation: uterus fundus firm Extremity normal to inspection and full ROM Psych mental status grossly normal, thought process normal and cooperative Assessment & Plan (1) Vaginal delivery: COMMENT: JV girl vacuum assisted, shoulder dystocia PLAN: s/p PPD # 2 1. routine post delivery care 2. breast feeding- support given 3. rh positive 4. rubella immune 5. 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 Nl CMP. HgbA1c 6.1. echo at 22-24wk- normal MFM BPP wkly and BWC NST wkly start at 28 wk. Growth US Q4wk at 28 wk - 36w0d EFW 6#9oz 60%, AC 90% delivery by 39w (4) Supervision of high-risk : QUALIFIERS: Trimester: third trimester Qualified Code(s): O09.93 - Supervision of high risk , unspecified, third trimester COMMENT: [id number] MCKENNA 02/13/25, : Seven (5) : QUALIFIERS: Weeks of gestation: 38 weeks Qualified Code(s): Z 3A.38 - 38 weeks gestation of COMMENT: Discussed genetic/carrier testing - declined., nl anatomy (6) Diabetes in : QUALIFIERS: Diabetes in type: pre-existing, type 1 T rimester: second trimester Qualified Code(s): O24.012 - Pre-existing type 1 diabetes mellitus, in , second trimester COMMENT: [id number]; on Humalog; HgBA1C ordered w/NOB Charges/Coding Multi Select Codes Urinary/Genital Urinary/Genital CPT Codes: No Charge
--- NOTE | 2025-02-07 07:59 | PCM.DC.SUM ---
Providers Date of Admission: 02/05/25 Date of Discharge: 02/07/25 Primary Care Physician: Arvind Holliday PA-C Reason For Visit: VAG Diagnosis Discharge Diagnosis (1) Vaginal delivery: Status: Acute Code(s): O80 - Encounter for full-term uncomplicated delivery Plan: s/p PPD # 2 1. routine post delivery care 2. breast feeding- support given 3. rh positive 4. rubella immune 5. 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919 - Unspecified diabetes mellitus in , unspecified trimester Qualifiers: Diabetes in type: pre-existing, type 1 Trimester: second trimester Qualified Code(s): O24.012 - Pre-existing type 1 diabetes mellitus, in , second trimester Medications at Discharge Home Medications insulin lispro 100 unit/mL subcutaneous solution (Humalog U-100 Insulin) 1 unit continuous subcutaneous infusion DAILY insulin pump 02/05/25 Hospital Course Operations None Procedures None Summary of Care Provided Minutes Spent on Discharge: 30 Physical Exam Const alert, oriented x3 and no apparent distress Neck full ROM Resp normal respiratory effort, normal air movement and no retractions Effort and Inspection: able to speak in complete sentences and symmetric chest movement GI soft to palpation Inspection: incision intact Bladder / Kidney Exam: bladder normal to palpation Uterus Palpation: uterus fundus Extremity normal to inspection and full ROM Psych mental status grossly normal, thought process normal and cooperative Weight / BMI Weight Weight: 170 lb Body Mass Index (BMI) 30.1 PRE- weight 131 lb PRE- Body Mass Index 23.2 (BMI) ABG / Lab / Microbiology Data 02/05/25 10:15 D/C Instructions May shower in (days): 0 May resume sexual activity in: 4-6 weeks Weight Bearing Status: Full weight bearing Call your doctor if your incision/area has: Continuous Slow Oozing, Sudden Increased Bleeding, Increased Pain/ Swelling, Increased Redness and Foul Smelling Discharge Call your doctor if you observe: Fever of 101 or Higher and Using more than 1 pad per hour (for 2 hours) Suture Line Care: Avoid Pulling/Pushing and Avoid Pinching/Bending Cleanse incision/area with: Soap & Water and Keep Dressing Clean & Dry DC O2, CPAP, BIPAP Needs Home O2 Discharge instructions: No Please Follow Up With: Jenny Guerrier, When: Call [phone] to make an appointment with your doctor in 6 weeks. If you had elevated blood pressure or 4th degree laceration, you will need to be seen in 2 weeks. Meaningful Use Info Meaningful Use Meaningful Use Diagnoses (Choose all that apply): None applicable Discharge Plan Admission Admit Date/Time: 02/05/25 09:53 Primary Reason for Your Visit: vaginal delivery Attending Provider: Jenny Guerrier Primary Care Provider: Arvind Holliday Discharge Orders/Prescriptions Prescriptions: Continued insulin lispro [Humalog U-100 Insulin] 100 unit/mL solution 1 unit continuous subcutaneous infusion DAILY Referrals / Follow Up: rAvind Holliday PA-C [Primary Care Provider, Medical] Disposition Disposition (needs filled in before D/C Order can be placed): Home, Self Care Charges/Coding Multi Select Codes Urinary/Genital Urinary/Genital CPT Codes: No Charge
[2025-02-07 08:30] VITALS: BP 132/80; PULSE 82; RESP 16; TEMP 36.8
--- NOTE | 2025-02-11 16:48 | NURSING ---
follow phone call made. Patient is doing well. Denies any questions about discharge instructions. is and doing well. Patients states that has gained an ounce since discharge. Patient has scales at home.
== END 2025-02-07 10:20 | disposition home or self-care (01) | DRG 805 ==
PROVIDERS: Midwife; Admitting Provider Obstetrics & Gynecology; PCP Physician Assistant; Visit Provider Obstetrics & Gynecology
DX: O32.4XX0 Maternal care for high head at term, not applicable or unspecified (principal); Z37.0 Single live birth; O24.02 Pre-existing type 1 diabetes mellitus, in childbirth; O99.824 Streptococcus B carrier state complicating childbirth; Z96.41 Presence of insulin pump (external) (internal); Z3A.38 38 weeks gestation of pregnancy; O66.0 Obstructed labor due to shoulder dystocia; O70.1 Second degree perineal laceration during delivery; O69.1XX0 Labor and delivery complicated by cord around neck, with compression, not applicable or unspecified
CPT/HCPCS: 59025; 59050; 82962; 84112; 85025; 86780; 86850; 86900; 86901; 99221; A4216; G0378; J2405